=== PATIENT | female | born 1950 | race Caucasian/White ===

== ENCOUNTER 2017-03-27 21:43 | Emergency (ER) | payer MEDICARE, OTHER, SELFPAY ==
[2017-03-27 21:45] VITALS: BP 133/70; PULSE 71; RESP 16; TEMP 36.6; O2SAT 97
--- NOTE | 2017-03-27 22:22 | CT_ITS ---
STUDY: CT ABDOMEN AND PELVIS WITH CONTRAST REASON FOR EXAM: Female, 66 years old. Right abdominal pain, low back pain RADIATION DOSAGE (If Supplied By Facility): CTDIvol = ( 16.46 ) mGy, DLP = ( 937.95 ) mGycm TECHNIQUE: Transaxial images were obtained from the dome of the diaphragm to the symphysis pubis without oral contrast. 100ML ml of Isovue 300 contrast was administered. Sagittal and coronal images were reconstructed. Individualized dose optimization techniques were used for this CT. COMPARISON: None. FINDINGS: The visualized lung bases are unremarkable. The visualized portions of the heart are within normal limits. Normal liver. Normal gallbladder and extrahepatic biliary system. Normal spleen. Normal pancreas. Normal bilateral adrenal glands. Normal right kidney. 1.4 cm cystic nodule in the left kidney. Normal visualized stomach. Normal small intestine. Mild diverticulosis of the colon. The appendix is visualized and appears normal. Calcified abdominal aorta. Normal inferior vena cava. Normal retroperitoneum. Subcentimeter mesenteric nodes are noted. Normal urinary bladder. Normal uterus. Normal abdominal wall. Normal osseous structures. CT/Abdomen/Pelvis W IV Cont ONLY IMPRESSION: Small left renal cystic nodule. Mild colonic diverticulosis. Electronically Signed: Pieter Sanchez DO at 23:23 EST Tel [phone], Service support ,
[2017-03-27] MEDS: Ondansetron 4 MG/2 ML Vial IV (22:34)
[2017-03-27] MEDS: 0.9% Normal Saline 1,000 ML 125 ML IV (22:34)
[2017-03-27 22:45] LABS: Bacteria 0 SEEN /hpf (None Seen); Mucous, Urine 0 SEEN /hpf (<or=2+)
[2017-03-27 22:48] LABS: Absolute Lymphocyte Count 2.36 X10^3/ul (0.83-4.51); Absolute Neutrophil Count 8.9 X10^3/uL (2.0-7.7); Basophil# 0.04 X10^3/uL; Basophil% 0.3 % (0-1); Eosinophil# 0.22 X10^3/uL; Eosinophils% 1.7 % (0-5); Hematocrit 38.7 % (37-47); Hemoglobin 12.6 g/dl (12.0-15.0); Lymphocyte # 2.36 X10^3/ul (4.0); Lymphocyte % 18.4 % (19-41); Mean Corp Hgb Conc 32.6 g/gl (32-36); Mean Corpuscular Hgb 29.9 pg (27.0-32.0); Mean Corpuscular Volume 91.9 fL (81-99); Monocyte# 1.29 X10^3/uL; Neutrophil # 8.92 X10^3/uL (2.7-7.7); Neutrophil % 69.4 % (47-70); Platelet Count 277 K/mm3 (150-450); RBC Distribution Width CV 12.9 % (11.6-14.6); RBC Distribution Width SD 43.4 fl (35.1-43.9); Red Blood Count 4.21 M/mm3 (4.2-5.4); White Blood Count 12.9 K/mm3 (4.4-11.0)
[2017-03-27 22:49] LABS: POSITIVE COUNT NO; POSITIVE DIFFERENTIAL NO; POSITIVE MORPHOLOGY NO
[2017-03-27 22:56] LABS: Color, Urine Yellow (Yellow); Glucose, Dipstick Normal (Normal); Ketone-Dipstick Negative (Negative); Leukocyte Esterase-Dipstick 100 /ul (Negative); Nitrite-Dipstick Negative (Negative); Occult Blood-Urine 25 /ul (Negative); Protein-Dipstick Negative (Negative); Specific Gravity, Urine 1.015 (1.002-1.030); Urine Bilirubin Dipstick Negative (Negative); Urine Clarity Clear (Clear); Urine Urobilinogen Normal (Normal)
[2017-03-27 23:03] LABS: Red Blood Cells-Urine 0-5 SEEN /hpf (0-5); Squamous Epithelial Cells - UA 0-5 SEEN /hpf (5-10); White Blood Cells 0-5 SEEN /hpf (0-5)
[2017-03-27 23:10] LABS: AST(SGOT) 11 U/L (15-37); Alanine Aminotransfer ALT/SGPT 19 U/L (12-78); Albumin, Serum 3.8 g/dL (3.4-5.0); Alkaline Phosphatase 64 U/L (45-117); Anion Gap 10 (5-15); BUN 19 mg/dL (7-18); BUN/Creat Ratio 17.3 RATIO (10-20); Calcium,Total 8.9 mg/dL (8.5-10.1); Chloride 101 mmol/L (98-107); EST Glomerular Filtration Rate 53 mL/min (>60); Est Glom Filt Rate - Afr Amer 64 mL/min (>60); Estimated Creatinine Clearance 43.44 ml/min; Globulin 3.8 g/dL (2.2-4.2); Glucose 135 mg/dL (70-110); Lactic Acid 1.6 mmol/L (0.4-2.0); Lipase 229 U/L (73-393); Potassium 3.9 mmol/L (3.5-5.1); Protein, Total 7.6 g/dL (6.4-8.2); Sodium Level 137 mmol/L (136-145)
--- NOTE | 2017-03-27 23:40 | ED.DCSUM_ITS ---
- ER Visit Summary Date of Service: 03/27/17 Chief Complaint: Abdominal pain History of Present Illness: The patient is a 66 F who states for the past 2-3 days she has had a right-sided abdominal pain. States it goes into her back and wraps around. Moderate nature it is a dull ache. She has had nausea and slight diarrhea. She had a colonoscopy that was negative the past however last year she had a bout of diverticulitis. Physical Examination: Febrile vital signs are stable Gen: Well-nourished well-developed Head: Normocephalic atraumatic Eyes: Perrl EOMI ENT: TMs clear no rhinorrhea moist mucous membranes Neck: Supple no lymphadenopathy no JVD nontender CVS: Regular rate rhythm no murmurs normal S1-S2 Respiratory: No distress clear to auscultation bilaterally chest nontender Abdomen: Soft tender to palpation on the right upper middle and lower quadrants without guarding or rebound nondistended normal bowel sounds no masses Back: Nontender Extremity: Nontender no edema Skin: Normal color no rash Neuro: alert orientated ?3 CN II-XII intact normal strength sensation reflexes gait cerebellar Psych: Normal affect normal mood Test Results: Count of 12.9. BUN 19 creatinine 1.1. Liver lipase normal. Lactic acid 1.6. CT of abdomen pelvis did not show an obvious cause for the patient's symptoms. A bedside ultrasound was performed of the gallbladder and she is not tender over the gallbladder. Emergency Department Course and Treatment: Patient will be discharged home with supportive care. She continues to have symptoms or is worsening she will need to return here for repeat examination as it is the weekend. Otherwise she may follow-up with her doctor next week. Impression: 1. Acute abdominal pain This note was generated with [email or web address] dictation software. It may contain incorrect words, spelling, and punctuation that were not noted in review of the chart prior to signing ED Disposition - Plan for ED Patient: Disposition: Home or Assisted Living Chief Complaint: Abd Pain Instructions: ED Abdominal Pain Unkn Cause Referrals: Yon Preciado DO [Primary Care Provider] - 3-5 Days if not improving Additional Instructions: If any new symptoms or you are worsening please return to the emergency department.
[2017-03-27 23:55] VITALS: BP 137/69; PULSE 68; RESP 16; O2SAT 97
== END 2017-03-27 23:56 | disposition home or self-care (01) ==
PROVIDERS: Emergency Provider Emergency Medicine; Family Provider Family Medicine; PCP Family Medicine
DX: R10.9 Unspecified abdominal pain (principal); E66.9 Obesity, unspecified; M54.9 Dorsalgia, unspecified; R19.7 Diarrhea, unspecified; R11.0 Nausea; J34.89 Other specified disorders of nose and nasal sinuses; I10 Essential (primary) hypertension; M79.7 Fibromyalgia; Z87.891 Personal history of nicotine dependence
CPT/HCPCS: 74176; 80053; 81001; 83605; 83690; 85025; 96361; 96374; 99283; J7030; Q9967; A4216; J2405

== ENCOUNTER → 2017-04-23 16:31 | Outpatient (CLI) | payer MEDICARE, OTHER, SELFPAY ==
--- NOTE | 2017-04-23 16:38 | RAD_ITS ---
XR Chest 2 Views INDICATION: cough COMPARISON: None FINDINGS: Heart size and pulmonary vascularity are within normal limits. The lungs are clear without evidence of airspace consolidation or pleural effusion. The osseous structures are grossly unremarkable. RAD/Chest PA and Lateral IMPRESSION: No radiographic evidence of acute intrathoracic disease. at 2042 Reported and signed by: Helen Patricia MD Electronically Signed: Helen Patricia MD at 19:41 EST Tel , Service support ,
== END ==
PROVIDERS: Family Provider Family Medicine; PCP Family Medicine; Visit Provider Family Medicine
DX: J18.9 Pneumonia, unspecified organism (principal)
CPT/HCPCS: 71046

== ENCOUNTER → 2017-05-14 12:42 | Outpatient (CLI) | payer MEDICARE, OTHER, SELFPAY ==
--- NOTE | 2017-05-20 11:47 | UEAS_ITS ---
Arterial Study - Arterial Study Arterial Study: Date of scan 05/14/[address] Norwood Interpretation: Right upper extremity with normal pulsatile flow up in the upper arm brachial pressure of 147. Digital brachial index is maintained throughout from 0.93- 1.01 through all 5 digits. Left upper extremity with a brachial pressure 152. Again digital brachial index digits 1 through 5 are maintained ranging between 0.9 and 0.97. Impression: 1. Bilateral upper extremities with no evidence of significant arterial occlusive disease with main contained digit brachial index throughout all 5 fingers on both upper extremities
== END ==
PROVIDERS: Family Provider Family Medicine; PCP Family Medicine; Visit Provider Surgery Vascular Surgery
DX: I77.1 Stricture of artery (principal); I65.23 Occlusion and stenosis of bilateral carotid arteries; E11.9 Type 2 diabetes mellitus without complications; I10 Essential (primary) hypertension; E78.00 Pure hypercholesterolemia, unspecified; M79.7 Fibromyalgia
CPT/HCPCS: 93922; 93930

== ENCOUNTER → 2017-07-09 09:02 | Outpatient (CLI) | payer MEDICARE, OTHER, SELFPAY ==
--- NOTE | 2017-07-09 09:05 | AAVD_ITS ---
Reason For Study: reformed smoker, HTN, HLD Aorta Measurements Aorta Doppler Measurements Proximal aorta measures1.36 x 1.26cm. in cross- Peak systolic flow velocities within the proximal sectional axis. aorta measure 119 cm/sec. Proximal aorta measures1.27cm. in longitudinal Peak systolic flow velocities within the mid axis. aorta measure 94.6 cm/sec. Mid aorta measures1.26 x 1.21cm. in cross- Peak systolic flow velocities within the distal sectional axis. aorta measure 83.0 cm/sec. Mid aorta measures1.26cm. in longitudinal axis. Distal aorta measures1.01 x 1.08cm. in cross- sectional axis. Distal aorta measures1.03cm. in longitudinal axis. Left Iliac Artery Left iliac artery measures .659 x .739 cm. in the cross-sectional axis. Left iliac artery measures .745 cm. in the longitudinal axis. Peak systolic velocity in the left iliac artery measures 137 cm/sec. Right Iliac Artery Right iliac artery measures .655 x .830 cm. in the cross-sectional axis. Right iliac artery measures .711 cm. in the longitudinal axis. Peak systolic velocity in the right iliac artery measures 108 cm/sec. Procedure The exam was diagnostic. Exam performed in department. Interpretation Summary The dimensions of the intra-abdominal aorta are normal, without evidence of aneurysmal dilatation. The iliac arteries are also normal in size bilaterally. The intra-abdominal aorta and iliac arteries are patent, demonstrating normal, pulsatile arterial flow and peak systolic velocities. Ordering Physician: Yon Preciado Performed By: Randy Garcia RVT
--- NOTE | 2017-07-12 12:19 | LEAS ---
Arterial Study - Arterial Study Arterial Study: This is a 66-year-old female with a history of diabetes mellitus. The patient presents with lower extremity pain. Suspecting the presence of atherosclerotic peripheral arterial occlusive disease, the patient was brought to the noninvasive vascular laboratory at this time for the purpose of bilateral noninvasive lower extremity arterial assessment. Doppler signal assessment was used to evaluate the pulses at ankle level bilaterally. The posterior tibial and dorsalis pedis pulses were triphasic bilaterally. Segmental limb pressures were obtained bilaterally. The right ankle pressure, as determined by posterior tibial pulse, was measured at 167 mmHg. The right ankle pressure, as determined by dorsalis pedis pulse, was measured at 160 mmHg. The right digital pressure was measured at 106 mmHg. The left ankle pressure, as determined by posterior tibial pulse, was measured at 165 mmHg. The left ankle pressure, as determined by dorsalis pedis pulse, was measured at 154 mmHg. The left digital pressure was measured at 84 mmHg. Pulse-volume recordings were obtained at ankle and digital levels bilaterally. Waveform amplitudes appeared to be satisfactory. Resting ankle-brachial indices were calculated bilaterally. The resting right ankle-brachial index was calculated to be 1.11. The resting left ankle-brachial index was calculated to be 1.09. Digital-brachial indices were calculated bilaterally. The right digital-brachial index was calculated to be 0.70. The left digital-brachial index was calculated to be 0.56. Impression: Based upon the findings of this resting noninvasive lower extremity arterial study, arterial perfusion appears to be relatively normal to ankle level bilaterally. Triphasic waveforms were noted at ankle level bilaterally. Resting ankle-brachial indices are bilaterally normal. The right digital-brachial index is low-normal, suggesting relatively normal arterial flow at digital level in the right lower extremity. 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
--- NOTE | 2017-07-12 12:22 | LEAS_ITS ---
Arterial Study - Arterial Study Arterial Study: This is a 66-year-old female with a history of diabetes mellitus. The patient presents with lower extremity pain. Suspecting the presence of atherosclerotic peripheral arterial occlusive disease, the patient was brought to the noninvasive vascular laboratory at this time for the purpose of bilateral noninvasive lower extremity arterial assessment. Doppler signal assessment was used to evaluate the pulses at ankle level bilaterally. The posterior tibial and dorsalis pedis pulses were triphasic bilaterally. Segmental limb pressures were obtained bilaterally. The right ankle pressure, as determined by posterior tibial pulse, was measured at 167 mmHg. The right ankle pressure, as determined by dorsalis pedis pulse, was measured at 160 mmHg. The right digital pressure was measured at 106 mmHg. The left ankle pressure, as determined by posterior tibial pulse, was measured at 165 mmHg. The left ankle pressure, as determined by dorsalis pedis pulse, was measured at 154 mmHg. The left digital pressure was measured at 84 mmHg. Pulse-volume recordings were obtained at ankle and digital levels bilaterally. Waveform amplitudes appeared to be satisfactory. Resting ankle-brachial indices were calculated bilaterally. The resting right ankle-brachial index was calculated to be 1.11. The resting left ankle- brachial index was calculated to be 1.09. Digital-brachial indices were calculated bilaterally. The right digital- brachial index was calculated to be 0.70. The left digital-brachial index was calculated to be 0.56. Impression: Based upon the findings of this resting noninvasive lower extremity arterial study, arterial perfusion appears to be relatively normal to ankle level bilaterally. Triphasic waveforms were noted at ankle level bilaterally. Resting ankle-brachial indices are bilaterally normal. The right digital- brachial index is low-normal, suggesting relatively normal arterial flow at digital level in the right lower extremity. 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
== END ==
PROVIDERS: Family Provider Family Medicine; PCP Family Medicine; Visit Provider Family Medicine
DX: I10 Essential (primary) hypertension (principal); E78.5 Hyperlipidemia, unspecified; Z87.891 Personal history of nicotine dependence; M79.605 Pain in left leg; I83.92 Asymptomatic varicose veins of left lower extremity; I73.9 Peripheral vascular disease, unspecified
CPT/HCPCS: 93922; 93978

== ENCOUNTER → 2017-12-07 10:05 | Outpatient (CLI) | payer MEDICARE, OTHER, SELFPAY ==
[2017-12-07 10:37] LABS: Absolute Lymphocyte Count 1.81 X10^3/ul (0.83-4.51); Absolute Neutrophil Count 4.1 X10^3/uL (2.0-7.7); Basophil# 0.02 X10^3/uL; Basophil% 0.3 % (0-1); Eosinophil# 0.11 X10^3/uL; Eosinophils% 1.7 % (0-5); Hematocrit 39.3 % (37-47); Hemoglobin 12.6 g/dl (12.0-15.0); Lymphocyte # 1.81 X10^3/ul (4.0); Lymphocyte % 27.3 % (19-41); Mean Corp Hgb Conc 32.1 g/gl (32-36); Mean Corpuscular Hgb 29.5 pg (27.0-32.0); Monocyte# 0.59 X10^3/uL; Monocyte% 8.9 % (0-10); Neutrophil # 4.09 X10^3/uL (2.7-7.7); Neutrophil % 61.6 % (47-70); Platelet Count 294 K/mm3 (150-450); RBC Distribution Width CV 12.9 % (11.6-14.6); RBC Distribution Width SD 43.1 fl (35.1-43.9); Red Blood Count 4.27 M/mm3 (4.2-5.4); White Blood Count 6.6 K/mm3 (4.4-11.0)
[2017-12-07 10:38] LABS: POSITIVE COUNT NO; POSITIVE DIFFERENTIAL NO; POSITIVE MORPHOLOGY NO
[2017-12-07 11:04] LABS: Hemoglobin A1c 6.8 % (4.2-6.3)
[2017-12-07 11:13] LABS: AST(SGOT) 15 U/L (15-37); Alanine Aminotransfer ALT/SGPT 20 U/L (13-56); Albumin, Serum 3.7 g/dL (3.2-5.0); Alkaline Phosphatase 63 U/L (45-117); Anion Gap 9 (5-15); BUN 21 mg/dL (7-18); BUN/Creat Ratio 18.6 RATIO (10-20); Calcium,Total 9.5 mg/dL (8.5-10.1); Chloride 102 mmol/L (98-107); Cholesterol 262 mg/dL (200); Creatinine, Serum 1.13 mg/dL (0.55-1.02); EST Glomerular Filtration Rate 51 mL/min (>60); Est Glom Filt Rate - Afr Amer 62 mL/min (>60); Globulin 3.7 g/dL (2.2-4.2); Glucose 124 mg/dL (74-106); High Density Lipoprotein 48 mg/dL; Potassium 3.9 mmol/L (3.5-5.1); Protein, Total 7.4 g/dL (6.4-8.2); Sodium Level 138 mmol/L (136-145); Triglycerides 133 mg/dL; Very Low Density Lipoprotein 27 mg/dL (5-40)
== END ==
PROVIDERS: Family Provider Family Medicine; PCP Family Medicine; Referring Provider Family Medicine; Visit Provider Family Medicine
DX: I10 Essential (primary) hypertension (principal); E78.5 Hyperlipidemia, unspecified; E11.9 Type 2 diabetes mellitus without complications
CPT/HCPCS: 36415; 80053; 80061; 83036; 85025

== ENCOUNTER → 2018-01-25 12:19 | Outpatient (CLI) | payer MEDICARE, OTHER, SELFPAY ==
--- NOTE | 2018-01-25 12:24 | BI_ITS ---
MAMMOGRAPHY - BILATERAL SCREENING REASON FOR EXAM: Female, 67 years old. Routine annual screening examination. PERTINENT HISTORY: Aunt with breast cancer. TECHNIQUE: Digital bilateral breast unruly (3D mammographic acquisition) in the CC and MLO projections. 2-D mediolateral oblique (MLO) and craniocaudad (CC) views of both breasts were obtained. CAD: Full Field Digital Mammography with Computer Added Detection was performed. COMPARISON: Comparison is made with prior study dated September 28, 2015 and May 30, 2014. FINDINGS: Breast Composition: The breasts are almost entirely fatty. There are no dominant masses or suspicious calcifications. Stable 3.3 mm well-defined nodule in the anterior superior lateral portion of the left breast. Tiny calcifications are seen most likely representing a calcifying fibroadenoma. Correlation with ultrasound is recommended. No other significant abnormalities are identified. There has been no significant change since the prior study. BI/SCREENING MAMM (CAD), BILAT IMPRESSION: Stable bilateral screening mammogram. Correlation with ultrasound and a small partially calcified nodule in the left breast as described. ASSESSMENT CATEGORY: BIRADS Category 0: Incomplete. Need additional imaging evaluation. A letter regarding these results will be sent to the patient by the facility within 30 days. Approximately 10% of breast cancers are not detected by mammography. A normal mammogram should not delay biopsy of a clinically suspicious abnormality. [id number] Electronically Signed: Deandre Shetty MD at 15:37 EST Tel [phone], Service support ,
== END ==
PROVIDERS: Family Provider Family Medicine; PCP Family Medicine; Visit Provider Family Medicine
DX: Z12.31 Encounter for screening mammogram for malignant neoplasm of breast (principal)
CPT/HCPCS: 77063; 77067

== ENCOUNTER → 2018-01-27 13:49 | Outpatient (CLI) | payer MEDICARE, OTHER, SELFPAY ==
--- NOTE | 2018-01-27 13:52 | US_ITS ---
STUDY: ULTRASOUND BREAST - LEFT REASON FOR EXAM: Female, 67 years old. Abnormal screening mammogram. TECHNIQUE: Axial and longitudinal images of the LEFT breast were performed with a high resolution ultrasound transducer. COMPARISON: Comparison is made with prior mammogram dated January 25, 2018. FINDINGS: LEFT Breast: There is a 3 mm x 3 mm x 2 mm cyst at the 2:00 position of the breast at 2 cm from nipple. US/Breast Limited Unilateral IMPRESSION: 3 mm x 3 mm x 2 mm cyst at the 2:00 position of the breast at 2 cm from nipple. ASSESSMENT CATEGORY: BIRADS Category 2: Benign. A letter regarding these results will be sent to the patient by the facility within 30 days. Electronically Signed: Deandre Shetty MD at 14:49 EST Tel [phone], Service support ,
--- OUTSIDE RECORDS SUMMARY | 2018-03-24 23:37 | XMS RPT_ITS ---
:1950 Author Organization [place] Support Name Relationship Address Phone SHIPMANDEBBI LAMAR Unavailable [address] + [place] [address] R Unavailable Unavailable Unavailable ALAN, SIMEON Unavailable [address] + [place] [address] SHIPMANDEBBI LAMAR Unavailable [address] + [place] [address] R Unavailable Unavailable Unavailable ALAN, SIMEON Unavailable [address] + [place] [address] DEBBI SHIPMAN Unavailable [address] + [place] [address] R Unavailable Unavailable Unavailable ALAN, SIMEON Unavailable [address] + [place] [address] SHIPMANDEBBI Unavailable [address] + [place] [address] R Unavailable Unavailable Unavailable ALAN, SIMEON Unavailable [address] + [place] [address] DEBBI SHIPMAN Unavailable [address] + [place] [address] R Unavailable Unavailable Unavailable ALAN, SIMEON Unavailable [address] + [place] [address] DEBBI SHIPMAN Unavailable [address] + [place] [address] R Unavailable Unavailable Unavailable ALAN, SIMEON Unavailable [address] + [place] [address] DEBBI SHIPMAN Unavailable [address] + [place] [address] R Unavailable Unavailable Unavailable ALAN, SIMEON Unavailable [address] + [place] [address] DEBBI SHIPMAN Unavailable [address] + [place] [address] R Unavailable Unavailable Unavailable Care Team Providers Name Role Phone IlanaYon rivers Attending Unavailable Ilana, Yon Primary Care Unavailable Ilana, Yon Primary Care Unavailable Gerardo Hardy Attending Unavailable Ilana, Yon Attending Unavailable Ilana, Yon Referring Unavailable Ilana, Yon Primary Care Unavailable Lazaro Norwood Attending Unavailable Lazaro Norwood Referring Unavailable Ilana, Yon Primary Care Unavailable Ilana, Yon Attending Unavailable Ilana, Yon Referring Unavailable Ilana, Yon Primary Care Unavailable Ilana, Yon Attending Unavailable Ilana, Yon Primary Care Unavailable Ilana, Yon Referring Unavailable Ilana, Yon Attending Unavailable Ilana, Yon Primary Care Unavailable Ilana, Yon Attending Unavailable Ilana, Yon Primary Care Unavailable PROBLEMS PROBLEMS DATE TYPE CONDITION / CODE ATTENDING STATUS SOURCE 12/07/2017 Unknown E11.9 - Type 2 Yon Preciado Active [place] diabetes mellitus Community without Hospital complications / Repository E11.9(ICD-10) 12/07/2017 Unknown I10 - Essential Yon Preciado Active [place] (primary) Community hypertension / Hospital I10(ICD-10) Repository 12/07/2017 Unknown E78.5 - Yon Preciado Active [place] Hyperlipidemia, Community unspecified / Hospital E78.5(ICD-10) Repository 07/09/2017 Unknown Z87.891 - Personal Yon Preciado Active [place] history of nicotine Community dependence / Hospital Z87.891(ICD-10) Repository 05/14/2017 Unknown I77.1 - Stricture Lazaro Norwood A Active [place] of artery / Community I77.1(ICD-10) Hospital Repository 05/14/2017 Unknown I65.23 - Occlusion Lazaro Norwood A Active [place] and stenosis of Community bilateral carotid Hospital arteries / Repository I65.23(ICD-10) 04/23/2017 Unknown J18.9 - Pneumonia, Yon Preciado Active [place] unspecified Community organism / Hospital J18.9(ICD-10) Repository 03/23/2017 Unknown R07.89 - Other Yon Preciado Active [place] chest pain / Community R07.89(ICD-10) Hospital Repository 03/23/2017 Unknown R53.1 - Weakness / Yon Preciado Active [place] R53.1(ICD-10) [facility] Repository 03/23/2017 Unknown M79.1 - Myalgia / Yon Preciado Active [place] M79.1(ICD-10) [facility] Repository PROCEDURES PROCEDURES No Procedure Records FoundRESULTS RESULTS BREAST LIMITED Observed: 01/27/2018 Status: F Source: [place] UNILATERAL 1:52 PM [facility] REPOSITORY [facility] Imaging Services [address] [place] [address] Breast Limited Unilateral MR#: [id number] Acct: [id number] Name: QUANG SHIPMAN Rep #: [id number] : 1950 F 67 From: Deandre Shetty MD PCP: Yon Preciado DO Status: REG CLI Study: Breast Limited Unilateral Date of Exam: 01/27/18 Exam# [id number] Ordering Dr: Yon Preciado DO STUDY: ULTRASOUND BREAST - LEFT REASON FOR EXAM: Female, 67 years old. Abnormal screening mammogram. TECHNIQUE: Axial and longitudinal images of the LEFT breast were performed with a high resolution ultrasound transducer. COMPARISON: Comparison is made with prior mammogram dated January 25, 2018. FINDINGS: LEFT Breast: There is a 3 mm x 3 mm x 2 mm cyst at the 2:00 position of the breast at 2 cm from nipple. US/Breast Limited Unilateral IMPRESSION: 3 mm x 3 mm x 2 mm cyst at the 2:00 position of the breast at 2 cm from nipple. ASSESSMENT CATEGORY: BIRADS Category 2: Benign. A letter regarding these results will be sent to the patient by the facility within 30 days. Electronically Signed: Deandre Shetty MD at 14:49 EST Tel [phone], Service support , CC: Yon Preciado DO Plug Machine Operator: Signed SCREENING MAMM (CAD), Observed: 01/25/2018 Status: F Source: [place] BILAT 12:24 PM [facility] REPOSITORY [facility] Imaging Services [address] [place] [address] SCREENING MAMM (CAD), BILAT MR#: [id number] Acct: [id number] Name: QUANG SHIPMAN Rep #: [id number] : 1950 F 67 From: Deandre Shetty MD PCP: Yon Preciado DO Status: REG CLI Study: SCREENING MAMM (CAD), BILAT Date of Exam: 01/25/18 Exam# [id number] Ordering Dr: Yon Preciado DO MAMMOGRAPHY - BILATERAL SCREENING REASON FOR EXAM: Female, 67 years old. Routine annual screening examination. PERTINENT HISTORY: Aunt with breast cancer. TECHNIQUE: Digital bilateral breast unruly (3D mammographic acquisition) in the CC and MLO projections. 2-D mediolateral oblique (MLO) and craniocaudad (CC) views of both breasts were obtained. CAD: Full Field Digital Mammography with Computer Added Detection was performed. COMPARISON: Comparison is made with prior study dated September 28, 2015 and May 30, 2014. FINDINGS: Breast Composition: The breasts are almost entirely fatty. There are no dominant masses or suspicious calcifications. Stable 3.3 mm well-defined nodule in the anterior superior lateral portion of the left breast. Tiny calcifications are seen most likely representing a calcifying fibroadenoma. Correlation with ultrasound is recommended. No other significant abnormalities are identified. There has been no significant change since the prior study. BI/SCREENING MAMM (CAD), BILAT IMPRESSION: Stable bilateral screening mammogram. Correlation with ultrasound and a small partially calcified nodule in the left breast as described. ASSESSMENT CATEGORY: BIRADS Category 0: Incomplete. Need additional imaging evaluation. A letter regarding these results will be sent to the patient by the facility within 30 days. Approximately 10% of breast cancers are not detected by mammography. A normal mammogram should not delay biopsy of a clinically suspicious abnormality. [id number] Electronically Signed: Deandre Shetty MD at 15:37 EST Tel [phone], Service support , CC: Yon Preciado DO Plug Machine Operator: Signed CBC W/DIFF, AUTOMATED Collected: 12/07/2017 Status: F Source: [place] 10:14 AM [facility] REPOSITORY TYPE CODE TESTS RESULT OUT OF RANGE REFERENCE UNITS LAB L100.1000 4.4-11.0 K/mm3 Normal WBC 6.6 LAB L100.1200 4.2-5.4 M/mm3 Normal RBC 4.27 LAB L100.1300 12.0-15.0 g/dl Normal HGB 12.6 LAB L100.1400 37-47 % Normal HCT 39.3 LAB L100.1500 81-99 fL Normal MCV 92.0 LAB L100.1600 27.0-32.0 pg Normal MCH 29.5 LAB L100.1700 32-36 g/gl Normal MCHC 32.1 LAB L100.1810 11.6-14.6 % Normal RDW CV 12.9 LAB L100.1820 35.1-43.9 fl Normal RDW SD 43.1 LAB L100.1900 150-450 K/mm3 Normal PLT 294 LAB L100.2000 6.2-12.0 fl Normal MPV 9.0 LAB L100.2100 47-70 % Normal NEUT% 61.6 LAB L100.2200 19-41 % Normal LY% 27.3 LAB L100.2300 0-10 % Normal MONO% 8.9 LAB L100.2400 0-5 % Normal EO% 1.7 LAB L100.2500 0-1 % Normal BASO% 0.3 LAB L100.2550 0.0-0.9 % Normal IM GRAN % 0.200 Result Comment: IG% - Immature Granulocytes (promyelocytes, myelocytes and metamyelocytes) > 1% indicates that a LEFT SHIFT is Present. LAB L100.2620 2.0-7.7 X10 3/uL Normal Absolute Neut 4.1 LAB L100.2720 0.83-4.51 X10 3/ul Normal Absolute Lymph 1.81 Performed By: #### L100.0100 #### [facility] [address] [facility] [place], [address] HEMOGLOBIN A1C Collected: 12/07/2017 Status: F Source: [place] 10:14 AM [facility] REPOSITORY TYPE CODE TESTS RESULT OUT OF RANGE REFERENCE UNITS LAB L501.9985 4.2-6.3 % High HGB A1C 6.8 Performed By: #### L501.9985 #### [facility] [address] [place], [address] COMPREHENSIVE METABOLIC Collected: 12/07/2017 Status: F Source: [facility] 10:14 AM [facility] REPOSITORY TYPE CODE TESTS RESULT OUT OF RANGE REFERENCE UNITS LAB L501.0100 74-106 mg/dL High GLU 124 Result Comment: Fasting Glucose result from 100 to 125 mg/dL suggests IMPAIRED HOMEOSTASIS per A.D.A. criteria. Please note revised GLUCOSE reference range effective 2017. LAB L501.1000 7-18 mg/dL High BUN 21 LAB L501.1100 0.55-1.02 mg/dL High CREAT,SERUM 1.13 Result Comment: The validity of the calculated GFR AND GFRAA in patients over 70 years has not been determined. Clinical correlation is essential. LAB L501.1110 >60 mL/min Low EST GFR 51 Result Comment: Non- GFR Calc LAB L501.1115 >60 mL/min Normal EST GFR - AA 62 Result Comment: GFR Calc LAB L501.1300 10-20 RATIO Normal BUN/CRE 18.6 LAB L501.1500 6.4-8.2 g/dL T Normal PROT 7.4 LAB L501.1800 3.2-5.0 g/dL Normal ALB 3.7 LAB L501.1950 2.2-4.2 g/dL Normal GLOB 3.7 LAB L501.2000 0.9-2.4 RATIO Normal A/G 1.0 LAB L501.2200 8.5-10.1 mg/dL CA Normal 9.5 LAB L501.4100 15-37 U/L Normal AST 15 LAB L501.4305 45-117 U/L Normal ALK P 63 LAB L501.4405 13-56 U/L Normal ALT 20 LAB L501.4600 0.20-1.00 mg/dL T Normal BILI 0.60 LAB L501.5300 136-145 mmol/L NA Normal 138 LAB L501.5600 3.5-5.1 mmol/L K Normal 3.9 LAB L501.5900 98-107 mmol/L CL Normal 102 LAB L501.6100 21.0-32.0 mmol/L Normal CO2 27.0 LAB L501.6200 5-15 Normal GAP 9 Performed By: #### L500.4050, L500.4100 #### [facility] [address] [place], [place], [id number] LIPID PROFILE Collected: 12/07/2017 Status: F Source: [place] 10:14 AM [facility] REPOSITORY TYPE CODE TESTS RESULT OUT OF RANGE REFERENCE UNITS LAB L501.4900 200 mg/dL High CHOL 262 Result Comment: <200 mg/dL Desirable 200-240 mg/dL Borderline >240 mg/dL High Risk LAB L501.5000 mg/dL Normal TRIG 133 Result Comment: The drugs N-Acetylcysteine and Metamizole may falsely depress this assay. Serum Triglycerides Reference Interval Normal <150 mg/dL Borderline high 150 - 199 mg/dL High 200 - 499 mg/dL Very High > or = 500 mg/dL LAB L501.6400 mg/dL Normal HDL 48 Result Comment: The drugs N-Acetylcysteine and Metamizole may falsely depress this assay. Reference Range HDL <40 mg/dL Low HDL Cholesterol HDL >or= 60 mg/dL High HDL Cholesterol LAB L501.6500 0-130 mg/dL High LDL 187 LAB L501.6600 5-40 mg/dL Normal VLDL 27 Performed By: #### L500.4050, L500.4100 #### [facility] [address] [place], [place], [id number] LOWER EXT ARTERIAL Observed: 07/12/2017 Status: F Source: [place] STUDY 12:22 PM [facility] REPOSITORY [facility] Cardiovascular Services [address] [place] [address] 07/12/17 1219 MR#: [id number] Acct: [id number] Name: QUANG SHIPMAN Rep #: [id number] : 1950 66 From: Eze Vincent MD Attending Dr: Yon Preciado DO Status: REG CLI Ordering Dr: Date: 07/12/17 Location: [facility] Sex: F C Admitted: Arterial Study - Arterial Study Arterial Study: This is a 66-year-old female with a history of diabetes mellitus. The patient presents with lower extremity pain. Suspecting the presence of atherosclerotic peripheral arterial occlusive disease, the patient was brought to the noninvasive vascular laboratory at this time for the purpose of bilateral noninvasive lower extremity arterial assessment. Doppler signal assessment was used to evaluate the pulses at ankle level bilaterally. The posterior tibial and dorsalis pedis pulses were triphasic bilaterally. Segmental limb pressures were obtained bilaterally. The right ankle pressure, as determined by posterior tibial pulse, was measured at 167 mmHg. The right ankle pressure, as determined by dorsalis pedis pulse, was measured at 160 mmHg. The right digital pressure was measured at 106 mmHg. The left ankle pressure, as determined by posterior tibial pulse, was measured at 165 mmHg. The left ankle pressure, as determined by dorsalis pedis pulse, was measured at 154 mmHg. The left digital pressure was measured at 84 mmHg. Pulse-volume recordings were obtained at ankle and digital levels bilaterally. Waveform amplitudes appeared to be satisfactory. Resting ankle-brachial indices were calculated bilaterally. The resting right ankle-brachial index was calculated to be 1.11. The resting left ankle-brachial index was calculated to be 1.09. Digital-brachial indices were calculated bilaterally. The right digital-brachial index was calculated to be 0.70. The left digital-brachial index was calculated to be 0.56. Impression: Based upon the findings of this resting noninvasive lower extremity arterial study, arterial perfusion appears to be relatively normal to ankle level bilaterally. Triphasic waveforms were noted at ankle level bilaterally. Resting ankle-brachial indices are bilaterally normal. The right digital-brachial index is low- normal, suggesting relatively normal arterial flow at digital level in the right lower extremity. 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 07/12/17 1222 <Electronically signed by Eze Vincent MD> Date Eze Vincent MD CC: Yon Preciado DO Date Dictated: 07/12/179 Date Transcribed: 07/12/171218 Plug Machine Operator: LAS Signed ABD AORTIC/IVC DUPLEX Observed: 07/10/2017 Status: F Source: [place] SCAN 12:07 AM [facility] REPOSITORY [facility] Cardiovascular Services [address] [place] [address] [place] [address] Abd Aortic/IVC Duplex scan 07/09/17915 MR#: [id number] Acct: [id number] Name: QUANG SHIPMAN Rep #: [id number] : 1950 66 From: Eze Vincent MD Attending Dr: Yon Preciado DO Status: REG CLI Ordering Dr: Yon Preciado DO Date: 07/09/17 Location: [facility] Sex: F C Admitted: Reason For Study: reformed smoker, HTN, HLD Aorta Measurements Aorta Doppler Measurements Proximal aorta measures1.36 x 1.26cm. in cross- Peak systolic flow velocities within the proximal sectional axis. aorta measure 119 cm/sec. Proximal aorta measures1.27cm. in longitudinal Peak systolic flow velocities within the mid axis. aorta measure 94.6 cm/sec. Mid aorta measures1.26 x 1.21cm. in cross- Peak systolic flow velocities within the distal sectional axis. aorta measure 83.0 cm/sec. Mid aorta measures1.26cm. in longitudinal axis. Distal aorta measures1.01 x 1.08cm. in cross- sectional axis. Distal aorta measures1.03cm. in longitudinal axis. Left Iliac Artery Left iliac artery measures .659 x .739 cm. in the cross-sectional axis. Left iliac artery measures .745 cm. in the longitudinal axis. Peak systolic velocity in the left iliac artery measures 137 cm/sec. Right Iliac Artery Right iliac artery measures .655 x .830 cm. in the cross-sectional axis. Right iliac artery measures .711 cm. in the longitudinal axis. Peak systolic velocity in the right iliac artery measures 108 cm/sec. Procedure The exam was diagnostic. Exam performed in department. Interpretation Summary The dimensions of the intra-abdominal aorta are normal, without evidence of aneurysmal dilatation. The iliac arteries are also normal in size bilaterally. The intra-abdominal aorta and iliac arteries are patent, demonstrating normal, pulsatile arterial flow and peak systolic velocities. Ordering Physician: Yon Preciado Performed By: Randy Garcia, RVT 07/10/175 Date Eze Vincent MD CC: Yon Preciado DO Date Dictated: 07/09/17915 Date Transcribed: 07/10/175 Plug Machine Operator: Signed UPPER EXT ARTERIAL Observed: 05/20/2017 Status: F Source: [facility] 11:47 AM [facility] REPOSITORY [facility] Cardiovascular Services [address] [place] [address] 05/20/17 1145 MR#: [id number] Acct: [id number] Name: QUANG SHIPMAN Rep #: [id number] : 1950 66 From: Lazaro Norwood MD Attending Dr: Lazaro Norwood MD Status: REG CLI Ordering Dr: Date: 05/20/17 Location: [facility] Sex: F C Admitted: Arterial Study - Arterial Study Arterial Study: Date of scan 05/14/[address] Norwood Interpretation: Right upper extremity with normal pulsatile flow up in the upper arm brachial pressure of 147. Digital brachial index is maintained throughout from 0.93- 1.01 through all 5 digits. Left upper extremity with a brachial pressure 152. Again digital brachial index digits 1 through 5 are maintained ranging between 0.9 and 0.97. Impression: 1. Bilateral upper extremities with no evidence of significant arterial occlusive disease with main contained digit brachial index throughout all 5 fingers on both upper extremities 05/20/17 1147 <Electronically signed by Lazaro Norwood MD> Date Lazaro Norwood MD CC: Lazaro Norwood MD; Yon Preciado DO Date Dictated: 05/20/17 1145 Date Transcribed: 05/20/17 114 Plug Machine Operator: CATINA Signed CHEST PA AND LATERAL Observed: 04/23/2017 Status: F Source: [place] 4:39 PM [facility] REPOSITORY [facility] Imaging Services [address] [place] [address] Chest PA and Lateral MR#: [id number] Acct: [id number] Name: QUANG SHIPMAN Rep #: [id number] : 1950 F 66 From: Helen Patricia MD PCP: Yon Preciado DO Status: REG CLI Study: Chest PA and Lateral Date of Exam: 04/23/17 Exam# [id number] Ordering Dr: Yon Preciado DO XR Chest 2 Views INDICATION: cough COMPARISON: None FINDINGS: Heart size and pulmonary vascularity are within normal limits. The lungs are clear without evidence of airspace consolidation or pleural effusion. The osseous structures are grossly unremarkable. RAD/Chest PA and Lateral IMPRESSION: No radiographic evidence of acute intrathoracic disease. at 2042 Reported and signed by: Helen Patricia MD Electronically Signed: Helen Patricia MD at 19:41 EST Tel , Service support , CC: Yon Preciado DO Plug Machine Operator: Signed EMERGENCY DEPARTMENT Observed: 03/29/2017 Status: F Source: [place] SUMMARY 6:57 AM [facility] REPOSITORY [facility] Medical Records Department [address] [place] [address] Emergency Department Summary 03/27/17 2336 MR#: [id number] Acct: [id number] Name: QUANG SHIPMAN Rep #: [id number] : 1950 66 From: Hardy Carrillo DO PCP: Yon Preciado DO Status: DEP ER - ER Visit Summary Date of Service: 03/27/17 Chief Complaint: Abdominal pain History of Present Illness: The patient is a 66 F who states for the past 2-3 days she has had a right-sided abdominal pain. States it goes into her back and wraps around. Moderate nature it is a dull ache. She has had nausea and slight diarrhea. She had a colonoscopy that was negative the past however last year she had a bout of diverticulitis. Physical Examination: Febrile vital signs are stable Gen: Well-nourished well-developed Head: Normocephalic atraumatic Eyes: Perrl EOMI ENT: TMs clear no rhinorrhea moist mucous membranes Neck: Supple no lymphadenopathy no JVD nontender CVS: Regular rate rhythm no murmurs normal S1-S2 Respiratory: No distress clear to auscultation bilaterally chest nontender Abdomen: Soft tender to palpation on the right upper middle and lower quadrants without guarding or rebound nondistended normal bowel sounds no masses Back: Nontender Extremity: Nontender no edema Skin: Normal color no rash Neuro: alert orientated 3 CN II-XII intact normal strength sensation reflexes gait cerebellar Psych: Normal affect normal mood Test Results: Count of 12.9. BUN 19 creatinine 1.1. Liver lipase normal. Lactic acid 1.6. CT of abdomen pelvis did not show an obvious cause for the patient's symptoms. A bedside ultrasound was performed of the gallbladder and she is not tender over the gallbladder. Emergency Department Course and Treatment: Patient will be discharged home with supportive care. She continues to have symptoms or is worsening she will need to return here for repeat examination as it is the weekend. Otherwise she may follow- up with her doctor next week. Impression: 1. Acute abdominal pain This note was generated with Timeet dictation software. It may contain incorrect words, spelling, and punctuation that were not noted in review of the chart prior to signing ED Disposition - Plan for ED Patient: Disposition: Home or Assisted Living Chief Complaint: Abd Pain Instructions: ED Abdominal Pain Unkn Cause Referrals: Yon Preciado DO [Primary Care Provider] - 3-5 Days if not improving Additional Instructions: If any new symptoms or you are worsening please return to the emergency department. What to do if you have Problems For any increased pain, shortness of breath, bleeding, nausea or vomiting, chest pain, or any unexpected problems, contact your Primary Care Provider. Call [facility] ([phone]) or report to the closest Emergency Room. Call 911 if necessary. 03/29/17 0657 <Electronically signed by Hardy Carrillo DO> Date Hardy Carrillo DO Cosigner Signature (If Indicated): Date CC: Yon Preciado DO URINALYSIS, COMPLETE Collected: 03/27/2017 Status: F Source: [place] 10:40 PM [facility] REPOSITORY Order Comment: How was Urine Obtained? CLEAN CATCH TYPE CODE TESTS RESULT OUT OF RANGE REFERENCE UNITS LAB L400.3000 Yellow COLOR Normal Yellow LAB L400.3050 Clear Normal CLARITY Clear LAB L400.3200 Normal mg/dl Normal GLUCOSE, UR Normal LAB L400.3300 Negative mg/dL Normal BILIRUBIN URINE Negative LAB L400.3400 Negative mg/dl Normal KETONE UR Negative LAB L400.3465 1.002-1.030 Normal SP.GR. DIPSTX 1.015 LAB L400.3550 5.0 - 8.0 pH UR Normal 5.0 LAB L400.3600 Negative mg/dl PROT Normal DIPSTX Negative LAB L400.3700 Normal mg/dl Normal UROBILI Normal LAB L400.3750 Negative Normal NITRITE UR Negative LAB L400.3780 Negative /ul High 25 OCCULT BLOOD-UR LAB L400.3800 Negative /ul High LEUK ESTERASE 100 LAB L400.4050 0-5 /hpf WBC Normal 0-5 SEEN LAB L400.4100 0-5 /hpf Normal RBC-UA 0-5 SEEN LAB L400.4150 5-10 /hpf SQUAM Normal EPI 0-5 SEEN LAB L400.4300 None Seen /hpf 0 Normal BACTERIA SEEN LAB L400.4350 <or=2+ /hpf 0 Normal MUCUS, URINE SEEN Performed By: #### L400.0001 #### [facility] [address] [place], [address] CBC W/DIFF, AUTOMATED Collected: 03/27/2017 Status: F Source: [place] 10:35 PM [facility] REPOSITORY TYPE CODE TESTS RESULT OUT OF RANGE REFERENCE UNITS LAB L100.1000 4.4-11.0 K/mm3 High WBC 12.9 LAB L100.1200 4.2-5.4 M/mm3 Normal RBC 4.21 LAB L100.1300 12.0-15.0 g/dl Normal HGB 12.6 LAB L100.1400 37-47 % Normal HCT 38.7 LAB L100.1500 81-99 fL Normal MCV 91.9 LAB L100.1600 27.0-32.0 pg Normal MCH 29.9 LAB L100.1700 32-36 g/gl Normal MCHC 32.6 LAB L100.1810 11.6-14.6 % Normal RDW CV 12.9 LAB L100.1820 35.1-43.9 fl Normal RDW SD 43.4 LAB L100.1900 150-450 K/mm3 Normal PLT 277 LAB L100.2000 6.2-12.0 fl Normal MPV 9.0 LAB L100.2100 47-70 % Normal NEUT% 69.4 LAB L100.2200 19-41 % Low LY% 18.4 LAB L100.2300 0-10 % Normal MONO% 10.0 LAB L100.2400 0-5 % Normal EO% 1.7 LAB L100.2500 0-1 % Normal BASO% 0.3 LAB L100.2550 0.0-0.9 % Normal IM GRAN % 0.200 Result Comment: IG% - Immature Granulocytes (promyelocytes, myelocytes and metamyelocytes) > 1% indicates that a LEFT SHIFT is Present. LAB L100.2620 2.0-7.7 X10 3/uL High Absolute Neut 8.9 LAB L100.2720 0.83-4.51 X10 3/ul Normal Absolute Lymph 2.36 Performed By: #### L100.0100 #### [facility] [place], [address] COMPREHENSIVE METABOLIC Collected: 03/27/2017 Status: F Source: [place] 10:35 PM [facility] REPOSITORY TYPE CODE TESTS RESULT OUT OF RANGE REFERENCE UNITS LAB L501.0100 70-110 mg/dL High GLU 135 Result Comment: Fasting Glucose result greater than or equal to 126 mg/dL suggests DIABETES MELLITUS per A.D.A. criteria. LAB L501.1000 7-18 mg/dL High BUN 19 LAB L501.1100 0.55-1.02 mg/dL High CREAT,SERUM 1.10 Result Comment: The validity of the calculated GFR AND GFRAA in patients over 70 years has not been determined. Clinical correlation is essential. LAB L501.1110 >60 mL/min Low EST GFR 53 Result Comment: Non- GFR Calc LAB L501.1115 >60 mL/min Normal EST GFR - AA 64 Result Comment: GFR Calc LAB L501.1255 ml/min Normal Estimated CRCL 43.44 LAB L501.1300 10-20 RATIO Normal BUN/CRE 17.3 LAB L501.1500 6.4-8. g/dL Normal 2 T PROT 7.6 LAB L501.1800 3.4-5. g/dL Normal 0 ALB 3.8 Result Comment: Please note revised Albumin AND Globulin reference range effective 2016. LAB L501.1950 2.2-4.2 g/dL Normal GLOB 3.8 LAB L501.2000 0.9-2.4 RATIO Normal A/G 1.0 LAB L501.2200 8.5-10.1 mg/dL Normal CA 8.9 LAB L501.4100 15-37 U/L Low AST 11 LAB L501.4305 45-117 U/L Normal ALK P 64 LAB L501.4405 12-78 U/L Normal ALT 19 LAB L501.4600 0.20-1.00 mg/dL Normal T BILI 0.60 LAB L501.5300 136-145 mmol/L Normal NA 137 LAB L501.5600 3.5-5.1 mmol/L Normal K 3.9 LAB L501.5900 98-107 mmol/L Normal CL 101 LAB L501.6100 21.0-32.0 mmol/L Normal CO2 26.0 LAB L501.6200 5-15 Normal GAP 10 Performed By: #### L500.4050, L501.2450 #### [facility] [address] [place], [address] LIPASE Collected: 03/27/2017 Status: F Source: ELCHO 10:35 PM [facility] REPOSITORY TYPE CODE TESTS RESULT OUT OF RANGE REFERENCE UNITS LAB L501.2450 73-393 U/L Normal LIPASE 229 Performed By: #### L500.4050, L501.2450 #### [facility] [address] [place], [address] LACTIC ACID Collected: 03/27/2017 Status: F Source: ELCHO 10:35 PM [facility] REPOSITORY Order Comment: Yes/No query for Sepsis Lactate Rule Y TYPE CODE TESTS RESULT OUT OF RANGE REFERENCE UNITS LAB L503.6005 0.4-2.0 mmol/L Normal LACTIC ACID 1.6 Performed By: #### L503.6005 #### [facility] [address] [place], [address] ABDOMEN/PELVIS W IV CONT Observed: 03/27/2017 Status: F Source: JANICE ONLY 10:23 PM [facility] REPOSITORY [facility] Imaging Services [address] [place] [address] Abdomen/Pelvis W IV Cont ONLY MR#: [id number] Acct: [id number] Name: QUANG SHIPMAN Rep #: [id number] : 1950 F 66 From: Pieter Sanchez DO PCP: Yon Preciado DO Status: REG ER Study: Abdomen/Pelvis W IV Cont ONLY Date of Exam: 03/27/17 Exam# [id number] Ordering Dr: Hardy Carrillo DO STUDY: CT ABDOMEN AND PELVIS WITH CONTRAST REASON FOR EXAM: Female, 66 years old. Right abdominal pain, low back pain RADIATION DOSAGE (If Supplied By Facility): CTDIvol = ( 16.46 ) mGy, DLP = ( 937.95 ) mGycm TECHNIQUE: Transaxial images were obtained from the dome of the diaphragm to the symphysis pubis without oral contrast. 100ML ml of Isovue 300 contrast was administered. Sagittal and coronal images were reconstructed. Individualized dose optimization techniques were used for this CT. COMPARISON: None. FINDINGS: The visualized lung bases are unremarkable. The visualized portions of the heart are within normal limits. Normal liver. Normal gallbladder and extrahepatic biliary system. Normal spleen. Normal pancreas. Normal bilateral adrenal glands. Normal right kidney. 1.4 cm cystic nodule in the left kidney. Normal visualized stomach. Normal small intestine. Mild diverticulosis of the colon. The appendix is visualized and appears normal. Calcified abdominal aorta. Normal inferior vena cava. Normal retroperitoneum. Subcentimeter mesenteric nodes are noted. Normal urinary bladder. Normal uterus. Normal abdominal wall. Normal osseous structures. CT/Abdomen/Pelvis W IV Cont ONLY IMPRESSION: Small left renal cystic nodule. Mild colonic diverticulosis. Electronically Signed: Pieter Sanchez DO at 23:23 EST Tel [phone], Service support , CC: Hardy Carrillo DO; Yon Preciado DO Plug Machine Operator: Signed CBC W/DIFF, AUTOMATED Collected: 03/23/2017 Status: F Source: JANICE 11:19 AM [facility] REPOSITORY TYPE CODE TESTS RESULT OUT OF RANGE REFERENCE UNITS LAB L100.1000 4.4-11.0 K/mm3 Normal WBC 7.7 LAB L100.1200 4.2-5.4 M/mm3 Normal RBC 4.23 LAB L100.1300 12.0-15.0 g/dl Normal HGB 12.4 LAB L100.1400 37-47 % Normal HCT 38.7 LAB L100.1500 81-99 fL Normal MCV 91.5 LAB L100.1600 27.0-32.0 pg Normal MCH 29.3 LAB L100.1700 32-36 g/gl Normal MCHC 32.0 LAB L100.1810 11.6-14.6 % Normal RDW CV 12.9 LAB L100.1820 35.1-43.9 fl Normal RDW SD 42.9 LAB L100.1900 150-450 K/mm3 Normal PLT 293 LAB L100.2000 6.2-12.0 fl Normal MPV 9.3 LAB L100.2100 47-70 % Normal NEUT% 65.0 LAB L100.2200 19-41 % Normal LY% 24.0 LAB L100.2300 0-10 % Normal MONO% 8.4 LAB L100.2400 0-5 % Normal EO% 1.9 LAB L100.2500 0-1 % Normal BASO% 0.4 LAB L100.2550 0.0-0.9 % Normal IM GRAN % 0.300 Result Comment: IG% - Immature Granulocytes (promyelocytes, myelocytes and metamyelocytes) > 1% indicates that a LEFT SHIFT is Present. LAB L100.2620 2.0-7.7 X10 3/uL Normal Absolute Neut 5.0 LAB L100.2720 0.83-4.51 X10 3/ul Normal Absolute Lymph 1.85 Performed By: #### L100.0100, L101.9900 #### [facility] [address] [facility] [place], [place], [id number] ERYTHROCYTE SED RATE Collected: 03/23/2017 Status: F Source: ELCHO 11:19 AM [facility] REPOSITORY TYPE CODE TESTS RESULT OUT OF RANGE REFERENCE UNITS LAB L102.0000 0-30 mm/hr Normal SED RATE 25 Performed By: #### L100.0100, L101.9900 #### [facility] [address] [place], [place], [id number] COMPREHENSIVE METABOLIC Collected: 03/23/2017 Status: F Source: [facility] 11:19 AM [facility] REPOSITORY TYPE CODE TESTS RESULT OUT OF RANGE REFERENCE UNITS LAB L501.0100 70-110 mg/dL High GLU 122 Result Comment: Fasting Glucose result from 110 to <126 mg/dL suggests IMPAIRED HOMEOSTASIS per A.D.A. criteria. LAB L501.1000 7-18 mg/dL High BUN 23 LAB L501.1100 0.55-1.02 mg/dL High CREAT,SERUM 1.04 Result Comment: The validity of the calculated GFR AND GFRAA in patients over 70 years has not been determined. Clinical correlation is essential. LAB L501.1110 >60 mL/min Low EST GFR 56 Result Comment: Non- GFR Calc LAB L501.1115 >60 mL/min Normal EST GFR - AA 68 Result Comment: GFR Calc LAB L501.1300 10-20 RATIO High BUN/CRE 22.1 LAB L501.1500 6.4-8.2 g/dL T Normal PROT 7.4 LAB L501.1800 3.4-5.0 g/dL Normal ALB 3.8 Result Comment: Please note revised Albumin AND Globulin reference range effective 2016. LAB L501.1950 2.2-4.2 g/dL Normal GLOB 3.6 LAB L501.2000 0.9-2.4 RATIO Normal A/G 1.1 LAB L501.2200 8.5-10.1 mg/dL Normal CA 9.6 LAB L501.4100 15-37 U/L Normal AST 16 LAB L501.4305 45-117 U/L Normal ALK P 55 LAB L501.4405 12-78 U/L Normal ALT 26 LAB L501.4600 0.20-1.00 mg/dL Normal T BILI 0.80 LAB L501.5300 136-145 mmol/L Normal NA 139 LAB L501.5600 3.5-5.1 mmol/L Normal K 3.7 LAB L501.5900 98-107 mmol/L Normal CL 102 LAB L501.6100 21.0-32.0 mmol/L Normal CO2 25.0 LAB L501.6200 5-15 Normal GAP 12 Performed By: #### L500.4050, L501.6710 #### [facility] [address] [place], [place], [address] CRP Collected: 03/23/2017 Status: F Source: JANICE 11:19 AM [facility] REPOSITORY TYPE CODE TESTS RESULT OUT OF RANGE REFERENCE UNITS LAB L501.6710 0.0-3.0 mg/L High 9.39 C-REACTIVE PROT Result Comment: C-Reactive Protein (CRP) provides useful information for the diagnosis, therapy and monitoring of inflammatory processes and associated diseases. For the evaluation of Relative Risk for Cardiovascular Disease, a High Sensitivity CRP (HSCRP) should be ordered. Performed By: #### L500.4050, L501.6710 #### [facility] [address] [facility] [place], [address] MELANIA W/ REFLEX MULT Collected: 03/23/2017 Status: F Source: JANICE CONFIRM 11:19 AM [facility] REPOSITORY TYPE CODE TESTS RESULT OUT OF RANGE REFERENCE UNITS LAB L3100.5475 Negative Normal Negative MELANIA-DIRECT Result Comment: Performed at: - [facility] [id number] Parts Runner: Shaggy Escalante PhD, Phone: [phone] Performed By: #### L3100.5450 #### [facility] (refer to report for specific site) refer to report for address and phone number ALLERGIES ALLERGIES DATE TYPE / CODE NAME / CODE REACTION SEVERITY SOURCE Drug Penicillins/F0010 Swelling Unknown [place] 8 Allergy/171926601( 60189(RXNORM) [facility] SNOMED CT) Hospital Repository Drug prednisone/L41029 Swelling Unknown [place] 8 Allergy/724529954( 2164(RXNORM) [facility] SNOMED CT) Hospital Repository Drug erythromycin Swelling Unknown [place] 8 Allergy/614163916( base/A649228705(R Community SNOMED CT) XNORM) Hospital Repository Miscellaneous VECTRIN Unknown Unknown [place] 8 Allergy/656785768( Community SNOMED CT) Hospital Repository ENCOUNTERS ENCOUNTERS ADMIT/DISCHARGE ACCOUNT ADMITTING ENCOUNTER LOCATION SOURCE NUMBER CLASS 01/27/2018 [id number] Ambulatory [place] 4 [facility] ing:OPUS Repository 01/25/2018 [id number] Ambulatory [place] Janice 0 [facility] ing:OPBI Repository 12/07/2017 [id number] Ambulatory [place] Janice 7 [facility] ing:LAB.FUTUR Repository E 07/09/2017 [id number] Ambulatory [place] 8 [facility] ing:CVS Repository 05/14/2017 [id number] Ambulatory [place] Janice 6 [facility] ing:CVS Repository 04/23/2017 [id number] Ambulatory [place] Janice 6 [facility] ing:MTRAD Repository 03/27/2017/ [id number] Emergency [place] Janice 8 6 [facility] ing:ED Repository 03/23/2017 [id number] Ambulatory [place] 6 [facility] ing:BFHLAB Repository PAYERS PAYERS ENCOUNTER GUARANTOR PAYER SUBSCRIBER SOURCE 01/27/2018 DEBBI HERNÁDNEZ Primary QUANG M AYERSDOB: [place] BRANSTETTER Insurance[id number] A [facility] [address]Mhx: (330) Number: Repository [phone] () [id number] Date:2018-01-26 01/27/2018 Secondary QUANG M AYERSDOB: [place] Insurance:MUTUAL OF [id number] Number: [facility] [id number] Repository Date:8398-84-[place], [place] [address]KE: 01/27/2018 Tertiary NOT GIVENUNK [place] Insurance:SELF PAY [facility] Number: Effective Repository Date:2018-01-26 01/25/2018 DEBBI HERNÁNDEZ Primary QUANG M AYERSDOB: [place] BRANSTETTER Insurance:MEDICARE [id number] A [facility] [address]Mkw: (330) Number: Repository [phone] () [id number] Date:2017-12-01 01/25/2018 Secondary QUANG M AYERSDOB: [place] Insurance:MUTUAL OF [id number] [facility]one Health Number: [facility] [id number] Repository Date:7143-15-58GLETNRSYRACUSE, [place] [address]BF: 01/25/2018 Tertiary NOT GIVENUNK [place] Insurance:SELF PAY [facility] Number: Effective Repository Date:2017-12-01 12/07/2017 DEBBI SHIPMAN268 Primary QUANG M AYERSDOB: [place] BRANSTETTER Insurance:MEDICARE [id number] [address]Yhf: (330) Number: Repository [phone] () [id number] Date:2017-12-02 12/07/2017 Secondary QUANG M AYERSDOB: [place] Insurance:MUTUAL OF [id number] Number: [facility] [id number] Repository Date:1860-59-95GQYGQV OF [place], [place] [address]YU: 12/07/2017 Tertiary NOT GIVENUNK [place] Insurance:SELF PAY [facility] Hospital Number: Effective Repository Date:2017-12-02 07/09/2017 Debbi Shipman268 Primary QUANG M AYERSDOB: [place] BRANSTETTER Insurance:MEDICARE [id number] Memorial Hospital [address]Gre: (330) Number: Repository [phone] () [id number] Date:2017-06-24 07/09/2017 Secondary QUANG M AYERSDOB: [place] Insurance:MUTUAL OF [id number] Number: Hospital [id number] Repository Date:8307-89-36MMRMVFSYRACUSE, [place] [address]UB: 07/09/2017 Tertiary NOT GIVENUNK [place] Insurance:SELF PAY [facility] Hospital Number: Effective Repository Date:2017-06-24 05/14/2017 Debbi Shipman268 Primary QUANG M AYERSDOB: [place] BRANSTETTER Insurance:MEDICARE [id number] Memorial Hospital [address]Onb: (330) Number: Repository [phone] () [id number] Date:2017-04-29 05/14/2017 Secondary QUANG M AYERSDOB: [place] Insurance:MUTUAL OF [id number] Langone Health Number: Hospital [id number] Repository Date:7826-34-41MWZPLD OF [place], [place] [address]BI: 05/14/2017 Tertiary NOT GIVENUNK [place] Insurance:SELF PAY [facility] Number: Effective Repository Date:2017-04-29 04/23/2017 Debbi P Primary QUANG M AYERSDOB: [place] [id number] Insurance:MEDICARE [id number] Number: Repository [address]Uek: 330 [id number] [phone] () Date:2017-04-23 04/23/2017 Secondary QUANG M AYERSDOB: [place] Insurance:MUTUAL OF [id number] [facility] Number: [facility] [id number] Repository Date:3083-55-63BNMQBC OF [place], [place] [address]NY: 04/23/2017 Tertiary NOT GIVENUNK [place] Insurance:SELF PAY [facility] Hospital Number: Effective Repository Date:2017-04-23 03/27/2017 Debbi P Primary QUANG M AYERSDOB: [place] [id number] Insurance:MEDICARE [id number] Number: Repository [address]End: 330 [id number] [phone] () Date:2017-03-27 03/27/2017 Secondary QUANG M AYERSDOB: [place] Insurance:MUTUAL OF [id number] Langone Health Number: [facility] [id number] Repository Date:3856-56-75IQINEF OF [place], [place] [address]ZF: 03/27/2017 Tertiary NOT GIVENUNK [place] Insurance:SELF PAY [facility] Hospital Number: Effective Repository Date:2017-03-27 03/23/2017 Debbi Chopra Primary QUANG M AYERSDOB: [place] [id number] Insurance:MEDICARE [id number] Number: Repository [id number]: [phone] [id number] [phone] () Date:2017-03-23 03/23/2017 Secondary QUANG M AYERSDOB: [place] Insurance:MUTUAL OF [id number] [facility] Health Number: Hospital [id number] Repository Date:2200-17-62UKNUDDSYR[place], [place] [address]AK: 03/23/2017 Tertiary NOT GIVENUNK [place] Insurance:SELF PAY [facility] Hospital Number: Effective Repository Date:2017-03-23
== END ==
PROVIDERS: Family Provider Family Medicine; PCP Family Medicine; Visit Provider Family Medicine
DX: R92.8 Other abnormal and inconclusive findings on diagnostic imaging of breast (principal)
CPT/HCPCS: 76642

== ENCOUNTER 2018-04-10 20:32 | Emergency (ER) | payer MEDICARE, OTHER, SELFPAY ==
[2018-04-10 20:32] VITALS: BP 159/76; PULSE 69; RESP 16; TEMP 37.2; O2SAT 97; BMI 29.2
--- NOTE | 2018-04-10 21:06 | ED.DCSUM_ITS ---
- ER Visit Summary Date of Service: 04/10/18 Chief Complaint: Bleeding from wound History of Present Illness: The patient is a 67 F who is bleeding from her right fifth finger. She cut her fifth finger while washing dishes earlier today. [facility] went to the [facility] and had sutures placed. She has some issues with bleeding before she was discharged from there and they redid some of the sutures. She went home and it continued to bleed. She is on Plavix and aspirin due to a stent. She comes here today because of the continued bleeding. Physical Examination: Vital signs reviewed. Right hand exam reveals a repaired laceration that measures 3 total centimeters in a semilunar fashion on the ulnar side of the right fifth finger. It is bleeding from the inferior portion. The lower part of this wound is opening up a little bit. Test Results: None performed Emergency Department Course and Treatment: I anesthetized the area with lidocaine. I did place an additional 5?0 simple nylon suture in the inferior portion of the wound. This helped control the bleeding and it was much improved. There is still some mild oozing. I will put some Gelfoam and tube gauze on this area. She will follow-up for a wound recheck on Thursday. Treatment Plan: [] Disposition: Discharge Impression: Right fifth finger laceration, 3 cm, complicated by bleeding Laceration repair by ED physician This note was generated with [employer] dictation software. It may contain incorrect words, spelling, and punctuation that were not noted in review of the chart prior to signing ED Disposition - Plan for ED Patient: Referrals: Yon Preciado DO [Primary Care Provider] -
--- NOTE | 2018-04-10 21:06 | ED.DEP ---
ED Disposition - Plan for ED Patient: Disposition: Home or Assisted Living Instructions: ED Laceration All Referrals: Yon Preciado DO [Primary Care Provider] -
== END 2018-04-10 21:17 | disposition home or self-care (01) ==
PROVIDERS: Emergency Provider Emergency Medicine; Family Provider Family Medicine; PCP Family Medicine
DX: S61.216D Laceration without foreign body of right little finger without damage to nail, subsequent encounter (principal); W26.9XXD Contact with unspecified sharp object(s), subsequent encounter; I25.10 Atherosclerotic heart disease of native coronary artery without angina pectoris
CPT/HCPCS: 12002; 99284

== ENCOUNTER → 2018-04-23 09:48 | Outpatient (CLI) | payer MEDICARE, OTHER, SELFPAY ==
[2018-04-10 20:32] VITALS: BMI 29.2
--- NOTE | 2018-04-23 09:54 | CDU_ITS ---
Reason For Study: carotid artery disease Rt. Velocities/BP Lt. Velocities/BP Prox CCA 87.9/18.8 cm/sec. Prox CCA 119/29.9 cm/sec. Mid CCA 83.8/25.2 cm/sec. Mid CCA 98.2/24.4 cm/sec. Dist CCA 82.7/24.6 cm/sec. Dist CCA 99.0/28.3 cm/sec. Prox ICA 85.0/29.9 cm/sec. Prox ICA 266/80.1 cm/sec. Mid ICA 148/51.1 cm/sec. Mid ICA 183/38.0 cm/sec. Dist ICA 99.8/27.5 cm/sec. Dist ICA 123/31.4 cm/sec. Rt. ICA/CCA = 1.8. Lt. ICA/CCA = 2.7. Prox ECA 113/16.4 cm/sec. Prox ECA 123/20.4 cm/sec. Rt. Vert. 48.7/16.5 cm/sec. Lt. Vert. 29.5/12.2 cm/sec. Right Extracranial There is intimal thickening but no significant atherosclerotic plaque noted in the right common carotid artery. There is heterogeneous, irregular atherosclerotic plaque noted in the right internal carotid artery. There is intimal thickening but no significant atherosclerotic plaque noted in the right external carotid artery. Antegrade flow is noted in the right vertebral artery. Left Extracranial There is intimal thickening but no significant atherosclerotic plaque noted in the left common carotid artery. There is heterogeneous, irregular atherosclerotic plaque noted in the left internal carotid artery. The atherosclerotic plaque causes acoustic shadowing. There is intimal thickening but no significant atherosclerotic plaque noted in the left external carotid artery. Antegrade flow is noted in the left vertebral artery. Abnormal waveform morphology noted in the left vertebral artery. Procedure Carotid Duplex 70140. The exam was diagnostic. Exam performed in department. Interpretation Summary Moderate (50-69%) stenosis right extracranial internal carotid. Severe (>70%) stenosis left extracranial internal carotid. Acoustic shadowing is present in the proximal left internal carotid artery which obscures visualization of the arterial lumen. As a result, the degree of stenosis in the left internal carotid artery may exceed that which is estimated by velocity criteria alone. In this regard, clinical correlation is advised, and an alternative imaging modality may be of benefit. Flow within the right verterbral artery is antegrade. Abnormal waveforms are noted in the left vertebral artery, which suggest a pre-subclavian steal phenomenon, consistent with possible stenosis in the proximal left subclavian artery. Clinical correlation is advised. Ordering Physician: Yon Preciado Performed By: Randy Garcia RVT
== END ==
PROVIDERS: Family Provider Family Medicine; PCP Family Medicine; Referring Provider Family Medicine; Visit Provider Family Medicine
DX: I65.23 Occlusion and stenosis of bilateral carotid arteries (principal); H93.A1 Pulsatile tinnitus, right ear
CPT/HCPCS: 93880

== ENCOUNTER → 2018-07-12 17:00 | Outpatient (CLI) | payer MEDICARE, OTHER, SELFPAY | PROVIDERS: Family Provider Family Medicine; PCP Family Medicine; Visit Provider Family Medicine | DX: N30.00 Acute cystitis without hematuria (principal); S30.1XXA Contusion of abdominal wall, initial encounter | CPT/HCPCS: 87086; 87088; 87186 ==

== ENCOUNTER → 2018-07-27 10:23 | Outpatient (CLI) | payer MEDICARE, OTHER, SELFPAY ==
[2018-07-27 10:28] LABS: Mucous, Urine 0 SEEN /hpf (<or=2+)
[2018-07-27 12:35] LABS: Glucose, Dipstick Normal (Normal); Ketone-Dipstick Negative (Negative); Leukocyte Esterase-Dipstick 500 /ul (Negative); Nitrite-Dipstick Positive (Negative); Occult Blood-Urine 25 /ul (Negative); Protein-Dipstick 30 mg/dl (Negative); Urine Clarity Clear (Clear); Urine Urobilinogen 8 mg/dl (Normal)
[2018-07-27 12:36] LABS: Color, Urine SEE COMMENT BELOW (Yellow); Urine Bilirubin Dipstick 6 mg/dL (Negative)
[2018-07-27 12:39] LABS: Bacteria 1+ /hpf (None Seen); Red Blood Cells-Urine 0-5 SEEN /hpf (0-5); Squamous Epithelial Cells - UA 0-5 SEEN /hpf (5-10); White Blood Cells >100 SEEN /hpf (0-5)
== END ==
PROVIDERS: Family Provider Family Medicine; PCP Family Medicine; Referring Provider Family Medicine; Visit Provider Family Medicine
DX: R30.0 Dysuria (principal)
CPT/HCPCS: 81001; 87086

== ENCOUNTER → 2018-08-03 10:42 | Outpatient (CLI) | payer MEDICARE, OTHER, SELFPAY | PROVIDERS: Family Provider Family Medicine; PCP Family Medicine; Referring Provider Family Medicine; Visit Provider Family Medicine | DX: R30.0 Dysuria (principal) | CPT/HCPCS: 87086; 87088; 87186 ==

== ENCOUNTER → 2018-08-26 08:54 | Outpatient (CLI) | payer MEDICARE, OTHER, SELFPAY ==
--- NOTE | 2018-08-26 08:57 | CDU_ITS ---
Reason For Study: carotid stenosis Rt. Velocities/BP Lt. Velocities/BP Prox CCA 73.4/18.6 cm/sec. Prox CCA 103.6/28.9 cm/sec. Mid CCA 86.5/18.6 cm/sec. Mid CCA 98.1/26.7 cm/sec. Dist CCA 69.5/21.3 cm/sec. Dist CCA 101.4/27.8 cm/sec. Prox ICA 60.4/20.0 cm/sec. Prox ICA 220.9/65.5 cm/sec. Mid ICA 155.8/51.7 cm/sec. Mid ICA 139.4/31.6 cm/sec. Dist ICA 81.7/17.9 cm/sec. Dist ICA 97.4/20.6 cm/sec. Rt. ICA/CCA = 1.8. Lt. ICA/CCA = 2.2. Prox ECA 103.4/10.8 cm/sec. Prox ECA 92.6/15.7 cm/sec. Rt. Vert. 48.7/15.7 cm/sec. Lt. Vert. 25.1/8.0 cm/sec. Right Extracranial There is intimal thickening but no significant atherosclerotic plaque noted in the right common carotid artery. There is heterogeneous, irregular atherosclerotic plaque noted in the right internal carotid artery. There is intimal thickening but no significant atherosclerotic plaque noted in the right external carotid artery. Antegrade flow is noted in the right vertebral artery. Left Extracranial There is intimal thickening but no significant atherosclerotic plaque noted in the left common carotid artery. There is heterogeneous, irregular atherosclerotic plaque noted in the left internal carotid artery. The atherosclerotic plaque causes acoustic shadowing. There is intimal thickening but no significant atherosclerotic plaque noted in the left external carotid artery. Abnormal waveform morphology left vertebral artery. Procedure Carotid Duplex 59556. The exam was diagnostic. Exam performed in department. Interpretation Summary Mild (<50%) stenosis right extracranial internal carotid. Moderate (50-69%) stenosis left extracranial internal carotid. Flow within the right verterbral artery is antegrade. Left vertebral with abnormal flow. Ordering Physician: Lazaro Norwood Performed By: Randy Garcia RVT
--- NOTE | 2018-08-26 08:58 | ART_ITS ---
Reason For Study: subclavian stenosis Left Segmental Pressures Left brachial= 141mmHg. Left forearm by way of the radial artery = 149mmHg. Left ulnar= 150mmHg. Left radial= 164mmHg. The left radial waveforms are triphasic. The left ulnar waveforms are triphasic. Right Segmental Pressures Right brachial= 149mmHg. Right forearm pressure by way of the radial artery = 148mmHg. Right ulnar= 155mmHg. Right radial= 156mmHg. The right radial waveforms are triphasic. The right ulnar waveforms are triphasic. Indices Right WBI by RA 1.05 WBI by UA 1.04 1st digit .97 2nd digit .88 3rd digit .83 4th digit .85 5th digit .79. Left WBI by RA 1.1 WBI by UA 1.01 1st digit .91 2nd digit .97 3rd digit .8 4th digit .71 5th digit .86. Interpretation Summary 1. Bilateral normal WBI 1.05/.01. Ordering Physician: Lazaro Norwood Performed By: SIRIA ODOM Jasper
== END ==
PROVIDERS: Family Provider Family Medicine; PCP Family Medicine; Referring Provider Surgery Vascular Surgery; Visit Provider Surgery Vascular Surgery
DX: I77.1 Stricture of artery (principal); I65.23 Occlusion and stenosis of bilateral carotid arteries; E11.9 Type 2 diabetes mellitus without complications; I10 Essential (primary) hypertension; E78.00 Pure hypercholesterolemia, unspecified; M79.7 Fibromyalgia
CPT/HCPCS: 93880; 93923; 93931

== ENCOUNTER 2018-10-15 18:06 | Emergency (ER) | payer MEDICARE, OTHER, SELFPAY ==
[2018-10-15 18:07] VITALS: BP 152/72; PULSE 73; RESP 18; TEMP 36.4; O2SAT 98; BMI 29.7
[2018-10-15 18:13] VITALS: RESP 18
--- NOTE | 2018-10-15 18:43 | EKG12_ITS ---
Test Reason : DIZZINESS Blood Pressure : / mmHG Vent. Rate : 059 BPM Atrial Rate : 059 BPM P-R Int : 168 ms QRS Dur : 098 ms QT Int : 426 ms P-R-T Axes : 044 010 056 degrees QTc Int : 421 ms Sinus bradycardia Otherwise normal ECG Confirmed by JUANJO CAREY, CLAUDIO ([id number]), subeditor REMI OROZCO ([id number]) on 10/19/2018 2:01:34 PM Referred By: RAPHAEL Confirmed By:ISAAC GEIGER MD
--- NOTE | 2018-10-15 18:43 | CT_ITS ---
STUDY: CT BRAIN WITHOUT CONTRAST REASON FOR EXAM: Female, 67 years old. Vertigo RADIATION DOSAGE (If Supplied By Facility): DLP = ( 745.49 ) mGycm TECHNIQUE: Transaxial CT imaging of the brain was performed without administration of intravenous contrast material. Individualized dose optimization techniques were used for this CT. COMPARISON: CT head December 24, 2015 FINDINGS: There is no acute bleed or infarct. There are normal white matter tracts. The ventricles are normal in configuration. There is no hydrocephalus. The visualized paranasal sinuses are clear. The mastoid air cells are well aerated. There is no skull fracture. CT/Brain/Head without Contrast IMPRESSION: No acute intracranial abnormality. Electronically Signed: Derek Reyna, at 19:53 EDT Tel , Service support ,
--- NOTE | 2018-10-15 18:44 | ED.VIS.GEN ---
History of Present Illness Chief Complaint: Dizziness Informant: Patient Onset: Days Narrative: Patient presents with a 2-day history of dizziness. She describes a mild vertigo and states that she feels off balance when she walks. She did fall down her steps about a week ago but had no symptoms for several days following this. She has some bruising noted on the left forearm an area of firmness and she is concerned she may have a blood clot. Past Medical History - Allergies and Home Meds Allergies/Adverse Reactions: Allergies erythromycin base [Erythromycin Base] Allergy (Verified 10/15/18 18:06) Swelling Penicillins Allergy (Verified 10/15/18 18:06) Swelling prednisone Allergy (Verified 10/15/18 18:06) Swelling Sulfa (Sulfonamide Antibiotics) Allergy (Verified 10/15/18 18:06) Unknown VECTRIN Allergy (Uncoded 10/15/18 18:06) Unknown Primary Care Physician: Yon Preciado DO [Primary Care Provider] - Prior records reviewed: Yes Past Medical History: - - Reviewed Lives: With Family Smoking Status: Former smoker Review of Systems General: Denies: Chills, Fever Eyes: Denies: Visual changes - bilaterally ENT: Denies: Bilateral ear pain Cardiovascular: Denies: Chest pain, Palpitations Respiratory: Denies: Dyspnea, Cough Gastrointestinal: Denies: Abdominal pain, Nausea, Vomiting Musculoskeletal: Denies: Neck pain Skin: Reports: - - Ecchymosis left forearm. Denies: Rash Neurological: Reports: Parasthesia Physical Exam Vital Signs/Narrative: Vital Signs Temp Pulse Resp BP Pulse Ox 10/15/18 18:13 18 10/15/18 18:07 97.6 F L 73 18 152/72 H 98 Inital Vital Signs reviewed: Yes General: Well nourished, Well developed Head: Normocephalic Eyes: Perrl, EOMI ENT: Moist mucous membranes Neck: Supple Cardiovascular: Regular rate, Regular rhythm Respiratory: No distress, CTA bilaterally Abdomen: Soft, Nontender Extremities: - - Ecchymosis noted to the volar left forearm. No bony tenderness. There is an area of firmness associated with potential superficial thrombophlebitis. Neurological: Alert, Oriented x3, Normal Strength, - - Patient reports chronic paresthesias to her feet secondary to neuropathy.. Negative for: Normal Sensation Psychological: Normal affect Diagnostic/Tx/Re-eval Impressions Brain CT 10/15/18 18:43 IMPRESSION: No acute intracranial abnormality. Electronically Signed: Derek Reyna, at 19:53 EDT Tel , Service support , 10/15/18 18:43 Brain/Head without Contrast [CT] Stat Laboratory Results 10/15/18 10/15/18 10/15/18 18:50 18:50 19:28 WBC 8.4 RBC 3.89 L Hgb 12.0 Hct 36.5 L MCV 93.8 MCH 30.8 MCHC 32.9 RDW Std Deviation 41.8 RDW Coeff of Mike 12.1 Plt Count 276 MPV 9.3 Immature Gran % (Auto) 0.400 Neut % (Auto) 62.7 Lymph % (Auto) 24.5 Rabun % (Auto) 9.4 Eos % (Auto) 2.4 Baso % (Auto) 0.6 Absolute Neuts (auto) 5.3 Absolute Lymphs (auto) 2.05 Nucleated RBC % 0 Sodium 138 Potassium 3.6 Chloride 104 Carbon Dioxide 26.0 Anion Gap 8 BUN 23 H Creatinine 1.19 H Estim Creat Clear Calc 39.61 Est GFR (MDRD) Af Amer 58 L Est GFR (MDRD) Non-Af 48 L BUN/Creatinine Ratio 19.3 Glucose 191 H Calcium 8.9 Troponin I < 0.015 Urine Color Yellow Urine Clarity Clear Urine pH 6.0 Ur Specific [place] 1.010 Urine Protein Negative Urine Glucose (UA) Normal Urine Ketones Negative Urine Occult Blood 25 H Urine Nitrite Negative Urine Bilirubin Negative Urine Urobilinogen Normal Ur Leukocyte Esterase 100 H Urine RBC 0 SEEN Urine WBC 0-5 SEEN Ur Squamous Epith Cells 0 SEEN Urine Bacteria RARE Urine Mucus 0 SEEN - EKG Initial EKG Interpretation: Sinus Bradycardia - Sinus bradycardia at 93-minute. No acute ischemia. - Medical Decision Making Patient was given IV fluids. After test results are returned she is given a p.o. dose of Antivert. On repeat evaluation she feels significantly improved. 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 She states is been quite sometime since she had vertigo from this. She will be given a prescription for Antivert. She is to return for worsening symptoms or concerns. ED Disposition - Plan for ED Patient: Disposition: Home or Assisted Living Diagnosis: Vertigo Instructions: VERTIGO, Unspecified Prescriptions: Meclizine HCl [Antivert] 0.5 - 1 tab PO 4X/DAY PRN PRN #20 tablet PRN Reason: Dizziness Meclizine HCl [Antivert] 0.5 - 1 tab PO Q6H PRN PRN #1 tablet PRN Reason: Dizziness Referrals: Yon Preciado DO [Primary Care Provider] - 1 Week if not improving
[2018-10-15] MEDS: 0.9% Normal Saline 1,000 ML 150 ML IV (19:07)
[2018-10-15 19:32] LABS: Mucous, Urine 0 SEEN /hpf (<or=2+); Red Blood Cells-Urine 0 SEEN /hpf (0-5); Squamous Epithelial Cells - UA 0 SEEN /hpf (5-10)
[2018-10-15 19:37] LABS: Color, Urine Yellow (Yellow); Glucose, Dipstick Normal (Normal); Ketone-Dipstick Negative (Negative); Leukocyte Esterase-Dipstick 100 /ul (Negative); Nitrite-Dipstick Negative (Negative); Occult Blood-Urine 25 /ul (Negative); Protein-Dipstick Negative (Negative); Urine Bilirubin Dipstick Negative (Negative); Urine Clarity Clear (Clear); Urine Urobilinogen Normal (Normal)
[2018-10-15 19:37] LABS: Absolute Lymphocyte Count 2.05 X10^3/uL (0.83-4.51); Absolute Neutrophil Count 5.3 X10^3/uL (2.0-7.7); Basophil# 0.05 X10^3/uL; Basophil% 0.6 % (0-1); Eosinophils% 2.4 % (0-5); Hematocrit 36.5 % (37-47); Lymphocyte # 2.05 X10^3/ul (4.0); Lymphocyte % 24.5 % (19-41); Mean Corp Hgb Conc 32.9 g/dL (32-36); Mean Corpuscular Hgb 30.8 pg (27.0-32.0); Mean Corpuscular Volume 93.8 fL (81-99); Mean Platelet Vol. 9.3 fl (6.2-12.0); Monocyte# 0.79 X10^3/uL; Monocyte% 9.4 % (0-10); NRBC Flagged by Analyzer 0 % (0-5); Neutrophil # 5.26 X10^3/uL (2.7-7.7); Neutrophil % 62.7 % (47-70); Platelet Count 276 K/mm3 (150-450); RBC Distribution Width CV 12.1 % (11.6-14.6); RBC Distribution Width SD 41.8 fl (35.1-43.9); Red Blood Count 3.89 M/mm3 (4.2-5.4); White Blood Count 8.4 K/mm3 (4.4-11.0)
[2018-10-15 19:48] LABS: Bacteria RARE /hpf (None Seen); White Blood Cells 0-5 SEEN /hpf (0-5)
[2018-10-15 19:56] LABS: Anion Gap 8 (5-15); BUN 23 mg/dL (7-18); BUN/Creat Ratio 19.3 RATIO (10-20); Calcium,Total 8.9 mg/dL (8.5-10.1); Chloride 104 mmol/L (98-107); Creatinine, Serum 1.19 mg/dL (0.55-1.02); EST Glomerular Filtration Rate 48 mL/min (>60); Est Glom Filt Rate - Afr Amer 58 mL/min (>60); Estimated Creatinine Clearance 39.61 ml/min; Glucose 191 mg/dL (74-106); Potassium 3.6 mmol/L (3.5-5.1); Sodium Level 138 mmol/L (136-145)
[2018-10-15 20:34] VITALS: BP 141/71; PULSE 56; RESP 17; O2SAT 98
[2018-10-15] MEDS: Meclizine 12.5 MG Tablet PO (20:35)
[2018-10-15 21:59] VITALS: BP 120/80; PULSE 59; RESP 14; O2SAT 99
== END 2018-10-15 22:00 | disposition home or self-care (01) ==
PROVIDERS: Emergency Provider Emergency Medicine; Family Provider Family Medicine; PCP Family Medicine
DX: R42 Dizziness and giddiness (principal); R00.1 Bradycardia, unspecified; Z87.891 Personal history of nicotine dependence; Z88.1 Allergy status to other antibiotic agents; Z88.0 Allergy status to penicillin; Z88.2 Allergy status to sulfonamides
CPT/HCPCS: 70450; 80048; 81001; 84484; 85025; 93005; 96360; 96361; 99285; J7030

== ENCOUNTER → 2019-05-19 09:59 | Outpatient (CLI) | payer MEDICARE, OTHER, SELFPAY ==
[2019-05-19 12:33] LABS: Cholesterol 280 mg/dL (200); High Density Lipoprotein 46 mg/dL; Triglycerides 182 mg/dL; Very Low Density Lipoprotein 36 mg/dL (5-40)
[2019-05-19 12:34] LABS: Erythrocyte Sedimentation Rate 9 mm/hr (0-30)
== END ==
PROVIDERS: PCP Family Medicine; Visit Provider Family Medicine
DX: E78.5 Hyperlipidemia, unspecified (principal); R51 Headache
CPT/HCPCS: 36415; 80061; 85652

== ENCOUNTER → 2019-05-25 14:34 | Outpatient (CLI) | payer MEDICARE, OTHER, SELFPAY ==
[2019-05-25 15:30] LABS: Absolute Lymphocyte Count 2.24 X10^3/uL (0.83-4.51); Absolute Neutrophil Count 4.8 X10^3/uL (2.0-7.7); Basophil# 0.05 X10^3/uL; Basophil% 0.6 % (0-1); Eosinophil# 0.28 X10^3/uL; Eosinophils% 3.3 % (0-5); Hematocrit 38.4 % (37-47); Hemoglobin 12.5 g/dL (12.0-15.0); Lymphocyte # 2.24 X10^3/ul (4.0); Lymphocyte % 26.4 % (19-41); Mean Corp Hgb Conc 32.6 g/dL (32-36); Mean Corpuscular Volume 92.1 fL (81-99); Mean Platelet Vol. 9.2 fl (6.2-12.0); Monocyte# 1.11 X10^3/uL; Monocyte% 13.1 % (0-10); NRBC Flagged by Analyzer 0 % (0-5); Neutrophil # 4.78 X10^3/uL (2.7-7.7); Neutrophil % 56.2 % (47-70); Platelet Count 292 K/mm3 (150-450); RBC Distribution Width CV 12.2 % (11.6-14.6); Red Blood Count 4.17 M/mm3 (4.2-5.4); White Blood Count 8.5 K/mm3 (4.4-11.0)
[2019-05-25 16:10] LABS: AST(SGOT) 19 U/L (15-37); Alanine Aminotransfer ALT/SGPT 26 U/L (13-56); Alkaline Phosphatase 67 U/L (45-117); Bilirubin, Direct 0.12 mg/dL (0.00-0.30); Globulin 3.7 g/dL (2.2-4.2); Protein, Total 7.7 g/dL (6.4-8.2)
== END ==
PROVIDERS: PCP Family Medicine; Referring Provider Family Medicine; Visit Provider Family Medicine
DX: R10.11 Right upper quadrant pain (principal)
CPT/HCPCS: 36415; 80076; 85025

== ENCOUNTER → 2019-06-16 11:56 | Outpatient (CLI) | payer MEDICARE, OTHER, SELFPAY ==
[2019-06-16 15:39] LABS: ALB/GLOB Ratio 1.1 RATIO (0.9-2.4); AST(SGOT) 17 U/L (15-37); Alanine Aminotransfer ALT/SGPT 23 U/L (13-56); Albumin, Serum 3.9 g/dL (3.2-5.0); Alkaline Phosphatase 59 U/L (45-117); Anion Gap 8 (5-15); BUN 29 mg/dL (7-18); BUN/Creat Ratio 22.8 RATIO (10-20); Calcium,Total 9.7 mg/dL (8.5-10.1); Chloride 103 mmol/L (98-107); Creatinine, Serum 1.27 mg/dL (0.55-1.02); EST Glomerular Filtration Rate 44 mL/min (>60); Est Glom Filt Rate - Afr Amer 54 mL/min (>60); Globulin 3.7 g/dL (2.2-4.2); Glucose 111 mg/dL (74-106); Potassium 3.7 mmol/L (3.5-5.1); Protein, Total 7.6 g/dL (6.4-8.2); Sodium Level 139 mmol/L (136-145)
== END ==
LOC: LAB.FUTURE 12:03 → MTLAB 12:05
PROVIDERS: PCP Family Medicine; Referring Provider Family Medicine; Visit Provider Family Medicine
DX: R00.2 Palpitations (principal)
CPT/HCPCS: 36415; 80053; 83735

== ENCOUNTER → 2019-06-17 07:49 | Outpatient (CLI) | payer MEDICARE, OTHER, SELFPAY ==
--- NOTE | 2019-06-17 07:53 | US_ITS ---
STUDY: ABDOMINAL ULTRASOUND REASON FOR EXAM: Female, 68 years old. RUQ PAIN X 3 WEEKS TECHNIQUE: Transabdominal ultrasound was performed with real-time and static choudhary scale imaging. TECHNICAL QUALITY: Adequate. COMPARISON: None. FINDINGS: Liver: The liver measures 19 cm. There is increased echogenicity consistent with fatty infiltration. The bile ducts are within normal limits. There is hepatic color flow. The direction of portal flow is hepatopetal. There is no demonstrated mass lesion. Portal vein measurement: Gallbladder: Normal distended gallbladder. The gallbladder wall measures 2.5 mm. There is a negative sonographic Verma''s sign. There is no pericholecystic fluid. There are gallbladder polyps. Common Bile Duct (C.B.D.): The common bile duct measures 2.7 mm. Pancreas: Normal size of the head, body and tail of the pancreas. There is normal echogenicity of the pancreas. There is no demonstrated pancreatic mass or cyst. Spleen: Normal size of the spleen. The spleen measures 9.4 x 4.4 x 4.4 cm. Right Kidney: Normal size of the right kidney. The right kidney measures 12 x 4.7 x 4.9 cm. Normal renal cortex. The right cortex measures 1.6 cm. There is no demonstrated renal mass or cyst. There is no right hydronephrosis. Left Kidney: Normal size of the left kidney. The left kidney measures 11.3 x 4.8 x 4.9 cm. Normal renal cortex. The left cortex measures 1.9 cm. There is 1.3 cm left renal cyst. There is no left hydronephrosis. Aorta: Atherosclerotic changes without evidence of aneurysmal dilation or dissection. I.V.C.: The IVC is patent. There is no ascites. US/Abdomen Complete IMPRESSION: Fatty infiltration of the liver. Left renal cyst measures 1.3 cm. Gallbladder polyp. Electronically Signed: Johnathon Melo, at 11:50 EDT Tel , Service support ,
== END ==
PROVIDERS: PCP Family Medicine; Referring Provider Family Medicine; Visit Provider Family Medicine
DX: R00.2 Palpitations (principal); R10.11 Right upper quadrant pain; R06.00 Dyspnea, unspecified
CPT/HCPCS: 76700; 93225; 93226

== ENCOUNTER → 2019-09-06 08:49 | Outpatient (CLI) | payer MEDICARE, OTHER, SELFPAY ==
--- NOTE | 2019-09-06 08:53 | CDU_ITS ---
Reason For Study: Carotid stenosis Rt. Velocities/BP Lt. Velocities/BP Prox CCA 89.1/14.7 cm/sec. Prox CCA 93.7/17.9 cm/sec. Mid CCA 74.7/14.7 cm/sec. Mid CCA 93.7/20.1 cm/sec. Dist CCA 70.8/17.3 cm/sec. Dist CCA 79.4/14.6 cm/sec. Prox ICA 89.1/25.2 cm/sec. Prox ICA 233.7/62.4 cm/sec. Mid ICA 135.7/42.6 cm/sec. Mid ICA 127.7/24.1 cm/sec. Dist ICA 96.1/18.8 cm/sec. Dist ICA 95.1/22.6 cm/sec. Rt. ICA/CCA = 1.8. Lt. ICA/CCA = 2.9. Prox ECA 90.4/9.5 cm/sec. Prox ECA 98.1/9.1 cm/sec. Rt. Vert. 43.7/12.6 cm/sec. Lt. Vert. 38.8/13.5 cm/sec. Right Extracranial There is intimal thickening but no significant atherosclerotic plaque noted in the right common carotid artery. There is heterogeneous, irregular atherosclerotic plaque noted in the right internal carotid artery. There is intimal thickening but no significant atherosclerotic plaque noted in the right external carotid artery. Antegrade flow is noted in the right vertebral artery. Left Extracranial There is intimal thickening but no significant atherosclerotic plaque noted in the left common carotid artery. There is heterogeneous, irregular atherosclerotic plaque noted in the left internal carotid artery. There is intimal thickening but no significant atherosclerotic plaque noted in the left external carotid artery. Antegrade flow is noted in the left vertebral artery. Abnormal waveforms noted in the left vertebral artery. Procedure Carotid Duplex 44362. Exam performed in department. Interpretation Summary Mild (<50%) stenosis right extracranial internal carotid. Moderate (50-69%) stenosis left extracranial internal carotid. Flow within the vertebral arteries is antegrade bilaterally. Ordering Physician: Lazaro Norwood Referring Physician: Yon Preciado Performed By: Marylin Major RVT
--- NOTE | 2019-09-06 08:55 | ADUL_ITS ---
Reason For Study: Subclavian stenosis LEFT Left Subclavian velocity = 161.6 cm/sec. Left Axillary velocity = 107.6 cm/sec. Left Brachial velocity = 108.9 cm/sec. Left Radial velocity = 78.1 cm/sec. Left Ulnar velocity = 92.5 cm/sec. Interpretation Summary Left arm no stenosis. Ordering Physician: Lazaro Norwood Referring Physician: Yon Preciado Performed By: Marylin Major RVT
--- NOTE | 2019-09-06 08:55 | ART_ITS ---
Reason For Study: Subclavian stenosis Procedure A bilateral upper extremity continuous wave Doppler with analog waveform analysis and segmental pressures. Left Segmental Pressures Left brachial= 135mmHg. Left ulnar= 158mmHg. Left radial= 164mmHg. Left digit = 137 mmHg. The left radial waveforms are triphasic. The left ulnar waveforms are triphasic. Right Segmental Pressures Right brachial= 148mmHg. Right ulnar= 177mmHg. Right radial= 171mmHg. Right digit = 141 mmHg. The right radial waveforms are triphasic. The right ulnar waveforms are triphasic. Indices Right wrist brachial index by the radial artery is 1.16. Right wrist brachial index by the ulnar artery is 1.20. The right digital-brachial index is 0.95. Left wrist brachial index by the radial artery is 1.11. Left wrist brachial index by the ulnar artery is 1.07. The left digital-brachial index is 0.93. Interpretation Summary Bilateral arm triphasic flow with WBI 1.2 and 1.11 and FBI 0.95 and 0.93. Ordering Physician: Lazaro Norwood Referring Physician: Yon Preciado Performed By: Marylin Major RVT and Student
--- NOTE | 2019-09-06 08:57 | VDLE_ITS ---
Reason For Study: Leg pain RIGHT CFV is compressible, spontaneous, phasic, competent and demonstrates normal augmentation. FV is compressible, spontaneous, phasic, competent and demonstrates normal augmentation. POP V is compressible, spontaneous, phasic, competent and demonstrates normal augmentation. T/P Trunk is compressible. PTV is compressible. RT PerV is compressible. SFJ is competent and measures 0.58 x 0.71 cm. GSV proximal thigh measures 0.30 x 0.31 cm. GSV above knee is competent. GSV at knee measures 0.34 x 0.33 cm. GSV below knee is INCOMPETENT for greater than 0.5 seconds. SSV proximal calf is competent and measures 0.13 x 0.15 cm. Procedure Exam performed in department. Interpretation Summary Right leg no DVT and calf gsv with reflux. Ordering Physician: Yon Preciado Referring Physician: Yon Preciado Performed By: Marylin Major RVT
== END ==
PROVIDERS: PCP Family Medicine; Referring Provider Surgery Vascular Surgery; Visit Provider Surgery Vascular Surgery
DX: I77.1 Stricture of artery (principal); I65.23 Occlusion and stenosis of bilateral carotid arteries; R60.0 Localized edema; M79.604 Pain in right leg
CPT/HCPCS: 93880; 93923; 93926; 93971

== ENCOUNTER 2019-12-24 11:55 | Emergency (ER) | payer MEDICARE, OTHER, SELFPAY ==
[2019-12-24 11:55] VITALS: BP 144/72; PULSE 67; RESP 15; TEMP 36.2; O2SAT 98; BMI 29.2
--- NOTE | 2019-12-24 12:04 | CT_ITS ---
STUDY: CT ABDOMEN AND PELVIS WITH CONTRAST REASON FOR EXAM: Female, 69 years old. RIGHT FLANK/RLQ PAIN X 2 DAYS. R/O APPENDICITIS. IBS RADIATION DOSAGE (If Supplied By Facility): CTDIvol = ( 5.95 ) mGy, DLP = ( 883.24 ) mGycm TECHNIQUE: Transaxial images were obtained from the dome of the diaphragm to the symphysis pubis without oral contrast. IV 100mL Isovue-370 was administered. Sagittal and coronal images were reconstructed. Individualized dose optimization techniques were used for this CT. COMPARISON: 03/27/2017 FINDINGS: The visualized lung bases are unremarkable. The visualized portions of the heart are within normal limits. Normal liver. Normal gallbladder and extrahepatic biliary system. Normal spleen. Normal pancreas. Normal bilateral adrenal glands. Normal right kidney. Normal left kidney. Normal visualized stomach. Diverticulum of the second portion the duodenum. There is diverticulosis, with thickening of the colon wall, and pericolonic inflammation changes consistent with acute diverticulitis. No loculated fluid collection to suggest abscess. No pneumoperitoneum to stress perforation. The appendix is visualized and appears normal. There is diffuse atherosclerotic calcification of the abdominal aorta, without a demonstrated aneurysm. Normal inferior vena cava. Normal retroperitoneum. Normal urinary bladder. Status post bilateral tubal ligation. There is a small umbilical hernia containing fat. Normal osseous structures. CT/Abdomen/Pelvis W IV Cont ONLY IMPRESSION: Sigmoid diverticulitis without abscess or perforation. Electronically Signed: Victorino Peters MD at 13:44 EDT Tel , Service support ,
--- NOTE | 2019-12-24 12:04 | ED.VIS.GEN ---
History of Present Illness Chief Complaint: Abd Pain Informant: Patient Onset: Yesterday Context: Gradual Onset Timing: Continuous Current Severity: Moderate Maximum Severity: Moderate Narrative: The patient is a 69-year-old female with history of coronary vascular disease, hypertension, and hyperlipidemia the presents to the emergency department with abdominal pain. Patient states is been going on for about the past 2 days. She describes it as a cramping across her lower quadrant. She states it is mostly in the right lower aspect. She states last night she did have a fever. She has been nauseated without vomiting. She states that she has the constant sensation as if she has to move her bowels, but has had diminished stool output. She has no history of prior abdominal surgery. She states she did have a colonoscopy before which was unremarkable. She denies any history of diverticulitis. She denies any recent travel or sick contacts. Prior similar symptoms: No Recent Illness/Hospitalization: No Past Medical History - Allergies and Home Meds Allergies/Adverse Reactions: Allergies erythromycin base [Erythromycin Base] Allergy (Verified 12/24/19 11:58) Swelling Penicillins Allergy (Verified 12/24/19 11:58) Swelling prednisone Allergy (Verified 12/24/19 11:58) Swelling Sulfa (Sulfonamide Antibiotics) Allergy (Verified 12/24/19 11:58) Unknown VECTRIN Allergy (Uncoded 12/24/19 11:58) Unknown Primary Care Physician: Yon Preciado DO [Primary Care Provider] - Past Medical History: - - 20 vascular disease, hypertension, hyperlipidemia Surgical History: noncontributory Smoking Status: Former smoker Review of Systems General: Denies: Chills, Fever, Sweats Eyes: Denies: Visual changes - bilaterally, Diplopia ENT: Denies: Rhinorrhea, Sore throat Cardiovascular: Denies: Chest pain, Palpitations Respiratory: Denies: Dyspnea, Cough, Dyspnea on exertion Gastrointestinal: Reports: Abdominal pain, Nausea. Denies: Vomiting, Diarrhea, Melena, Hematochezia Genitourinary: Denies: Dysuria, Hematuria, Frequency Musculoskeletal: Denies: Back pain, Extremity Pain Skin: Denies: Rash, Wounds Neurological: Denies: Headache, Weakness, Numbness Physical Exam Vital Signs/Narrative: Vital Signs Temp Pulse Resp BP Pulse Ox 12/24/19 11:55 97.2 F L 67 15 144/72 H 98 Inital Vital Signs reviewed: Yes General: Well nourished, Well developed, No Acute Distress Head: Normocephalic, Atraumatic Eyes: Perrl, EOMI ENT: Moist mucous membranes, No rhinorrhea Neck: Supple, Nontender Cardiovascular: Regular rate, Regular rhythm, No murmurs Respiratory: No distress, CTA bilaterally, Chest nontender Abdomen: Soft, Nondistended, Normal bowel sounds, Tender. Negative for: Guarding, Rebound tenderness Back: Nontender, Normal Inspection Extremities: Nontender, No edema Skin: Normal color, No rash Neurological: Alert, Oriented x3, Cranial nerves II-XII grossly intact, Normal Strength, Normal Sensation Psychological: Normal affect, Normal Mood Diagnostic/Tx/Re-eval Clinical Impression(s) from Imaging Studies Abdomen/Pelvis CT 12/24/19 12:04 IMPRESSION: Sigmoid diverticulitis without abscess or perforation. Electronically Signed: Victorino Peters MD at 13:44 EDT Tel , Service support , Abnormal Lab Results 12/24/19 12/24/19 12:30 12:30 WBC 14.2 H RBC 4.11 L Hgb 12.5 Hct 38.6 MCV 93.9 MCH 30.4 MCHC 32.4 RDW Std Deviation 41.8 RDW Coeff of Mike 12.1 Plt Count 327 MPV 9.2 Immature Gran % (Auto) 0.300 Neut % (Auto) 76.6 H Lymph % (Auto) 12.8 L [place] % (Auto) 9.1 Eos % (Auto) 0.8 Baso % (Auto) 0.4 Absolute Neuts (auto) 10.9 H Absolute Lymphs (auto) 1.82 Nucleated RBC % 0 Sodium 138 Potassium 3.9 Chloride 104 Carbon Dioxide 28.0 Anion Gap 6 BUN 20 H Creatinine 1.21 H Estim Creat Clear Calc 37.89 Est GFR (MDRD) Af Amer 57 L Est GFR (MDRD) Non-Af 47 L BUN/Creatinine Ratio 16.5 Glucose 134 H Calcium 9.7 Total Bilirubin 0.90 AST 11 L ALT 18 Alkaline Phosphatase 62 Total Protein 7.5 Albumin 3.8 Globulin 3.7 Albumin/Globulin Ratio 1.0 Lipase 172 - Medical Decision Making The patient presents with abdominal pain. She has mild tenderness in her bilateral lower quadrants. She did have low-grade fever. Metabolic work-up was pursued. Labs do show mild leukocytosis. Patient was unable to give a urine sample. Patient underwent CT of the abdomen and pelvis. This does show evidence of noncomplicated diverticulitis. There is no evidence of perforation or abscess. The patient wants to attempt outpatient therapy and I feel this is reasonable. Given allergies, she will be started on Cipro and Flagyl. She was counseled on concerning symptoms and reasons to return. She will be discharged home. Impression 1. Acute diverticulitis ED Disposition - Plan for ED Patient: Instructions: ED Diverticulitis Prescriptions: Ciprofloxacin [Cipro] 500 mg PO BID #14 tab Prescription Printed metroNIDAZOLE [Flagyl] 500 mg PO Q8H #21 tab Prescription Printed Referrals: Yon Preciado DO [Primary Care Provider] -
[2019-12-24] MEDS: Morphine 4 MG/ML Syringe IV (12:25)
[2019-12-24] MEDS: Ondansetron 4 MG/2 ML Vial IV (12:25)
[2019-12-24] MEDS: 0.9% Normal Saline 1,000 ML 125 ML IV (12:26)
[2019-12-24 12:42] LABS: Absolute Lymphocyte Count 1.82 X10^3/uL (0.83-4.51); Absolute Neutrophil Count 10.9 X10^3/uL (2.0-7.7); Basophil# 0.06 X10^3/uL; Basophil% 0.4 % (0-1); Eosinophil# 0.11 X10^3/uL; Eosinophils% 0.8 % (0-5); Hematocrit 38.6 % (37-47); Hemoglobin 12.5 g/dL (12.0-15.0); Lymphocyte # 1.82 X10^3/ul (4.0); Lymphocyte % 12.8 % (19-41); Mean Corp Hgb Conc 32.4 g/dL (32-36); Mean Corpuscular Hgb 30.4 pg (27.0-32.0); Mean Corpuscular Volume 93.9 fL (81-99); Mean Platelet Vol. 9.2 fl (6.2-12.0); Monocyte# 1.29 X10^3/uL; Monocyte% 9.1 % (0-10); NRBC Flagged by Analyzer 0 % (0-5); Neutrophil # 10.89 X10^3/uL (2.7-7.7); Neutrophil % 76.6 % (47-70); Platelet Count 327 K/mm3 (150-450); RBC Distribution Width CV 12.1 % (11.6-14.6); RBC Distribution Width SD 41.8 fl (35.1-43.9); Red Blood Count 4.11 M/mm3 (4.2-5.4); White Blood Count 14.2 K/mm3 (4.4-11.0)
[2019-12-24 12:54] LABS: AST(SGOT) 11 U/L (15-37); Alanine Aminotransfer ALT/SGPT 18 U/L (13-56); Albumin, Serum 3.8 g/dL (3.2-5.0); Alkaline Phosphatase 62 U/L (45-117); Anion Gap 6 (5-15); BUN 20 mg/dL (7-18); BUN/Creat Ratio 16.5 RATIO (10-20); Calcium,Total 9.7 mg/dL (8.5-10.1); Chloride 104 mmol/L (98-107); Creatinine, Serum 1.21 mg/dL (0.55-1.02); EST Glomerular Filtration Rate 47 mL/min (>60); Est Glom Filt Rate - Afr Amer 57 mL/min (>60); Estimated Creatinine Clearance 37.89 ml/min; Globulin 3.7 g/dL (2.2-4.2); Glucose 134 mg/dL (74-106); Lipase 172 U/L (73-393); Potassium 3.9 mmol/L (3.5-5.1); Protein, Total 7.5 g/dL (6.4-8.2); Sodium Level 138 mmol/L (136-145)
[2019-12-24 14:12] VITALS: BP 138/74; PULSE 62; RESP 16; O2SAT 98
[2019-12-24] MEDS: metroNIDAZOLE 500 MG Tablet PO (14:12)
[2019-12-24] MEDS: Ciprofloxacin 500 MG Tablet PO (14:12)
== END 2019-12-24 14:13 | disposition home or self-care (01) ==
PROVIDERS: Emergency Provider Emergency Medicine; PCP Family Medicine
DX: K57.32 Diverticulitis of large intestine without perforation or abscess without bleeding (principal); E78.5 Hyperlipidemia, unspecified; I10 Essential (primary) hypertension; Z88.0 Allergy status to penicillin; Z88.1 Allergy status to other antibiotic agents; Z88.2 Allergy status to sulfonamides
CPT/HCPCS: 74177; 80053; 83690; 85025; 96361; 96374; 96375; 99282; J7030; Q9967; A4216; J2405

== ENCOUNTER → 2020-02-02 16:30 | Outpatient (CLI) | payer MEDICARE, OTHER, SELFPAY ==
--- NOTE | 2020-02-02 16:31 | BI_ITS ---
MAMMOGRAPHY - BILATERAL SCREENING REASON FOR EXAM: Female, 69 years old. Routine annual screening examination. PERTINENT HISTORY: Sister with breast cancer. Aunt with breast cancer. TECHNIQUE: Digital bilateral breast tomas (3D mammographic acquisition) in the CC and MLO projections. 2-D mediolateral oblique (MLO) and craniocaudad (CC) views of both breasts were obtained. CAD: Full Field Digital Mammography with Computer Added Detection was performed. COMPARISON: Comparison is made with prior examination dated 01/25/2018 and 09/28/2015. FINDINGS: Breast Composition: The breasts are almost entirely fatty. There are no dominant masses or suspicious calcifications. Stable small benign-appearing bilateral axillary lymph nodes. No other significant abnormalities are identified. There has been no significant change since the prior study. BI/SCREEN MAMM (CAD) W/TOMAS BILAT IMPRESSION: Stable bilateral screening mammogram. Yearly follow-up mammogram recommended. (A) ASSESSMENT CATEGORY: BIRADS Category 2: Benign. A letter regarding these results will be sent to the patient by the facility within 30 days. Approximately 10% of breast cancers are not detected by mammography. A normal mammogram should not delay biopsy of a clinically suspicious abnormality. [id number] Electronically Signed: Deandre Shetty, at 8:18 EST , Service support ,
== END ==
PROVIDERS: PCP Family Medicine; Referring Provider Family Medicine; Visit Provider Family Medicine
DX: Z12.31 Encounter for screening mammogram for malignant neoplasm of breast (principal); Z80.3 Family history of malignant neoplasm of breast
CPT/HCPCS: 77063; 77067

== ENCOUNTER → 2020-08-14 08:32 | Outpatient (CLI) | payer MEDICARE, SELFPAY ==
[2020-08-14 09:29] LABS: Absolute Lymphocyte Count 1.49 X10^3/uL (0.83-4.51); Basophil# 0.04 X10^3/uL; Basophil% 0.5 % (0-1); Eosinophil# 0.24 X10^3/uL; Eosinophils% 3.1 % (0-5); Hematocrit 36.6 % (37-47); Lymphocyte # 1.49 X10^3/ul (0.83-4.51); Lymphocyte % 19.1 % (19-41); Mean Corp Hgb Conc 32.8 g/dL (32-36); Mean Corpuscular Hgb 30.3 pg (27.0-32.0); Mean Corpuscular Volume 92.4 fL (81-99); Mean Platelet Vol. 9.1 fl (6.2-12.0); Monocyte% 12.8 % (0-10); NRBC Flagged by Analyzer 0 % (0-5); Neutrophil # 5.03 X10^3/uL (2.7-7.7); Neutrophil % 64.2 % (47-70); Platelet Count 289 K/mm3 (150-450); RBC Distribution Width CV 12.5 % (11.6-14.6); RBC Distribution Width SD 42.2 fl (35.1-43.9); Red Blood Count 3.96 M/mm3 (4.2-5.4); White Blood Count 7.8 K/mm3 (4.4-11.0)
[2020-08-14 09:47] LABS: Microalbumin,Random Urine 7.8 mg/L (NO RANGE EST.); Microalbumin:Creatinine Ratio 11.2 mg/g CRE (<30 mg/g CRE)
[2020-08-14 10:03] LABS: ALB/GLOB Ratio 1.1 RATIO (0.9-2.4); AST(SGOT) 17 U/L (15-37); Alanine Aminotransfer ALT/SGPT 22 U/L (13-56); Albumin, Serum 3.7 g/dL (3.2-5.0); Alkaline Phosphatase 63 U/L (45-117); Anion Gap 7 (5-15); BUN 26 mg/dL (7-18); BUN/Creat Ratio 22.4 RATIO (10-20); Calcium,Total 9.2 mg/dL (8.5-10.1); Chloride 103 mmol/L (98-107); Cholesterol 255 mg/dL (200); Creatinine, Serum 1.16 mg/dL (0.55-1.02); EST Glomerular Filtration Rate 49 mL/min (>60); Est Glom Filt Rate - Afr Amer 59 mL/min (>60); Globulin 3.4 g/dL (2.2-4.2); Glucose 138 mg/dL (74-106); High Density Lipoprotein 46 mg/dL; Potassium 4.2 mmol/L (3.5-5.1); Protein, Total 7.1 g/dL (6.4-8.2); Sodium Level 138 mmol/L (136-145); Triglycerides 218 mg/dL; Very Low Density Lipoprotein 44 mg/dL (5-40)
== END ==
PROVIDERS: PCP Family Medicine; Referring Provider Family Medicine; Visit Provider Family Medicine
DX: E11.9 Type 2 diabetes mellitus without complications (principal); I12.9 Hypertensive chronic kidney disease with stage 1 through stage 4 chronic kidney disease, or unspecified chronic kidney disease; N18.30 Chronic kidney disease, stage 3 unspecified; E78.5 Hyperlipidemia, unspecified
CPT/HCPCS: 36415; 80053; 80061; 82043; 82570; 83036; 85025

== ENCOUNTER → 2020-10-05 08:36 | Outpatient (CLI) | payer MEDICARE, SELFPAY ==
--- NOTE | 2020-10-05 08:38 | CDU_ITS ---
Reason For Study: Carotid stenosis Rt. Velocities/BP Lt. Velocities/BP Prox CCA 87.8/16 cm/sec. Prox CCA 102.8/20.6 cm/sec. Mid CCA 74.7/18.6 cm/sec. Mid CCA 99.2/20.6 cm/sec. Dist CCA 73.4/18.6 cm/sec. Dist CCA 84.6/18.8 cm/sec. Prox ICA 85.2/23.9 cm/sec. Prox ICA 82.7/17 cm/sec. Mid ICA 187.3/60.4 cm/sec. Mid ICA 249.8/75.3 cm/sec. Dist ICA 73.6/13.3 cm/sec. Dist ICA 143.3/22.6 cm/sec. Rt. ICA/CCA = 2.51. Lt. ICA/CCA = 2.52. Prox ECA 100.8/10.8 cm/sec. Prox ECA 112/13.3 cm/sec. Rt. Vert. 48.5/17.3 cm/sec. Lt. Vert. 30.5/9.7 cm/sec. Right Extracranial There is intimal thickening but no significant atherosclerotic plaque noted in the right common carotid artery. There is heterogeneous, irregular atherosclerotic plaque noted in the right internal carotid artery. The atherosclerotic plaque causes acoustic shadowing. There is intimal thickening but no significant atherosclerotic plaque noted in the right external carotid artery. Antegrade flow is noted in the right vertebral artery. Left Extracranial There is homogeneous, smooth atherosclerotic plaque noted in the left common carotid artery. There is heterogeneous, irregular atherosclerotic plaque noted in the left internal carotid artery. The atherosclerotic plaque causes acoustic shadowing. There is intimal thickening but no significant atherosclerotic plaque noted in the left external carotid artery. Abnormal wave morphlogy noted in the left vertebral artery. Procedure Carotid Duplex 90069. This is a Carotid Duplex examination using B-mode, color flow and specral Doppler. Exam performed in department. VL/Carotid Duplex Ultrasound Interpretation Summary Moderate (50-69%) stenosis right extracranial internal carotid. Moderate (50-69 %) stenosis left extracranial internal carotid. Flow within the right verterbral artery is anteg rade. Left vertebral artery with abnormal flow noted. Ordering Physician: Lazaro Norwood Referring Physician: Yon Preciado Performed By: Marylin Major RVT
--- NOTE | 2020-10-05 08:39 | ART_ITS ---
Reason For Study: Subclavian stenosis Procedure A bilateral upper extremity continuous wave Doppler with analog waveform analysis and segmental pressures. Left Segmental Pressures Left brachial= 153mmHg. Left ulnar= 155mmHg. Left radial= 164mmHg. Left digit = 138 mmHg. The left radial waveforms are triphasic. The left ulnar waveforms are biphasic. Right Segmental Pressures Right brachial= 140mmHg. Right ulnar= 167mmHg. Right radial= 156mmHg. Right digit = 135 mmHg. The right radial waveforms are biphasic. The right ulnar waveforms are biphasic. Indices The wrist-brachial index by the radial artery is 1.02. The wrist-brachial index by the ulnar artery is 1.09. The right digital-brachial index is 0.88. The wrist-brachial index by the radial artery is 1.07. The wrist-brachial index by the ulnar artery is 1.01. The left digital-brachial index is 0.90. VL/Ankle Brachial Index Interpretation Summary Right arm with biphasic flow noted in a wrist brachial index is 1.09. Left arm with triphasic flow in a wrist brachial index of 1.07. Ordering Physician: Lazaro Norwood Referring Physician: Yon Preciado Performed By: Marylin Major RVT
== END ==
PROVIDERS: PCP Family Medicine; Referring Provider Surgery Vascular Surgery; Visit Provider Surgery Vascular Surgery
DX: I77.1 Stricture of artery (principal); I65.23 Occlusion and stenosis of bilateral carotid arteries; Z48.812 Encounter for surgical aftercare following surgery on the circulatory system
CPT/HCPCS: 93880; 93922; 93931

== ENCOUNTER → 2021-08-29 | Outpatient (CLI) | payer MEDICARE, SELFPAY ==
--- NOTE | 2021-08-29 08:22 | RAD_ITS ---
STUDY: X-RAY - LUMBAR SPINE REASON FOR EXAM: Female, 70 years old. LBP WITH SCIATICA TECHNIQUE: XR Spine Lumbar Min 4 Views COMPARISON: None FINDINGS: Normal lumbar lordosis. There is no substantial scoliosis. There is a normal alignment of the vertebrae. There is multilevel endplate spondylosis of the lumbar vertebrae. There is multi-level degenerative disc disease with multi-level disc space narrowing. There are atherosclerotic vascular calcifications. There are bilateral tubal ligation clips. RAD/L/S Spine Min 4 Views IMPRESSION: Degenerative changes of the spine, as detailed above. Electronically Signed: Axel Duffy MD at 16:55 EDT ,
[2021-08-29 08:26] LABS: Absolute Lymphocyte Count 1.64 X10^3/uL (0.83-4.51); Absolute Neutrophil Count 4.7 X10^3/uL (2.0-7.7); Basophil# 0.04 X10^3/uL; Basophil% 0.5 % (0-1); Eosinophil# 0.34 X10^3/uL; Eosinophils% 4.5 % (0-5); Hematocrit 37.9 % (37-47); Hemoglobin 12.4 g/dL (12.0-15.0); Lymphocyte # 1.64 X10^3/ul (0.83-4.51); Lymphocyte % 21.6 % (19-41); Mean Corp Hgb Conc 32.7 g/dL (32-36); Mean Corpuscular Hgb 30.4 pg (27.0-32.0); Mean Corpuscular Volume 92.9 fL (81-99); Mean Platelet Vol. 9.1 fl (6.2-12.0); Monocyte# 0.83 X10^3/uL; Monocyte% 10.9 % (0-10); NRBC Flagged by Analyzer 0 % (0-5); Neutrophil # 4.72 X10^3/uL (2.7-7.7); Neutrophil % 62.1 % (47-70); Platelet Count 309 K/mm3 (150-450); RBC Distribution Width CV 11.9 % (11.6-14.6); RBC Distribution Width SD 40.8 fl (35.1-43.9); Red Blood Count 4.08 M/mm3 (4.2-5.4); White Blood Count 7.6 K/mm3 (4.4-11.0)
[2021-08-29 08:27] LABS: Color, Urine Yellow (Yellow); Glucose, Dipstick Normal (Normal); Ketone-Dipstick Negative (Negative); Leukocyte Esterase-Dipstick 100 /ul (Negative); Nitrite-Dipstick Negative (Negative); Occult Blood-Urine 10 /ul (Negative); Protein-Dipstick Negative (Negative); Urine Bilirubin Dipstick Negative (Negative); Urine Clarity Sl. Cloudy (Clear); Urine Urobilinogen Normal (Normal); Urine pH 6.5 (5.0 - 8.0)
--- NOTE | 2021-08-29 08:50 | BD_ITS ---
STUDY: DUAL ENERGY X-RAY ABSORPTIOMETRY / DXA REASON FOR EXAM: Female, 70 years old. M810 patient is postmenopausal. TECHNIQUE: Bone Mineral Density (BMD) measurements of lumbar spine and bilateral hips were obtained. COMPARISON: Comparison is made with prior studies 05/30/2014. FINDINGS: Lumbar Spine (L1-L4): g/cm2 (1.109) / T-score (0.6) / Z-score (2.7) Findings are suggestive of normal bone density with a low fracture risk. Left Femur Total: g/cm2 (0.935) / T-score (-0.1) / Z-score (1.5) Left Femoral Neck: g/cm2 (0.860) / T-score (0.1) / Z-score (1.9) Right Femur Total: g/cm2 (0.985) / T-score (0.4) / Z-score (1.9) Right Femoral Neck: g/cm2 (0.832) / T-score (-0.1) / Z-score (1.7) The T-Scores on the most recent prior examination were: Lumbar Spine (L1-L4): There has been worsening of bone density since the previous examination. Left Femur Total: which represents an improvement of 1.1%. Right Femur Total: which represents an improvement of 1.3%. BD/Dexa Bone Density Study IMPRESSION: The patient is considered normal as outlined below according to World Ronan Organization (WHO) criteria with a low fracture risk. There has been improvement of bone density since the previous examination. Reference Information: The T-score is the number of standard deviations above or below the standard which is normal for young adults at their peak bone mineral density. The World Health Organization (WHO) interprets the T-scores as follows: Above -1 Normal bone density Between -1 and -2.5 Osteopenia Equal to / or below -2.5 Osteoporosis As a practical clinical guideline, osteopenia may be graded as follows: Mild -1 through -1.5 Moderate -1.6 through -2.0 Severe -2.1 through -2.4 The Z-score is the number of standard deviations above or below age-matched controls. A Z-score of less than -1.5 would be considered abnormal. References: 1. NIH Osteoporosis and Related Bone Diseases www osteo.org 2. International Society for Clinical Densitometry www iscd.org 3. National Osteoporosis Foundation www nof.org Electronically Signed: Deandre Shetty MD at 15:26 EDT ,
[2021-08-29 09:06] LABS: ALB/GLOB Ratio 1.1 RATIO (0.9-2.4); AST(SGOT) 16 U/L (15-37); Alanine Aminotransfer ALT/SGPT 21 U/L (13-56); Albumin, Serum 3.8 g/dL (3.2-5.0); Alkaline Phosphatase 53 U/L (45-117); Anion Gap 8 (5-15); BUN 19 mg/dL (7-18); BUN/Creat Ratio 15.8 RATIO (10-20); Calcium,Total 9.4 mg/dL (8.5-10.1); Chloride 101 mmol/L (98-107); Cholesterol 262 mg/dL (200); EST Glomerular Filtration Rate 47 mL/min (>60); Est Glom Filt Rate - Afr Amer 57 mL/min (>60); Globulin 3.5 g/dL (2.2-4.2); Glucose 142 mg/dL (74-106); High Density Lipoprotein 46 mg/dL; Potassium 4.2 mmol/L (3.5-5.1); Protein, Total 7.3 g/dL (6.4-8.2); Sodium Level 136 mmol/L (136-145); Triglycerides 245 mg/dL; Very Low Density Lipoprotein 49 mg/dL (5-40)
[2021-08-29 09:10] LABS: Hemoglobin A1c 6.8 % (3.8-5.6)
[2021-08-29 09:23] LABS: Microalbumin,Random Urine 6.3 mg/L (NO RANGE EST.); Microalbumin:Creatinine Ratio 6.8 mg/g CRE (<30 mg/g CRE)
[2021-08-29 09:44] LABS: Hepatitis C Antibody Non-Reactive (Nonreactive)
== END | disposition home or self-care (01) ==
LOC: OPBD 08:04
PROVIDERS: PCP Family Medicine; Referring Provider Family Medicine; Visit Provider Family Medicine
DX: E11.22 Type 2 diabetes mellitus with diabetic chronic kidney disease (principal); N18.31 Chronic kidney disease, stage 3a; Z78.0 Asymptomatic menopausal state; M54.30 Sciatica, unspecified side; M81.0 Age-related osteoporosis without current pathological fracture; I12.9 Hypertensive chronic kidney disease with stage 1 through stage 4 chronic kidney disease, or unspecified chronic kidney disease; R53.83 Other fatigue; Z11.59 Encounter for screening for other viral diseases; Z91.89 Other specified personal risk factors, not elsewhere classified; M54.16 Radiculopathy, lumbar region
CPT/HCPCS: 36415; 72110; 77080; 80053; 80061; 81002; 82043; 82570; 83036; 85025; 86803

== ENCOUNTER → 2021-10-10 | Outpatient (CLI) | payer MEDICARE, SELFPAY ==
--- NOTE | 2021-10-10 07:53 | MRI_ITS ---
STUDY: MRI LUMBAR SPINE WITHOUT CONTRAST REASON FOR EXAM: Female, 70 years old. Bilateral sciatica, right greater than left TECHNIQUE: Standardized fat and water weighted pulse sequences were obtained in the sagittal and axial planes. COMPARISON: CT abdomen and pelvis with IV contrast 12/24/2019. FINDINGS: T10-T11, T11-T12 and T12-L1: (Sagittal only). Normal endplates. Normal disc height, hydration and morphology. No ventral extradural defects. Normal central canal and bilateral intervertebral neural foramina. Normal lumbar lordosis. There is no substantial scoliosis. Normal conus medullaris that terminates at the upper L1 vertebral body level. L1-2: Normal endplates. Normal disc height, hydration and morphology. Normal bilateral facet joints. Normal central canal and bilateral lateral recesses. Normal bilateral intervertebral neural foramina. L2-3: Normal endplates. Normal disc height, hydration and morphology. Normal facet joints. Moderate flattening central canal stenosis with an AP canal diameter of 7 mm secondary to prominent dorsal epidural lipomatosis and developmentally short pedicles. Normal bilateral lateral recesses. Normal bilateral intervertebral neural foramina. L3-4: Normal endplates. Minimal disc space height narrowing. Mild degenerative anterolisthesis of L3 on L4. Moderate bilateral degenerative facet arthropathy. Small left posterior paramedian disc protrusion. Pronounced asymmetric central canal stenosis with an AP canal diameter of 3.7 mm. Normal bilateral lateral recesses. Normal bilateral intervertebral neural foramina. L4-5: Normal endplates. Normal disc height. Minimal degenerative anterolisthesis of L4 on L5. Moderate left degenerative facet arthropathy. Mild right degenerative facet arthropathy. Moderately pronounced central canal stenosis with an AP canal diameter of 5.8 mm. Mild dorsal epidural lipomatosis. Normal bilateral lateral recesses. Normal bilateral intervertebral neural foramina. L5-S1: Normal endplates. Normal disc height, hydration and morphology. Moderate right degenerative facet arthropathy. Mild left degenerative facet arthropathy. Moderate central canal stenosis with an AP canal diameter of 6.8 mm surrounded by epidural lipomatosis. Normal bilateral lateral recesses. Normal bilateral intervertebral neural foramina. Normal visualized sacral ala. Normal visualized paraspinous soft tissue structures. MRI/Spine Lumbar (Routine) IMPRESSION: 1. Pronounced asymmetric central canal stenosis at L3-L4 disc space level with an AP canal diameter of 3.7 mm, a small left posterior paramedian disc protrusion and minimal degenerative anterolisthesis of L3 on L4. 2. Moderately pronounced central canal stenosis at L4-L5 disc space level with an AP canal diameter of 5.8 mm and minimal degenerative anterolisthesis of L4 on L5. 3. Moderate flattening central canal stenosis at L2-L3 disc space level with an AP canal diameter of 7 mm. 4. Moderate central canal stenosis at L5-S1 disc space level with an AP canal diameter of 6.8 mm surrounded by epidural lipomatosis. 5. No MRI evidence of lumbar extruded disc fragment. Electronically Signed: Allan Peng MD at 13:55 EDT ,
== END | disposition home or self-care (01) ==
LOC: MRI 07:51
PROVIDERS: PCP Family Medicine; Referring Provider Family Medicine; Visit Provider Family Medicine
DX: M54.30 Sciatica, unspecified side (principal); M51.36 Other intervertebral disc degeneration, lumbar region
CPT/HCPCS: 72148

== ENCOUNTER → 2021-12-18 | Outpatient (CLI) | payer MEDICARE, SELFPAY ==
--- NOTE | 2021-12-18 08:49 | CDU_ITS ---
Reason For Study: Carotid Stenosis Rt. Velocities/BP Lt. Velocities/BP Prox CCA 61/13 cm/sec. Prox CCA 78/16 cm/sec. Mid CCA 62/15 cm/sec. Mid CCA 81/19 cm/sec. Dist CCA 67/12 cm/sec. Dist CCA 79/22 cm/sec. Prox ICA 64/20 cm/sec. Prox ICA 70/16 cm/sec. Mid ICA 222/62 cm/sec. Mid ICA 265/69 cm/sec. Dist ICA 181/31 cm/sec. Dist ICA 94/25 cm/sec. Rt. ICA/CCA = 3.6. Lt. ICA/CCA = 3.3. Prox ECA 82/8 cm/sec. Prox ECA 86/7 cm/sec. Rt. Vert. 49/12 cm/sec. Lt. Vert. 22/9 cm/sec. Right Extracranial There is heterogeneous, irregular atherosclerotic plaque noted in the right common carotid artery. There is heterogeneous, irregular atherosclerotic plaque noted in the right internal carotid artery. There is no significant atherosclerotic plaque noted in the right external carotid artery. Antegrade flow is noted in the right vertebral artery. Left Extracranial There is heterogeneous, irregular atherosclerotic plaque noted in the left common carotid artery. There is heterogeneous, irregular atherosclerotic plaque noted in the left internal carotid artery. The atherosclerotic plaque causes acoustic shadowing. There is intimal thickening but no significant atherosclerotic plaque noted in the left external carotid artery. Pre-steal waveform noted Lt Vert A. Procedure Carotid Duplex 49681. This is a Carotid Duplex examination using B-mode, color flow and specral Doppler. Exam performed in department. VL/Carotid Duplex Ultrasound Interpretation Summary Moderate (50-69%) stenosis right extracranial internal carotid. Moderate (50-69 %) stenosis left extracranial internal carotid. Flow within the right verterbral artery is anteg rade. Flow within the left verterbral artery is retrograde, consistent with a subclavian steal phenom enon. Ordering Physician: Lazaro Norwood Referring Physician: Yon Preciado Performed By: Marva Vasquez, JEANNE, RVT
--- NOTE | 2021-12-18 08:49 | ART_ITS ---
Reason For Study: Subclavian Stenosis Procedure A bilateral upper extremity continuous wave Doppler with analog waveform analysis and segmental pressures. Error with machine; unable to recover waveforms, hard copy available. Left Segmental Pressures Left brachial= 144mmHg. Left radial= 145mmHg. Left ulnar= 160mmHg. Left digit = 131 mmHg. The left radial waveforms are triphasic. The left ulnar waveforms are triphasic. Right Segmental Pressures Right brachial= 149mmHg. Right radial= 153mmHg. Right ulnar= 172mmHg. Right digit = 127 mmHg. The right radial waveforms are triphasic. The right ulnar waveforms are triphasic. Indices The right wrist-brachial index is 1.15. The right digital-brachial index is 0.85. The left wrist- brachial index is 1.07. The left digital-brachial index is 0.88. VL/Ankle Brachial Index Interpretation Summary Bilateral upper extremity with triphasic flow and WBI 1.15 and 1.07. FBI 0.85 a nd 0.88. Ordering Physician: Lazaro Norwood Referring Physician: Yon Preciado Performed By: Marva Vasquez RDCS/RVT
--- NOTE | 2021-12-18 08:49 | ADUUE_ITS ---
Reason For Study: Subclavian Stenosis LEFT Left Subclavian velocity = 293 cm/sec. Left Axillary velocity = 100 cm/sec. Left Brachial velocity = 133 cm/sec. Left Radial velocity = 90 cm/sec. Left Ulnar velocity = 94 cm/sec. /US Art Duplex Unilat UP Extrem Interpretation Summary Left moderate subclavian stenosis with psv 293. Ordering Physician: Lazaro Norwood Referring Physician: Yon Preciado Performed By: Marva Vasquez, JEANNE, RVT
== END | disposition home or self-care (01) ==
PROVIDERS: PCP Family Medicine; Visit Provider Surgery Vascular Surgery
DX: I65.23 Occlusion and stenosis of bilateral carotid arteries (principal); I77.1 Stricture of artery
CPT/HCPCS: 93880; 93922; 93931

== ENCOUNTER → 2022-02-07 | Outpatient (CLI) | payer MEDICARE, SELFPAY ==
--- NOTE | 2022-02-07 12:39 | ECHOD_ITS ---
Reason For Study: Chest Pain Procedure This was a 2D Doppler, Color Flow transthoracic echocardiogram. Exam performed in department. Left Ventricle Normal LV size. Left ventricular systolic function is normal. The estimated ejection fraction is 60 %. Stage 2 diastolic dysfunction. No regional wall motion abnormalities noted. Right Ventricle Normal RV size. Normal systolic function. Atria Normal left atrium. Normal right atrium. Mitral Valve Normal mitral valve. Tricuspid Valve Normal tricuspid valve. Mild (1+) tricuspid valve insufficiency. Pulmonary artery systolic pressure is 33 mmHg. Aortic Valve Trisinus/trileaflet aortic valve. Pulmonic Valve Normal pulmonic valve. Great Vessels Normal aortic root. The pulmonary artery is normal size. Normal inferior vena cava. Pericardium/Pleural No pericardial effusion. MMode/2D Measurements & Calculations LVIDd: 4.8 cm IVSd: 1.1 cm Ao root diam: 3.2 cm LVIDs: 3.2 cm LVPWd: 0.93 cm RVDd: 2.9 cm FS: 33.2 % LAV(MOD-bp): 41.9 ml LVAd ap4: 14.4 cm2 SV(MOD-sp4): 16.4 ml LAV(MOD-bp) Indexed: 23.5 ml/m2 LVLd ap4: 6.0 cm LAV(MOD-sp2): 39.9 ml EDV(MOD-sp4): 29.0 ml LAV(MOD-sp4): 38.8 ml EDV(sp4-el): 29.3 ml LVAs ap4: 8.1 cm2 LVLs ap4: 4.7 cm ESV(MOD-sp4): 12.7 ml ESV(sp4-el): 11.9 ml EF(MOD-sp4): 56.4 % EF(sp4-el): 59.3 % SV(sp4-el): 17.4 ml LA A4 area: 16.2 cm2 LA dimension(2D): 3.2 cm RA A4 area: 10.8 cm2 Time Measurements MV dec time: 0.30 sec Doppler Measurements & Calculations MV E max jarrell: 67.3 cm/sec Lat Peak E' Jarrell: 7.0 cm/sec Med Peak E' Jarrell: 7.5 cm/sec MV A max jarrell: 61.6 cm/sec E/E' lat: 9.6 E/E' med: 9.0 MV E/A: 1.1 Ao V2 max: 149.8 cm/sec LV V1 max: 120.9 cm/sec PA V2 max: 101.0 cm/sec Ao max P.0 mmHg LV V1 max P.8 mmHg Ao V2 mean: 106.5 cm/sec Ao mean P.0 mmHg Ao V2 VTI: 35.5 cm PI end-d jarrell: 69.4 cm/sec TR max jarrell: 268.7 cm/sec TR max P.9 mmHg ECHO/Echo Complete Interpretation Summary Normal LV size. Left ventricular systolic function is normal. The estimated ejection fraction is 60 %. Pulmonary artery systolic pressure is 33 mmHg. Stage 2 diastolic dysfunction. Ordering Physician: Evens Trent Referring Physician: Yon Preciado Performed By: Marva Vasquez, JEANNE, RVT
== END | disposition home or self-care (01) ==
LOC: CVS 12:37
PROVIDERS: PCP Family Medicine; Visit Provider Internal Medicine Cardiovascular Disease
DX: Z01.810 Encounter for preprocedural cardiovascular examination (principal); R07.9 Chest pain, unspecified
CPT/HCPCS: 93306

== ENCOUNTER 2022-02-11 11:03 | Observation (INO) | payer MEDICARE, SELFPAY ==
[2022-02-03 09:30] LABS: Absolute Lymphocyte Count 1.31 X10^3/uL (0.83-4.51); Absolute Neutrophil Count 4.2 X10^3/uL (2.0-7.7); Basophil# 0.04 X10^3/uL; Basophil% 0.6 % (0-1); Eosinophils% 3.1 % (0-5); Hematocrit 37.7 % (37-47); Hemoglobin 12.3 g/dL (12.0-15.0); Lymphocyte # 1.31 X10^3/ul (0.83-4.51); Mean Corp Hgb Conc 32.6 g/dL (32-36); Mean Corpuscular Hgb 30.7 pg (27.0-32.0); Mean Platelet Vol. 9.1 fl (6.2-12.0); Monocyte# 0.75 X10^3/uL; Monocyte% 11.5 % (0-10); NRBC Flagged by Analyzer 0 % (0-5); Neutrophil # 4.23 X10^3/uL (2.7-7.7); Neutrophil % 64.5 % (47-70); Platelet Count 318 K/mm3 (150-450); RBC Distribution Width SD 41.8 fl (35.1-43.9); Red Blood Count 4.01 M/mm3 (4.2-5.4); White Blood Count 6.6 K/mm3 (4.4-11.0)
[2022-02-03 10:01] LABS: Anion Gap 6 (5-15); BUN 28 mg/dL (7-18); BUN/Creat Ratio 23.7 RATIO (10-20); Calcium,Total 9.8 mg/dL (8.5-10.1); Chloride 102 mmol/L (98-107); Creatinine, Serum 1.18 mg/dL (0.55-1.02); EST Glomerular Filtration Rate 48 mL/min (>60); Est Glom Filt Rate - Afr Amer 58 mL/min (>60); Glucose 140 mg/dL (74-106); Magnesium 2.1 mg/dL (1.6-2.6); Potassium 3.8 mmol/L (3.5-5.1); Sodium Level 138 mmol/L (136-145)
[2022-02-03 10:04] LABS: Hemoglobin A1c 6.5 % (3.8-5.6)
[2022-02-03 10:41] LABS: HIV - WCH Non-Reactive (Nonreactive); Hepatitis B Surface Antibody Reactive; Hepatitis C Antibody Non-Reactive (Nonreactive)
[2022-02-04 10:59] LABS: Fructosamine 284 umol/L (0-285); Hepatitis A AB, Total Negative (Negative)
--- NOTE | 2022-02-05 15:47 | CASEMGMT ---
ILIR CARD Assessment: TC to pt for initial transition planning/care coordination assessment. RN STEPHIE introduced self and role at [facility], pt voices understanding and consents to assessment. Care providers, pharmacy, and demographics verified/updated. Admitting Dx: lumbar laminectomy L3-4 PCP:Ilana Specialists:bud Funes; oneal Norwood Preferred Pharmacy: [facility] Insurance: [facility] Prescription Benefit: yes LNOK: Orlin Ozuna, ; Prasanna Dee, son Living Arrangements: Pt lives with and 20 yo granddtr in a two story home with 6 steps to enter with a rail. Pt reports she is I in ADL's and denies concerns at home. Transportation: Pt drives self and denies concerns with transportation. Pt family can transport her post surgery. DME/HHC/SNF: Pt has canes and a walker. She does not know if it is [facility] as it is in the basement. She does not use AD typically. Pt denies hx of HHC or SNF stays. Pt states no concerns with going home at time of dc. Pt states no further concerns/needs. CM to follow. Advised pt to ask CM if any further question/concerns/needs arise, voices understanding. Pt Goal: Home Plan: Home
--- NOTE | 2022-02-07 11:14 | PCM.HP.BLA ---
History and Physical MR#: [id number] Acct: [id number] Name:FIOR YEE Rep #: [id number] : 1950 ? ? Provider: Dr. Patricio Funes DO Age/Sex:? 71/F ? ? Location: [facility] [place].[facility] Status: Signed Intake Vital Signs ? 08/30/2207:48 10/28/2212:21 Height 5 ft 4 in 5 ft 4 in Weight: ? 169 lb BMI ? 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 Required: No Accompanied by: Allergies erythromycin base [Erythromycin Base] Allergy (Verified 10/28/21 13:26) SwellingPenicillins Allergy (Verified 10/28/21 13:26) Swellingprednisone Allergy (Verified 10/28/21 13:26) SwellingSulfa (Sulfonamide Antibiotics) Allergy (Verified 10/28/21 13:26) UnknownVECTRIN Allergy (Uncoded 10/28/21 13:26) Unknown Medications atenolol 100 mg tablet (Tenormin) 100 mg PO QHS 12/18/12 [History Confirmed 10/28/21] tramadol 50 mg tablet 50 mg PO Q6H PRN PRN Pain 12/18/12 [History Confirmed 10/28/21] albuterol sulfate 90 mcg/actuation aerosol inhaler (Ventolin HFA) 1 - 2 puff inhalation Q4H PRN PRN Wheezing 06/07/13 [History Confirmed 10/28/21] aspirin 81 mg chewable tablet 81 mg PO DAILY@0800 12/24/19 [History Confirmed 10/28/21] lorazepam 0.5 mg tablet 0.5 mg PO Q6H PRN PRN Anxiety 12/24/19 [History Confirmed 10/28/21] losartan 100 mg-hydrochlorothiazide 25 mg tablet 1 ea PO DAILY 12/24/19 [History Confirmed 10/28/21] phenazopyridine 97.5 mg tablet mg PO .prn 10/28/21 [History Confirmed 10/28/21] PFSH Medical History?(Updated 10/28/21 @ 14:[address] Patricio Funes DO) Diabetes Heart disease Surgical History?(Updated 10/28/21 @ 13:32 by Niyah Souza) Carpal tunnel syndrome on both sides H/O right knee surgery Tubal ligation status Family History?(Updated 10/28/21 @ 13:35 by Niyah Souza) Other Alzheimer's dementia Arthritis Breast cancer CVA (cerebral vascular accident) Diabetes Heart disease Hypertension Kidney disease Kidney failure Myocardial infarction Throat cancer Thyroid cancer Social History?(Updated 10/28/21 @ 13:36 by Niyah Souza) household members:? spouse housing:? house Smoking Status:? Former smoker alcohol intake:? never substance use type:? does not use what type of physical activity do you participate in:? walking HPI LUMBAR SPINE Details: Parts of this documentation were recorded by a scribe, this documentation accurately reflects the service provided and the decisions made by me, Dr. Patricio Funes, DO 10/28/21 1321. FIOR SHIPMAN is a 71 year old F here today for back pain and legs/feet cramping.? Patient states her lower back has been getting worse in the past 6 months, lower back pain and that her legs have been cramping up, some days it's one side and then some days it's the other side.? Patient states that when rising she can't stand up straight, it takes her a little while to stand straight. She states that the right side is worse then the left right now.? She states that her legs have buckled out from under her but she hasn't fallen. She states feeling a sharp pinch and it feels better to sit then to walk around. She states that she has fallen down the stairs a few times and has really bad balance.? X-rays and MRI are in the chart. Tramadol and Ibuprofen have calmed it down some. Fior is a delightful young lady 71 years old who presents in the company of her .? Her complaints are pretty much what is described by my scribe and the paragraph above.? She does have some neurogenic claudication but is not very severe.? She can walk quite a ways before she has to stop.? She does tend to walk with a little bent forward posture especially when she first stands up.? She can sit for a long time without much bother at all.? Sometimes it bothers 1 leg more than the other.? Overall her low back pain is worse than either one of the leg pains. ? Is been bothering her for a number of years. On examination she has excellent motor strength of all the major muscle groups of both lower extremities.? She can stand on her toes and she can stand on her heels without difficulty.? She has some increased pain particularly on the right side of the low back and into the buttocks with extension of her lumbar spine but hardly any at all with flexion.? In fact with flexion she actually gets relief.? She has no long tract signs.? Clonus is absent Babinski's are downgoing.? She has 1+ patella and barely perceptible Achilles reflexes bilaterally. I reviewed plain x-rays of her back and her MRI scan that was done recently.? The main finding of the MRI was that she has spinal stenosis particularly at L3-4.? Less so at L4-5.? I explained to her that no worse than it is I would hold off on surgical intervention for as long as possible.? Is not a good candidate for epidurals as the steroids make her crazy makes her very hyper and she does not wish to have that.? In addition she had some stents put in her heart sometime ago and she has been on Plavix for a number of years.? She also takes an aspirin every day.? 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 When epidural is probably out of the question to as mentioned above.? She was happy with the idea of just waiting to see how long before her pain gets worse.? Hopefully will be a number of years.? I told her that I would be glad to see her anytime she is if she should need to see me.
[2022-02-11] VITALS (16 sets, daily range): BP systolic 105–141; BP diastolic 48–75; PULSE 56–75; RESP 16; TEMP 36.1–37.3; O2SAT 97–100; BMI 29.1
[2022-02-11] MEDS: Acetaminophen 500 MG Tablet 1000 MG PO (06:07)
[2022-02-11] MEDS: Lactated Ringers 1,000 ML 15 ML IV (06:10)
[2022-02-11 06:36] LABS: Bedside Glucose 187 mg/dL (74-106)
[2022-02-11] MEDS: Insulin Lispro 100 UNIT/ML INSULN.PEN SC (06:39)
[2022-02-11] MEDS: Cefazolin 2 GM in 0.9% Normal Saline 100 ML IV (08:06)
--- NOTE | 2022-02-11 08:40 | RAD_ITS ---
STUDY: X-RAY - LUMBAR SPINE REASON FOR EXAM: Female, 71 years old. LAMINECTOMY DECOMPRESSION L3-4 TECHNIQUE: 1 view(s) of the lumbar spine were obtained. COMPARISON: 08/29/2021 FINDINGS: A single lateral radiograph lumbar spine was obtained in the operating room.. RAD/Spine 1 View Any Level IMPRESSION: Lateral radiograph during surgery. Electronically Signed: Victorino Peters MD at 8:46 EST ,
--- NOTE | 2022-02-11 08:50 | RAD_ITS ---
STUDY: X-RAY - LUMBAR SPINE REASON FOR EXAM: Female, 71 years old. LAMINECTOMY DECOMPRESSION L3-4 TECHNIQUE: 1 view(s) of the lumbar spine were obtained. COMPARISON: 08/29/2021 FINDINGS: A single lateral radiograph lumbar spine was obtained in operating room during surgery.. RAD/Spine 1 View Any Level IMPRESSION: Lumbar spine x-ray during surgery. Electronically Signed: Victorino Peters MD at 9:07 EST ,
[2022-02-11] MEDS: THROMBIN (RECOMBINANT) 20,000 UNIT VIAL 20000 UNIT TOPICAL (09:26)
[2022-02-11] MEDS: Lactated Ringers 1,000 ML 100 ML IV ×2 (11:01→16:44)
--- NOTE | 2022-02-11 11:11 | OP.PCM_ITS ---
Report of Operation Description of Surgical Findings:: Preoperative diagnosis: Spinal stenosis L3-4 Postoperative diagnosis: The same Procedure: Lumbar laminectomy decompression L3-4 CPT code 78456 Surgeon: Dr. Funes assistant store director: Patricia GUERRERO Anesthesia: General endotracheal by [facility] Estimated blood loss: 20 cc Drains: Medium Hemovac Complications: None Procedure: Patient was taken to the OR where she was placed under general endotracheal anesthesia while still on her gurney. A Tolentino catheter was inserted once she was asleep. Neuro monitoring then placed their leads on the patient. She was then moved to her prone position on the Dario frame. After proper positioning with care to protect her bony prominences her breasts her brachial plexus bilaterally her ulnar nerves bilaterally and her facial features and cervical spine the back was prepped and draped in standard fashion. I made a longitudinal incision I then opened the lumbar fascia to the left of the spinous processes and elevated the paravertebral muscles off to the side. Our initial intraoperative x-ray with a marker placed demonstrated we were at the wrong level so we did move the marker down took another x-ray which demonstrated that we were indeed at L3-4. This was confirmed by the radiologist Dr. Natarajan. Then elevated the paravertebral muscles off the lamina of L3 and the top of the lamina of L4. We did the same thing on the opposite side opening the right side in the same fashion. The super slide retractors were then put in place. Noticed that every 10 to 50 minutes in the course of the case we thoroughly irrigated with copious amounts of sterile saline to prevent infection. Using double-action rongeurs the spinous process of L3 was removed. The double-action rongeur was also used to thin down the lamina on both sides of L3. I then released the ligamentum flavum off the underside of the lamina with angled curettes. I also released him off of the top of the L4 lamina likewise. I then performed a laminectomy bilaterally with 45 degree Kerrison rongeurs. Since I was working on the right side we began removal of the ligamentum flavum from the mid midline to the right and then to the left and note that the ligamentum flavum far laterally was adhered to the dura and so I went around it open the lateral recess completely with 45 degree Kerrison rongeurs simply left the ligamentum flavum on top of the dura this was just a small piece I also perform foraminotomies with a 45 degree Kerrison rongeurs on the right side. The right side was completely decompressed I then moved to the other side of the table and finished the removal of the ligamentum flavum lateralward and the fo raminotomies was performed on the left side. This completely decompressed the L5 nerve root this was of course checked. Thorough irrigation was carried out 1 last time note that we had excellent hemostasis throughout the case. We then placed an amniotic membrane patch directly over the dura to prevent adhesions in the future. Gelfoam was placed over the top of that. A medium Hemovac drain was inserted even though in reality it may not have been necessary nonetheless we do want to take a chance on bleeding once the patient is awake. We then closed the lumbar fascia using [id number] suture with #1 Vicryl followed by closure of the subcutaneous tissues with 0 Vicryl and 2-0 Vicryl in layers in interrupted fashion and finally the skin was approximated using skin clips. Sterile dressings were then applied she was then recovered in the OR taken to recovery in satisfactory condition on her hospital bed. This is the end of operative summary on Fior Ozuna. This is Dr. Funes dictating.
[2022-02-11 11:35] LABS: Bedside Glucose 168 mg/dL (74-106)
--- NOTE | 2022-02-11 14:52 | PN.HOSP_ITS ---
Subjective Subjective Mrs. Ozuna is a 71-year-old white female who presented to [facility] on 02/11/2022 for a lumbar laminectomy and decompression L3-L4 secondary to spinal stenosis. She evidently had been having some back pain as well as pain in her legs and feet that was cramping in nature and had been worsening over the 6 mo nths prior to presentation. She reported that she was unable to stand straight when she was upright and complained that the pain was worse on the right side than the left side. She reported that her legs had buckled out from under her but she had not fallen and she felt a sharp pinching pain when she walks around that improves with sitting. She had no significant neurological dysfunction in her lower extremities and was neurologically intact. However does have some compensated reflex in the lower extremities with 1+ patellar and barely perceptible Achilles tendon reflexes bilaterally. An MRI showed spinal stenosis particularly L3 on L4 with a lesser extent at L4 and L5. She had had adverse reaction to epidural steroid injections in the past and therefore was not a candidate for that. She was seen by cardiology for surgical clearance and to discuss coming off Plavix for surgery. We have been consulted for postoperative medical management. Patient was evaluated immediately postoperatively up on the medical floor after transition from PACU. Is awake and alert and oriented x3. Currently states she is feeling well with no significant complaints. Nursing at bedside. Objective Data Objective Data Vital Signs: Vital Signs Temp Pulse Resp BP Pulse Ox O2 Del Method O2 Flow Rate 97.5 F L 68 16 110/52 L 99 Room Air 4 02/11/22 14:31 02/11/22 14:31 02/11/22 14:31 02/11/22 14:31 02/11/22 14:31 02/11/22 14:31 02/11/22 12:45 Oxygen Flow Rate (L/min) 4 Oxygen Delivery Method Room Air Weight: 74.7 kg Body Mass Index (BMI) 29.1 Intake & Output: Intake and Output for Last 24 Hours 02/09/22 02/10/22 02/11/22 23:59 23:59 23:59 Intake Total 1212 / 1212 Output Total 326 / 326 Balance 886 / 886 Lab / Micro Data Result Diagrams: 02/03/22 08:54 02/03/22 08:54 Labs: Laboratory Results - last 24 hr 02/11/22 06:13: POC Glucose 187 H 02/11/22 11:16: POC Glucose 168 H Micro: Microbiology 02/03/22 08:54 Swab (Method) Nasal Screen MRSA/MSSA - Final Physical Exam Const alert, oriented x3, no apparent distress, healthy appearing and well nourished Constitutional Narrative: Overweight, older white female sitting up in bed, appears comfortable nontoxic, and nurse at bedside HEENT head/scalp atraumatic and moist oral mucous membranes Resp normal respiratory effort, no retractions, no use of accessory muscles and clear to auscultation bilaterally Auscultation: Negative for crackles, rales, rhonchi or wheezes Cardio regular rate, regular rhythm, S1 normal heart sound, S2 normal heart sound, no murmurs, no rub, no gallops and no clicks GI normal to inspection, nondistended, normoactive bowel sounds, soft to palpation and non-tender Extremity no clubbing, cyanosis or edema Extremity Narrative: 2+ pedal pulses Skin Skin Narrative: Lumbar drain in place with serosanguineous fluid Neuro oriented x3, moves all extremities and no focal motor deficits Speech: speech normal Assessment & Plan Assessment/Plan (1) Spinal stenosis of lumbar region: PLAN: Plan Spinal stenosis L3-L4 status post lumbar laminectomy decompression -Management per primary service -Recommend bowel regimen -I-S -Physical therapy consultation HTN/HPL/PVD -Continue home statin -Continue home losartan/HCTZ -Continue home atenolol -Restart home aspirin/Plavix when okay to restart per orthopedic surgery History of asthma/COPD -No current acute issues -Continue as needed albuterol Carotid artery stenosis/subclavian artery stenosis -Status post subclavian artery stenting on the left -Restart home Plavix and aspirin when okay per orthopedic surgery -No current acute issues DM-2 -Patient appears to be diet controlled as I do not see any oral medications for diabetes on her home list -Most recent A1c from 02/03/2022 was 6.5 indicating good control with current reg imen -Blood sugars may be slightly elevated of steroids given -No current need for sliding scale insulin CKD stage IIIa -Most recent serum creatinine was 1.18 on 02/03/2022 -This is in her assigned range of 1.1-1.3 -Avoid nephrotoxins as able Anxiety -Continue as needed lorazepam DVT prophylaxis -Per primary service Charges/Coding Visit Charges OBSV E&M: 76010 Initial observation care L2
[2022-02-11] MEDS: Cefazolin 1 GM/50 ML BAG IV (16:40)
[2022-02-11] MEDS: Morphine 2 MG/ML Syringe IV (17:08)
[2022-02-11] MEDS: Ensure Surgery 237 ML LIQUID PO (17:11)
[2022-02-11] MEDS: oxyCODONE 5 MG Tablet PO (21:18)
[2022-02-12] VITALS (8 sets, daily range): BP systolic 91–114; BP diastolic 41–57; PULSE 73–90; RESP 14–18; TEMP 37.2–37.7; O2SAT 94–99
[2022-02-12] MEDS: Cefazolin 1 GM/50 ML BAG IV (00:44)
[2022-02-12] MEDS: oxyCODONE 5 MG Tablet PO ×3 (01:57→20:18)
[2022-02-12 07:49] LABS: Absolute Lymphocyte Count 1.57 X10^3/uL (0.83-4.51); Absolute Neutrophil Count 8.3 X10^3/uL (2.0-7.7); Basophil# 0.02 X10^3/uL; Basophil% 0.2 % (0-1); Eosinophil# 0.08 X10^3/uL; Eosinophils% 0.7 % (0-5); Hematocrit 31.1 % (37-47); Hemoglobin 10.3 g/dL (12.0-15.0); Lymphocyte # 1.57 X10^3/ul (0.83-4.51); Lymphocyte % 13.9 % (19-41); Mean Corp Hgb Conc 33.1 g/dL (32-36); Mean Corpuscular Hgb 30.9 pg (27.0-32.0); Mean Corpuscular Volume 93.4 fL (81-99); Mean Platelet Vol. 9.5 fl (6.2-12.0); Monocyte# 1.37 X10^3/uL; Monocyte% 12.1 % (0-10); NRBC Flagged by Analyzer 0 % (0-5); Neutrophil # 8.25 X10^3/uL (2.7-7.7); Neutrophil % 72.7 % (47-70); Platelet Count 241 K/mm3 (150-450); RBC Distribution Width CV 11.9 % (11.6-14.6); RBC Distribution Width SD 40.3 fl (35.1-43.9); Red Blood Count 3.33 M/mm3 (4.2-5.4); White Blood Count 11.3 K/mm3 (4.4-11.0)
[2022-02-12] MEDS: Losartan Potassium 100 MG Tablet PO (08:10)
[2022-02-12] MEDS: hydroCHLOROthiazide 25 MG Tablet PO (08:10)
[2022-02-12] MEDS: Ensure Surgery 237 ML LIQUID PO ×3 (08:10→16:49)
[2022-02-12 08:14] LABS: Anion Gap 8 (5-15); BUN 15 mg/dL (7-18); BUN/Creat Ratio 13.2 RATIO (10-20); Calcium,Total 8.6 mg/dL (8.5-10.1); Chloride 97 mmol/L (98-107); Creatinine, Serum 1.14 mg/dL (0.55-1.02); EST Glomerular Filtration Rate 50 mL/min (>60); Est Glom Filt Rate - Afr Amer 60 mL/min (>60); Estimated Creatinine Clearance 37.44 ml/min; Glucose 154 mg/dL (74-106); Potassium 3.5 mmol/L (3.5-5.1); Sodium Level 133 mmol/L (136-145)
--- NOTE | 2022-02-12 12:06 | CASEMGMT ---
Addendum entered by Deana Coffey 02/12/22 13:24: Late entry for 1212- Made pt aware she can lay on her side per nurse. ILIR CARD explained GARCIA form, patient voiced understanding. Pt signed form and filed in chart. Pt provided with a copy of signed GARCIA form. Patient had no further questions or concerns at this time. Original Note: ILIR CARD in to pt room, pt with family member at bedside. Pt states she is in pain but just had pain med approx 5 min ago. Pt asks if she can lay on her side. Made aware will check with nurse and let her know. Pt states they have brought their walker up from the basement and she has a cane also. Pt denies any homegoing needs. States she walked with therapy well this morning.
--- NOTE | 2022-02-12 12:44 | PN.HOSP_ITS ---
Subjective Subjective Patient seen and examined. She complaiend of some back pain. She denied any shortness of breath, fever, chills, chest pain, palpitations, dizziness, nausea, vomiting or diarrhea. Review of systems is otherwise negative. Today is POD 1 Objective Data Objective Data Vital Signs: Vital Signs Temp Pulse Resp BP Pulse Ox O2 Del Method O2 Flow Rate 99.4 F H 89 18 103/53 L 95 Room Air 4 02/12/22 10:01 02/12/22 10:01 02/12/22 10:01 02/12/22 10:01 02/12/22 10:01 02/12/22 10:01 02/12/22 02:00 Oxygen Flow Rate (L/min) 4 Oxygen Delivery Method Room Air Weight: 164 lb 10.965 oz Body Mass Index (BMI) 29.1 Intake & Output: Intake and Output for Last 24 Hours 02/10/22 02/11/22 02/12/22 23:59 23:59 23:59 Intake Total 1833.67 / 1833.67 1050 / 1050 Output Total 592 / 1242 3250 / 3250 Balance 1241.67 / 591.67 -2200 / -2200 Lab / Micro Data Result Diagrams: 02/12/22 06:45 02/12/22 06:45 Labs: Laboratory Results - last 24 hr 02/12/22 06:45: WBC 11.3 H, RBC 3.33 L, Hgb 10.3 L, Hct 31.1 L, MCV 93.4, MCH 30.9, MCHC 33.1, RDW Std Deviation 40.3, RDW Coeff of Mike 11.9, Plt Count 241, MPV 9.5, Immature Gran % (Auto) 0.400, Neut % (Auto) 72.7 H, Lymph % (Auto) 13.9 L, Barry % (Auto) 12.1 H, Eos % (Auto) 0.7, Baso % (Auto) 0.2, Absolute Neuts (auto) 8.3 H, Absolute Lymphs (auto) 1.57, Nucleated RBC % 0 02/12/22 06:45: Sodium 133 L, Potassium 3.5, Chloride 97 L, Carbon Dioxide 28.0, Anion Gap 8, BUN 15, Creatinine 1.14 H, Estim Creat Clear Calc 37.44, Est GFR (MDRD) Af Amer 60, Est GFR (MDRD) Non-Af 50 L, BUN/Creatinine Ratio 13.2, Glucose 154 H, Calcium 8.6 Micro: Microbiology 02/03/22 08:54 Swab (Method) Nasal Screen MRSA/MSSA - Final Radiography Diagnostic Testing: Radiology Impression Spine X-Ray 02/11/22 08:40 IMPRESSION: Lateral radiograph during surgery. Electronically Signed: Victorino Peters MD at 8:46 EST Reading Location ID and State: [id number] / [employer] Tel , Service support , Spine X-Ray 02/11/22 08:50 IMPRESSION: Lumbar spine x-ray during surgery. Electronically Signed: Victorino Peters MD at 9:07 EST Reading Location ID and State: [id number] / [employer] Tel , Service support , Physical Exam Const alert, oriented x3 and no apparent distress HEENT head/scalp atraumatic, moist oral mucous membranes and oropharynx normal Head and Scalp: normocephalic Mouth: oral and palatal mucosa normal Eyes PERRL, EOMs intact bilaterally and conjunctivae normal Neck no lymphadenopathy and supple Resp normal respiratory effort, no retractions, no use of accessory muscles and clear to auscultation bilaterally Cardio regular rate, regular rhythm, S1 normal heart sound, S2 normal heart sound and no murmurs GI normal to inspection, nondistended, normoactive bowel sounds, soft to palpation and non-distended Extremity normal to inspection, full ROM and no clubbing, cyanosis or edema Skin Skin Narrative: intact dressing over lower back, at surgical site Neuro oriented x3, CN's II-XII intact bilaterally, moves all extremities and no focal motor deficits Sensorium / Orientation: awake and alert Motor Exam: strength 5/5 throughout Psych affect normal Assessment & Plan Assessment/Plan (1) S/P laminectomy: (2) Hyperlipidemia: (3) Essential hypertension: PLAN: Plan #Lumbar stenosis s/p laminectomy * today is POD 1 * s/p laminectomy and decompression of L3-4 * pain management as per primary team * Pt.OT on board * incentive spirometry * fall precautions * #Hypertension: on losartan and HCTZ as well as atenolol #Hyperlipidemia: on statin #Peripheral vascular disease: on statin. To resume on aspirin and plavix once ok with orthopedics #Carotid and subclavian artery stenosis * s/p left subclavian artery stenting * to resume aspirin and plavix when ok with orthopedic surgery * #Type 2 diabetes mellitus * A1C is 6.5 from 02/03/2022 * diet controlled * #CKD stage IIIa: stable. #Anxiety: on lorazepam prn. DVT prophylaxis; as per primary team spine surgery Charges/Coding Visit Charges Inpatient E&M: 81803 Subs Hosp L2
--- NOTE | 2022-02-12 13:07 | PN.ORTHO_ITS ---
Subjective Subjective Postop day #1. Mrs. Ozuna relates that her pain down her leg particularly her right leg is completely gone. The dressing is dry. Unfortunately the drain came out last night but it is okay. Neurologically she is intact. He still in quite a bit of pain she is having trouble transferring from lying down to standi ng up. We will ask a therapy to help her with transition. She has been walking once she is up without any difficulty. Progress is quite satisfactory. She will be ready to go home tomorrow. Objective Data Objective Data Vital Signs: Vital Signs Temp Pulse Resp BP Pulse Ox O2 Del Method O2 Flow Rate 99.4 F H 89 18 103/53 L 95 Room Air 4 02/12/22 10:01 02/12/22 10:01 02/12/22 10:01 02/12/22 10:01 02/12/22 10:01 02/12/22 10:01 02/12/22 02:00 Oxygen Flow Rate (L/min) 4 Oxygen Delivery Method Room Air Weight: 164 lb 10.965 oz Body Mass Index (BMI) 29.1 Intake & Output: Intake and Output for Last 24 Hours 02/10/22 02/11/22 02/12/22 23:59 23:59 23:59 Intake Total 1833.67 / 1833.67 1050 / 1050 Output Total 592 / 1242 3250 / 3250 Balance 1241.67 / 591.67 -2200 / -2200 Lab / Micro Data Result Diagrams: 02/12/22 06:45 02/12/22 06:45 Labs: Laboratory Results - last 24 hr 02/12/22 06:45: WBC 11.3 H, RBC 3.33 L, Hgb 10.3 L, Hct 31.1 L, MCV 93.4, MCH 30.9, MCHC 33.1, RDW Std Deviation 40.3, RDW Coeff of Mike 11.9, Plt Count 241, MPV 9.5, Immature Gran % (Auto) 0.400, Neut % (Auto) 72.7 H, Lymph % (Auto) 13.9 L, Reeves % (Auto) 12.1 H, Eos % (Auto) 0.7, Baso % (Auto) 0.2, Absolute Neuts (auto) 8.3 H, Absolute Lymphs (auto) 1.57, Nucleated RBC % 0 02/12/22 06:45: Sodium 133 L, Potassium 3.5, Chloride 97 L, Carbon Dioxide 28.0, Anion Gap 8, BUN 15, Creatinine 1.14 H, Estim Creat Clear Calc 37.44, Est GFR (MDRD) Af Amer 60, Est GFR (MDRD) Non-Af 50 L, BUN/Creatinine Ratio 13.2, Glucose 154 H, Calcium 8.6 Micro: Microbiology 02/03/22 08:54 Swab (Method) Nasal Screen MRSA/MSSA - Final Radiography Diagnostic Testing: Radiology Impression Spine X-Ray 02/11/22 08:40 IMPRESSION: Lateral radiograph during surgery. Electronically Signed: Victorino Peters MD at 8:46 EST Reading Location ID and State: [id number] / [employer] Tel , Service support , Spine X-Ray 02/11/22 08:50 IMPRESSION: Lumbar spine x-ray during surgery. Electronically Signed: Victorino Peters MD at 9:07 EST ,
[2022-02-13 02:30] VITALS: BP 116/63; PULSE 84; RESP 14; TEMP 37.9; O2SAT 95
[2022-02-13] MEDS: oxyCODONE 5 MG Tablet PO ×2 (02:48→13:29)
[2022-02-13 02:51] VITALS: BP 116/63; PULSE 84; RESP 14; TEMP 37.9; O2SAT 95
[2022-02-13] MEDS: 0.9% Saline Lock 10 ML Syringe IV (06:15)
[2022-02-13 08:51] VITALS: BP 113/58; PULSE 92; RESP 18; TEMP 37.4; O2SAT 96
[2022-02-13] MEDS: Ensure Surgery 237 ML LIQUID PO (08:56)
--- NOTE | 2022-02-13 12:16 | PN.HOSP_ITS ---
Subjective Subjective Patient seen and examined. Her pain is much better today. She has no active complaints and had an uneventful night. Review of systems otherwise negative. Objective Data Objective Data Vital Signs: Vital Signs Temp Pulse Resp BP Pulse Ox O2 Del Method O2 Flow Rate 99.4 F H 92 18 113/58 L 96 Room Air 4 02/13/22 08:51 02/13/22 08:51 02/13/22 08:51 02/13/22 08:51 02/13/22 08:51 02/13/22 09:09 02/13/22 02:51 Oxygen Flow Rate (L/min) 4 Oxygen Delivery Method Room Air Weight: 164 lb 10.965 oz Body Mass Index (BMI) 29.1 Intake & Output: Intake and Output for Last 24 Hours 02/11/22 02/12/22 02/13/22 23:59 23:59 23:59 Intake Total 1833.67 / 1833.67 1050 / 1050 Output Total 592 / 1242 3250 / 3650 400 / 400 Balance 1241.67 / 591.67 -2200 / -2600 -400 / -400 Lab / Micro Data Result Diagrams: 02/12/22 06:45 02/12/22 06:45 Micro: Microbiology 02/03/22 08:54 Swab (Method) Nasal Screen MRSA/MSSA - Final Physical Exam Const alert, oriented x3, no apparent distress, healthy appearing and well nourished HEENT head/scalp atraumatic, moist oral mucous membranes and oropharynx normal Head and Scalp: normocephalic Mouth: oral and palatal mucosa normal Eyes PERRL, EOMs intact bilaterally and conjunctivae normal Neck no lymphadenopathy, supple and no JVD Resp normal respiratory effort, no retractions, no use of accessory muscles and clear to auscultation bilaterally Auscultation: Negative for crackles, rales, rhonchi or wheezes Cardio regular rate, regular rhythm, S1 normal heart sound, S2 normal heart sound, no murmurs, no rub, no gallops and no clicks GI normal to inspection, nondistended, normoactive bowel sounds, soft to palpation, non-tender and non-distended Extremity normal to inspection, full ROM and no clubbing, cyanosis or edema Extremity Narrative: 2+ pedal pulses Skin Skin Narrative: intact dressing over lower back, at surgical site Neuro oriented x3, CN's II-XII intact bilaterally, moves all extremities and no focal motor deficits Sensorium / Orientation: awake and alert Speech: speech normal Motor Exam: strength 5/5 throughout Psych affect normal Assessment & Plan Assessment/Plan (1) S/P laminectomy: (2) Hyperlipidemia: (3) Essential hypertension: PLAN: Plan #Lumbar stenosis s/p laminectomy * today is POD 2 * s/p laminectomy and decompression of L3-4 * pain management as per primary team * Pt.OT on board * incentive spirometry * fall precautions * #Hypertension: on losartan and HCTZ as well as atenolol #Hyperlipidemia: on statin #Peripheral vascular disease: on statin. To resume on aspirin and plavix once ok with orthopedics #Carotid and subclavian artery stenosis * s/p left subclavian artery stenting * to resume aspirin and plavix when ok with orthopedic surgery * #Type 2 diabetes mellitus * A1C is 6.5 from 02/03/2022 * diet controlled * #CKD stage IIIa: stable. #Anxiety: on lorazepam prn. DVT prophylaxis; as per primary team spine surgery Charges/Coding Visit Charges Inpatient E&M: 93648 Subs Hosp L2
--- NOTE | 2022-02-13 13:14 | DS.PCM_ITS ---
Providers Date of Admission: 02/11/22 Primary Care Physician: Dr. Yon Preciado DO Attending Physician: This is discharge summary on [facility]. This patient was admitted 2 days ago on Thursday where she underwent lumbar laminectomy decompression at the L3- 4 level. She did well postoperatively. Today she describes all her leg pain in both legs is gone. I change her dressing the incision is dry and healing well. I gave her directions regarding her activities. Her and her know that the dressing is to be removed in 4 days and 5 days from today she may start showering again. She already has an appointment to see me in the office. She is already been given oxycodone for pain this is locked up in her room at this time. This is the end of discharge summary on [facility]. This is Dr. Funes dictating. Consultations 02/11/22 11:35 Consult: Hospitalist Routine Consulting Provider: Radha Mcnamara Reason for Consult: Medical Management EMERGENT Consult: No MD Notified: Yes Date Notified: 02/11/22 Time Notified: 14:44 Method of Notification: Text Reason For Visit: LUMBAR LAMINECTOMY L3-4 Diagnosis Discharge Diagnosis (1) S/P laminectomy: Status: Acute Code(s): Z98.890 - Other specified postprocedural states (2) Hyperlipidemia: Status: Chronic Code(s): E78.5 - Hyperlipidemia, unspecified (3) Essential hypertension: Status: Chronic Code(s): I10 - Essential (primary) hypertension Medications at Discharge Home Medications atenolol 100 mg tablet (Tenormin) 100 mg PO QHS 12/18/12 albuterol sulfate 90 mcg/actuation aerosol inhaler (Ventolin HFA) 1 - 2 puff inhalation Q4H PRN PRN Wheezing 06/07/13 aspirin 81 mg chewable tablet 81 mg PO DAILY@0800 12/24/19 lorazepam 0.5 mg tablet 0.5 mg PO Q6H PRN PRN Anxiety 12/24/19 clopidogrel 75 mg tablet (Plavix) 75 mg PO DAILY 01/29/22 losartan 100 mg-hydrochlorothiazide 25 mg tablet 1 tab PO DAILY 01/29/22 multivitamin 1 tab PO DAILY 01/29/22 phenazopyridine 95 mg tablet 95 mg PO TID PRN URINATION 01/29/22 tramadol 50 mg tablet 50 mg PO TID PRN Pain 02/03/22 valacyclovir 1 gram tablet 1,000 mg PO Q12H PRN Cold Sores 02/05/22 oxycodone-acetaminophen 5 mg-325 mg tablet 1 tab PO Q6H PRN pain 10 days #40 tabs 02/12/22 Weight / BMI Weight Weight: 164 lb 10.965 oz Body Mass Index (BMI) 29.1 ABG / Lab / Microbiology Data Result Diagrams: 02/12/22 06:45 02/12/22 06:45 Microbiology: Microbiology 02/03/22 08:54 Swab (Method) Nasal Screen MRSA/MSSA - Final D/C Instructions May shower in (days): 5 May resume sexual activity in: 4-6 weeks Weight Bearing Status: Full weight bearing Cleanse incision/area with: Soap & Water Meaningful Use Info Meaningful Use Diagnoses (Choose all that apply): None applicable Discharge Plan Admission Admit Date/Time: 02/11/22 11:03 Primary Reason for Your Visit: back surgery Attending Provider: Patricio Funes Primary Care Provider: Yon Preciado Consulting Providers: Donna Oliveira Discharge Orders/Prescriptions Prescriptions: No Action valacyclovir 1 gram tablet 1,000 mg PO Q12H PRN (Reason: Cold Sores) atenolol [Tenormin] 100 MG tablet 100 mg PO QHS tramadol 50 mg tablet 50 mg PO TID PRN (Reason: Pain) albuterol sulfate [Ventolin HFA] 1 INHALER inhaler 1 - 2 puff inhalation Q4H PRN PRN (Reason: Wheezing) lorazepam 0.5 MG tablet 0.5 mg PO Q6H PRN PRN (Reason: Anxiety) aspirin 81 MG tablet,chewable 81 mg PO DAILY@0800 Hold Instructions: Holding for surgery 02/11/22 Label Comments: STOP 7 DAYS PRIOR 02/03 multivitamin Tablet 1 tab PO DAILY clopidogrel [Plavix] 75 mg Tablet 75 mg PO DAILY Hold Instructions: holding for surgery on 02/11/22 Label Comments: STOP 7 DAYS PRIOR- LAST DOSE 02/03 losartan-hydrochlorothiazide 100-25 mg tablet 1 tab PO DAILY phenazopyridine [Azo] 95 mg Tablet 95 mg PO TID PRN (Reason: URINATION) oxycodone-acetaminophen 5-325 mg tablet 1 tab PO Q6H PRN (Reason: pain) 10 Days Qty: 40 0RF Referrals / Follow Up: Yon Preciado DO [Primary Care Provider] - Disposition Disposition (needs filled in before D/C Order can be placed): Home, Self Care
[2022-02-13 13:29] VITALS: BP 110/44; PULSE 80; RESP 18; TEMP 37.7; O2SAT 97
== END 2022-02-13 14:00 | disposition home or self-care (01) ==
LOC: SDC 11:36 → MS3 11:36
PROVIDERS: Anesthesiology; Internal Medicine; Admitting Provider Orthopaedic Surgery; PCP Family Medicine; Referring Provider Orthopaedic Surgery; Visit Provider Orthopaedic Surgery
PROC: (CPT 63030; principal; 2022-02-11 07:00)
DX: M48.061 Spinal stenosis, lumbar region without neurogenic claudication (principal); E11.51 Type 2 diabetes mellitus with diabetic peripheral angiopathy without gangrene; J43.9 Emphysema, unspecified; E11.22 Type 2 diabetes mellitus with diabetic chronic kidney disease; N18.31 Chronic kidney disease, stage 3a; I12.9 Hypertensive chronic kidney disease with stage 1 through stage 4 chronic kidney disease, or unspecified chronic kidney disease; Z87.891 Personal history of nicotine dependence; E78.5 Hyperlipidemia, unspecified; F41.9 Anxiety disorder, unspecified; Z79.899 Other long term (current) drug therapy; Z79.02 Long term (current) use of antithrombotics/antiplatelets; K21.9 Gastro-esophageal reflux disease without esophagitis; Z79.82 Long term (current) use of aspirin
CPT/HCPCS: 63047; 00630; 36415; 72020; 80048; 82962; 82985; 83036; 83735; 85025; 86703; 86706; 86708; 86803; 87081; 96361; 96365; 96366; 96375; 97162; 97530; 99218; 99251; J7120; A4216; G0378; G0463; J2405; J3475

== ENCOUNTER → 2022-09-17 | Outpatient (CLI) | payer MEDICARE, SELFPAY ==
--- NOTE | 2022-09-17 13:47 | BI_ITS ---
MAMMOGRAPHY - BILATERAL SCREENING 3-D TOMOSYNTHESIS REASON FOR EXAM: Female, 71 years old. Routine screening PERTINENT HISTORY: Sister and aunt with breast cancer.. TECHNIQUE: 2-D mammograms and 3-D Tomosynthesis of the breast (s) were performed. CAD was performed. COMPARISON: 02/02/2020 FINDINGS: The breast composition is almost entirely fat. Scattered benign calcifications are seen. No dense spiculated masses or suspicious microcalcifications are identified. No architectural distortion is identified. There is no skin thickening or retraction. There has been no significant change since the prior study. BI/SCRN MAMM (CAD)W/TOMAS BILAT IMPRESSION: No mammographic signs of malignancy. Routine yearly mammograms recommended. ASSESSMENT CATEGORY: BIRADS Category 1: Negative. A letter regarding these results will be sent to the patient by the facility within 30 days. FOLLOW UP RECOMMENDATION: Yearly follow up mammogram recommended. (A) Approximately 10% of breast cancers are not detected by mammography. A normal mammogram should not delay biopsy of a clinically suspicious abnormality. Electronically Signed: Juancho Ray MD at 14:51 EDT ,
== END | disposition home or self-care (01) ==
LOC: OPBI 13:45
PROVIDERS: PCP Family Medicine; Referring Provider Family Medicine; Visit Provider Family Medicine
DX: Z12.31 Encounter for screening mammogram for malignant neoplasm of breast (principal); Z80.3 Family history of malignant neoplasm of breast
CPT/HCPCS: 77063; 77067

== ENCOUNTER → 2022-10-27 | Outpatient (CLI) | payer MEDICARE, SELFPAY ==
[2022-10-27 12:07] LABS: Absolute Lymphocyte Count 1.59 X10^3/uL (0.83-4.51); Absolute Neutrophil Count 5.2 X10^3/uL (2.0-7.7); Basophil# 0.05 X10^3/uL; Basophil% 0.6 % (0-1); Eosinophil# 0.19 X10^3/uL; Eosinophils% 2.3 % (0-5); Hematocrit 38.1 % (37-47); Hemoglobin 12.6 g/dL (12.0-15.0); Lymphocyte # 1.59 X10^3/ul (0.83-4.51); Lymphocyte % 19.6 % (19-41); Mean Corp Hgb Conc 33.1 g/dL (32-36); Mean Corpuscular Hgb 31.2 pg (27.0-32.0); Mean Corpuscular Volume 94.3 fL (81-99); Mean Platelet Vol. 9.4 fl (6.2-12.0); Monocyte# 1.08 X10^3/uL; Monocyte% 13.3 % (0-10); NRBC Flagged by Analyzer 0 % (0-5); Neutrophil # 5.16 X10^3/uL (2.7-7.7); Neutrophil % 63.8 % (47-70); Platelet Count 301 K/mm3 (150-450); RBC Distribution Width CV 12.3 % (11.6-14.6); RBC Distribution Width SD 42.9 fl (35.1-43.9); Red Blood Count 4.04 M/mm3 (4.2-5.4); White Blood Count 8.1 K/mm3 (4.4-11.0)
[2022-10-27 12:47] LABS: ALB/GLOB Ratio 1.1 RATIO (0.9-2.4); AST(SGOT) 18 U/L (15-37); Alanine Aminotransfer ALT/SGPT 26 U/L (13-56); Albumin, Serum 3.8 g/dL (3.2-5.0); Alkaline Phosphatase 63 U/L (45-117); Anion Gap 9 (5-15); BUN 32 mg/dL (7-18); BUN/Creat Ratio 24.1 RATIO (10-20); Calcium,Total 9.8 mg/dL (8.5-10.1); Chloride 100 mmol/L (98-107); Cholesterol 260 mg/dL (200); Creatinine, Serum 1.33 mg/dL (0.55-1.02); EST Glomerular Filtration Rate 42 mL/min (>60); Est Glom Filt Rate - Afr Amer 50 mL/min (>60); Globulin 3.5 g/dL (2.2-4.2); Glucose 170 mg/dL (74-106); High Density Lipoprotein 47 mg/dL; Potassium 4.4 mmol/L (3.5-5.1); Protein, Total 7.3 g/dL (6.4-8.2); Sodium Level 135 mmol/L (136-145); Triglycerides 260 mg/dL; Very Low Density Lipoprotein 52 mg/dL (5-40)
[2022-10-27 12:51] LABS: Vitamin B12 454 pg/mL (211-911)
[2022-10-27 12:58] LABS: Microalbumin,Random Urine 11.9 mg/L (NO RANGE EST.); Microalbumin:Creatinine Ratio 10.1 mg/g CRE (<30 mg/g CRE)
[2022-10-27 13:23] LABS: Hemoglobin A1c 7.1 % (3.8-5.6)
== END | disposition home or self-care (01) ==
PROVIDERS: PCP Family Medicine; Referring Provider Family Medicine; Visit Provider Family Medicine
DX: E11.9 Type 2 diabetes mellitus without complications (principal); I10 Essential (primary) hypertension; D64.9 Anemia, unspecified; R53.83 Other fatigue
CPT/HCPCS: 36415; 80053; 80061; 82043; 82570; 82607; 83036; 84443; 85025

== ENCOUNTER → 2022-12-05 | Outpatient (CLI) | payer MEDICARE, SELFPAY ==
--- NOTE | 2022-12-05 12:52 | CT_ITS ---
EXAM: CT ABDOMEN AND PELVIS WITH INTRAVENOUS CONTRAST CLINICAL INDICATION: RLQ PAIN AND BLOATING TECHNIQUE: Helically acquired images were obtained of the abdomen and pelvis with intravenous contrast. CTDIvol = ( 14.49 ) mGy, DLP = ( 964.44 ) mGycm This CT exam was performed using one or more of the following dose reduction techniques: automated exposure control, adjustment of the mA and/or kV according to patient size, and/or use of iterative reconstruction technique. CONTRAST: IV 100mL Isovue-300 COMPARISON: December 24, 2019 CT abdomen and pelvis FINDINGS: LOWER THORAX: Peripheral fibrotic changes at the lung bases with no consolidation, pleural effusion or pneumothorax. No cardiomegaly. Multi vessel calcific coronary arteriolosclerosis. ABDOMEN: LIVER: Hepatic steatosis. GALLBLADDER AND BILE DUCTS: Unremarkable. No calcified gallstones. No gallbladder distention or wall edema. No intra- or extrahepatic biliary ductal dilation. PANCREAS: Unremarkable. No focal cystic or solid mass. SPLEEN: Unremarkable. Normal size without focal cystic or solid mass. ADRENALS: Unremarkable. No nodules. KIDNEYS AND URETERS: Unremarkable. Normal renal size and position. No hydronephrosis. No renal abnormalities. STOMACH AND BOWEL: 4 cm duodenal diverticulum probably arising from the second portion of duodenum with no adjacent inflammation. Distal colonic diverticulosis but no acute diverticulitis. No colitis or bowel obstruction. PELVIS: APPENDIX: No evidence of acute appendicitis. BLADDER: Tiny amount of intraluminal air at the anterior bladder may be from recent instrumentation. There is no bladder wall thickening or adjacent stranding. REPRODUCTIVE: Unremarkable as visualized. No adnexal masses. ABDOMEN and PELVIS: INTRAPERITONEAL SPACE: Unremarkable. No free air. No free fluid. BONES/JOINTS: Degenerative changes of the spine. No unusual lytic or sclerotic lesions of bone. SOFT TISSUES: Overlying soft tissues are grossly unremarkable. No discrete abdominal or pelvic wall hernia. VASCULATURE: Main portal vein is patent. Abdominal aorta is non-dilated. LYMPH NODES: Unremarkable. No enlarged lymph nodes. CT/Abdomen/Pelvis W IV Cont ONLY IMPRESSION: 1. No acute or inflammatory disease or obstruction. 2. 4 cm duodenal diverticulum without inflammation. 3. Tiny amount of intraluminal air at the anterior bladder may be from recent instrumentation. There is no bladder wall thickening or adjacent stranding. 4. Additional ancillary findings as above. Electronically Signed: Gregorio Lang MD at 4:58 EDT ,
[2022-12-05 13:31] LABS: CREATININE FINGERSTICK < 0.9 mg/dL (0.55-1.02); EGFR FINGERSTICK > 60.0000 mL/min (>60)
== END | disposition home or self-care (01) ==
LOC: CT 12:49
PROVIDERS: PCP Family Medicine; Referring Provider Urology; Visit Provider Urology
DX: R14.0 Abdominal distension (gaseous) (principal); R18.8 Other ascites
CPT/HCPCS: 74177; Q9967

== ENCOUNTER → 2023-01-05 | Outpatient (CLI) | payer MEDICARE, SELFPAY ==
--- NOTE | 2023-01-05 12:46 | US_ITS ---
HISTORY: BLOATING. TECHNIQUE: Transabdominal and transvaginal pelvic ultrasound was performed with choudhary scale and color Doppler evaluation. 100 images. COMPARISON: CT 12/05/2022. FINDINGS: UTERUS: 7.3 x 3.1 x 4.3 cm. 1.3 x 1.5 x 1.5 cm heterogeneous round lesion on the left. ENDOMETRIAL THICKNESS: 5 mm. Mild fluid in the endometrial cavity with oval echogenic nodule measuring 2 x 5 x 8 mm. OVARIES: Not visualized. No adnexal masses FREE FLUID: None. URINARY BLADDER: Unremarkable at 139 cc. US/Pelvic (Non ) IMPRESSION: 1.5 cm uterine leiomyoma. Mild fluid in the endometrial cavity with an 8 mm lesion, which may represent polyp, some mucosal leiomyoma, or endometrial neoplasm. Recommend follow-up or workup. Electronically Signed: Kenisha Nicole MD at 10:09 EST ,
== END | disposition home or self-care (01) ==
LOC: US 12:44
PROVIDERS: PCP Family Medicine; Referring Provider Family Medicine; Visit Provider Family Medicine
DX: R14.0 Abdominal distension (gaseous) (principal)
CPT/HCPCS: 76830; 76856

== ENCOUNTER → 2023-02-18 | Outpatient (CLI) | payer MEDICARE, SELFPAY ==
--- NOTE | 2023-02-18 12:40 | CDU_ITS ---
Reason For Study: Stenosis Rt. Velocities/BP Lt. Velocities/BP Prox CCA 68.3/11.6 cm/sec. Prox CCA 93.7/18.8 cm/sec. Mid CCA 66.4/14.5 cm/sec. Mid CCA 79.1/18.8 cm/sec. Dist CCA 64.5/15.4 cm/sec. Dist CCA 80.2/21.2 cm/sec. Prox ICA 66.3/17.9 cm/sec. Prox ICA 287.6/83.6 cm/sec. Mid ICA 243.4/72.1 cm/sec. Mid ICA 187.4/31.9 cm/sec. Dist ICA 123.6/27 cm/sec. Dist ICA 104.7/24.3 cm/sec. Rt. ICA/CCA = 3.67. Lt. ICA/CCA = 3.59. Prox ECA 92.7/4.7 cm/sec. Prox ECA 88.8/7.7 cm/sec. Rt. Vert. 40/11.6 cm/sec. Lt. Vert. 35.1/10.9 cm/sec. Right Extracranial There is heterogeneous, irregular atherosclerotic plaque noted in the right common carotid artery. There is heterogeneous, irregular atherosclerotic plaque noted in the right internal carotid artery. There is heterogeneous, irregular atherosclerotic plaque noted in the right external carotid artery. Antegrade flow is noted in the right vertebral artery. Left Extracranial There is homogeneous, smooth atherosclerotic plaque noted in the left common carotid artery. There is heterogeneous, irregular atherosclerotic plaque noted in the left internal carotid artery. The atherosclerotic plaque causes acoustic shadowing. There is homogeneous, smooth atherosclerotic plaque noted in the left external carotid artery. Antegrade flow is noted in the left vertebral artery. Procedure Carotid Duplex 61828. This is a Carotid Duplex examination using B-mode, color flow and specral Doppler. Exam performed in department. VL/Carotid Duplex Ultrasound Interpretation Summary Severe (>70%) stenosis right extracranial internal carotid. Severe (>70%) steno sis left extracranial internal carotid. Flow within the vertebral arteries is antegrade bilaterally. Ordering Physician: Lazaro Norwood Referring Physician: Yon Preciado Performed By: Marylin Major RVT
--- NOTE | 2023-02-18 12:41 | ADUUE_ITS ---
Reason For Study: Subclavian stenosis LEFT Left Subclavian velocity = 170.6 cm/sec. Left Axillary velocity = 105.8 cm/sec. Left Brachial velocity = 112.5 cm/sec. Left Radial velocity = 84.1 cm/sec. Left Ulnar velocity = 87.4 cm/sec. /US Art Duplex Unilat UP Extrem Interpretation Summary LEft arm no stenosis and triphasic flow throughout. Ordering Physician: Lazaro Norwood Referring Physician: Yon Preciado Performed By: Marylin Major RVT
--- NOTE | 2023-02-18 12:41 | ART_ITS ---
Reason For Study: Subclavian stenosis Procedure A bilateral upper extremity continuous wave Doppler with analog waveform analysis and segmental pressures. Left Segmental Pressures Left brachial= 133mmHg. Left ulnar= 148mmHg. Left radial= 155mmHg. Left digit = 137 mmHg. The left radial waveforms are triphasic. The left ulnar waveforms are triphasic. Right Segmental Pressures Right brachial= 137mmHg. Right ulnar= 170mmHg. Right radial= 161mmHg. Right digit = 144 mmHg. The right radial waveforms are triphasic. The right ulnar waveforms are triphasic. Indices The right wrist-brachial index by the radial artery is 1.24. The right wrist-brachial index by the ulnar artery is 1.18. The right digital-brachial index is 1.05. The left wrist-brachial index by the radial artery is 1.08. The left wrist-brachial index by the ulnar artery is 1.13. The left digital- brachial index is 1.00. VL/Ankle Brachial Index Interpretation Summary No evidence occlusive disease bilateral upper extremities at rest with WBI 1.24 and 1.13. Ordering Physician: Lazaro Norwood Referring Physician: Yon Preciado Performed By: Marylin Major RVT
== END | disposition home or self-care (01) ==
LOC: CVS 12:37
PROVIDERS: PCP Family Medicine; Referring Provider Surgery Vascular Surgery; Visit Provider Surgery Vascular Surgery
DX: I77.1 Stricture of artery (principal); I65.23 Occlusion and stenosis of bilateral carotid arteries; Z48.812 Encounter for surgical aftercare following surgery on the circulatory system
CPT/HCPCS: 93880; 93922; 93931

== ENCOUNTER → 2023-03-23 | Outpatient (CLI) | payer MEDICARE, SELFPAY ==
--- NOTE | 2023-03-23 16:00 | EMB_PTH ---
PATHOLOGY RESULTS PATIENT: QUANG SHIPMAN [id number] AGE/SX: 72/F ROOM: RE03/23/[address]: Dr. Kandace Banks MD : 1950 BED: DIS: 03/23/2023 SPEC #: [id number] RECD: 03/23/23 17:07 STATUS: ALESSANDRA REBeverly #: [id number] ZULEMA: 03/23/23 16:[address]: Kandace Banks DEPT: SURGICAL PATHOLOGY RECD BY: Josee Turcios ENTERED: 03/24/23 14:24 SP TYPE: ENDOM BX/C ESTELLA DR: Dr. Yon Preciado, DO Tissues: Endometrium, NOS Procedures: Surgery Specimen Level IV HEADER OPERATION: Endometrial biopsy PRE-OP DIAGNOSIS: Endometrial thickening TISSUE SUBMITTED: Endometrial lining MICROSCOPIC DIAGNOSIS Endometrial biopsy: Scant strips of benign endometrial epithelium. Scant fragments of benign endocervical epithelium and mucous. See comment. SJ:charisma 03/25/2023 COMMENT The specimen predominantly consists of mucoid tissue. Clinical correlation and appropriate follow up are necessary. MICROSCOPIC DESCRIPTION Slides are reviewed. GROSS DESCRIPTION Received is one container labeled with the patient's name and not further designated. The specimen consists of multiple irregular fragments of pardo mucoid tissue that in aggregate measure 1.5 x 1.5 x 0.2 cm. The specimen is totally submitted in one cassette. / LORRAINE:charisma 03/24/2023 TC:4 CPT: 36429
--- OUTSIDE RECORDS SUMMARY | 2023-03-23 17:21 | XMS RPT_ITS | CCD ---
Author Name Unknown Address [address] [place] [id number] Organization [facility] Care Team Providers Care Roughener Name Role Phone SIMONE GOYAL Unavailable Unavailable Allergies Allergy Classification Reported Allergen(s) Allergy Type Date of Onset Reaction(s) Facility (1 source) Clarithromycin; Translations: [CLARITHROMYCIN] Drug Allergy 5 [facility] Repository (1 source) Erythromycin; Translations: [ERYTHROMYCIN] Drug Allergy 5 [facility] Repository (1 source) Penicillins; Translations: [PENICILLINS] Propensity to adverse reactions to drug (disorder) 5 [facility] Repository (1 source) predniSONE; Translations: [PREDNISONE] Drug Allergy 2 [facility] Repository (1 source) Sulfonamides (Antibiotic); Translations: [SULFA (SULFONAMIDE ANTIBIOTICS)] Propensity to adverse reactions to drug (disorder) 5 [facility] Repository Results Test Name Value Interpretation Reference Range Facil ity Encounters Encounter Date Encounter Type Care Provider Facility Start: 04-20-2018 End: 04-21-2018 Patient encounter procedure [facility] Start: 04-10-2018 End: 04-12-2018 Patient encounter procedure [facility] Start: 10-23-2016 End: 10-23-2016 Ambulatory SIMONE GOYAL Facility:A Payers Date Payer Category Payer Medicare [id number] Summary Purpose Family History No Family History Records FoundNo Family History Records Found Advance Directives No Advanced Directives Records FoundNo Advanced Directives Records Found Additional Source Comments INFORMATION SOURCE (unrecogn ized section and content) DATE CREATED AUTHOR AUTHOR'S ORGANIZ ATION 04/22/2018 [facility] FOR RECORDS PERTAINING TO PATIENTS WHO ARE OR HAVE BEEN ENROLLED IN A CHEMICAL DEPENDENCY/SUBSTANCEABUSE PROGRAM, SOME INFORMATION MAY BE OMITTED. This clinical summary was aggregated from multiple sources. Caution should be exercised in using it in the provision of clinical care. This summary normalizes information from multiple sources, and as a consequence, information in this document may materially change the coding, format and clinical context of patient data. In addition, data may be omitted in some cases. CLINICAL DECISIONS SHOULD BE BASED ON THE PRIMARY CLINICAL RECORDS. [facility], [facility]. provides no warranty or guarantee of the accuracy or completeness of information in this document.
[2023-03-26 14:09] LABS: HPV APTIMA, High Risk Negative (Negative)
== END | disposition home or self-care (01) ==
PROVIDERS: PCP Family Medicine; Visit Provider Obstetrics & Gynecology
DX: R93.89 Abnormal findings on diagnostic imaging of other specified body structures (principal)
CPT/HCPCS: 87624; 88175; 88305; G0145

== ENCOUNTER → 2023-03-26 | Outpatient (CLI) | payer MEDICARE, SELFPAY ==
--- NOTE | 2023-03-26 14:25 | RAD_ITS ---
INDICATION: SHOULDER PAIN EXAMINATION/TECHNIQUE: X-RAY - RIGHT XR Shoulder Min 2 Views 4 VIEWS COMPARISON: No relevant prior comparison study available FINDINGS: SOFT TISSUES: No soft tissue swelling or gas. No radiopaque foreign body. BONES/JOINTS: No acute fracture or subluxation.. Normal alignment. Preservation of the joint space. Mild sclerosis of the greater tuberosity likely due to degenerative changes. RAD/Shoulder min 2 Views IMPRESSION: Mild degenerative changes. Electronically Signed: Andrez Beavers MD at 14:44 EST ,
--- OUTSIDE RECORDS SUMMARY | 2023-03-26 14:59 | XMS RPT_ITS | CCD ---
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 Repository (1 source) Erythromycin; Translations: [ERYTHROMYCIN] Drug Allergy [address] [facility] Repository (1 source) Penicillins; Translations: [PENICILLINS] Propensity to adverse reactions to drug (disorder) [address] [facility] Repository (1 source) predniSONE; Translations: [PREDNISONE] Drug Allergy [address] [facility] Repository (1 source) Sulfonamides (Antibiotic); Translations: [SULFA (SULFONAMIDE ANTIBIOTICS)] Propensity to adverse reactions to drug (disorder) [address] [facility] Repository Results Test Name Value Interpretation Reference Range Facil ity Encounters Encounter Date Encounter Type Care Provider Facility Start: 04-20-2018 End: 04-21-2018 Patient encounter procedure [facility] Start: 04-10-2018 End: 04-12-2018 Patient encounter procedure [facility] Start: 10-23-2016 End: 10-23-2016 Ambulatory SIMONE GOYAL Facility:A Payers Date Payer Category Payer Medicare [id number] Summary Purpose Family History No Family History Records FoundNo Family History Records Found Advance Directives No Advanced Directives Records FoundNo Advanced Directives Records Found Additional Source Comments INFORMATION SOURCE (unrecogn ized section and content) DATE CREATED AUTHOR AUTHOR'S ORGANIZ ATION 04/22/2018 [facility] FOR RECORDS PERTAINING TO PATIENTS WHO ARE [...] BE BASED ON THE PRIMARY CLINICAL RECORDS. [facility], [facility]. provides no warranty or guarantee of the accuracy or completeness of information in this document.
== END | disposition home or self-care (01) ==
LOC: MTRAD 14:23
PROVIDERS: PCP Family Medicine; Referring Provider Family Medicine; Visit Provider Family Medicine
DX: M75.101 Unspecified rotator cuff tear or rupture of right shoulder, not specified as traumatic (principal)
CPT/HCPCS: 73030

== ENCOUNTER → 2023-03-30 | Outpatient (CLI) | payer MEDICARE, SELFPAY ==
--- NOTE | 2023-03-30 12:00 | US_ITS ---
EXAM: US PELVIS TRANSABDOMINAL AND TRANSVAGINAL, COMPLETE CLINICAL INDICATION: thickened endometrium TECHNIQUE: Transabdominal and transvaginal pelvic ultrasound was performed with grayscale and color Doppler imaging. Transvaginal imaging was used for better evaluation of the endometrium and adnexa. COMPARISON: 01/05/2023 FINDINGS: UTERUS/CERVIX: The uterus measures 7.4 x 4.2 x 2.6 cm. Endometrium measures 4 mm. In the uterus there is a 1.8 x 1.4 x 1.6 cm hypoechoic structure compatible with a fibroid. There is a small amount of fluid within the endometrium that measures 7 x 2 x 6 mm. Also a tiny echogenic focus in the endometrium that measures 2 x 3 x 4 mm. Anteverted. RIGHT OVARY: The right ovary is not visualized. LEFT OVARY: The left ovary measures 1.7 x 1.0 1.7 cm. Blood flow is present in the left ovary. FREE FLUID: None. BLADDER: Bladder measures 6.3 x 3.3 x 6.6 cm for volume of 73 mL. US/Pelvic (Non ) IMPRESSION: Small amount of fluid within the endometrium. This is decreased from the reference exam.There is also a small echogenic focus seen within the endometrium which does not appear to be significantly changed from the reference exam. There is a small uterine fibroid present. Electronically Signed: Enrique Mathias MD at 0:01 EST ,
== END | disposition home or self-care (01) ==
LOC: OPUS 11:59 → US 12:05
PROVIDERS: PCP Family Medicine; Referring Provider Obstetrics & Gynecology; Visit Provider Obstetrics & Gynecology
DX: R93.89 Abnormal findings on diagnostic imaging of other specified body structures (principal)
CPT/HCPCS: 76830; 76856

== ENCOUNTER 2023-07-31 16:23 | Emergency (ER) | payer MEDICARE, SELFPAY ==
[2023-07-31 16:24] VITALS: BP 163/75; PULSE 64; RESP 18; TEMP 35.8; O2SAT 99; BMI 30.7
--- NOTE | 2023-07-31 16:44 | CT_ITS ---
INDICATION: fall EXAMINATION: CT CERVICAL SPINE - CT Spine Cervical W/O Contrast Injection TECHNIQUE: Helically acquired images were obtained of the cervical spine. 2D reformatted images were reviewed. A radiation dose optimization technique was used for this scan. IV Contrast dosage and agent: None. COMPARISON: None. FINDINGS: VERTEBRAE: No fracture or traumatic subluxation. No discrete lytic or blastic abnormality. Normal alignment. Normal craniocervical junction and cervicothoracic junction. DISCS and SPINAL CANAL: Severe multilevel degenerative disc disease and spondylosis. No critical stenosis. NECK SOFT TISSUES: No prevertebral soft tissue swelling. There is no cervical adenopathy. LUNG APICES: Clear. CT/Spine Cervical without Contras IMPRESSION: No evidence of acute cervical spinal fracture or spondylolisthesis. Severe multilevel degenerative disc disease and spondylosis. Electronically Signed: David Villarreal MD at 17:46 EDT ,
--- NOTE | 2023-07-31 16:44 | CT_ITS ---
EXAMINATION : Head CT w/out contrast HISTORY : fall COMPARISON : None. TECHNIQUE : Multiple contiguous axial images were obtained from the skull base to the vertex without intravenous contrast. A radiation dose optimization technique was used for this scan. FINDINGS : There is no evidence for acute intracranial hemorrhage, mass effect, or midline shift. There is no extra-axial fluid collection. There are periventricular white matter changes consistent with chronic microvascular ischemic disease. There is sulcal widening and ventricular enlargement consistent with cerebral atrophy. There is normal arcos-white differentiation, without CT evidence of acute ischemia or infarct. The skull base and calvarium are unremarkable. The orbits are unremarkable. The paranasal sinuses are clear. The mastoid air cells are well-aerated. The soft tissues are unremarkable. CT/Brain/Head without Contrast IMPRESSION: No acute intracranial abnormality. Chronic involutional and ischemic changes of the brain. Electronically Signed: David Villarreal MD at 17:45 EDT ,
--- NOTE | 2023-07-31 16:44 | RAD_ITS ---
INDICATION: injury EXAMINATION/TECHNIQUE: X-RAY - LEFT XR Wrist Min 3 Views COMPARISON: None. FINDINGS: No acute fracture or malalignment. No blastic or lytic lesions. Moderate degenerative changes of the radiocarpal and first carpometacarpal joint. The soft tissues are unremarkable. RAD/Wrist min 3 Views IMPRESSION: No acute radiographic abnormalities. Electronically Signed: David Villarreal MD at 17:54 EDT ,
--- NOTE | 2023-07-31 16:44 | RAD_ITS ---
INDICATION: fall, injury EXAMINATION/TECHNIQUE: X-RAY - XR Sacrum/Coccyx Min 2 Views COMPARISON: No relevant prior comparison study available FINDINGS: SACRUM/COCCYX: No displaced fracture, destructive or sclerotic lesions. Note that overlapping bowel shadows may however obscure fine detail in the frontal view. SACRO-ILIAC JOINTS: The articular structures are unremarkable. SOFT TISSUES: No soft tissue swelling or gas. RAD/Sacrum-Coccyx min 2 Views IMPRESSION: Unremarkable sacro-coccygeal spine. Electronically Signed: David Villarreal MD at 17:52 EDT ,
--- NOTE | 2023-07-31 16:46 | EDS_ITS ---
HPI HPI - Fall History of Present Illness Chief Complaint: Fall Informant: patient Occured/Mechanism Occurred: Today Narrative Narrative: Patient presents after a fall. Patient states she was at her son's house when one of his large dogs ran toward her and jumped up onto her chest. She lost her balance tripping over some blocks or pile behind her and fell onto the ground. She has very mild soreness to her head as well as some neck pain. She complains of pain to her left wrist as well as to her tailbone and left hip area. Patient is currently on aspirin and Plavix. No loss of consciousness. No vision change, nausea, or vomiting. [facility] Medical History Subclavian artery stenosis, left Generalized anxiety disorder Psoriasis Diverticulosis CKD (chronic kidney disease), stage III Depressive disorder Venous insufficiency of right leg Carotid stenosis Peripheral artery disease Hyperlipidemia Essential hypertension Cardiology follow-up encounter Wears glasses Loose, teeth Post-menopausal Arthritis Easy bruising Back pain Injury of back Migraine headache Difficulty swallowing History of IBS Gastric reflux Former smoker Emphysema, unspecified Asthma COPD (chronic obstructive pulmonary disease) Leg cramps History of pain when walking History of edema History of stress test Chest pain Heart disease Diabetes Home Medications ?Medication ?Instructions ?Recorded ?Last Taken ?Type atenolol 100 mg tablet (Tenormin) 100 mg PO QHS 12/18/12 08/03/13 22:00 History albuterol sulfate 90 mcg/actuation 1 - 2 puff inhalation Q4H PRN PRN 06/07/13 Unknown History aerosol inhaler (Ventolin HFA) Wheezing aspirin 81 mg chewable tablet 81 mg PO DAILY@0800 12/24/19 Unknown History lorazepam 0.5 mg tablet 0.5 mg PO Q6H PRN PRN Anxiety 12/24/19 Unknown History clopidogrel 75 mg tablet (Plavix) 75 mg PO DAILY 01/29/22 02/02/22 History losartan 100 1 tab PO DAILY 01/29/22 Unknown History mg-hydrochlorothiazide 25 mg tablet multivitamin 1 tab PO DAILY 01/29/22 Unknown History tramadol 50 mg tablet 50 mg PO TID PRN Pain 02/03/22 Unknown History valacyclovir 1 gram tablet 1,000 mg PO Q12H PRN Cold Sores 02/05/22 Unknown History phenazopyridine 95 mg tablet 95 mg PO TID PRN URINATION 03/23/23 Unknown History Allergy/AdvReac Type Severity Reaction Status Date / Time minocycline Allergy Unknown unknown Verified 07/31/23 16:24 ciprofloxacin Allergy Other Verified 07/31/23 16:24 erythromycin base Allergy Swelling Verified 07/31/23 16:24 (Erythromycin Base) Penicillins Allergy Swelling Verified 07/31/23 16:24 prednisone Allergy Swelling Verified 07/31/23 16:24 Sulfa (Sulfonamide Allergy Unknown Verified 07/31/23 16:24 Antibiotics) Family History Father Hypertension Heart disease Brother CVA (cerebral vascular accident) CAD (coronary artery disease) Sister Diabetes CVA (cerebral vascular accident) Breast cancer Uncle Heart disease Aunt Breast cancer Pancreatic cancer Other Kidney disease Surgical History H/O laminectomy History of angioplasty of peripheral vessel (10/23/16) History of bilateral carpal tunnel release Hx of colonoscopy Hx of tonsillectomy Hx of knee surgery Tubal ligation status Social History household members: spouse housing: house number of children: 2 current occupational status: retired Smoking Status: Former smoker how long ago did patient quit smokin alcohol intake: never substance use type: does not use what type of physical activity do you participate in: walking additional social history: Spouse - Orlin GORMAN ED Constitutional Constitutional ED: Denies chills Eyes Eyes: Denies change in vision or discharge from eye(s) ENT ENT ED: Denies discharge from eye(s), rhinorrhea or sore throat Cardiovascular Cardiovascular: Denies chest pain or palpitations Respiratory/Chest Respiratory/Chest: Denies cough or dyspnea Gastrointestinal Gastrointestinal: Denies abdominal pain, diarrhea, nausea or vomiting Genitourinary Genitourinary ED: Denies dysuria Musculoskeletal Musculoskeletal: Reports back pain, extremity pain and neck pain Integumentary Denies Abrasions or rash Neurologic Neurologic: Denies headache(s) or weakness Endocrine Endocrinology: Denies polydipsia or polyuria Allergic/Immunologic Allergic/Immunologic ED: Denies lip swelling or urticaria EXAM Physical Exam Narrative Exam Narrative: Patient sitting at bedside in no acute distress. Alert and appropriate. Const Vital Signs: 07/31/23 16:24 07/31/23 16:39 Temperature 96.4 F L Temperature Source Temporal Pulse Rate 64 Respiratory Rate 18 Respiratory Effort Normal Non-Labored Respiratory Depth Normal Respiratory Pattern Normal Blood Pressure 163/75 H Blood Pressure Mean 104 Pulse Ox 99 Oxygen Delivery Method Room Air Room Air Positive well nourished and well developed General Appearance ED: well developed HEENT Reports normocephalic Eyes PERRL and EOMs intact bilaterally Neck Neck Narrative: Mild C-spine tenderness. No step-offs. Muscular tenderness in the paraspinal muscles as well. Chest Wall inspection of chest normal Resp normal respiratory effort and clear to auscultation bilaterally Cardio regular rate and regular rhythm GI non-tender and non-distended Back/Spine no CVA tenderness Back/Spine Narrative: Mild midline tenderness in the sacral region. Extremity Extremity Narrative: Mild tenderness to the left wrist with minimal edema. Good range of motion. No tenderness at the elbow or shoulder. Neuro oriented x3 and moves all extremities Psych mental status grossly normal MDM MDM MDM Narrative Medical decision making narrative: CT scan of the head and neck obtained to evaluate for intracranial bleed, fracture. X-rays of the left wrist, pelvis, sacrum/coccyx obtained to evaluate for fracture. Radiography Diagnostic Testing: Clinical Impression(s) from Imaging Studies Brain CT 07/31/23 16:44 IMPRESSION: No acute intracranial abnormality. Chronic involutional and ischemic changes of the brain. Electronically Signed: David Villarreal MD at 17:45 EDT Reading Location ID and State: [facility] / [place] Tel , Service support , Cervical Spine CT 07/31/23 16:44 IMPRESSION: No evidence of acute cervical spinal fracture or spondylolisthesis. Severe multilevel degenerative disc disease and spondylosis. Electronically Signed: David Villarreal MD at 17:46 EDT , Sacrum and Coccyx X-Ray 07/31/23 16:44 IMPRESSION: Unremarkable sacro-coccygeal spine. Electronically Signed: David Villarreal MD at 17:52 EDT , Wrist X-Ray 07/31/23 16:44 IMPRESSION: No acute radiographic abnormalities. Electronically Signed: David Villarreal MD at 17:54 EDT , Pelvis X-Ray 07/31/23 17:00 IMPRESSION: No evidence of displaced pelvic or hip fracture. Mild degenerative arthrosis of the hips. Electronically Signed: David Villarreal MD at 17:53 EDT , Treatment and Re-Evaluation Narrative: CT scan of the head reveals no acute intracranial abnormality. CT the C-spine reveals no acute fracture or spondylolisthesis. Severe multilevel degenerative changes noted. Left wrist x-ray per my interpretation reveals no evidence of fracture. Radiology interpretation reviewed and agrees. Pelvis and sacrum/coccyx x-rays per my interpretation reveal no obvious fracture. Radiology interpretation reviewed and agrees. Test results discussed with the patient. She has tramadol at home to take chronically. She will continue supportive care. Discharge Plan Triage Chief Complaint: Fall ED Provider: Janina Thao Dx/Rx/DC Orders Clinical Impression: Fall, Closed head injury, Left wrist sprain, Back contusion Instructions: ED Back Contusion, ED Mechanical Fall, ED Wrist Sprain Prescriptions: No Action valacyclovir 1 gram tablet 1,000 mg PO Q12H PRN (Reason: Cold Sores) atenolol [Tenormin] 100 MG tablet 100 mg PO QHS tramadol 50 mg tablet 50 mg PO TID PRN (Reason: Pain) albuterol sulfate [Ventolin HFA] 1 INHALER inhaler 1 - 2 puff inhalation Q4H PRN PRN (Reason: Wheezing) lorazepam 0.5 MG tablet 0.5 mg PO Q6H PRN PRN (Reason: Anxiety) aspirin 81 MG tablet,chewable 81 mg PO DAILY@0800 Patient Comments: STOP 7 DAYS PRIOR 02/03 multivitamin Tablet 1 tab PO DAILY clopidogrel [Plavix] 75 mg Tablet 75 mg PO DAILY Patient Comments: STOP 7 DAYS PRIOR- LAST DOSE 02/03 losartan-hydrochlorothiazide 100-25 mg tablet 1 tab PO DAILY phenazopyridine 95 mg tablet 95 mg PO TID PRN (Reason: URINATION) Primary Care Provider: Yon Preciado Referrals: Yon Preciado DO [Primary Care Provider] - 1-2 Weeks Print Language: Tristanian Disposition Disposition: Home, Self Care
--- NOTE | 2023-07-31 17:00 | RAD_ITS ---
INDICATION: fall, injury EXAMINATION/TECHNIQUE: X-RAY - XR Pelvis 1 or 2 Views COMPARISON: No relevant prior comparison study available FINDINGS: PELVIC BONES: No displaced fracture, destructive or sclerotic lesions. Note that overlapping bowel shadows may however obscure fine detail. Sacroiliac joints are unremarkable. No widening of the pubic symphysis. HIPS: Mild degenerative changes of the bilateral hips. No displaced fracture seen in this frontal view. SOFT TISSUES: No soft tissue swelling or gas. RAD/Pelvis 1 or 2 Views IMPRESSION: No evidence of displaced pelvic or hip fracture. Mild degenerative arthrosis of the hips. Electronically Signed: David Villarreal MD at 17:53 EDT ,
[2023-07-31 18:13] VITALS: BP 164/73; PULSE 85; RESP 18; TEMP 36.6; O2SAT 98
== END 2023-07-31 18:15 | disposition home or self-care (01) ==
PROVIDERS: Emergency Provider Emergency Medicine; PCP Family Medicine; Visit Provider Emergency Medicine
DX: S20.229A Contusion of unspecified back wall of thorax, initial encounter (principal); J43.9 Emphysema, unspecified; E11.51 Type 2 diabetes mellitus with diabetic peripheral angiopathy without gangrene; E11.22 Type 2 diabetes mellitus with diabetic chronic kidney disease; N18.30 Chronic kidney disease, stage 3 unspecified; S09.90XA Unspecified injury of head, initial encounter; S63.92XA Sprain of unspecified part of left wrist and hand, initial encounter; Z87.891 Personal history of nicotine dependence; Y92.019 Unspecified place in single-family (private) house as the place of occurrence of the external cause; Z79.82 Long term (current) use of aspirin; Z79.02 Long term (current) use of antithrombotics/antiplatelets; E78.5 Hyperlipidemia, unspecified; I12.9 Hypertensive chronic kidney disease with stage 1 through stage 4 chronic kidney disease, or unspecified chronic kidney disease; Z79.899 Other long term (current) drug therapy; W01.0XXA Fall on same level from slipping, tripping and stumbling without subsequent striking against object, initial encounter
CPT/HCPCS: 70450; 72125; 72170; 72220; 73110; 99282

== ENCOUNTER 2023-09-22 05:19 | Emergency (ER) | payer MEDICARE, SELFPAY ==
[2023-09-22] VITALS (7 sets, daily range): BP systolic 128–180; BP diastolic 68–110; PULSE 62–92; RESP 16–18; TEMP 35.9–36.6; O2SAT 98–100; BMI 30.2
--- NOTE | 2023-09-22 05:30 | RAD_ITS ---
EXAM: XR CHEST, 2 VIEWS CLINICAL INDICATION: chest pain right side TECHNIQUE: Frontal and lateral views of the chest. COMPARISON: Two-view chest 04/23/2017 FINDINGS: LUNGS AND PLEURAL SPACES: Unremarkable. No consolidation or edema. No pneumothorax. No effusion. HEART: Unremarkable. Cardiac silhouette not enlarged. MEDIASTINUM: Central airways and mediastinal contour are unremarkable. BONES/JOINTS: Degenerative changes of the spine and shoulders. No acute fracture. SOFT TISSUES: Unremarkable. RAD/Chest PA and Lateral IMPRESSION: No acute findings in the chest. Electronically Signed: Axel Perez MD at 6:12 EDT ,
--- NOTE | 2023-09-22 05:30 | EDS_ITS ---
HPI History of Present Illness Chief Complaint: Chest Pain Informant: patient Narrative Narrative: 72-year-old female presents 1 hour after waking up with right-sided nonpleuritic chest discomfort. Initially thought it was something digestive, she took some Rolaids but did not notice a major change although she states even prior to that it is waxing and waning/off and on. States it feels like an achy pain, right side of chest and right mid chest. Is not triggered and does not hurt significantly worse to move or to lay down or to exert herself or to take a deep breath. States she feels a little short of breath but feels dyspneic off-and-on chronically. No associated nausea, vomiting, lightheadedness, syncope or presyncope, palpitations, recent illness/cough/fever. Patient has a history of a stent in her heart 5-7 years ago, it has been somewhere around that amount of time since she has had a negative stress test as well. She indicates that she has had discomfort in her chest before, she is not concerned about the severity of it, it is mild/minimal at this time, she just is afraid it is heart related when it occurs. She is compliant with her aspirin and Plavix, which she has taken in the last 24 hours. PE Risk Factors: Negative for Recent Travel/Surgery, Recent Immobilization, Prior DVT or PE, Cancer or OCP + Smoking + >/=35 (Quit smoking 37 years ago) [facility] Medical History Subclavian artery stenosis, left Generalized anxiety disorder Psoriasis Diverticulosis CKD (chronic kidney disease), stage III Depressive disorder Venous insufficiency of right leg Carotid stenosis Peripheral artery disease Hyperlipidemia Essential hypertension Cardiology follow-up encounter Wears glasses Loose, teeth Post-menopausal Arthritis Easy bruising Back pain Injury of back Migraine headache Difficulty swallowing History of IBS Gastric reflux Former smoker Emphysema, unspecified Asthma COPD (chronic obstructive pulmonary disease) Leg cramps History of pain when walking History of edema History of stress test Chest pain Heart disease Diabetes Home Medications ?Medication ?Instructions ?Recorded ?Last Taken ?Type atenolol 100 mg tablet (Tenormin) 100 mg PO QHS 12/18/12 08/03/13 22:00 History albuterol sulfate 90 mcg/actuation 1 - 2 puff inhalation Q4H PRN PRN 04/08/14 Unknown History aerosol inhaler (Ventolin HFA) Wheezing aspirin 81 mg chewable tablet 81 mg PO DAILY@0800 12/24/19 Unknown History lorazepam 0.5 mg tablet 0.5 mg PO Q6H PRN PRN Anxiety 12/24/19 Unknown History clopidogrel 75 mg tablet (Plavix) 75 mg PO DAILY 01/29/22 02/02/22 History losartan 100 1 tab PO DAILY 01/29/22 Unknown History mg-hydrochlorothiazide 25 mg tablet multivitamin 1 tab PO DAILY 01/29/22 Unknown History tramadol 50 mg tablet 50 mg PO TID PRN Pain 02/03/22 Unknown History valacyclovir 1 gram tablet 1,000 mg PO Q12H PRN Cold Sores 02/05/22 Unknown History phenazopyridine 95 mg tablet 95 mg PO TID PRN URINATION 03/23/23 Unknown History Allergy/AdvReac Type Severity Reaction Status Date / Time minocycline Allergy Unknown unknown Verified 09/22/23 05:20 ciprofloxacin Allergy Other Verified 09/22/23 05:20 erythromycin base Allergy Swelling Verified 09/22/23 05:20 (Erythromycin Base) Penicillins Allergy Swelling Verified 09/22/23 05:20 prednisone Allergy Swelling Verified 09/22/23 05:20 Sulfa (Sulfonamide Allergy Unknown Verified 09/22/23 05:20 Antibiotics) Family History Father Hypertension Heart disease Brother CVA (cerebral vascular accident) CAD (coronary artery disease) Sister Diabetes CVA (cerebral vascular accident) Breast cancer Uncle Heart disease Aunt Breast cancer Pancreatic cancer Other Kidney disease Surgical History H/O laminectomy History of angioplasty of peripheral vessel (10/23/16) History of bilateral carpal tunnel release Hx of colonoscopy Hx of tonsillectomy Hx of knee surgery Tubal ligation status Social History household members: spouse housing: house number of children: 2 current occupational status: retired Smoking Status: Former smoker how long ago did patient quit smokin alcohol intake: never substance use type: does not use what type of physical activity do you participate in: walking additional social history: Spouse - Orlin GORMAN [facility] ED Constitutional Constitutional ED: Denies chills or fever(s) Eyes Eyes: Denies change in vision or diplopia ENT ENT ED: Denies rhinorrhea or sore throat Cardiovascular Cardiovascular: Reports chest pain; Denies palpitations Respiratory/Chest Respiratory/Chest: Reports dyspnea; Denies cough Gastrointestinal Gastrointestinal: Denies abdominal pain, diarrhea, nausea or vomiting Genitourinary Genitourinary ED: Denies dysuria or hematuria Musculoskeletal Musculoskeletal: Denies back pain or neck pain Integumentary Denies abscess or rash Neurologic Neurologic: Denies headache(s), paresthesias or weakness Psychiatric Psychiatric: Denies anxiety or suicidal thoughts EXAM Physical Exam Const Vital Signs: 09/22/23 05:20 09/22/23 05:21 09/22/23 05:21 Temperature 96.7 F L 96.7 F L Temperature Source Temporal Temporal Pulse Rate 70 68 Respiratory Rate 16 16 Respiratory Effort Normal Non-Labored Blood Pressure 180/91 H 180/91 H Blood Pressure Mean 120 120 Pulse Ox 100 100 Oxygen Delivery Method Room Air Room Air 09/22/23 05:30 09/22/23 06:20 09/22/23 07:00 Temperature Temperature Source Pulse Rate 62 63 Respiratory Rate 18 17 Respiratory Effort Blood Pressure 135/74 H 140/68 H Blood Pressure Mean 94 92 Pulse Ox 100 98 98 Oxygen Delivery Method Room Air Room Air Room Air Positive well nourished and well developed Constitutional Narrative: Well-appearing General Appearance ED: well developed and NAD HEENT Reports moist mucous membranes normocephalic and atraumatic Eyes PERRL and EOMs intact bilaterally Neck full ROM, supple and no JVD Chest Wall inspection of chest normal and palpation of chest normal Resp normal respiratory effort and clear to auscultation bilaterally Cardio regular rate, regular rhythm and no murmurs Rate: Negative for tachycardic GI non-tender and non-distended Auscultation: normoactive bowel sounds Palpation: soft Back/Spine no CVA tenderness General Back: other FROM Extremity normal to inspection General Extremety ED: Negative for edema, pulses abnormal or tenderness General Extremity: Negative for edema or pulses abnormal Neuro oriented x3, CN's II-XII intact bilaterally and no sensory deficits noted Sensorium / Orientation: awake and alert Motor Exam: strength 5/5 throughout Psych mental status grossly normal Skin no rashes or lesions noted and no wounds Heart Score History: Slightly/Non-Suspicious ECG: Normal Age: >/= 65 years Risk Factors: >/= 3 Risk Factors or History of CAD Score: 4 MDM MDM MDM Narrative Medical decision making narrative: Patient presenting with atypical chest discomfort, acute coronary syndrome is in the differential but thought to be the less likely etiology here. Pulmonary etiologies, GI etiologies, musculoskeletal etiologies on the differential. This does not sound like an aortic dissection or pulmonary embolus. Her vital signs are normal and well-controlled and she is well-appearing does not appear objectively dyspneic, speaking in full sentences without accessory muscle use and her lungs are clear. 2 view chest x-ray my interpretation is normal. Labs are noted, she does have chronic renal insufficiency and her creatinine is a little high at 1.26, her initial troponin is well within normal limits in single digits in the context of a normal EKG. She was offered treatment for discomfort but states it is not bad and declines. She states she just wants to make sure this is not dangerous. I recommend a repeat 2-hour troponin, if it is negative I would support discharging her home with close outpatient follow-up and she is comfortable with that plan. She did have some recurrent discomfort and asked for ibuprofen, I gave her hyoscyamine to see if that would help since she states the discomfort initially was in the center of her chest and sharp and then moved over to the right nonpleuritic, think esophageal spasm may be in the differential as well has reflux but she states it feels little different than reflux. She also states she feels like she can stretch it out so it certainly could be musculoskeletal as well. Lab Data Attestation: I reviewed the patient's lab results. Labs: Laboratory Results - last 24 hr 09/22/23 05:05 WBC 8.2 RBC 3.99 L Hgb 12.1 Hct 37.1 MCV 93.0 MCH 30.3 MCHC 32.6 RDW Std Deviation 43.0 RDW Coeff of Mike 12.6 Plt Count 284 MPV 8.5 Immature Gran % (Auto) 0.400 Neut % (Auto) 49.4 Lymph % (Auto) 33.0 [place] % (Auto) 12.6 H Eos % (Auto) 4.0 Baso % (Auto) 0.6 Absolute Neuts (auto) 4.0 Absolute Lymphs (auto) 2.70 Nucleated RBC % 0 Sodium 135 L Potassium 3.7 Chloride 101 Carbon Dioxide 27.0 Anion Gap 7 BUN 26 H Creatinine 1.26 H Estim Creat Clear Calc 39.76 Est GFR (MDRD) Af Amer 54 L Est GFR (MDRD) Non-Af 44 L BUN/Creatinine Ratio 20.6 H Glucose 132 H Calcium 10.0 Troponin I High Sens 7 Radiography Diagnostic Testing: Clinical Impression(s) from Imaging Studies Chest X-Ray 09/22/23 05:30 IMPRESSION: No acute findings in the chest. Electronically Signed: Axel Perez MD at 6:12 EDT , Rhythm Strip Rhythm Strip: Sinus Rhythm Rate: 70 Ectopy: None EKG Initial EKG: Attestation: I personally reviewed and interpreted this EKG as follows: Interpretation: Sinus Rhythm and No Acute Injury Pattern Comments: Normal EKG Discharge Plan Triage Chief Complaint: Chest Pain ED Provider: Sourav Grande Dx/Rx/DC Orders Clinical Impression: Chest pain, unspecified Instructions: ED Chest Pain, Uncertain Cause Prescriptions: No Action valacyclovir 1 gram tablet 1,000 mg PO Q12H PRN (Reason: Cold Sores) atenolol [Tenormin] 100 MG tablet 100 mg PO QHS tramadol 50 mg tablet 50 mg PO TID PRN (Reason: Pain) albuterol sulfate [Ventolin HFA] 1 INHALER inhaler 1 - 2 puff inhalation Q4H PRN PRN (Reason: Wheezing) lorazepam 0.5 MG tablet 0.5 mg PO Q6H PRN PRN (Reason: Anxiety) aspirin 81 MG tablet,chewable 81 mg PO DAILY@0800 Patient Comments: STOP 7 DAYS PRIOR 02/03 multivitamin Tablet 1 tab PO DAILY clopidogrel [Plavix] 75 mg Tablet 75 mg PO DAILY Patient Comments: STOP 7 DAYS PRIOR- LAST DOSE 02/03 losartan-hydrochlorothiazide 100-25 mg tablet 1 tab PO DAILY phenazopyridine 95 mg tablet 95 mg PO TID PRN (Reason: URINATION) Primary Care Provider: Yon Preciado Referrals: Yon Preciado, DO [Primary Care Provider] - As soon as possible Print Language: Bhutanese Disposition Disposition: Home, Self Care
--- NOTE | 2023-09-22 05:30 | EKG12_ITS ---
Test Reason : CP Blood Pressure : / mmHG Vent. Rate : 071 BPM Atrial Rate : 071 BPM P-R Int : 176 ms QRS Dur : 096 ms QT Int : 396 ms P-R-T Axes : 059 021 046 degrees QTc Int : 430 ms Normal sinus rhythm Normal ECG Confirmed by WILLIAM VERDUGO MD ([id number]), editorial intern DINORAH MÉNDEZ ([id number]) on 09/23/2023 9:45:55 AM Referred By: BB Confirmed By:WILLIAM VERDUGO MD
[2023-09-22 05:37] LABS: Basophil# 0.05 X10^3/uL; Basophil% 0.6 % (0-1); Eosinophil# 0.33 X10^3/uL; Hematocrit 37.1 % (37-47); Hemoglobin 12.1 g/dL (12.0-15.0); Mean Corp Hgb Conc 32.6 g/dL (32-36); Mean Corpuscular Hgb 30.3 pg (27.0-32.0); Mean Platelet Vol. 8.5 fl (6.2-12.0); Monocyte# 1.03 X10^3/uL; Monocyte% 12.6 % (0-10); NRBC Flagged by Analyzer 0 % (0-5); Neutrophil # 4.03 X10^3/uL (2.7-7.7); Neutrophil % 49.4 % (47-70); Platelet Count 284 K/mm3 (150-450); RBC Distribution Width CV 12.6 % (11.6-14.6); Red Blood Count 3.99 M/mm3 (4.2-5.4); White Blood Count 8.2 K/mm3 (4.4-11.0)
[2023-09-22 05:57] LABS: Anion Gap 7 (5-15); BUN 26 mg/dL (7-18); BUN/Creat Ratio 20.6 RATIO (10-20); Chloride 101 mmol/L (98-107); Creatinine, Serum 1.26 mg/dL (0.55-1.02); EST Glomerular Filtration Rate 44 mL/min (>60); Est Glom Filt Rate - Afr Amer 54 mL/min (>60); Estimated Creatinine Clearance 39.76 ml/min; Glucose 132 mg/dL (74-106); Potassium 3.7 mmol/L (3.5-5.1); Sodium Level 135 mmol/L (136-145); Troponin-I HS (w/2H Reflex) 7 pg/mL (3.0-54.0)
[2023-09-22] MEDS: Hyoscyamine Sulfate 0.125 MG Tablet 0.25 MG SL (06:32)
[2023-09-22 07:34] LABS: Reflex Troponin-HS? (from REC) Y
[2023-09-22 07:54] LABS: Troponin-I HS 6 pg/mL (3.0-54.0)
== END 2023-09-22 08:44 | disposition home or self-care (01) ==
PROVIDERS: Emergency Provider Emergency Medicine; PCP Family Medicine; Visit Provider Emergency Medicine
DX: R07.89 Other chest pain (principal); J44.9 Chronic obstructive pulmonary disease, unspecified; E11.22 Type 2 diabetes mellitus with diabetic chronic kidney disease; N18.30 Chronic kidney disease, stage 3 unspecified; I12.9 Hypertensive chronic kidney disease with stage 1 through stage 4 chronic kidney disease, or unspecified chronic kidney disease; Z95.5 Presence of coronary angioplasty implant and graft; Z79.02 Long term (current) use of antithrombotics/antiplatelets; Z79.82 Long term (current) use of aspirin; Z79.899 Other long term (current) drug therapy; Z87.891 Personal history of nicotine dependence
CPT/HCPCS: 71046; 80048; 84484; 85025; 93005; 99284; A4216

== ENCOUNTER → 2023-11-17 | Outpatient (CLI) | payer MEDICARE, SELFPAY ==
--- NOTE | 2023-11-17 08:34 | BI_ITS ---
MAMMOGRAPHY - BILATERAL DIAGNOSTIC REASON FOR EXAM: Female, 73 years old. Left breast pain. PERTINENT HISTORY: Sister with breast cancer. Aunt with breast cancer. TECHNIQUE: Digital bilateral breast unruly (3D mammographic acquisition) in the CC and MLO projections. 2-D mediolateral oblique (MLO) and craniocaudad (CC) views of both breasts were obtained. CAD: Full Field Digital Mammography with Computer Added Detection was performed. COMPARISON: Comparison is made with prior study dated September 17, 2022 and March 06, 2021. FINDINGS: Breast Composition: The breasts are almost entirely fatty. There are no dominant masses or suspicious calcifications. No other significant abnormalities are identified. There has been no significant change since the prior study. BI/DIAG MAMM W/CAD, BILAT IMPRESSION: Stable bilateral diagnostic mammogram. With the patient''s history of left breast pain, targeted sonographic correlation recommended. ASSESSMENT CATEGORY: BIRADS Category 0: Incomplete. Need additional imaging evaluation. A letter regarding these results will be sent to the patient by the facility within 30 days. Approximately 10% of breast cancers are not detected by mammography. A normal mammogram should not delay biopsy of a clinically suspicious abnormality. Electronically Signed: Deandre Shetty MD at 11:06 EDT ,
--- NOTE | 2023-11-17 08:34 | US_ITS ---
STUDY: ULTRASOUND BREAST - LEFT REASON FOR EXAM: Female, 73 years old. Left axillary pain. TECHNIQUE: Axial and longitudinal images of the LEFT breast were performed with a high resolution ultrasound transducer. # OF IMAGES: 18 COMPARISON: Comparison is made with prior mammogram done earlier today. FINDINGS: LEFT Breast: The left axilla was examined with ultrasound. Incidental note is made of a 1.9 cm x 0.8 cm x 0.6 cm benign-appearing lymph node. US/Breast Limited Unilateral IMPRESSION: 1.9 cm x 0.8 cm x 0.6 cm benign-appearing left axillary lymph node. ASSESSMENT CATEGORY: BIRADS Category 2: Benign. A letter regarding these results will be sent to the patient by the facility within 30 days. Electronically Signed: Deandre Shetty MD at 10:56 EDT ,
== END | disposition home or self-care (01) ==
PROVIDERS: PCP Family Medicine; Referring Provider Family Medicine; Visit Provider Family Medicine
DX: N64.4 Mastodynia (principal); Z12.39 Encounter for other screening for malignant neoplasm of breast
CPT/HCPCS: 76642; 77062; 77066; G0279

== ENCOUNTER → 2023-12-17 | Outpatient (CLI) | payer MEDICARE, SELFPAY | END | disposition home or self-care (01) | LOC: BFHLAB 14:36 → LABSPEC 14:39 | PROVIDERS: PCP Family Medicine; Referring Provider Family Medicine; Visit Provider Family Medicine | DX: R30.0 Dysuria (principal) | CPT/HCPCS: 87077; 87086; 87088; 87186 ==

== ENCOUNTER → 2023-12-31 | Outpatient (CLI) | payer MEDICARE, SELFPAY | END | disposition home or self-care (01) | LOC: BFHLAB 14:45 | PROVIDERS: PCP Family Medicine; Referring Provider Family Medicine; Visit Provider Family Medicine | DX: R30.0 Dysuria (principal) | CPT/HCPCS: 87077; 87086; 87088; 87186 ==

== ENCOUNTER → 2024-02-19 | Outpatient (CLI) | payer MEDICARE, SELFPAY | END | disposition home or self-care (01) | LOC: BFHLAB 16:09 | PROVIDERS: PCP Family Medicine; Visit Provider Family Medicine | DX: R30.0 Dysuria (principal) | CPT/HCPCS: 87086; 87088; 87186 ==

== ENCOUNTER → 2024-04-01 | Outpatient (CLI) | payer MEDICARE, SELFPAY | END | disposition home or self-care (01) | LOC: LABSPEC 14:17 | PROVIDERS: PCP Family Medicine; Visit Provider Family Medicine | DX: N39.0 Urinary tract infection, site not specified (principal) | CPT/HCPCS: 87077; 87086; 87088; 87186 ==

== ENCOUNTER → 2024-04-25 | Outpatient (CLI) | payer MEDICARE, SELFPAY ==
--- NOTE | 2024-04-25 07:37 | CDU_ITS ---
Reason For Study Reason For Study: Carotid Stenosis Rt. Velocities/BP Lt. Velocities/BP Prox CCA 77/14 cm/sec. Prox CCA 85/18 cm/sec. Mid CCA 61/14 cm/sec. Mid CCA 93/20 cm/sec. Dist CCA 62/14 cm/sec. Dist CCA 96/21 cm/sec. Prox ICA 70/19 cm/sec. Prox ICA 57/13 cm/sec. Mid ICA 276/69 cm/sec. Mid ICA 273/66 cm/sec. Dist ICA 132/26 cm/sec. Dist ICA 187/31 cm/sec. Rt. ICA/CCA = 4.5. Lt. ICA/CCA = 2.9. Prox ECA 95/8 cm/sec. Prox ECA 104/16 cm/sec. Rt. Vert. 58/17 cm/sec. Lt. Vert. 46/13 cm/sec. Right Extracranial There is heterogeneous, irregular atherosclerotic plaque noted in the right common carotid artery. There is heterogeneous, irregular atherosclerotic plaque noted in the right internal carotid artery. There is heterogeneous, irregular atherosclerotic plaque noted in the right external carotid artery. Antegrade flow is noted in the right vertebral artery. Left Extracranial There is heterogeneous, irregular atherosclerotic plaque noted in the left common carotid artery. There is heterogeneous, irregular atherosclerotic plaque noted in the left internal carotid artery. There is intimal thickening but no significant atherosclerotic plaque noted in the left external carotid artery. Antegrade flow is noted in the left vertebral artery. Procedure Carotid Duplex 15422. This is a Carotid Duplex examination using B-mode, color flow and specral Doppler. Exam performed in department. VL/Carotid Duplex Ultrasound Interpretation Summary Moderate (50-69%) stenosis right extracranial internal carotid. Moderate (50-69 %) stenosis left extracranial internal carotid. Flow within the vertebral arteries is antegrade bilaterally. Ordering Physician: Lazaro Norwood Referring Physician: Yon Preciado Performed By: Marva Vasquez, RDCS, RVT
--- NOTE | 2024-04-25 07:37 | ART_ITS ---
Reason For Study Reason For Study: After Care Procedure A bilateral upper extremity continuous wave Doppler with analog waveform analysis and segmental pressures. Left Segmental Pressures Left brachial= 154mmHg. Left radial= 183mmHg. Left ulnar= 183mmHg. Left digit = 145 mmHg. Right Segmental Pressures Right brachial= 157mmHg. Right radial= 187mmHg. Right ulnar= 187mmHg. Right digit = 132 mmHg. Indices The right wrist-brachial index is 1.19. The right digital-brachial index is 0.84. The left digital-brachial index is 1.17. The left wrist-brachial index is 0.92. VL/Ankle Brachial Index Interpretation Summary Bilateral WBI normal. Ordering Physician: Lazaro Norwood Referring Physician: Yon Preciado Performed By: Marva Vasquez RDCS/RVT
--- NOTE | 2024-04-25 07:37 | ADUUE_ITS ---
Reason For Study Reason For Study: After Care LEFT Left Subclavian velocity = 117 cm/sec. Left Axillary velocity = 99 cm/sec. Left Brachial velocity = 133 cm/sec. Left Radial velocity = 117 cm/sec. Left Ulnar velocity = 128 cm/sec. /US Art Duplex Unilat UP Extrem Interpretation Summary This is a normal bilateral upper extremity arterial duplex exam. Ordering Physician: Lazaro Norwood Referring Physician: Yon Preciado Performed By: Marva Vasquez, JEANNE, RVT
== END | disposition home or self-care (01) ==
LOC: CVS 07:35
PROVIDERS: PCP Family Medicine; Referring Provider Surgery Vascular Surgery; Visit Provider Surgery Vascular Surgery
DX: I77.1 Stricture of artery (principal); I65.23 Occlusion and stenosis of bilateral carotid arteries; Z48.812 Encounter for surgical aftercare following surgery on the circulatory system
CPT/HCPCS: 93880; 93922; 93931

== ENCOUNTER → 2024-05-06 | Outpatient (CLI) | payer MEDICARE, SELFPAY | END | disposition home or self-care (01) | LOC: LABSPEC 15:39 | PROVIDERS: PCP Family Medicine; Referring Provider Family Medicine; Visit Provider Family Medicine | DX: N39.0 Urinary tract infection, site not specified (principal) | CPT/HCPCS: 87077; 87086; 87088; 87186 ==

== ENCOUNTER 2024-05-11 22:51 | Emergency (ER) | payer MEDICARE, SELFPAY ==
--- NOTE | 2024-05-11 00:05 | RAD_ITS ---
PROCEDURE: CHEST PA AND LATERAL 05/12/2024 REASON FOR EXAM: CHEST PAIN TECHNIQUE: Frontal and lateral views of the chest. COMPARISON: 09/22/2023 FINDINGS: Appearance of ill-defined opacity at the peripheral mid to lower left lung on the frontal view concerning for possible infiltrate, clinically correlate. The lungs otherwise appear clear. No focal consolidation or pleural effusion. Pulmonary vascularity appears within limits. The cardiac and mediastinal contours appear within limits. Heavy atherosclerotic calcification again noted. Visualized osseous structures are within limits. RAD/Chest PA and Lateral IMPRESSION: Appearance of ill-defined opacity at the peripheral mid to lower left lung on t he frontal view concerning for possible infiltrate, clinically correlate. The lungs otherwise appear clear. Reading Location: [id number]
[2024-05-11 22:51] VITALS: BP 168/71; PULSE 70; RESP 18; TEMP 36.1; O2SAT 100; BMI 29.3
--- NOTE | 2024-05-11 23:29 | EKG12_ITS ---
Test Reason : CP Blood Pressure : */* mmHG Vent. Rate : 67 BPM Atrial Rate : 67 BPM P-R Int : 164 ms QRS Dur : 92 ms QT Int : 394 ms P-R-T Axes : 56 14 64 degrees QTcB Int : 416 ms Normal sinus rhythm Normal ECG Confirmed by JUANJO CAREY, CLAUDIO ([id number]), assistant production editor REMI OROZCO ([id number]) on 05/16/2024 10:53:48 AM Referred By: Confirmed By: CLAUDIO GEIGER MD
[2024-05-11 23:44] LABS: Absolute Lymphocyte Count 2.36 X10^3/uL (0.83-4.51); Absolute Neutrophil Count 5.6 X10^3/uL (2.0-7.7); Basophil# 0.06 X10^3/uL; Basophil% 0.6 % (0-1); Eosinophil# 0.35 X10^3/uL; Eosinophils% 3.6 % (0-5); Hematocrit 33.4 % (37-47); Hemoglobin 11.2 g/dL (12.0-15.0); Lymphocyte # 2.36 X10^3/ul (0.83-4.51); Lymphocyte % 24.2 % (19-41); Mean Corp Hgb Conc 33.5 g/dL (32-36); Mean Corpuscular Volume 89.5 fL (81-99); Mean Platelet Vol. 9.3 fl (6.2-12.0); Monocyte# 1.29 X10^3/uL; Monocyte% 13.2 % (0-10); NRBC Flagged by Analyzer 0 % (0-5); Neutrophil # 5.64 X10^3/uL (2.7-7.7); Neutrophil % 57.8 % (47-70); Platelet Count 303 K/mm3 (150-450); RBC Distribution Width CV 12.3 % (11.6-14.6); RBC Distribution Width SD 40.1 fl (35.1-43.9); Red Blood Count 3.73 M/mm3 (4.2-5.4); White Blood Count 9.8 K/mm3 (4.4-11.0)
[2024-05-11 23:51] VITALS: BP 116/65; PULSE 65; RESP 17; O2SAT 97
[2024-05-12] VITALS: BP 142/74; PULSE 65; RESP 15; O2SAT 99
--- NOTE | 2024-05-12 | ED.VIS.CHEST ---
HPI History of Present Illness Chief Complaint: Chest Pain Informant: patient Narrative Narrative: Patient 73-year-old female with history of hypertension, hyperlipidemia, peripheral arterial disease, carotid stenosis, chronic back pain, diabetes mellitus and remote history of tobacco use (quit 37 years ago) presenting with right sided chest pain and neck pain. Patient states she has a bad right shoulder needs surgery. She states around 5 PM she started having pain in her right neck that went into her jaw, her face and her hinduism. She states that this evening she took tramadol and 40 mg of ibuprofen and did have improvement of her symptoms. She also notes heat helped. She also states that she developed this right chest pain she describes as squeezing in nature. She currently denies any chest pain. She states that for a long time she gets episodes of a squeezing right-sided chest pain that she attributes to her lung burning. While this is going on she also had flitting sensation in her ears. She states this happens a lot especially in the mornings but it also occurred tonight. She had a recent carotid duplex with Dr. Norwood but does not know the results. She currently denies a headache currently but states her right hinduism feels flat. Today she notes that she had a hard time seeing letters. She is currently on Omnicef for urinary tract infection and states that she has had for antibiotics since January for recurrent UTIs. She currently denies any urinary symptoms. She states she has 2 days left of her current antibiotics. She does report some mild nasal congestion. No fevers reported. States that her breathing feels tight. States that she has noticed intermittent swelling of her legs. No other complaints or concerns reported at this time. Patient is not on any blood thinners but does take Plavix and aspirin due to peripheral vascular disease. Denies any black or blood in her stool. Denies any change in bowel movements Does report increased stress as her was in the ER couple days ago with diverticulitis and UTI. She states her [id number] just after being discharged from the hospital. [facility] Medical History Subclavian artery stenosis, left Generalized anxiety disorder Psoriasis Diverticulosis CKD (chronic kidney disease), stage III Depressive disorder Venous insufficiency of right leg Carotid stenosis Peripheral artery disease Hyperlipidemia Essential hypertension Cardiology follow-up encounter Wears glasses Loose, teeth Post-menopausal Arthritis Easy bruising Back pain Injury of back Migraine headache Difficulty swallowing History of IBS Gastric reflux Former smoker Emphysema, unspecified Asthma COPD (chronic obstructive pulmonary disease) Leg cramps History of pain when walking History of edema History of stress test Chest pain Heart disease Diabetes Home Medications ?Medication ?Instructions ?Recorded ?Last Taken ?Type atenolol 100 mg tablet (Tenormin) 100 mg PO QHS 12/18/12 08/03/13 22:00 History albuterol sulfate 90 mcg/actuation 1 - 2 puff inhalation Q4H PRN PRN 06/07/13 Unknown History aerosol inhaler (Ventolin HFA) Wheezing aspirin 81 mg chewable tablet 81 mg PO DAILY@0800 12/24/19 Unknown History lorazepam 0.5 mg tablet 0.5 mg PO Q6H PRN PRN Anxiety 12/24/19 Unknown History clopidogrel 75 mg tablet (Plavix) 75 mg PO DAILY 01/29/22 02/02/22 History losartan 100 1 tab PO DAILY 01/29/22 Unknown History mg-hydrochlorothiazide 25 mg tablet multivitamin 1 tab PO DAILY 01/29/22 Unknown History tramadol 50 mg tablet 50 mg PO TID PRN Pain 02/03/22 Unknown History valacyclovir 1 gram tablet 1,000 mg PO Q12H PRN Cold Sores 02/05/22 Unknown History phenazopyridine 95 mg tablet 95 mg PO TID PRN URINATION 03/23/23 Unknown History tizanidine 4 mg tablet (Zanaflex) 2 - 4 mg (0.5 - 1 x 4 mg) PO Q8H 05/12/24 Unknown Rx PRN muscle spasticity #15 tabs Allergy/AdvReac Type Severity Reaction Status Date / Time minocycline Allergy Unknown unknown Verified 05/11/24 22:51 ciprofloxacin Allergy Other Verified 05/11/24 22:51 erythromycin base Allergy Swelling Verified 05/11/24 22:51 (Erythromycin Base) Penicillins Allergy Swelling Verified 05/11/24 22:51 prednisone Allergy Swelling Verified 05/11/24 22:51 Sulfa (Sulfonamide Allergy Unknown Verified 05/11/24 22:51 Antibiotics) Family History Father Hypertension Heart disease Brother CVA (cerebral vascular accident) CAD (coronary artery disease) Sister Diabetes CVA (cerebral vascular accident) Breast cancer Uncle Heart disease Aunt Breast cancer Pancreatic cancer Other Kidney disease Surgical History H/O laminectomy History of angioplasty of peripheral vessel (10/23/16) History of bilateral carpal tunnel release Hx of colonoscopy Hx of tonsillectomy Hx of knee surgery Tubal ligation status Social History household members: spouse housing: house number of children: 2 current occupational status: retired Smoking Status: Former smoker how long ago did patient quit smokin alcohol intake: never substance use type: does not use what type of physical activity do you participate in: walking additional social history: Spouse - Orlin GORMAN SHERIF ED Constitutional Constitutional ED: Denies chills or fever(s) Eyes Eyes: Reports blurry vision bilateral ENT ENT ED: Reports other Details: nasal congestion ; Denies rhinorrhea or sore throat Cardiovascular Cardiovascular: Reports as per HPI and chest pain Respiratory/Chest Respiratory/Chest: Reports cough and dyspnea Gastrointestinal Gastrointestinal: Denies abdominal pain, nausea or vomiting Musculoskeletal Musculoskeletal: Reports other Details: chronic right shoulder pain, + right neck pain ; Denies arthralgias or myalgias Integumentary Denies rash Neurologic Neurologic: Reports headache(s); Denies paresthesias or weakness Hematologic/Lymphatic Hematologic/Lymphatic: Denies easy bleeding or easy bruising EXAM Physical Exam Const Vital Signs: 05/11/24 22:51 05/11/24 22:51 05/11/24 23:51 Temperature 97 F L Temperature Source Temporal Pulse Rate 70 65 Respiratory Rate 18 17 Respiratory Effort Normal Blood Pressure 168/71 H 116/65 Blood Pressure Mean 103 82 Pulse Ox 100 97 Oxygen Delivery Method Room Air Room Air 05/12/24 00:00 05/12/24 00:27 05/12/24 01:11 Temperature Temperature Source Pulse Rate 65 61 Respiratory Rate 15 11 L Respiratory Effort Blood Pressure 142/74 H 142/59 H Blood Pressure Mean 96 86 Pulse Ox 99 98 Oxygen Delivery Method Room Air Room Air Room Air 05/12/24 02:00 05/12/24 02:58 Temperature 98.2 F Temperature Source Pulse Rate 67 80 Respiratory Rate 19 H 16 Respiratory Effort Blood Pressure 143/54 H 123/71 H Blood Pressure Mean 83 88 Pulse Ox 98 100 Oxygen Delivery Method Room Air Positive well nourished and well developed General Appearance ED: well developed and NAD HEENT Reports TM's clear and moist mucous membranes HEENT Narrative: Mild tenderness palpation over the right hinduism. normocephalic and atraumatic Tympanic Membrane ED: Yes TM's clear Eyes PERRL and EOMs intact bilaterally Neck supple and no JVD Neck Narrative: No carotid bruits appreciated. No JVD present. Mild tenderness palpation of the right paraspinal musculature. Chest Wall inspection of chest normal and palpation of chest normal Resp normal respiratory effort Resp Narrative: Fine crackles noted at the bilateral bases Auscultation: Negative for rhonchi or wheezes Cardio regular rate, regular rhythm and no murmurs Peripheral Pulses: radial pulses present and dorsalis pedis pulses present GI normal to inspection, nondistended, normoactive bowel sounds, soft to palpation and non-tender Extremity normal to inspection General Extremety ED: Negative for edema or pulses abnormal General Extremity: Negative for edema or pulses abnormal Neuro oriented x3 and CN's II-XII intact bilaterally Sensorium / Orientation: awake and alert Motor Exam: Negative for general weakness Psych mental status grossly normal Mood & Affect: anxious Skin no rashes or lesions noted and no wounds Heart Score History: Slightly/Non-Suspicious ECG: Normal Age: >/= 65 years Risk Factors: >/= 3 Risk Factors or History of CAD Troponin: </= Normal Limit Score: 4 MDM MDM MDM Narrative Medical decision making narrative: Patient is evaluated for multiple complaints including chest pain, shortness of breath, headache. She has had some mild URI symptoms as well. Vital signs significant for hypertension upon arrival. She overall is well-appearing. Her symptoms have resolved for the most part at this time besides her headache. Differential includes ACS, pneumonia, viral syndrome, arrhythmia, pleural effusion, heart failure, temporal arteritis and tension headache/muscle skeletal pain. Patient initially ordered Tylenol but then before NSAID. Is given a dose of Toradol. Workup obtained. On repeat evaluation patient is improved. Lab work largely normal. High-sensitivity troponin 12 and then 14. Low suspicion for ACS. BNP normal. She is not clinically appear fluid overloaded. Two-view chest x-ray viewed by myself does not show any acute process. Radiology questions ill-defined opacity of peripheral mid to lower left forearm and frontal view which could be a possible infiltrate. Clinically this does not correlate to her presentation or exam. She is not have a fever or leukocytosis. She denies any recent pneumonialike symptoms. I do not think she has an acute infiltrate. I do not think she requires antibiotics. CRP mild minimally ly elevated. I do not think this is consistent with temporal arteritis. Patient be discharged home. Will prescribe a short course of tizanidine as I suspect this is more muscular. She is agreeable. Given return precautions. Encouraged follow-up with her primary care doctor. Discharged home in stable condition. Lab Data Attestation: I reviewed the patient's lab results. Labs: Laboratory Results - last 24 hr 05/11/24 05/12/24 23:06 01:38 WBC 9.8 RBC 3.73 L Hgb 11.2 L Hct 33.4 L MCV 89.5 MCH 30.0 MCHC 33.5 RDW Std Deviation 40.1 RDW Coeff of Mike 12.3 Plt Count 303 MPV 9.3 Immature Gran % (Auto) 0.600 Neut % (Auto) 57.8 Lymph % (Auto) 24.2 Quay % (Auto) 13.2 H Eos % (Auto) 3.6 Baso % (Auto) 0.6 Absolute Neuts (auto) 5.6 Absolute Lymphs (auto) 2.36 Nucleated RBC % 0 Sodium 137 Potassium 3.6 Chloride 99 Carbon Dioxide 24.3 Anion Gap 14 BUN 29 H Creatinine 1.19 Estim Creat Clear Calc 42.45 L Est GFR (MDRD) Non-Af 48 L BUN/Creatinine Ratio 24.4 H Glucose 163 H Calcium 9.7 Troponin T High Sens 12 Troponin T Hi Sens 2 Hr 14 C-React Prot Ext Range 6.52 H NT pro BNP II 197 Radiography Diagnostic Testing: Clinical Impression(s) from Imaging Studies Chest X-Ray 05/11/24 00:05 IMPRESSION: Appearance of ill-defined opacity at the peripheral mid to lower left lung on the frontal view concerning for possible infiltrate, clinically correlate. The lungs otherwise appear clear. Reading Location: [facility] Rhythm Strip Rhythm Strip: Sinus Rhythm Rate: 67 Ectopy: None EKG Initial EKG: Attestation: I personally reviewed and interpreted this EKG as follows: Interpretation: Sinus Rhythm Comments: Normal sinus rhythm rate of 67 bpm Normal axis Normal intervals Normal ST segments Prior EKG tracings: available for review Prior: Unchanged Discharge Plan Triage Chief Complaint: Chest Pain ED Provider: Sari Coello Dx/Rx/DC Orders Clinical Impression: Neck muscle strain, Headache, Right-sided chest pain Instructions: ED Chest Pain, Noncardiac, ED Neck Sprain or Strain Prescriptions: New tizanidine [Zanaflex] 4 mg tablet 2 - 4 mg PO Q8H PRN (Reason: muscle spasticity) Qty: 15 0RF No Action valacyclovir 1 gram tablet 1,000 mg PO Q12H PRN (Reason: Cold Sores) atenolol [Tenormin] 100 MG tablet 100 mg PO QHS tramadol 50 mg tablet 50 mg PO TID PRN (Reason: Pain) albuterol sulfate [Ventolin HFA] 1 INHALER inhaler 1 - 2 puff inhalation Q4H PRN PRN (Reason: Wheezing) lorazepam 0.5 MG tablet 0.5 mg PO Q6H PRN PRN (Reason: Anxiety) aspirin 81 MG tablet,chewable 81 mg PO DAILY@0800 Patient Comments: STOP 7 DAYS PRIOR 02/03 multivitamin Tablet 1 tab PO DAILY clopidogrel [Plavix] 75 mg Tablet 75 mg PO DAILY Patient Comments: STOP 7 DAYS PRIOR- LAST DOSE 02/03 losartan-hydrochlorothiazide 100-25 mg tablet 1 tab PO DAILY phenazopyridine 95 mg tablet 95 mg PO TID PRN (Reason: URINATION) Primary Care Provider: Yon Preciado Referrals: Yon Preciado DO [Primary Care Provider] - Activity Restrictions/Additional Instructions: Please follow-up with your primary care doctor. Your workup today was largely normal and reassuring. I suspect this is more muscle skeletal at this time. Continue to take [id number] ibuprofen and use heat. You have been given a prescription for muscle relaxer for breakthrough pain/discomfort. Please be aware that this can increase the risk of confusion and sleepiness. Do not operate heavy machinery while taking it. Print Language: Serbian Disposition Disposition: Home, Self Care Discharge Date/Time: 05/12/24 02:58
[2024-05-12 00:02] LABS: Anion Gap 14 (5-15); BUN 29 mg/dL (4-19); BUN/Creat Ratio 24.4 RATIO (10-20); Calcium,Total 9.7 mg/dL (7.6-11.0); Carbon Dioxide 24.3 mmol/L (21.0-32.0); Chloride 99 mmol/L (98-108); Creatinine, Serum 1.19 mg/dL (0.70-1.20); EST Glomerular Filtration Rate 48 (>60); Estimated Creatinine Clearance 42.45 ml/min (50-250); Glucose 163 mg/dL (70-99); Potassium 3.6 mmol/L (3.3-5.1); Pro- Brain NATRIURETIC PEPTIDE 197 pg/mL (<=900); Sodium Level 137 mmol/L (133-145); Troponin T High Sensitivity 12 ng/L (<=14)
[2024-05-12] MEDS: Ketorolac 15 MG/ML Vial IV (00:13)
[2024-05-12 00:44] LABS: CRP 6.52 mg/L (0.0-3.0)
[2024-05-12 01:11] VITALS: BP 142/59; PULSE 61; RESP 11; O2SAT 98
[2024-05-12 02:00] VITALS: BP 143/54; PULSE 67; RESP 19; O2SAT 98
[2024-05-12 02:19] LABS: Troponin T High Sens 2 HR 14 ng/L (<=14)
[2024-05-12 02:58] VITALS: BP 123/71; PULSE 80; RESP 16; TEMP 36.8; O2SAT 100
== END 2024-05-12 02:58 | disposition home or self-care (01) ==
PROVIDERS: Emergency Provider Emergency Medicine; PCP Family Medicine; Visit Provider Emergency Medicine
DX: S16.1XXA Strain of muscle, fascia and tendon at neck level, initial encounter (principal); E11.22 Type 2 diabetes mellitus with diabetic chronic kidney disease; E11.51 Type 2 diabetes mellitus with diabetic peripheral angiopathy without gangrene; R07.9 Chest pain, unspecified; R09.81 Nasal congestion; G89.29 Other chronic pain; E78.5 Hyperlipidemia, unspecified; R79.82 Elevated C-reactive protein (CRP); I12.9 Hypertensive chronic kidney disease with stage 1 through stage 4 chronic kidney disease, or unspecified chronic kidney disease; Z87.891 Personal history of nicotine dependence; Z98.51 Tubal ligation status; Z87.440 Personal history of urinary (tract) infections; X58.XXXA Exposure to other specified factors, initial encounter; Z79.82 Long term (current) use of aspirin; J45.909 Unspecified asthma, uncomplicated; Z82.49 Family history of ischemic heart disease and other diseases of the circulatory system; M54.2 Cervicalgia; M25.511 Pain in right shoulder; R06.00 Dyspnea, unspecified; R05.9 Cough, unspecified; H53.8 Other visual disturbances
CPT/HCPCS: 71046; 80048; 83880; 84484; 85025; 86140; 87631; 93005; 99284; A4216

== ENCOUNTER → 2024-06-03 | Outpatient (CLI) | payer MEDICARE, SELFPAY ==
--- NOTE | 2024-06-03 17:08 | US_ITS ---
PROCEDURE: KIDNEY AND BLADDER 06/03/2024 REASON FOR EXAM: UTI TECHNIQUE: Bilateral renal and bladder ultrasound. FINDINGS: The bladder with volume 118 cc and wall thickness of 3 mm appears within limits. Bilateral ureteral jets are noted during imaging. Distal ureters are not seen. The right kidney measures 11.3 x 4.7 x 3.9 cm with a cortical thickness of 1 cm. Left kidney measures 10.7 x 5.4 x 5.3 cm with a cortical thickness of 1.2 cm. The kidneys appear within limits for echogenicity without hydronephrosis, renal stone or perinephric edema seen. A 1.8 x 1.5 x 1.5 cm simple appearing right mid renal cyst. A 1.3 x 1.4 x 0.9 cm left lower pole cyst with suggestion of a thin septation. 1.9 x 1.4 x 1.1 cm simple appearing left mid renal cyst. No free fluid seen. US/Kidney and Bladder IMPRESSION: Study appears within limits with a couple of renal cysts as above. Reading Location: [id number]
== END | disposition home or self-care (01) ==
PROVIDERS: PCP Family Medicine; Referring Provider Urology; Visit Provider Urology
DX: N39.0 Urinary tract infection, site not specified (principal)
CPT/HCPCS: 76770

== ENCOUNTER → 2024-07-27 | Outpatient (CLI) | payer MEDICARE, SELFPAY ==
--- NOTE | 2024-07-27 07:10 | MRI_ITS ---
PROCEDURE: UPPER EXT JOINT ONLY(ROUTINE) 07/27/2024 REASON FOR EXAM: ROTATOR CUFF TEAR TECHNIQUE: T1, T2, PD, MRI of the right shoulder. Multiplanar and multisequence images were obtained without IV contrast administration. COMPARISON: COMPARISON : None FINDINGS: Rotator cuff: There is no significant muscular atrophy. There is a full- thickness, 50% width tear of the distal supraspinatus tendon, 1 cm from the footplate, without retraction. There is moderate to severe distal infraspinatus and subscapularis tendinopathy without tear. There is a 0.8 by 0.4 cm osteochondral fragment in the anterior margin of the distal subscapularis tendon, which can indicate a component of calcific tendinitis. The teres minor appears intact. AC joint: There is moderate AC joint hypertrophy without evidence of separation. There is a small AC joint effusion. There is a type 3 acromion with impingement configuration. Bone Marrow: There is no bony contusion. There is severe osteoarthritis of the glenohumeral articulation with marginal osteophytes, and subcortical cyst formation in the humeral head and glenoid. Labrum: There is a tear of the labrum from the 10 o'clock 2 o'clock position. Effusion: There is a moderate joint effusion. There is fluid in the subacromial subdeltoid bursa, with bursitis. Biceps tendon: The biceps tendon is present within the biceps tendon groove, with intact anchors. MRI/Upper Ext Joint Only(Routine) IMPRESSION: There is a full-thickness, 50% width tear of the distal supraspinatus tendon, 1 cm from the footplate, without retraction. There is moderate to severe distal infraspinatus and subscapularis tendinopathy without tear. There is a 0.8 by 0.4 cm osteochondral fragment in the anterior margin of the d istal subscapularis tendon, which can indicate a component of calcific tendinitis. There is moderate AC joint hypertrophy without evidence of separation. There is a small AC joint effusion. There is a type 3 acromion with impingement configuration. There is severe osteoarthritis of the glenohumeral articulation with marginal o steophytes, and subcortical cyst formation in the humeral head and glenoid. There is a tear of the labrum from the 10 o'clock 2 o'clock position. There is a moderate joint effusion. There is fluid in the subacromial subdeltoid bursa, with bursitis. Reading Location: [facility]
== END | disposition home or self-care (01) ==
PROVIDERS: PCP Family Medicine; Referring Provider Family Medicine; Visit Provider Family Medicine
DX: M75.101 Unspecified rotator cuff tear or rupture of right shoulder, not specified as traumatic (principal)
CPT/HCPCS: 73221

== ENCOUNTER → 2024-08-11 | Outpatient (CLI) | payer MEDICARE, SELFPAY ==
--- OUTSIDE RECORDS SUMMARY | 2024-08-11 07:15 | XMS RPT_ITS | CCD ---
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 Yon Preciado Primary Care Provider [phone] Dr. Yon Preciado Referring Provider Dr. Patricio Funes Attending Provider Dr. Yon Preciado Primary Care Provider [phone] Dr. Yon Preciado Referring Provider Dr. Patricio Funes Attending Provider Dr. Evens Trent Attending Provider Dr. Patricio Funes Referring Provider Dr. Patricio Funes Other Provider Dr. Patricio Funes Admit Provider Dr. Radha Mcnamara Attending Provider Dr. Radha Mcnamara Other Provider Dr. Donna Oliveira Attending Provider [phone] Donna Oliveira Other Provider Dr. Yon Preciado Primary Care Provider [phone] Dr. Yon Preciado Referring Provider [phone] Kandace Banks Attending Provider [phone] Dr. Yon Preciado DO Primary Care Provider Dr. Yon Preciado DO Attending Provider [phone] Dr. Simone Norwood MD Attending Provider Dr. Simone Norwood MD Referring Provider Ilana CASTRO, Dr. Marvin Primary Care Provider [phone] Dr. Yon Preciado DO Attending Provider Cuco CAREY, Dr. Simone Conde Attending Provider Cuco CAREY, Dr. Simone Conde Referring Provider Ilana CASTRO, Dr. Marvin Referring Provider [phone] Sari Coello DO Emergency Provider Dr. Sari Coello DO Attending Provider Coral CAREY, Dr. Diaz Attending Provider Coral CAREY, Dr. Diaz Referring Provider Ilana, Yon Primary Care Unavailable Ilana, Yon Attending Unavailable Simone Norwood Attending Unavailable Simone Norwood Referring Unavailable Ilana, Yon Primary Care Unavailable Ilana, Yon Primary Care Unavailable Ilana, Yon Attending Unavailable Ilana, Yon Primary Care Unavailable Ilana, Yon Attending Unavailable Ilana, Yon Referring Unavailable Ilana, Yon Primary Care Unavailable Ilana, Yon Attending Unavailable Ilana, Yon Referring Unavailable Sourav Grande Attending Unavailable Ilana, Yon Primary Care Unavailable Ilana, Yon Primary Care Unavailable Sari Coello Attending Unavailable Ilana, Yon Primary Care Unavailable Ilana, Yon Attending Unavailable Ilana, Yon Referring Unavailable Emily Moncada Attending Unavailable Emily Moncada Referring Unavailable Ilana, Yon Primary Care Unavailable Ilana, Yon Primary Care Unavailable Ilana, Yon Attending Unavailable Ilana, Yon Referring Unavailable Ilana, Yon Primary Care Unavailable Ilana, Yon Attending Unavailable Ilana, Yon Referring Unavailable Allergies Allergy Classification Reported Allergen(s) Allergy Type Date of Onset Reaction(s) Facility (1 source) Clarithromycin; Translations: [CLARITHROMYCIN] Drug Allergy 5 [facility] Repository (1 source) Erythromycin; Translations: [ERYTHROMYCIN] Drug Allergy 5 [facility] Repository (19 sources) Penicillins; Translations: [PENICILLINS] Propensity to adverse reactions to drug (disorder) 10-17-[address] [facility] Repository (19 sources) predniSONE; Translations: [PREDNISONE] Drug Allergy [address] [facility] Repository (19 sources) Sulfonamides (Antibiotic); Translations: [SULFA (SULFONAMIDE ANTIBIOTICS)] Propensity to adverse reactions to drug (disorder) [address] [facility] Repository (17 sources) Erythromycin Drug Allergy 0 Swelling [facility] (3 sources) Minocycline Drug Allergy 0 Unknown [facility] Work Phone: (14 sources) Ciprofloxacin Drug Allergy 2 Other [facility] Comment on above: MAKES HER REALLY SIC K (14 sources) Minocycline Drug Allergy 2 unknown [facility] (1 source) Ciprofloxacin Drug Allergy 5 [facility] Repository (1 source) Erythromycin Drug Allergy 5 [facility] Repository (1 source) Minocycline Drug Allergy 5 [facility] Repository Medications Current Medications Medication Drug Class(es) Dates Sig (Normalized) Sig (Original) Albuterol (17 sources) beta2-Adrenergic Agonist Start: 06-07-2013 Albuterol Sulfate (Ventolin Hfa) 1 INHALER inhaler Active 1 - 2 NMA INHALATION EVERY 4 HOURS NEEDED as needed for Wheezing June 07, 2013 12:00am Start: 06-07-2013 Albuterol Sulf ate (Ventolin Hfa) 1 INHALER inhaler Active 1 - 2 NMA INHALATION EVERY 4 HOURS NEEDED as needed for Wheezing June 06, 2013 11:00pm Start: 06-07-2013 take 1 puff(s) by in halation every four hours as needed Albuterol Sulfate (Ventolin Hfa) 1 INHALER inhaler Active 1 - 2 PUFF INHALATION EVERY 4 HOURS NEEDED June 07, 2013 12:00am Start: 06-07-2013 take 1 puff(s) by in halation every four hours as needed Albuterol Sulfate (Ventolin Hfa) 1 INHALER inhaler Active 1 - 2 PUFF INHALATION EVERY 4 HOURS NEEDED June 06, 2013 11:00pm Start: 06-07-2013 take 1 puff(s) by in halation every four hours as needed Albuterol Sulfate (Ventolin Hfa) 1 INHALER inhaler Active 1 - 2 PUFF INHALATION EVERY 4 HOURS NEEDED June 07, 2013 12:00am aspirin 81 mg chewable tablet (17 sources) Platelet Aggregation Inhibitor, Nonsteroidal Anti-inflammatory Drug Start: 12-24-2019 take 1 tablet by mouth once daily Aspirin 81 MG tablet,chewable Active 81 mg PO DAILY@0800 December 24, 2019 12:00am atenolol 100 mg oral tablet (17 sources) beta-Adrenergic Nadya Start: 12-18-2012 take 1 tablet by mouth at bedtime Atenolol (Tenormin) 100 MG tablet Active 100 mg PO AT BEDTIME December 18, 2012 12:00am clopidogrel 75 mg oral tablet (20 sources) [id number] Platelet Inhibitor Start: 01-29-2022 take 1 tablet by mouth once daily Clopidogrel (Plavix) 75 mg Tablet Active 75 mg PO DAILY January 29, 2022 1:00am Start: 04-10-2018 End: 10-28-2021 take 1 tablet by mouth once daily Clopidogrel 75 MG tablet Discontinued 75 mg PO DAILY April 10, 2018 1:00am October 28, 2021 1:29pm hydroCHLOROthiazide 25 mg / losartan potassium 100 mg oral tablet (17 sources) Thiazide Diuretic, Angiotensin 2 Receptor Nadya Start: 01-29-2022 Losartan-Hydrochlorothiazide 100-25 mg tablet Active 1 {tbl} PO DAILY January 29, 2022 1:00am Start: 01-29-2022 take 1 tablet by gabbie th once daily Losartan-Hydrochlorothiazide Active 1 TA BLET PO DAILY January 29, 2022 12:00am Start: 12-24-2019 Losartan-Henderson chlorothiazide Active 1 EACH PO DAILY December 24, 2019 12:00am LORazepam 0.5 mg oral tablet (17 sources) Benzodiazepine Start: 12-24-2019 take 1 tablet by mouth every six hours as needed for anxiety Lorazepam 0.5 MG tablet Active 0.5 mg PO EVERY 6 HOURS NEEDED as needed for Anxiety December 24, 2019 12:00am Multivitamin preparation (10 sources) Start: 01-29-2022 take 1 tablet by mouth once daily Multivitamin Active 1 TABLET PO DAILY January 29, 2022 1:00am Start: 01-29-2022 take 1 tablet by gabbie th once daily Multivitamin Active 1 TABLET PO DAILY January 29, 2022 12:00am Multivitamin Tablet (4 sources) Start: 01-29-2022 Multivitamin T ablet Active 1 {tbl} PO DAILY January 29, 2022 1:00am Start: 01-29-2022 Multivitamin T ablet Active 1 {tbl} PO DAILY January 29, 2022 12:00am phenazopyridine hydrochloride 95 mg oral tablet (20 sources) Start: 01-29-2022 End: 03-23-2023 take 1 tablet by mouth three times daily as needed Phenazopyridine 95 mg tablet Active 95 mg PO THREE TIMES A DAY as needed for URINATION March 23, 2023 4:23pm Start: 10-28-2021 Phenazopyridin e Active MG PO .prn October 28, 2021 12:00am tiZANidine 4 mg oral tablet (3 sources) Central alpha-2 Adrenergic Agonist Start: 05-12-2024 Tizanidine (Zanaflex) 4 mg tablet Active 2 - 4 mg PO Q8H as needed for muscle spasticity May 12, 2024 12:00am traMADol hydrochloride 50 mg oral tablet (20 sources) Opioid Agonist Start: 02-03-2022 take 1 tablet by mouth three times daily as needed for pain Tramadol 50 mg tablet Active 50 mg PO THREE TIMES A DAY as needed for Pain February 03, 2022 10:19am Start: 12-18-2012 End: 02-03-2022 take 1 tablet by mouth every six hours as needed for pain Tramadol 50 MG tablet Discontinued 50 mg PO EVERY 6 HOURS NEEDED as needed for Pain December 18, 2012 12:00am February 03, 2022 10:21am valACYclovir 1000 mg oral tablet (20 sources) Herpesvirus Nucleoside Analog DNA Polymerase Inhibitor, Herpes Simplex Virus Nucleoside Analog DNA Polymerase Inhibitor, Herpes Zoster Virus Nucleoside Analog DNA Polymerase Inhibitor Start: 02-05-2022 Valacyclovir 1 gram tablet Active 1000 mg PO Q12H as needed for Cold Sores February 05, 2022 10:00am Start: 02-05-2022 take 1000 mg by mout h every twelve hours Valacyclovir Active 1000 MG PO Q12H February 05, 2022 9:00am Start: 02-03-2022 End: 02-05-2022 Valacyclovir 1 gram tablet Discontinued 500 mg PO DAILY February 03, 2022 1:00am February 05, 2022 10:00am Start: 02-03-2022 End: 02-05-2022 take 500 mg by mouth once daily Valacyclovir Discontin ued 500 MG PO DAILY February 03, 2022 12:00am February 05, 2022 9:00am Completed/Discontinued Medications Medication Drug Class(es) Dates Sig (Normalized) Sig (Original) acetaminophen 325 mg / oxyCODONE hydrochloride 5 mg oral tablet (14 sources) Opioid Agonist Start: 02-12-2022 End: 02-22-2022 Oxycodone-Acetamino phen 5-325 mg tablet Discontinued 1 {tbl} PO EVERY 6 HOURS as needed for pain 40 February 12, 2022 February 21, 2022 1:00am February 22, 2022 1:11am Start: 02-12-2022 End: 02-22-2022 take 1 tablet by mouth every six hours Oxycodone-Acetaminophen Discontinued 1 TABLET PO EVERY 6 HOURS 40 February 12, 2022 February 22, 2022 12:11am ciprofloxacin 500 mg oral tablet (17 sources) Quinolone Antimicrobial Start: 12-24-2019 End: 10-28-2021 take 1 tablet by mouth twice daily Ciprofloxacin Hcl 500 MG tablet Discontinued 500 mg PO TWICE A DAY December 24, 2019 12:00am October 28, 2021 1:26pm Cranberry Fruit (17 sources) Non-Standardized Food Allergenic Extract, Non-Standardized Plant Allergenic Extract Start: 04-10-2018 End: 10-28-2021 take 1 capsule by mouth once daily Cranberry Fruit 400 MG capsule Discontinued 400 mg PO DAILY April 10, 2018 1:00am October 28, 2021 1:29pm Start: 04-10-2018 End: 10-28-2021 take 1 capsule by mouth once daily Cranberry Fruit 400 MG capsule Discontinued 400 mg PO DAILY April 10, 2018 12:00am October 28, 2021 12:29pm Start: 04-10-2018 End: 10-28-2021 take 400 mg by mouth once daily Cranberry Discontinued 400 MG PO DAILY April 10, 2018 12:00am October 28, 2021 12:29pm Start: 04-10-2018 End: 10-28-2021 take 400 mg by mouth once daily Cranberry Discontinued 400 MG PO DAILY April 10, 2018 1:00am October 28, 2021 1:29pm Start: 04-10-2018 take 400 mg by mouth once radha y Cranberry Active 400 MG PO DAILY April 10, 2018 1:00am hydroCHLOROthiazide 25 mg oral tablet (17 sources) Thiazide Diuretic Start: 12-18-2012 End: 10-28-2021 take 1 tablet by mouth once daily Hydrochlorothiazide 25 MG tablet Discontinued 25 mg PO DAILY December 18, 2012 12:00am October 28, 2021 1:28pm ibuprofen 200 mg oral tablet (14 sources) Nonsteroidal Anti-inflammator y Drug Start: 01-29-2022 End: 02-05-2022 take 2 tablets by mouth every eight hours as needed for pain Ibuprofen 200 mg Tablet Discontinued 400 mg PO Q8H as needed for Pain January 29, 2022 1:00am February 05, 2022 9:58am Start: 01-29-2022 End: 02-05-2022 take 400 mg by mouth every eight hours Ibuprofen Discontinued 400 MG PO Q8H January 29, 2022 12:00am February 05, 2022 8:58am metroNIDAZOLE 500 mg oral tablet (17 sources) Nitroimidazole Antimicrobial Start: 12-24-2019 End: 10-28-2021 take 1 tablet by mouth every eight hours Metronidazole 500 MG tablet Discontinued 500 mg PO Q8H December 24, 2019 12:00am October 28, 2021 1:29pm Problems Active Problems Problem Classification Problem Date Documented Da te Episodic/Chronic Conditions associated with dizziness or vertigo (17 sources) Vertigo; Translations: [Dizziness and giddiness] 10-16-2018 Episodic Diabetes mellitus without complication (15 sources) Diabetes mellitus; Translations: [Type 2 diabetes mellitus without complications] 02-03-2022 Chronic Comment on above: NO MEDS, DIET CONTRO LLED Disorders of lipid metabolism (18 sources) Hyperlipidemia; Translations: [Hyperlipidemia, unspecified] Chronic E Codes: Fall (4 sources) Fall; Translations: [Unspecified fall, initial encounter] 08-08-2023 Episodic Essential hypertension (18 sources) Essential hypertension; Translations: [Essential (primary) hypertension] Chronic Headache; including migraine (3 sources) Headache; Translations: [Headache] 05-12-2024 Episodic Headache; including migraine (1 source) Headache; including migraine; Translations: [Headache, unspecified] Onset: 05-23-2024 Occlusion or stenosis of precerebral arteries (16 sources) Carotid artery stenosis; Translations: [Occlusion and stenosis of unspecified carotid artery] Chronic Other and ill-defined heart disease (15 sources) Heart disease; Translations: [Heart disease, unspecified] 02-03-2022 Chronic Other circulatory disease (1 source) Stricture of artery; Translations: [Stricture of artery] Onset: 05-05-2024 Chronic Other circulatory disease (3 sources) H/O: hypertension; Translations: [Personal history of other diseases of the circulatory system] Episodic Other connective tissue disease (1 source) Unspecified rotator cuff tear or rupture of right shoulder, not specified as traumatic; Translations: [Unspecified rotator cuff tear or rupture of right shoulder, not specified as traumatic] Onset: 08-02-2024 Episodic Other injuries and conditions due to external causes (4 sources) Closed injury of head; Translations: [Unspecified injury of head, initial encounter] 08-08-2023 Episodic Other lower respiratory disease (17 sources) H/O: asthma; Translations: [Personal history of other diseases of the respiratory system] 02-03-2022 Episodic Other nutritional; endocrine; and metabolic disorders (3 sources) H/O: raised blood lipids; Translations: [Personal history of other endocrine, nutritional and metabolic disease] Episodic Other screening for suspected conditions (not mental disorders or infectious disease) (10 sources) Endometrium thickened; Translations: [Abnormal findings on diagnostic imaging of other specified body structures] 03-23-2023 Chronic Comment on above: EMB done, repeat US. may need d and c hysteroscopy symphion Peripheral and visceral atherosclerosis (14 sources) Peripheral vascular disease, unspecified; Translations: [Peripheral arterial disease] 02-03-2022 Chronic Residual codes; unclassified (17 sources) H/O: endocrine disorder; Translations: [Personal history of other specified conditions] 08-06-2015 Episodic Residual codes; unclassified (17 sources) History of chest pain; Translations: [Personal history of other specified conditions] 02-03-2022 Episodic Residual codes; unclassified (14 sources) H/O Spinal surgery; Translations: [Other specified postprocedural states] 02-12-2022 Episodic Residual codes; unclassified (2 sources) Other specified postprocedural states; Translations: [Other postprocedural status] Episodic Screening and history of mental health and substance abuse codes (17 sources) Tobacco use and exposure - finding; Translations: [Personal history of nicotine dependence] 02-03-2022 Episodic Spondylosis; intervertebral disc disorders; other back problems (20 sources) Spinal stenosis of lumbar region; Translations: [Spinal stenosis, lumbar region without neurogenic claudication] Episodic Sprains and strains (7 sources) Sprain of left wrist; Translations: [Unspecified sprain of left wrist, initial encounter] 08-08-2023 Episodic Superficial injury; contusion (4 sources) Contusion of back; Translations: [Contusion of unspecified back wall of thorax, initial encounter] 08-08-2023 Episodic Urinary tract infections (1 source) Urinary tract infection, site not specified; Translations: [Urinary tract infection, site not specified] Onset: 06-08-2024 Episodic Past or Other Problems Problem Classification Problem Date Documented Da te Episodic/Chronic Genitourinary symptoms and ill-defined conditions (1 source) Dysuria; Translations: [Dysuria] Onset: 03-24-2024 Episodic Nonmalignant breast conditions (1 source) Mastodynia; Translations: [Mastodynia] Onset: 12-09-2023 Episodic Nonspecific chest pain (8 sources) Chest pain; Translations: [Chest pain, unspecified] Onset: 10-10-2023 09-30-2023 Episodic Results Test Name Value Interpretation Reference Range Facility Upper Ext Joint Only(Routine )on 07-27-2024 Upper Ext Joint Only(Routine) [facility] Imaging Services [address] [place] [address] [id number] Upper Ext Joint Only(Routine) MR#: [id number] Acct: [id number] Name: FIOR SHIPMAN Rep #: [id number] : 1950 F 73 From: Jesse Mercado MD PCP: Dr. Yon Preciado DO Status: REG CLI Study: Upper Ext Joint Only(Routine) Date of Exam: 0 07/27/24 Exam# [id number] Ordering Dr: Yon Preciado DO PROCEDURE: UPPER EXT JOINT ONLY(ROUTINE) 07/27/2024 REASON FOR EXAM: ROTATOR CUFF TEAR TECHNIQUE: T1, T2, PD, MRI of the right shoulder. Multiplanar and multisequence images were obtained without IV contrast administration. COMPARISON: COMPARISON : None FINDINGS: Rotator cuff: There is no significant muscular atrophy. There is a full-thickness, 50% width tear of the distal supraspinatus tendon, 1 cm from the footplate, without retraction. There is moderate to severe distal infraspinatus and subscapularis tendinopathy without tear. There is a 0.8 by 0.4 cm osteochondral fragment in the anterior margin of the distal subscapularis tendon, which can indicate a component of calcific tendinitis. The teres minor appears intact. AC joint: There is moderate AC joint hypertrophy without evidence of separation. There is a small AC joint effusion. There is a type 3 acromion with impingement configuration. Bone Marrow: There is no bony contusion. There is severe osteoarthritis of the glenohumeral articulation with marginal osteophytes, and subcortical cyst formation in the humeral head and glenoid. Labrum: There is a tear of the labrum from the 10 o'clock 2 o'clock position. Effusion: There is a moderate joint effusion. There is fluid in the subacromial subdeltoid bursa, with bursitis. Biceps tendon: The biceps tendon is present within the biceps tendon groove, with intact anchors. MRI/Upper Ext Joint Only(Routine) IMPRESSION: There is a full-thickness, 50% width tear of the distal supraspinatus tendon, 1 cm from the footplate, without retraction. There is moderate to severe distal infraspinatus and subscapularis tendinopathy without tear. There is a 0.8 by 0.4 cm osteochondral fragment in the anterior margin of the distal subscapularis tendon, which can indicate a component of calcific tendinitis. There is moderate AC joint hypertrophy without evidence of separation. There is a small AC joint effusion. There is a type 3 acromion with impingement configuration. There is severe osteoarthritis of the glenohumeral articulation with marginal osteophytes, and subcortical cyst formation in the humeral head and glenoid. There is a tear of the labrum from the 10 o'clock 2 o'clock position. There is a moderate joint effusion. There is fluid in the subacromial subdeltoid bursa, with bursitis. [facility] CC: Dr. Yon Preciado DO Product Development Manager: Signed Normal [facility] Kidney and Bladderon 025 Kidney and Bladder [facility] Imaging Services [address] [place] [address] Kidney and Bladder MR#: [id number] Acct: [id number] Name: FIOR SHIPMAN Rep #: [id number] : 1950 F 73 From: Ander Dunne MD PCP: Dr. Yon Preciado DO Status: REG CLI Study: Kidney and Bladder Date of Exam: 06/03/24 Exam# [id number] Ordering Dr: Emily Moncada MD PROCEDURE: KIDNEY AND BLADDER 06/03/2024 REASON FOR EXAM: UTI TECHNIQUE: Bilateral renal and bladder ultrasound. FINDINGS: The bladder with volume 118 cc and wall thickness of 3 mm appears within limits. Bilateral ureteral jets are noted during imaging. Distal ureters are not seen. The right kidney measures 11.3 x 4.7 x 3.9 cm with a cortical thickness of 1 cm. Left kidney measures 10.7 x 5.4 x 5.3 cm with a cortical thickness of 1.2 cm. The kidneys appear within limits for echogenicity without hydronephrosis, renal stone or perinephric edema seen. A 1.8 x 1.5 x 1.5 cm simple appearing right mid renal cyst. A 1.3 x 1.4 x 0.9 cm left lower pole cyst with suggestion of a thin septation. 1.9 x 1.4 x 1.1 cm simple appearing left mid renal cyst. No free fluid seen. US/Kidney and Bladder IMPRESSION: Study appears within limits with a couple of renal cysts as above. Reading Location: [id number] CC: Dr. Emily Moncada MD; Dr. Yon Preciado DO Product Development Manager: Signed Normal [facility] Basic Metabolic Profile (BMP )on 05-12-2024 BUN/CRE 24.4 RATIO High 10-20 [facility] Comment on above: Performed By: #### L 500.2500, L501.4021, L503.7505, L501.6710 #### [facility] [address] [place], [address] Calcium [Mass/Vol] 9.7 mg/dL Normal 7.6-11.[address] [facility] Comment on above: Performed By: #### L 500.2500, L501.4021, L503.7505, L501.6710 #### [facility] [address] [place], [address] Chloride [Moles/Vol] 99 mmol/L Normal 98-108 [facility] Comment on above: Performed By: #### L 500.2500, L501.4021, L503.7505, L501.6710 #### [facility] [address] [place], [address] CO2 [Moles/Vol] 24.3 mmol/L Normal 21.0-32.0 [facility] Comment on above: Performed By: #### L 500.2500, L501.4021, L503.7505, L501.6710 #### [facility] [address] [place], [address] Creatinine [Mass/Vol] 1.19 mg/dL Normal 0.70-1.20 [facility] Comment on above: Performed By: #### L 500.2500, L501.4021, L503.7505, L501.6710 #### [facility] [address] [place], [address] ECRCL 42.45 ml/min Low 50-250 [facility] Comment on above: Performed By: #### L 500.2500, L501.4021, L503.7505, L501.6710 #### [facility] [address] [place], [address] GAP 14 Normal 5-15 [facility] Comment on above: Performed By: #### L 500.2500, L501.4021, L503.7505, L501.6710 #### [facility] [address] [place], [address] GFR/1.73 sq M.predicted among non-blacks MDRD (S/P/Bld) [Vol rate/Area] 48 mL/min/{1.73_m2} Low >60 [facility] Comment on above: Result Comment: mL/m in/1.73m2 CKD-EPI Creatinine Equation (2020) Performed By: #### L 500.2500, L501.4021, L503.7505, L501.6710 #### [facility] [address] [place], [address] Glucose [Mass/Vol] 163 mg/dL High 70-[address] [facility] Comment on above: Performed By: #### L 500.2500, L501.4021, L503.7505, L501.6710 #### [facility] [address] [place], [address] Potassium [Moles/Vol] 3.6 mmol/L Normal 3.3-5.1 [facility] Comment on above: Performed By: #### L 500.2500, L501.4021, L503.7505, L501.6710 #### [facility] [address] [place], [address] Sodium [Moles/Vol] 137 mmol/L Normal 133-[address] [facility] Comment on above: Performed By: #### L 500.2500, L501.4021, L503.7505, L501.6710 #### [facility] [address] [place], [address] Urea nitrogen [Mass/Vol] 29 mg/dL High 4-19 [facility] Comment on above: Performed By: #### L 500.2500, L501.4021, L503.7505, L501.6710 #### [facility] [address] [place], [address] CRPon 05-12-2024 C-REACTIVE PROT 6.52 mg/L High 0.0-3.0 [facility] Comment on above: Performed By: #### L 500.2500, L501.4021, L503.7505, L501.6710 ####[facility] [id number] [place], [address] Emergency Department Summary on 05-12-2024 Emergency Department Summary [facility] Medical Records Department [address] [place] [address] Emergency Department Summary 05/12/24 MR#: [id number] Acct: [id number] Name: FIOR SHIPMAN Rep #: [id number] : 1950 73 From: Sari Coello DO PCP: Dr. Yon Preciado DO Status:DEP ER Location: ED HPI History of Present Illness Chief Complaint: Chest Pain Informant: patient Narrative Narrative: Patient 73-year-old female with history of hypertension, hyperlipidemia, peripheral arterial disease, carotid stenosis, chronic back pain, diabetes mellitus and remote history of tobacco use (quit 37 years ago) presenting with right sided chest pain and neck pain. Patient states she has a bad right shoulder needs surgery. She states around 5 PM she started having pain in her right neck that went into her jaw, her face and her samaritan. She states that this evening she took tramadol and 40 mg of ibuprofen and did have improvement of her symptoms. She also notes heat helped. She also states that she developed this right chest pain she describes as squeezing in nature. She currently denies any chest pain. She states that for a long time she gets episodes of a squeezing right-sided chest pain that she attributes to her lung burning. While this is going on she also had flitting sensation in her ears. She states this happens a lot especially in the mornings but it also occurred tonight. She had a recent carotid duplex with Dr. Norwood but does not know the results. She currently denies a headache currently but states her right samaritan feels flat. Today she notes that she had a hard time seeing letters. She is currently on Omnicef for urinary tract infection and states that she has had for antibiotics since January for recurrent UTIs. She currently denies any urinary symptoms. She states she has 2 days left of her current antibiotics. She does report some mild nasal congestion. No fevers reported. States that her breathing feels tight. States that she has noticed intermittent swelling of her legs. No other complaints or concerns reported at this time. Patient is not on any blood thinners but does take Plavix and aspirin due to peripheral vascular disease. Denies any black or blood in her stool. Denies any change in bowel movements Does report increased stress as her was in the ER couple days ago with diverticulitis and UTI. She states her ulpquko-[id number]-drn just after being discharged from the hospital. [facility] Medical History Subclavian artery stenosis, left Generalized anxiety disorder Psoriasis Diverticulosis CKD (chronic kidney disease), stage III Depressive disorder Venous insufficiency of right leg Carotid stenosis Peripheral artery disease Hyperlipidemia Essential hypertension Cardiology follow-up encounter Wears glasses Loose, teeth Post-menopausal Arthritis Easy bruising Back pain Injury of back Migraine headache Difficulty swallowing History of IBS Gastric reflux Former smoker Emphysema, unspecified Asthma COPD (chronic obstructive pulmonary disease) Leg cramps History of pain when walking History of edema History of stress test Chest pain Heart disease Diabetes Home Medications ???Medication ???Instructions ???Recorded ???Last Taken ???Type atenolol 100 mg tablet (Tenormin) 100 mg PO QHS 12/18/12 08/03/13 2 2:00 History albuterol sulfate 90 mcg/actuation 1 - 2 puff inhalation Q4H PRN CA N 06/07/13 Unknown History aerosol inhaler (Ventolin HFA) Wheezing aspirin 81 mg chewable tablet 81 mg PO DAILY@0800 12/24/19 Unkno wn History lorazepam 0.5 mg tablet 0.5 mg PO Q6H PRN PRN Anxiety 12/01 06/19 Unknown History clopidogrel 75 mg tablet (Plavix) 75 mg PO DAILY 01/29/22 02/02/22 History losartan 100 1 tab PO DAILY 01/29/22 Unknown Hi story mg-hydrochlorothiazi de 25 mg tablet multivitamin 1 tab PO DAILY 01/29/22 Unknown Hi story tramadol 50 mg tablet 50 mg PO TID PRN Pain 02/03/22 Unk nown History valacyclovir 1 gram tablet 1,000 mg PO Q12H PRN Cold Sores Unknown History phenazopyridine 95 mg tablet 95 mg PO TID PRN URINATION 4 Unknown History tizanidine 4 mg tablet (Zanaflex) 2 - 4 mg (0.5 - 1 x 4 mg) PO Q8H 05/12/24 Unknown Rx PRN muscle spasticity #15 tabs Allergy/AdvReac Type Severity Reaction Status Date / Time minocycline Allergy Unknown unknown Verified 05/11/24 22:51 ciprofloxacin Allergy Other Verified 05/11/24 22:51 erythromycin base Allergy Swelling Verified 05/11/24 22:51 (Erythromycin Base) Penicillins Allergy Swelling Verified 05/11/24 22:51 prednisone Allergy Swelling Verified 05/11/24 22:51 Sulfa (Sulfonamide Allergy Unknown Verified 05/11/24 22:51 Antibiotics) Family History ... Normal [facility] L499.0042on 05-12-2024 Trop T High Sen 14 ng/L Normal <=14 [facility] Comment on above: Performed By: #### L 499.0042 ####[facility] [address] [place], [address] L501.4021on 05-12-2024 Trop T High Sen 12 ng/L Normal <=14 [facility] Comment on above: Performed By: #### L 500.2500, L501.4021, L503.7505, L501.6710 #### [facility] [address] [place], [address] L503.7505on 05-12-2024 Natriuretic peptide B (Bld) [Mass/Vol] 197 pg/mL Normal <=900 [facility] Comment on above: Result Comment: Hear t Failure Unlikely: < 300 pg/mL Heart Failure Likely < 50 Years: > 450 pg/mL 50-75 Years: > 900 pg/mL >75 Years: > 1800 pg/mL Performed By: #### L 500.2500, L501.4021, L503.7505, L501.6710 #### [facility] [address] [place], [address] M100.678on 05-12-2024 M100.678 Pending SARS-CoV-2 (COVID 19) Negative INFLUENZA A Negative INFLUENZA B Negative RSV PCR Negative Normal [facility] Comment on above: Performed By: #### L 100.0100, L500.2500, L501.5425 #### [facility] [address] [place], [address] Troponin T.cardiac High sens itivity method [Mass/Vol]Ordered By: Sari Coello on 05-12-2024 Troponin T High Sensitivity 2 Hour 14 ng/L <14 [facility] 12 Lead EKGon 05-11-2024 12 Lead EKG [facility] Cardiovascular Services [address] [place] [address] 12 Lead EKG 05/11/24 2256 MR#: [id number] Acct: [id number] Name: FIOR SHIPMAN Rep #: [id number] : 1950 73 From: Corky Cameron MD Attending Dr: Status: DEP ER Ordering Dr: Sari Coello DO Date: 05/11/24 Location: ED Sex: F C Admitted: Test Reason : CP Blood Pressure : */* mmHG Vent. Rate : 67 BPM Atrial Rate : 67 BPM P-R Int : 164 ms QRS Dur : 92 ms QT Int : 394 ms P-R-T Axes : 56 14 64 degrees QTcB Int : 416 ms Normal sinus rhythm Normal ECG Confirmed by JUANJO CAREY, CLAUDIO ([id number]), social media editor REMI OROZCO ([id number]) on 05/16/2024 10:53:48 AM Referred By: Confirmed By: CLAUDIO CAMERON MD 05/16/24 1053 Date Corky Cameron MD CC: Dr. Sari Coello, DO; Dr. Yon Preciado DO Signed Normal [facility] Absolute neutrophil countOrd ered By: Sari Coello on 05-11-2024 Neutrophils (Bld) [#/Vol] 5.6 10*3/uL 2.0-7.7 [facility] Anion gap in Serum or Plasma Ordered By: Sari Coello on 05-11-2024 Anion gap [Moles/Vol] 14 mmol/L - [facility] BUN/creatinine ratioOrdered By: Sari Coello on 05-11-2024 Urea nitrogen/Creatinine [Mass ratio] 24.4 mg/mg High - [facility] Basophil percentageOrdered B y: Sari Coello on 05-11-2024 Basophils/100 WBC (Bld) 0.6 % 0-1 [facility] CBC W/Diff, Automatedon 04-30 Absolute Lymph 2.36 X10 3/uL Normal 0.83-4.51 [facility] Comment on above: Performed By: #### L 100.0100 #### [facility] [address] [place], [address] Absolute Neut 5.6 X10 3/uL Normal 2.0-7.7 [facility] Comment on above: Performed By: #### L 100.0100 #### [facility] [address] [place], [address] Basophils/100 WBC (Bld) 0.6 % Normal 0-1 [facility] Comment on above: Performed By: #### L 100.0100 #### [facility] [address] [place], [address] Eosinophils/100 WBC (Bld) 3.6 % Normal 0-5 [facility] Comment on above: Performed By: #### L 100.0100 #### [facility] [address] [place], [address] Erythrocyte distribution width (RBC) [Ratio] 12.3 % Normal 11.6-14.6 [facility] Comment on above: Performed By: #### L 100.0100 #### [facility] [address] [place], [address] Hematocrit (Bld) [Volume fraction] 33.4 % Low 37-47 [facility] Comment on above: Performed By: #### L 100.0100 #### [facility] [address] [place], [address] Hemoglobin (Bld) [Mass/Vol] 11.2 g/dL Low 12.0-15.0 [facility] Comment on above: Performed By: #### L 100.0100 #### [facility] [address] [place], [address] IG% 0.600 Normal 0.0-0.9 [facility] Comment on above: Result Comment: IG% - Immature Granulocytes (promyelocytes, myelocytes and metamyelocytes) > 1% indicates that a LEFT SHIFT is Present. Performed By: #### L 100.0100 #### [facility] [address] [place], [address] Lymphocytes/100 WBC (Bld) 24.2 % Normal 19-41 [facility] Comment on above: Performed By: #### L 100.0100 #### [facility] [address] [place], [address] MCH (RBC) [Entitic mass] 30.0 pg Normal 27.0-32.0 [facility] Comment on above: Performed By: #### L 100.0100 #### [facility] [address] [place], [address] MCHC (RBC) [Mass/Vol] 33.5 g/dL Normal 32-36 [facility] Comment on above: Performed By: #### L 100.0100 #### [facility] [address] [place], [address] MCV (RBC) [Entitic vol] 89.5 fL Normal 81-99 [facility] Comment on above: Performed By: #### L 100.0100 #### [facility] [address] [place], [address] Monocytes/100 WBC (Bld) 13.2 % High 0-10 [facility] Comment on above: Performed By: #### L 100.0100 #### [facility] [address] [place], [address] Neutrophils/100 WBC (Bld) 57.8 % Normal 47-70 [facility] Comment on above: Performed By: #### L 100.0100 #### [facility] [address] [place], [address] Nucleated RBC (Bld) [#/Vol] 0 10*3/uL Normal 0-5 [facility] Comment on above: Performed By: #### L 100.0100 #### [facility] [address] [place], [address] Platelet mean volume (Bld) [Entitic vol] 9.3 fL Normal 6.2-12.0 [facility] Comment on above: Performed By: #### L 100.0100 #### [facility] [address] [place], [address] Platelets (Bld) [#/Vol] 303 10*3/uL Normal 150-450 [facility] Comment on above: Performed By: #### L 100.0100 #### [facility] [address] [place], [address] RBC (Bld) [#/Vol] 3.73 10*6/uL Low 4.2-5.4 [facility] Comment on above: Performed By: #### L 100.0100 #### [facility] [address] [place], [address] RDW SD 40.1 fl Normal 35.1-43.9 [facility] Comment on above: Performed By: #### L 100.0100 #### [facility] [address] [place], [address] WBC (Bld) [#/Vol] 9.8 10*3/uL Normal 4.4-11.[address] [facility] Comment on above: Performed By: #### L 100.0100 #### [facility] [address] [facility] [place], [address] CRP [Mass/Vol]Ordered By: Buddy Coello on 05-11-2024 C-Reactive Protein Extended Range 6.52 mg/L High 0.0-3.0 [facility] Carbon dioxide, total [Moles /volume] in Central venous bloodOrdered By: Sari Coello on 05-11-2024 CO2 [Moles/Vol] 24.3 mmol/L 21.0-32.0 [facility] Chest PA and Lateralon 05-11 Chest PA and Lateral [facility] Imaging Services [address] [facility] [place] [address] Chest PA and Lateral MR#: [id number] Acct: [id number] Name: FIOR SHIMPAN Rep #: [id number] : 1950 F 73 From: Ander Dunne MD PCP: Dr. Yon Preciado, DO Status: REG ER Study: Chest PA and Lateral Date of Exam: 05/11/24 Exam# [id number] Ordering Dr: Sari Coello DO PROCEDURE: CHEST PA AND LATERAL 05/12/2024 REASON FOR EXAM: CHEST PAIN TECHNIQUE: Frontal and lateral views of the chest. COMPARISON: 09/22/2023 FINDINGS: Appearance of ill-defined opacity at the peripheral mid to lower left lung on the frontal view concerning for possible infiltrate, clinically correlate. The lungs otherwise appear clear. No focal consolidation or pleural effusion. Pulmonary vascularity appears within limits. The cardiac and mediastinal contours appear within limits. Heavy atherosclerotic calcification again noted. Visualized osseous structures are within limits. RAD/Chest PA and Lateral IMPRESSION: Appearance of ill-defined opacity at the peripheral mid to lower left lung on the frontal view concerning for possible infiltrate, clinically correlate. The lungs otherwise appear clear. Reading Location: [id number] CC: Dr. Sari Coello, DO; Dr. Yon Preciado, DO Product Development Manager: Signed Normal [facility] Chloride assayOrdered By: Buddy Coello on 05-11-2024 Chloride [Moles/Vol] 99 mmol/L 98-108 [facility] Eosinophil percentageOrdered By: Sari Coello on 05-11-2024 Eosinophils/100 WBC (Bld) 3.6 % 0-5 [facility] Erythrocyte distribution wid th ratioOrdered By: Sari Coello on 05-11-2024 Erythrocyte distribution width (RBC) [Ratio] 12.3 % 11.6-14.6 [facility] Erythrocyte distribution wid th standard deviationOrdered By: Sari Coello on 05-11-2024 Erythrocyte distribution width (RBC) [Entitic vol] 40.1 fL 35.1-43.9 [facility] Estimation of creatinine maryanne aranceOrdered By: Sari Coello on 05-11-2024 Estimated Creatinine Clearance Calc 42.45 ml/min Low 50-250 [facility] GFR/1.73 sq M.predicted rossy g non-blacks MDRD (S/P/Bld) [Vol rate/Area]Ordered By: Sari Coello on 05-11-2024 Estimated GFR (MDRD) Non-Af Amer 48 Low >60 [facility] Comment on above: mL/min/1.73m2 CKD-EP I Creatinine Equation (2020) Hematocrit Auto (Bld) [Volum e fraction]Ordered By: Sari Coello on 05-11-2024 Hematocrit (Bld) [Volume fraction] 33.4 % Low 37-47 [facility] Hemoglobin measurementOrdere d By: Sari Coello on 05-11-2024 Hemoglobin (Bld) [Mass/Vol] 11.2 g/dL Low 12.0-15.0 [facility] Immature granulocytes/100 WB C Auto (Bld)Ordered By: Sari Coello on 05-11-2024 Immature granulocytes/100 WBC (Bld) 0.600 % 0.0-0.9 [facility] Comment on above: IG% - Immature Granu locytes (promyelocytes, myelocytes and metamyelocytes) > 1% indicates that a LEFT SHIFT is Present. Influenza virus A and B and SARS-CoV-2 (COVID-19) and Respiratory syncytial virus RNAOrdered By: Sari Coello on 05-11-2024 SARS-CoV-2 (COVID-19) RNA MARCIA+probe Ql (Unsp spec) [facility] - Chemistry and C hemistry - challengeOrdered By: Sari Coello on 05-11-2024 Natriuretic peptide B (Bld) [Mass/Vol] 197 pg/mL <900 [facility] Comment on above: Heart Failure Unlike ly: < 300 pg/mLHeart Failure Likely< 50 Years: > 450 pg/mL50-75 Years: > 900 pg/mL>75 Years: > 1800 pg/mL Lymphocytes Auto (Unsp spec) [#/Vol]Ordered By: Sari Coello on 05-11-2024 Lymphocytes (Bld) [#/Vol] 2.36 10*3/uL 0.83-4.51 [facility] Lymphocytes/100 WBC Auto (Un sp spec)Ordered By: Sari Coello on 05-11-2024 Lymphocytes/100 WBC (Bld) 24.2 % 19-41 [facility] MCV (mean corpuscular volume ) determinationOrdered By: Sari Coello on 05-11-2024 MCV (RBC) [Entitic vol] 89.5 fL 81-99 [facility] Mean corpuscular hemoglobin (MCH) determinationOrdered By: Sari Coello on 05-11-2024 MCH (RBC) [Entitic mass] 30.0 pg 27.0-32.0 [facility] Mean corpuscular hemoglobin concentration (MCHC) determinationOrdered By: Sari Coello on 05-11-2024 MCHC (RBC) [Mass/Vol] 33.5 g/dL 32-36 [facility] Mean platelet volume determi nationOrdered By: Sari Coello on 05-11-2024 Platelet mean volume (Bld) [Entitic vol] 9.3 fL 6.2-12.0 [facility] Monocyte percentageOrdered B y: Sari Coello on 05-11-2024 Monocytes/100 WBC (Bld) 13.2 % High 0-10 [facility] Neutrophil percentageOrdered By: Sari Coello on 05-11-2024 Neutrophils/100 WBC (Bld) 57.8 % 47-70 [facility] No Panel InformationOrdered By: Sari Coello on 05-11-2024 Troponin T High Sensitivity 12 ng/L <14 [facility] Nucleated red blood cell per centageOrdered By: Sari Coello on 05-11-2024 Nucleated RBC/100 WBC (Bld) [Ratio] 0 % 0-5 [facility] Platelet countOrdered By: Buddy Coello on 05-11-2024 Platelets (Bld) [#/Vol] 303 10*3/uL 150-450 [facility] Potassium (Unsp spec) [Mass/ Vol]Ordered By: Sari Coello on 05-11-2024 Potassium [Moles/Vol] 3.6 mmol/L 3.3-5.1 [facility] RBC Auto (Bld) [#/Vol]Ordere d By: Sari Coello on 05-11-2024 RBC (Bld) [#/Vol] 3.73 10*6/uL Low 4.2-5.4 [facility] Serum creatinine measurement (mass/volume)Ordered By: Sari Coello on 05-11-2024 Creatinine [Mass/Vol] 1.19 mg/dL 0.70-1.20 [facility] Serum glucose measurement (m ass/volume)Ordered By: Sari Coello on 05-11-2024 Glucose [Mass/Vol] 163 mg/dL High 70-[address] [facility] Serum or plasma calcium trisha urement (mass/volume)Ordered By: Sari Coello on 05-11-2024 Calcium [Mass/Vol] 9.7 mg/dL 7.6-11.[address] [facility] Serum or plasma urea nitroge n measurement (mass/volume)Ordered By: Sari Coello on 05-11-2024 Urea nitrogen [Mass/Vol] 29 mg/dL High 4-19 [facility] Sodium levelOrdered By: Sherri Coello on 05-11-2024 Sodium [Moles/Vol] 137 mmol/L 133-[address] [facility] White blood cell (WBC) count Ordered By: Sari Mode on 05-11-2024 WBC (Bld) [#/Vol] 9.8 10*3/uL 4.4-11.[address] [facility] Urine Cultureon 05-08-2024 [facility] Escherichia coli [place] Count 50,000-80,000 Escherichia coli: REACTION Ampicillin Islt MONICA 4 Ampicillin+Sulbac Islt MONICA <=2 S Cefepime Islt MONICA <=0.12 S cefTRIAXone Islt MONICA <=0.25 S Ciprofloxacin Islt MONICA <=0.06 S B-Lactamase Extended Susc Islt NEG Gentamicin Islt MONICA <=1 S levoFLOXacin Islt MONICA <=0.12 S Meropenem Islt MONICA <=0.25 S Nitrofurantoin Islt MONICA <=16 S Pip+Tazo Islt MONICA <=4 S TMP SMX Islt MONICA <=20 S Normal [facility] Comment on above: Performed By: #### L 100.0100, L500.2500, L501.5425 #### [facility] [address] [place], [address] Urine cultureOrdered By: Letitia Preciado on 05-06-2024 Bacteria identified Cx Nom (U) Escherichia coli Abnormal [facility] Ankle Brachial Indexon 04-25 Ankle Brachial Index [facility] Cardiovascular Services [address] [place] [address] Ankle Brachial Index 04/25/24 0842 MR#: [id number] Acct: [id number] Name: FIOR SHIPMAN Rep #: [id number] : 1950 73 From: Simone Norwood MD Attending Dr: Dr. Simone Norwood MD Status: RE G CLI Ordering Dr: Simone Norwood MD Date: 04/25/24 Location: CVS Sex: F C Admitted: Reason For Study Reason For Study: After Care Procedure A bilateral upper extremity continuous wave Doppler with analog waveform analysis and segmental pressures. Left Segmental Pressures Left brachial= 154mmHg. Left radial= 183mmHg. Left ulnar= 183mmHg. Left digit = 145 mmHg. Right Segmental Pressures Right brachial= 157mmHg. Right radial= 187mmHg. Right ulnar= 187mmHg. Right digit = 132 mmHg. Indices The right wrist-brachial index is 1.19. The right digital-brachial index is 0.84. The left digital- brachial index is 1.17. The left wrist-brachial index is 0.92. VL/Ankle Brachial Index Interpretation Summary Bilateral WBI normal. Ordering Physician: Simone Norwood Referring Physician: Yon Preciado Performed By: Marva Vasquez RDERIBERTO/RVT 05/05/242045 Date Simone Norwood MD CC: Dr. Simone Norwood MD; Dr. Yon Preciado DO Date Dictated: 04/25/24841 Date Transcribed: 05/05/242045 Product Development Manager: Signed Normal [facility] Carotid Duplex Ultrasoundon 04-25-2024 Carotid Duplex Ultrasound [facility] Cardiovascular Services [address] [place] [address] Carotid Duplex Ultrasound 04/25/24819 MR#: [id number] Acct: [id number] Name: FIOR SHIPMAN Rep #: [id number] : 1950 73 From: Simone Norwood MD Attending Dr: Dr. Simone Norwood MD Status: RE G CLI Ordering Dr: Simone Norwood MD Date: 04/25/24 Location: [facility] Sex: F C Admitted: Reason For Study Reason For Study: Carotid Stenosis Rt. Velocities/BP Lt. Velocities/BP Prox CCA 77/14 cm/sec. Prox CCA 85/18 cm/sec. Mid CCA 61/14 cm/sec. Mid CCA 93/20 cm/sec. Dist CCA 62/14 cm/sec. Dist CCA 96/21 cm/sec. Prox ICA 70/19 cm/sec. Prox ICA 57/13 cm/sec. Mid ICA 276/69 cm/sec. Mid ICA 273/66 cm/sec. Dist ICA 132/26 cm/sec. Dist ICA 187/31 cm/sec. Rt. ICA/CCA = 4.5. Lt. ICA/CCA = 2.9. Prox ECA 95/8 cm/sec. Prox ECA 104/16 cm/sec. Rt. Vert. 58/17 cm/sec. Lt. Vert. 46/13 cm/sec. Right Extracranial There is heterogeneous, irregular atherosclerotic plaque noted in the right common carotid artery. There is heterogeneous, irregular atherosclerotic plaque noted in the right internal carotid artery. There is heterogeneous, irregular atherosclerotic plaque noted in the right external carotid artery. Antegrade flow is noted in the right vertebral artery. Left Extracranial There is heterogeneous, irregular atherosclerotic plaque noted in the left common carotid artery. There is heterogeneous, irregular atherosclerotic plaque noted in the left internal carotid artery. There is intimal thickening but no significant atherosclerotic plaque noted in the left external carotid artery. Antegrade flow is noted in the left vertebral artery. Procedure Carotid Duplex 30337. This is a Carotid Duplex examination using B-mode, color flow and specral Doppler. Exam performed in department. VL/Carotid Duplex Ultrasound Interpretation Summary Moderate (50-69%) stenosis right extracranial internal carotid. Moderate (50-69%) stenosis left extracranial internal carotid. Flow within the vertebral arteries is antegrade bilaterally. Ordering Physician: Simone Norwood Referring Physician: Yon Preciado Performed By: Marva Vasquez RDCS, RVT 05/05/242045 Date Simone Norwood MD CC: Dr. Simone Norwood MD; Dr. Yon Preciado, Date Dictated: 04/25/24819 Date Transcribed: 05/05/242045 Product Development Manager: Signed Normal [facility] Art Duplex Unilat UP Extr [facility] 04-25-2024 Art Duplex Unilat UP [facility] Cardiovascular Services [address] [address] Art Duplex Unilat UP Extrem 04/25/24 0845 MR#: [id number] Acct: [id number] Name: FIOR SHIPMAN Rep #: [id number] : 1950 73 From: Simone Norwood MD Attending Dr: Dr. Simone Norwood MD Status: RE G CLI Ordering Dr: Simone Norwood MD Date: 04/25/24 Location: [facility] Sex: F C Admitted: Reason For Study Reason For Study: After Care LEFT Left Subclavian velocity = 117 cm/sec. Left Axillary velocity = 99 cm/sec. Left Brachial velocity = 133 cm/sec. Left Radial velocity = 117 cm/sec. Left Ulnar velocity = 128 cm/sec. /US Art Duplex Unilat UP Extrem Interpretation Summary This is a normal bilateral upper extremity arterial duplex exam. Ordering Physician: Simone Norwood Referring Physician: Yon Preciado Performed By: Roof, Marva, RDCS, RVT 05/05/242044 Date Simone Norwood MD CC: Dr. Simone Norwood MD; Dr. Yon Preciado, Date Dictated: 04/25/24844 Date Transcribed: 05/05/242044 Product Development Manager: Signed Normal [facility] Urine Cultureon 04-04-2024 URC #1 Below infection level. 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 [place] Count <1000 Streptococcus sanguinis Streptococcus sanguinis Streptococcus sanguinis: REACTION Ampicillin Islt MONICA <=0.25 S Penicillin G Islt MONICA <=0.06 Cefotaxime Islt MONICA <=0.12 S cefTRIAXone Islt MONICA 0.25 S Linezolid Islt MONICA <=2 S Vancomycin Islt MONICA 0.5 S Normal [facility] Comment on above: Performed By: #### L 100.0100, L500.2500, L501.5425 #### [facility] [address] [place] [address], [address] Urine cultureOrdered By: Letitia Preciado on 04-01-2024 Bacteria identified Cx Nom (U) 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 coli [place] Count 11,000-25,000 Presumptive E. coli: REACTION Ampicillin Islt MONICA 8 Ampicillin+Sulbac Islt MONICA 4 S Cefepime Islt MONICA <=0.12 S cefTRIAXone Islt MONICA <=0.25 S Ciprofloxacin Islt MONICA <=0.06 S B-Lactamase Extended Susc Islt NEG Gentamicin Islt MONICA <=1 S levoFLOXacin Islt MONICA <=0.12 S Meropenem Islt MONICA <=0.25 S Nitrofurantoin Islt MONICA <=16 S Pip+Tazo Islt MONICA <=4 S TMP SMX Islt MONIAC <=20 S Normal [facility] Comment on above: Performed By: #### L 100.0100, L500.2500, L501.5425 #### [facility] [address] [place], [place], [id number] Urine cultureOrdered By: Letitia Preciado on 02-19-2024 Bacteria identified Cx Nom (U) Presumptive E. coli Abnormal [facility] Bacteria identified Cx Nom (U) Presumptive E. coli Abnormal [facility] Urine Cultureon 01-02-2024 URC Citrobacter freundii [place] Count >100,000 Citrobacter freundii: REACTION ceFAZolin Islt MONICA >=64 Cefepime Islt MONICA <=0.12 S cefTRIAXone Islt MONICA <=0.25 S Ciprofloxacin Islt MONICA <=0.25 S Gentamicin Islt MONICA <=1 S Imipenem Islt MONICA <=0.25 S levoFLOXacin Islt MONICA <=0.12 S Nitrofurantoin Islt MONICA <=16 S Tobramycin Islt MONICA <=1 S TMP SMX Islt MONICA <=20 S Normal [facility] Comment on above: Performed By: #### L 100.0100, L500.2500, L501.5425 #### [facility] [address] [place], [place], [address] Urine Cultureon 12-19-2023 URC Klebsiella pneumoniae sp pneum [place] Count 80,000-100,000 Klebsiella pneumoniae sp pneum: REACTION Ampicillin Islt MONICA Ampicillin+Sulbac Islt MONICA <=2 S ceFAZolin Islt MONICA <=4 S Cefepime Islt MONICA <=0.12 S cefTRIAXone Islt MONICA <=0.25 S Ciprofloxacin Islt MONICA <=0.25 S B-Lactamase Extended Susc Islt NEG Gentamicin Islt MONICA <=1 S Imipenem Islt MONICA 2 S levoFLOXacin Islt MONICA <=0.12 S Nitrofurantoin Islt MONICA 64 I Pip+Tazo Islt MONICA <=4 S Tobramycin Islt MONICA <=1 S TMP SMX Islt MONICA <=20 S Normal [facility] Comment on above: Performed By: #### M 100.2200 ####[facility] [address] [facility], [place], [address] Breast Limited Unilateralon 11-17-2023 Breast Limited Unilateral [facility] Imaging Services [address] [place] [place] [address] Breast Limited Unilateral MR#: [id number] Acct: [id number] Name: FIOR SHIPMAN Rep #: [id number] : 1950 F 73 From: Deandre roberts MD PCP: Dr. Yon Preciado DO Status: REG CLI Study: Breast Limited Unilateral Date of Exam: Exam# [id number] Ordering Dr: Yon Preciado DO [id number] STUDY: ULTRASOUND BREAST - LEFT REASON FOR EXAM: Female, 73 years old. Left axillary pain. TECHNIQUE: Axial and longitudinal images of the LEFT breast were performed with a high resolution ultrasound transducer. # OF IMAGES: 18 COMPARISON: Comparison is made with prior mammogram done earlier today. FINDINGS: LEFT Breast: The left axilla was examined with ultrasound. Incidental note is made of a 1.9 cm x 0.8 cm x 0.6 cm benign-appearing lymph node. US/Breast Limited Unilateral IMPRESSION: 1.9 cm x 0.8 cm x 0.6 cm benign-appearing left axillary lymph node. ASSESSMENT CATEGORY: BIRADS Category 2: Benign. A letter regarding these results will be sent to the patient by the facility within 30 days. Electronically Signed: Deandre Shetty MD at 10:56 EDT , CC: Dr. Yon Preciado DO Product Development Manager: Signed Normal [facility] DIAG MAMM W/CAD, BILATon DIAG MAMM W/CAD, BILAT [facility] Imaging Services [address] [place] [address] DIAG MAMM W/CAD, BILAT MR#: [id number] Acct: [id number] Name: FIOR SHIPMAN Rep #: [id number] : 1950 F 73 From: Deandre roberts MD PCP: Dr. Yon Preciado DO Status: REG CL Study: DIAG MAMM W/CAD, BILAT Date of Exam: 11/17/23 Exam# [id number] Ordering Dr: Yon Preciado DO [id number] MAMMOGRAPHY - BILATERAL DIAGNOSTIC REASON FOR EXAM: Female, 73 years old. Left breast pain. PERTINENT HISTORY: Sister with breast cancer. Aunt with breast cancer. TECHNIQUE: Digital bilateral breast unruly (3D mammographic acquisition) in the CC and MLO projections. 2-D mediolateral oblique (MLO) and craniocaudad (CC) views of both breasts were obtained. CAD: Full Field Digital Mammography with Computer Added Detection was performed. COMPARISON: Comparison is made with prior study dated September 17, 2022 and March 06, 2021. FINDINGS: Breast Composition: The breasts are almost entirely fatty. There are no dominant masses or suspicious calcifications. No other significant abnormalities are identified. There has been no significant change since the prior study. BI/DIAG MAMM W/CAD, BILAT IMPRESSION: Stable bilateral diagnostic mammogram. With the patient''s history of left breast pain, targeted sonographic correlation recommended. ASSESSMENT CATEGORY: BIRADS Category 0: Incomplete. Need additional imaging evaluation. A letter regarding these results will be sent to the patient by the facility within 30 days. Approximately 10% of breast cancers are not detected by mammography. A normal mammogram should not delay biopsy of a clinically suspicious abnormality. Electronically Signed: Deandre Shetty MD at 11:06 EDT , CC: Dr. Yon Preciado DO Product Development Manager: Signed [facility] 12 Lead EKGon 09-22-2023 12 Lead EKG [facility] Cardiovascular Services [address] [place] [address] 12 Lead EKG 09/22/23 0521 MR#: [id number] Acct: [id number] Name: FIOR SHIPMAN Rep #: [id number] : 1950 72 From: Evens Trent MD Attending Dr: Status: DEP ER Ordering Dr: Sourav Grande MD Date: 09/22/23 Location: ED Sex: F C Admitted: Test Reason : CP Blood Pressure : / mmHG Vent. Rate : 071 BPM Atrial Rate : 071 BPM P-R Int : 176 ms QRS Dur : 096 ms QT Int : 396 ms P-R-T Axes : 059 021 046 degrees QTc Int : 430 ms Normal sinus rhythm Normal ECG Confirmed by EVENS TRENT MD ([id number]), social media editor DINORAH MÉNDEZ ([id number]) on 09/23/2023 9:45:55 AM Referred By: BB Confirmed By:EVENS TRENT MD 09/23/23 0946 Date Evens Trent MD CC: Dr. Sourav Grande MD; Dr. Yon Preciado DO Signed [facility] Basic Metabolic Profile (BMP )on 09-22-2023 BUN/CRE 20.6 RATIO High 10-20 [facility] Comment on above: Order Comment: 1 Y Performed By: #### L 100.0100, L500.2500, L501.5425 #### [facility] [address] [place], [address] CA,Total 10.0 mg/dL Normal 8.5-10.1 [facility] Comment on above: Order Comment: 1 Y Performed By: #### L 100.0100, L500.2500, L501.5425 #### [facility] [address] [place], [address] Chloride [Moles/Vol] 101 mmol/L Normal 98-107 [facility] Comment on above: Order Comment: 1 Y Performed By: #### L 100.0100, L500.2500, L501.5425 #### [facility] [address] [place], [address] CO2 [Moles/Vol] 27.0 mmol/L Normal 21.0-32.0 [facility] Comment on above: Order Comment: 1 Y Performed By: #### L 100.0100, L500.2500, L501.5425 #### [facility] [address] [place], [address] Creatinine [Mass/Vol] 1.26 mg/dL High 0.55-1.02 [facility] Comment on above: Order Comment: 1 Y Result Comment: The validity of the calculated GFR GFRAA in patients over 70 years has not been determined. Clinical correlation is essential. Performed By: #### L 100.0100, L500.2500, L501.5425 #### [facility] [address] [place], [address] ECRCL 39.76 ml/min Normal [facility] Comment on above: Order Comment: 1 Y Performed By: #### L 100.0100, L500.2500, L501.5425 #### [facility] [address] [place], [address] EST GFR - AA 54 mL/min Low >60 [facility] Comment on above: Order Comment: 1 Y Result Comment: Afri can [place] GFR Calc Performed By: #### L 100.0100, L500.2500, L501.5425 #### [facility] [address] [place], [address] GAP 7 Normal 5-15 [facility] Comment on above: Order Comment: 1 Y Performed By: #### L 100.0100, L500.2500, L501.5425 #### [facility] [address] [place], [address] GFR/1.73 sq M.predicted among non-blacks MDRD (S/P/Bld) [Vol rate/Area] 44 mL/min/{1.73_m2} Low >60 [facility] Comment on above: Order Comment: 1 Y Result Comment: Non- GFR Calc Performed By: #### L 100.0100, L500.2500, L501.5425 #### [facility] [address] [place], [address] Glucose [Mass/Vol] 132 mg/dL High 74-[address] [facility] Comment on above: Order Comment: 1 Y Result Comment: Fast ing Glucose result greater than or equal to 126 mg/dL suggests DIABETES MELLITUS per A.D.A. criteria. Performed By: #### L 100.0100, L500.2500, L501.5425 #### [facility] [address] [place], [address] Potassium [Moles/Vol] 3.7 mmol/L Normal 3.5-5.1 [facility] Comment on above: Order Comment: 1 Y Performed By: #### L 100.0100, L500.2500, L501.5425 #### [facility] [address] [place], [address] Sodium [Moles/Vol] 135 mmol/L Low 136-[address] [facility] Comment on above: Order Comment: 1 Y Performed By: #### L 100.0100, L500.2500, L501.5425 #### [facility] [address] [place], [address] Urea nitrogen [Mass/Vol] 26 mg/dL High 7-18 [facility] Comment on above: Order Comment: 1 Y Performed By: #### L 100.0100, L500.2500, L501.5425 #### [facility] [address] [place], [address] CBC W/Diff, Automatedon 07-2 -2023 Absolute Lymph 2.70 X10 3/uL Normal 0.83-4.51 [facility] Comment on above: Performed By: #### L 100.0100, L500.2500, L501.5425 #### [facility] [address] [place], [address] Absolute Neut 4.0 X10 3/uL Normal 2.0-7.7 [facility] Comment on above: Performed By: #### L 100.0100, L500.2500, L501.5425 #### [facility] [address] [place], [address] Basophils/100 WBC (Bld) 0.6 % Normal 0-1 [facility] Comment on above: Performed By: #### L 100.0100, L500.2500, L501.5425 #### [facility] [address] [place], [address] Eosinophils/100 WBC (Bld) 4.0 % Normal 0-5 [facility] Comment on above: Performed By: #### L 100.0100, L500.2500, L501.5425 #### [facility] [address] [place], [address] Erythrocyte distribution width (RBC) [Ratio] 12.6 % Normal 11.6-14.6 [facility] Comment on above: Performed By: #### L 100.0100, L500.2500, L501.5425 #### [facility] [address] [place], [address] Hematocrit (Bld) [Volume fraction] 37.1 % Normal 37-47 [facility] Comment on above: Performed By: #### L 100.0100, L500.2500, L501.5425 #### [facility] [address] [place], [address] Hemoglobin (Bld) [Mass/Vol] 12.1 g/dL Normal 12.0-15.0 [facility] Comment on above: Performed By: #### L 100.0100, L500.2500, L501.5425 #### [facility] [address] [place], [address] IG% 0.400 Normal 0.0-0.9 [facility] Comment on above: Result Comment: IG% - Immature Granulocytes (promyelocytes, myelocytes and metamyelocytes) > 1% indicates that a LEFT SHIFT is Present. Performed By: #### L 100.0100, L500.2500, L501.5425 #### [facility] [address] [place], [address] Lymphocytes/100 WBC (Bld) 33.0 % Normal 19-41 [facility] Comment on above: Performed By: #### L 100.0100, L500.2500, L501.5425 #### [facility] [address] [place], [address] MCH (RBC) [Entitic mass] 30.3 pg Normal 27.0-32.0 [facility] Comment on above: Performed By: #### L 100.0100, L500.2500, L501.5425 #### [facility] [address] [place], [address] MCHC (RBC) [Mass/Vol] 32.6 g/dL Normal 32-36 [facility] Comment on above: Performed By: #### L 100.0100, L500.2500, L501.5425 #### [facility] [address] [place], [address] MCV (RBC) [Entitic vol] 93.0 fL Normal 81-99 [facility] Comment on above: Performed By: #### L 100.0100, L500.2500, L501.5425 #### [facility] [address] [place], [address] Monocytes/100 WBC (Bld) 12.6 % High 0-10 [facility] Comment on above: Performed By: #### L 100.0100, L500.2500, L501.5425 #### [facility] [address] [place], [address] Neutrophils/100 WBC (Bld) 49.4 % Normal 47-70 [facility] Comment on above: Performed By: #### L 100.0100, L500.2500, L501.5425 #### [facility] [address] [place], [address] Nucleated RBC (Bld) [#/Vol] 0 10*3/uL Normal 0-5 [facility] Comment on above: Performed By: #### L 100.0100, L500.2500, L501.5425 #### [facility] [address] [place], [address] Platelet mean volume (Bld) [Entitic vol] 8.5 fL Normal 6.2-12.0 [facility] Comment on above: Performed By: #### L 100.0100, L500.2500, L501.5425 #### [facility] [address] [place], [address] Platelets (Bld) [#/Vol] 284 10*3/uL Normal 150-450 [facility] Comment on above: Performed By: #### L 100.0100, L500.2500, L501.5425 #### [facility] [address] [place], [address] RBC (Bld) [#/Vol] 3.99 10*6/uL Low 4.2-5.4 [facility] Comment on above: Performed By: #### L 100.0100, L500.2500, L501.5425 #### [facility] [address] [place], [address] RDW SD 43.0 fl Normal 35.1-43.9 [facility] Comment on above: Performed By: #### L 100.0100, L500.2500, L501.5425 #### [facility] [address] [place], [address] WBC (Bld) [#/Vol] 8.2 10*3/uL Normal 4.4-11.[address] [facility] Comment on above: Performed By: #### L 100.0100, L500.2500, L501.5425 #### [facility] [address] [place], [address] Chest PA and Lateralon 09-21 Chest PA and Lateral [facility] Imaging Services [address] [place] [address] Chest PA and Lateral MR#: [id number] Acct: [id number] Name: SHIPMANFIOR Rep #: [id number] : 1950 F 72 From: Axel Perez MD PCP: Dr. Yon Preciado, DO Status: [facility] ER Study: Chest PA and Lateral Date of Exam: 09/22/23 Exam# [id number] Ordering Dr: Sourav Grande MD [id number] EXAM: XR CHEST, 2 VIEWS CLINICAL INDICATION: chest pain right side TECHNIQUE: Frontal and lateral views of the chest. COMPARISON: Two-view chest 04/23/2017 FINDINGS: LUNGS AND PLEURAL SPACES: Unremarkable. No consolidation or edema. No pneumothorax. No effusion. HEART: Unremarkable. Cardiac silhouette not enlarged. MEDIASTINUM: Central airways and mediastinal contour are unremarkable. BONES/JOINTS: Degenerative changes of the spine and shoulders. No acute fracture. SOFT TISSUES: Unremarkable. RAD/Chest PA and Lateral IMPRESSION: No acute findings in the chest. Electronically Signed: Axel Perez MD at 6:12 EDT , CC: Dr. Sourav Grande MD; Dr. Yon Preciado DO Product Development Manager: Signed Normal [facility] Emergency Department Summary on 09-22-2023 Emergency Department Summary [facility] Medical Records Department [address] [place] [address] Emergency Department Summary 09/22/23 MR#: [id number] Acct: [id number] Name: FIOR SHIPMAN Rep #: [id number] : 1950 72 From: Sourav Grande MD PCP: Dr. Yon Preciado DO Status:REG ER Location: ED HPI History of Present Illness Chief Complaint: Chest Pain Informant: patient Narrative Narrative: 72-year-old female presents 1 hour after waking up with right-sided nonpleuritic chest discomfort. Initially thought it was something digestive, she took some Rolaids but did not notice a major change although she states even prior to that it is waxing and waning/off and on. States it feels like an achy pain, right side of chest and right mid chest. Is not triggered and does not hurt significantly worse to move or to lay down or to exert herself or to take a deep breath. States she feels a little short of breath but feels dyspneic off-and-on chronically. No associated nausea, vomiting, lightheadedness, syncope or presyncope, palpitations, recent illness/cough/fever. Patient has a history of a stent in her heart 5-7 years ago, it has been somewhere around that amount of time since she has had a negative stress test as well. She indicates that she has had discomfort in her chest before, she is not concerned about the severity of it, it is mild/minimal at this time, she just is afraid it is heart related when it occurs. She is compliant with her aspirin and Plavix, which she has taken in the last 24 hours. PE Risk Factors: Negative for Recent Travel/Surgery, Recent Immobilization, Prior DVT or PE, Cancer or OCP + Smoking + >/=35 (Quit smoking 37 years ago) [facility] Medical History Subclavian artery stenosis, left Generalized anxiety disorder Psoriasis Diverticulosis CKD (chronic kidney disease), stage III Depressive disorder Venous insufficiency of right leg Carotid stenosis Peripheral artery disease Hyperlipidemia Essential hypertension Cardiology follow-up encounter Wears glasses Loose, teeth Post-menopausal Arthritis Easy bruising Back pain Injury of back Migraine headache Difficulty swallowing History of IBS Gastric reflux Former smoker Emphysema, unspecified Asthma COPD (chronic obstructive pulmonary disease) Leg cramps History of pain when walking History of edema History of stress test Chest pain Heart disease Diabetes Home Medications ???Medication ???Instructions ???Recorded ???Last Taken ???Type atenolol 100 mg tablet (Tenormin) 100 mg PO QHS 12/18/12 08/03/13 22:00 History albuterol sulfate 90 mcg/actuation 1 - 2 puff inhalation Q4H PRN PRN 06/07/13 Unknown History aerosol inhaler (Ventolin HFA) Wheezing aspirin 81 mg chewable tablet 81 mg PO DAILY@0800 12/24/19 Unknown History lorazepam 0.5 mg tablet 0.5 mg PO Q6H PRN PRN Anxiety 12/24/19 Unknown History clopidogrel 75 mg tablet (Plavix) 75 mg PO DAILY 01/29/22 02/02/22 History losartan 100 1 tab PO DAILY 01/29/22 Unknown History mg-hydrochlorothiazi de 25 mg tablet multivitamin 1 tab PO DAILY 01/29/22 Unknown History tramadol 50 mg tablet 50 mg PO TID PRN Pain 02/03/22 Unknown History valacyclovir 1 gram tablet 1,000 mg PO Q12H PRN Cold Sores 02/05/22 Unknown History phenazopyridine 95 mg tablet 95 mg PO TID PRN URINATION 03/23/23 Unknown History Allergy/AdvReac Type Severity Reaction Status Date / Time minocycline Allergy Unknown unknown Verified 09/22/23 05:20 ciprofloxacin Allergy Other Verified 09/22/23 05:20 erythromycin base Allergy Swelling Verified 09/22/23 05:20 (Erythromycin Base) Penicillins Allergy Swelling Verified 09/22/23 05:20 prednisone Allergy Swelling Verified 09/22/23 05:20 Sulfa (Sulfonamide Allergy Unknown Verified 09/22/23 05:20 Antibiotics) Family History Father Hypertension Heart disease Brother CVA (cerebral vascular accident) CAD (coronary artery disease) Sister Diabetes CVA (cerebral vascular accident) Breast cancer Uncle Heart disease Aunt Breast cancer Pancreatic cancer Other Kidney disease Surgical History H/O laminectomy History of angioplasty of peripheral vessel (10/23/16) History of bilateral carpal tunnel release Hx of colonoscopy Hx of tonsillectomy Hx of knee surgery Tubal ligation status Social History household members: spouse housing: house number of children: 2 current occupational status: retired Smoking Status: Former smoker how long ago did patient quit smokin alcohol intake: never substance use type: does not use what type of physical activity do you par (more content not included)... Normal [facility] L501.4020on 09-22-2023 TROPONIN-I HS 6 pg/mL Normal 3.0-54.0 [facility] Comment on above: Result Comment: Plea se Note: New Test Units and Gender Specific Reference Ranges. For more information see Policy Stat Procedure [place] High Sensitivity Troponin (TNIH) and attachments. Performed By: #### L 501.4020 #### [facility] [address] [place], [address] L501.5425on 09-22-2023 TROPONIN-I HS 7 pg/mL Normal 3.0-54.0 [facility] Comment on above: Order Comment: 1 Y Result Comment: Loree rodriguez Note: New Test Units and Gender Specific Reference Ranges. For more information see Policy Stat Procedure [place] High Sensitivity Troponin (TNIH) and attachments. Performed By: #### L 100.0100, L500.2500, L501.5425 #### [facility] [address] [place], [address] Cervical or vaginal specimen microscopic examination by liquid based cytology (reported as document)Ordered By: Kandace Banks on 03-23-2023 Cytology report Cyto stain.thin prep Doc (Cvx/Vag) Comment . [facility] Comment on above: Criteria not met, HP V Genotype not performed.Performed at: [facility] [id number] Director: Eunice Fontenot MD, Phone: [phone] at: =[facility] [id number] Director: Eunice Fontenot MD, Phone: [phone] Cervical or vagninal specime n microscopic examination by cytology stain (reported asOrdered By: Kandace Banks on 03-23-2023 Cytology report Cyto stain Doc (Cvx/Vag) Comment . [facility] Comment on above: The Pap smear is a s creening test designed to aid in thedetection of premalignant and malignant conditions of theuterine cervix. It is not a diagnostic procedure andshould not be used as the sole means of detecting cervicalcancer. Both false-positive and false-negative reports dooccur. Detection in cervical specim en of any of human papilloma virus (HPV) 16, 18, 31, 33,Ordered By: Kandace Banks on 03-23-2023 HPV 16+18+31+33+35+39+45+51 +52+56+58+59+66+68 DNA Probe+sig amp Ql (Cvx) Negative Negative [facility] Comment on above: This nucleic acid am plification test detects fourteen high-risk HPV types (16,18,31,33,35,39,45,51,52,56,58,59,66,68)without differentiation. Laboratory - CytologyOrdered By: Kandace Banks on 03-23-2023 Occupational Health Manager Cyto stain Nom (Cvx/Vag) [ID] Comment . [facility] Comment on above: Yvon Haney, Operation Specialist (ASCP) Laboratory - Miscellaneous t estsOrdered By: Kandace Banks on 03-23-2023 Service comment (Unsp spec) [Interp] . . [facility] Thin prep Papanicolaou smear with manual screeningOrdered By: Kandace Banks on 03-23-2023 Thin prep Papanicolaou smear with manual screening Comment . [facility] Comment on above: NEGATIVE FOR INTRAEP ITHELIAL LESION OR MALIGNANCY. This liquid based Th inPrep(R) pap test was screened withthe use of an image guided system. Basophil percentageOrdered B y: Lavon Weathers on 12-05-2022 Basophil percentage < 0.9 mg/dL 0.55-1.02 [facility] No Panel InformationOrdered By: Lavon Weathers on 12-05-2022 Bedside Estimated GFR (eGFR) > 60.0000 mL/min >60 [facility] Absolute lymphocyte countOrd ered By: Yon Preciado on 10-27-2022 Lymphocytes Auto (Unsp spec) [#/Vol] 1.59 10*3/uL 0.83-4.51 [facility] Basophil percentageOrdered B y: Yon Preciado on 10-27-2022 Basophils/100 WBC (Bld) 0.6 % 0-1 [facility] Bilirubin [Mass/Vol] 0.70 mg/dL 0.20-1.00 [facility] Comment on above: For patients on eltr ombopag therapy, use of Dimension [place] TBIL is not recommended. Chloride [Moles/Vol] 100 mmol/L 98-107 [facility] Cholesterol [Mass/Vol] 260 mg/dL <200 [facility] Comment on above: <200 mg/dL Desirable 200-240 mg/dL Borderline >240 mg/dL High Risk Eosinophils/100 WBC (Bld) 2.3 % 0-5 [facility] Glucose [Mass/Vol] 170 mg/dL 74-[address] [facility] Comment on above: Fasting Glucose resu lt greater than or equal to 126 mg/dL suggests DIABETES MELLITUS per A.D.A. criteria. Neutrophils (Bld) [#/Vol] 5.2 10*3/uL 2.0-7.7 [facility] Neutrophils/100 WBC (Bld) 63.8 % 47-70 [facility] Potassium [Moles/Vol] 4.4 mmol/L 3.5-5.1 [facility] Protein [Mass/Vol] 7.3 g/dL 6.4-8.[address] [facility] Sodium [Moles/Vol] 135 mmol/L 136-[address] [facility] Triglyceride [Mass/Vol] 260 mg/dL <199 [facility] Comment on above: The drugs N-Acetylcy steine and Metamizole may falsely depress this assay.Serum Triglycerides Reference Interval Normal <150 mg/dL Borderline high 150 - 199 mg/dL High 200 - 499 mg/dL Very High > or = 500 mg/dL WBC (Bld) [#/Vol] 8.1 10*3/uL 4.4-11.[address] [facility] Blood erythrocytes count (nu mber/volume)Ordered By: Yon Preciado on 10-27-2022 RBC (Bld) [#/Vol] 4.04 10*6/uL 4.2-5.4 [facility] Blood hemoglobin measurement (mass/volume)Ordered By: Yon Preciado on 10-27-2022 Hemoglobin (Bld) [Mass/Vol] 12.6 g/dL 12.0-15.0 [facility] Blood lymphocytes/100 leukoc ytesOrdered By: Yon Preciado on 10-27-2022 Lymphocytes/100 WBC (Bld) 19.6 % 19-41 [facility] Blood monocytes/100 leukocyt esOrdered By: Yon Preciado on 10-27-2022 Monocytes/100 WBC (Bld) 13.3 % 0-10 [facility] Blood platelet mean volumeOr dered By: Yon Preciado on 10-27-2022 Platelet mean volume (Bld) [Entitic vol] 9.4 fL 6.2-12.0 [facility] Determination of erythrocyte mean corpuscular volume (MCV)Ordered By: Yon Preciado on 10-27-2022 MCV (RBC) [Entitic vol] 94.3 fL 81-99 [facility] Hematocrit Auto (Bld) [Volum e fraction]Ordered By: Yon Preciado on 10-27-2022 Hematocrit (Bld) [Volume fraction] 38.1 % 37-47 [facility] Laboratory - Chemistry and C hemistry - challengeOrdered By: Yon Preciado on 10-27-2022 ALP [Catalytic activity/Vol] 63 U/L 45-117 [facility] ALT [Catalytic activity/Vol] 26 U/L 13-56 [facility] CO2 [Moles/Vol] 26.0 mmol/L 21.0-32.0 [facility] Cobalamin (Vitamin B12) [Mass/Vol] 454 pg/mL 211-911 [facility] Globulin (S) [Mass/Vol] 3.5 g/dL 2.2-4.2 [facility] Urea nitrogen/Creatinine [Mass ratio] 24.1 mg/mg 10-20 [facility] Laboratory - Hematology and Cell countsOrdered By: Yon Preciado on 10-27-2022 Erythrocyte distribution width (RBC) [Entitic vol] 42.9 fL 35.1-43.9 [facility] Erythrocyte distribution width (RBC) [Ratio] 12.3 % 11.6-14.6 [facility] Immature granulocytes/100 WBC (Bld) 0.400 % 0.0-0.9 [facility] Comment on above: IG% - Immature Granu locytes (promyelocytes, myelocytes and metamyelocytes) > 1% indicates that a LEFT SHIFT is Present. MCH (RBC) [Entitic mass] 31.2 pg 27.0-32.0 [facility] Nucleated RBC/100 WBC (Bld) [Ratio] 0 % 0-5 [facility] MCHC Auto (RBC) [Mass/Vol]Or dered By: Yon Preciado on 10-27-2022 MCHC (RBC) [Mass/Vol] 33.1 g/dL 32-36 [facility] No Panel InformationOrdered By: Yon Preciado on 10-27-2022 Estimated GFR (MDRD) Amer 50 mL/min >60 [facility] Comment on above: GFR Calc Estimated GFR (MDRD) Non-Af Amer 42 mL/min >60 [facility] Comment on above: Non- GFR Calc Thyroid Stimulating Hormone (TSH) 3.60 uIU/mL 0.358-3.74 [facility] Urine Microalbumin/Creatinine Ratio 10.1 mg/g CRE <30 [facility] Platelets bldOrdered By: Letitia Preciado on 10-27-2022 Platelets (Bld) [#/Vol] 301 10*3/uL 150-450 [facility] Serum or plasma albumin trisha urement (mass/volume)Ordered By: Yon Preciado on 10-27-2022 Albumin [Mass/Vol] 3.8 g/dL 3.2-5.[address] [facility] Serum or plasma albumin/glob ulin mass ratioOrdered By: Yon Preciado on 10-27-2022 Albumin/Globulin [Mass ratio] 1.1 {ratio} 0.9-2.4 [facility] Serum or plasma calcium trisha urement (mass/volume)Ordered By: Yon Preciado on 10-27-2022 Calcium [Mass/Vol] 9.8 mg/dL 8.5-10.[address] [facility] Serum or plasma cholesterol in HDL measurement (mass/volume)Ordered By: Yon rPeciado on 10-27-2022 Cholesterol in HDL [Mass/Vol] 47 mg/dL >40 [facility] Comment on above: The drugs N-Acetylcy steine and Metamizole may falsely depress this assay. Reference Range HDL <40 mg/dL Low HDL Cholesterol HDL >or= 60 mg/dL High HDL Cholesterol Serum or plasma cholesterol in VLDL measurement (mass/volume)Ordered By: Yon Preciado on 10-27-2022 Cholesterol in VLDL [Mass/Vol] 52 mg/dL 5-40 [facility] Serum or plasma creatinine m easurement (mass/volume)Ordered By: Yon Preciado on 10-27-2022 Creatinine [Mass/Vol] 1.33 mg/dL 0.55-1.02 [facility] Comment on above: The validity of the calculated GFR & GFRAA in patients over 70 years has not been determined. Clinical correlation is essential. Serum or plasma low density lipoprotein (LDL) cholesterol measurement (mass/volume)Ordered By: Yno Preciado on 10-27-2022 Cholesterol in LDL [Mass/Vol] 161 mg/dL 0-130 [facility] Serum or plasma urea nitroge n measurement (mass/volume)Ordered By: Yon Preciado on 10-27-2022 Urea nitrogen [Mass/Vol] 32 mg/dL 7-18 [facility] Thin prep Papanicolaou smear with manual screeningOrdered By: Yon Preciado on 10-27-2022 Thin prep Papanicolaou smear with manual screening 18 U/L 15-37 [facility] Thin prep Papanicolaou smear with manual screening 9 5-15 [facility] Thin prep Papanicolaou smear with manual screening 11.9 mg/L NO RANGE EST. [facility] Urine creatinine measurement (mass/volume)Ordered By: Yon Preciado on 10-27-2022 Creatinine (U) [Mass/Vol] 118.00 mg/dL NO RANGE EST. [facility] Whole blood hemoglobin A1c/t otal hemoglobin ratio (mass fraction)Ordered By: Yon Preciado on 10-27-2022 HbA1c (Bld) [Mass fraction] 7.1 % 3.8-5.6 [facility] Comment on above: Normal < 5.7 % Predi abetic 5.7 - 6.4 % Diabetic >or= 6.5 % Please note range changes. Absolute lymphocyte counton 02-12-2022 Lymphocytes Auto (Unsp spec) [#/Vol] 1.57 10*3/uL 0.83-4.51 [facility] Work Phone: Basophil percentageon 2021 Basophils/100 WBC (Bld) 0.2 % 0-1 [facility] Work Phone: Chloride [Moles/Vol] 97 mmol/L 98-107 [facility] Work Phone: [phone] Eosinophils/100 WBC (Bld) 0.7 % 0-5 [facility] Work Phone: Glucose [Mass/Vol] 154 mg/dL 74-[address] [facility] Work Phone: Comment on above: Fasting Glucose resu lt greater than or equal to 126 mg/dL suggests DIABETES MELLITUS per A.D.A. criteria. Neutrophils (Bld) [#/Vol] 8.3 10*3/uL 2.0-7.7 [facility] Work Phone: Neutrophils/100 WBC (Bld) 72.7 % 47-70 [facility] Work Phone: Potassium [Moles/Vol] 3.5 mmol/L 3.5-5.1 [facility] Work Phone: Sodium [Moles/Vol] 133 mmol/L 136-145 [facility] Work Phone: [phone] WBC (Bld) [#/Vol] 11.3 10*3/uL 4.4-11.0 [facility] Work Phone: Blood erythrocytes count (nu mber/volume)on 02-12-2022 RBC (Bld) [#/Vol] 3.33 10*6/uL 4.2-5.4 [facility] Work Phone: Blood hemoglobin measurement (mass/volume)on 02-12-2022 Hemoglobin (Bld) [Mass/Vol] 10.3 g/dL 12.0-15.0 [facility] Work Phone: Blood lymphocytes/100 leukoc yteson 02-12-2022 Lymphocytes/100 WBC (Bld) 13.9 % 19-41 [facility] Work Phone: Blood monocytes/100 leukocyt eson 02-12-2022 Monocytes/100 WBC (Bld) 12.1 % 0-10 [facility] Work Phone: Blood platelet mean volumeon 02-12-2022 Platelet mean volume (Bld) [Entitic vol] 9.5 fL 6.2-12.0 [facility] Work Phone: Determination of erythrocyte mean corpuscular volume (MCV)on 02-12-2022 MCV (RBC) [Entitic vol] 93.4 fL 81-99 [facility] Work Phone: Hematocrit Auto (Bld) [Volum e fraction]on 02-12-2022 Hematocrit (Bld) [Volume fraction] 31.1 % 37-47 [facility] Work Phone: Laboratory - Chemistry and C hemistry - challengeon 02-12-2022 CO2 [Moles/Vol] 28.0 mmol/L 21.0-32.0 [facility] Work Phone: Urea nitrogen/Creatinine [Mass ratio] 13.2 mg/mg 10-20 [facility] Work Phone: Laboratory - Hematology and Cell countson 02-12-2022 Erythrocyte distribution width (RBC) [Entitic vol] 40.3 fL 35.1-43.9 [facility] Work Phone: Erythrocyte distribution width (RBC) [Ratio] 11.9 % 11.6-14.6 [facility] Work Phone: Immature granulocytes/100 WBC (Bld) 0.400 % 0.0-0.9 [facility] Work Phone: Comment on above: IG% - Immature Granu locytes (promyelocytes, myelocytes and metamyelocytes) > 1% indicates that a LEFT SHIFT is Present. MCH (RBC) [Entitic mass] 30.9 pg 27.0-32.0 [facility] Work Phone: Nucleated RBC/100 WBC (Bld) [Ratio] 0 % 0-5 [facility] Work Phone: MCHC Auto (RBC) [Mass/Vol]on 02-12-2022 MCHC (RBC) [Mass/Vol] 33.1 g/dL 32-36 [facility] Work Phone: No Panel Informationon 02-12 Estimated Creatinine Clearance Calc 37.44 ml/min [facility] Work Phone: Estimated GFR (MDRD) Amer 60 mL/min >60 [facility] Work Phone: Comment on above: GFR Calc Estimated GFR (MDRD) Non-Af Amer 50 mL/min >60 [facility] Work Phone: Comment on above: Non- GFR Calc Platelets bldon 02-12-2022 Platelets (Bld) [#/Vol] 241 10*3/uL 150-450 [facility] Work Phone: Serum or plasma calcium trisha urement (mass/volume)on 02-12-2022 Calcium [Mass/Vol] 8.6 mg/dL 8.5-10.[address] [facility] Work Phone: Serum or plasma creatinine m easurement (mass/volume)on 02-12-2022 Creatinine [Mass/Vol] 1.14 mg/dL 0.55-1.02 [facility] Work Phone: Comment on above: The validity of the calculated GFR & GFRAA in patients over 70 years has not been determined. Clinical correlation is essential. Serum or plasma urea nitroge n measurement (mass/volume)on 02-12-2022 Urea nitrogen [Mass/Vol] 15 mg/dL 7-18 [facility] Work Phone: Thin prep Papanicolaou smear with manual screeningon 02-12-2022 Thin prep Papanicolaou smear with manual screening 8 5-15 [facility] Work Phone: Glucose Glucometer (BldC) [M ass/Vol]on 02-11-2022 Glucose [Mass/Vol] 168 mg/dL 74-[address] [facility] Work Phone: Comment on above: MANAGEMENT OF PATIEN T CARE PER NURSING PROTOCOL HIV 1 and HIV-2 antibody ass ay with HIV-1 p24 antigen detectionon 02-03-2022 HIV 1+2 Ab+HIV1 p24 Ag IA Ql Non-Reactive Nonreactive [facility] Work Phone: Laboratory - Chemistry and C hemistry - challengeon 02-03-2022 Magnesium [Mass/Vol] 2.1 mg/dL 1.6-2.6 [facility] Work Phone: No Panel Informationon 02-03 Fructosamine 284 umol/L 0-285 [facility] Work Phone: Comment on above: Published reference interval for apparently healthysubjects between age 20 and 60 is 205 - 285 umol/L and in apoorly controlled diabetic population is 228 - 563 umol/Lwith a mean of 396 umol/L. Hepatitis A Antibody Total Negative Negative [facility] Work Phone: Comment on above: Performed at: [address] [id number] Director: Shaggy Escalante PhD, Phone: [phone] Hepatitis C Antibody Non-Reactive Nonreactive [facility] Work Phone: Comment on above: Non Reactive: < 0.8 Equivocal: >/= 0.8 to < 1.0 Reactive: >/= 1.0The CDC recommends that a reactive/equivocal HCV antibody result be followed up by the HCV Nucleic Acid Amplificationtest (304453) Serum hepatitis B virus surf kelly antibody IgG detectionon 02-03-2022 HBV surface IgG Ql (S) Reactive [facility] Work Phone: Comment on above: Non Reactive: Incons istent with immunity less than <10 mIU/mL Reactive: Consistent with immunity greater than or equal to 10 mIU/mL Whole blood hemoglobin A1c/t otal hemoglobin ratio (mass fraction)on 02-03-2022 HbA1c (Bld) [Mass fraction] 6.5 % 3.8-5.6 [facility] Work Phone: Comment on above: Normal < 5.7 % Predi abetic 5.7 - 6.4 % Diabetic >or= 6.5 % Please note range changes. Absolute lymphocyte counton 08-29-2021 Lymphocytes Auto (Unsp spec) [#/Vol] 1.64 10*3/uL 0.83-4.51 [facility] Work Phone: Basophil percentageon 2021 Basophils/100 WBC (Bld) 0.5 % 0-1 [facility] Work Phone: Bilirubin [Mass/Vol] 0.80 mg/dL 0.20-1.00 [facility] Work Phone: Comment on above: For patients on eltr ombopag therapy, use of Dimension [place] TBIL is not recommended. Chloride [Moles/Vol] 101 mmol/L 98-107 [facility] Work Phone: Cholesterol [Mass/Vol] 262 mg/dL <200 [facility] Work Phone: Comment on above: <200 mg/dL Desirable 200-240 mg/dL Borderline >240 mg/dL High Risk Eosinophils/100 WBC (Bld) 4.5 % 0-5 [facility] Work Phone: Glucose [Mass/Vol] 142 mg/dL 74-[address] [facility] Work Phone: Comment on above: Fasting Glucose resu lt greater than or equal to 126 mg/dL suggests DIABETES MELLITUS per A.D.A. criteria. Neutrophils (Bld) [#/Vol] 4.7 10*3/uL 2.0-7.7 [facility] Work Phone: Neutrophils/100 WBC (Bld) 62.1 % 47-70 [facility] Work Phone: Potassium [Moles/Vol] 4.2 mmol/L 3.5-5.1 [facility] Work Phone: Protein [Mass/Vol] 7.3 g/dL 6.4-8.[address] [facility] Work Phone: Sodium [Moles/Vol] 136 mmol/L 136-[address] [facility] Work Phone: Triglyceride [Mass/Vol] 245 mg/dL <199 [facility] Work Phone: Comment on above: The drugs N-Acetylcy steine and Metamizole may falsely depress this assay.Serum Triglycerides Reference Interval Normal <150 mg/dL Borderline high 150 - 199 mg/dL High 200 - 499 mg/dL Very High > or = 500 mg/dL WBC (Bld) [#/Vol] 7.6 10*3/uL 4.4-11.[address] [facility] Work Phone: Bilirubin Test strip Ql (U)o n 08-29-2021 Bilirubin Ql (U) Negative Negative [facility] Work Phone: Blood erythrocytes count (nu mber/volume)on 08-29-2021 RBC (Bld) [#/Vol] 4.08 10*6/uL 4.2-5.4 [facility] Work Phone: Blood hemoglobin measurement (mass/volume)on 08-29-2021 Hemoglobin (Bld) [Mass/Vol] 12.4 g/dL 12.0-15.0 [facility] Work Phone: Blood lymphocytes/100 leukoc yteson 08-29-2021 Lymphocytes/100 WBC (Bld) 21.6 % 19-41 [facility] Work Phone: Blood monocytes/100 leukocyt eson 08-29-2021 Monocytes/100 WBC (Bld) 10.9 % 0-10 [facility] Work Phone: Blood platelet mean volumeon 08-29-2021 Platelet mean volume (Bld) [Entitic vol] 9.1 fL 6.2-12.0 [facility] Work Phone: Determination of erythrocyte mean corpuscular volume (MCV)on 08-29-2021 MCV (RBC) [Entitic vol] 92.9 fL 81-99 [facility] Work Phone: Hematocrit Auto (Bld) [Volum e fraction]on 08-29-2021 Hematocrit (Bld) [Volume fraction] 37.9 % 37-47 [facility] Work Phone: Ketones Test strip Ql (U)on 08-29-2021 Ketones Ql (U) Negative Negative [facility] Work Phone: Laboratory - Chemistry and C hemistry - challengeon 08-29-2021 ALP [Catalytic activity/Vol] 53 U/L 45-117 [facility] Work Phone: ALT [Catalytic activity/Vol] 21 U/L 13-56 [facility] Work Phone: CO2 [Moles/Vol] 27.0 mmol/L 21.0-32.0 [facility] Work Phone: Globulin (S) [Mass/Vol] 3.5 g/dL 2.2-4.2 [facility] Work Phone: Urea nitrogen/Creatinine [Mass ratio] 15.8 mg/mg 10-20 [facility] Work Phone: Laboratory - Hematology and Cell countson 08-29-2021 Erythrocyte distribution width (RBC) [Entitic vol] 40.8 fL 35.1-43.9 [facility] Work Phone: Erythrocyte distribution width (RBC) [Ratio] 11.9 % 11.6-14.6 [facility] Work Phone: Immature granulocytes/100 WBC (Bld) 0.400 % 0.0-0.9 [facility] Work Phone: Comment on above: IG% - Immature Granu locytes (promyelocytes, myelocytes and metamyelocytes) > 1% indicates that a LEFT SHIFT is Present. MCH (RBC) [Entitic mass] 30.4 pg 27.0-32.0 [facility] Work Phone: Nucleated RBC/100 WBC (Bld) [Ratio] 0 % 0-5 [facility] Work Phone: MCHC Auto (RBC) [Mass/Vol]on 08-29-2021 MCHC (RBC) [Mass/Vol] 32.7 g/dL 32-36 [facility] Work Phone: Nitrite Test strip Ql (U)on 08-29-2021 Nitrite Ql (U) Negative Negative [facility] Work Phone: No Panel Informationon 08-29 Estimated GFR (MDRD) Amer 57 mL/min >60 [facility] Work Phone: Comment on above: GFR Calc Estimated GFR (MDRD) Non-Af Amer 47 mL/min >60 [facility] Work Phone: Comment on above: Non- GFR Calc Hepatitis C Antibody Non-Reactive Nonreactive [facility] Work Phone: Comment on above: Non Reactive: < 0.8 Equivocal: >/= 0.8 to < 1.0 Reactive: >/= 1.0The [facility] recommends that a reactive/equivocal HCV antibody result be followed up by the HCV Nucleic Acid Amplificationtest (077639) Urine Microalbumin/Creatinine Ratio 6.8 mg/g CRE <30 [facility] Work Phone: Platelets bldon 08-29-2021 Platelets (Bld) [#/Vol] 309 10*3/uL 150-450 [facility] Work Phone: Protein Test strip Ql (U)on 08-29-2021 Protein Ql (U) Negative Negative [facility] Work Phone: Serum or plasma albumin trisha urement (mass/volume)on 08-29-2021 Albumin [Mass/Vol] 3.8 g/dL 3.2-5.[address] [facility] Work Phone: Serum or plasma albumin/glob ulin mass ratioon 08-29-2021 Albumin/Globulin [Mass ratio] 1.1 {ratio} 0.9-2.4 [facility] Work Phone: Serum or plasma calcium trisha urement (mass/volume)on 08-29-2021 Calcium [Mass/Vol] 9.4 mg/dL 8.5-10.[address] [facility] Work Phone: Serum or plasma cholesterol in HDL measurement (mass/volume)on 08-29-2021 Cholesterol in HDL [Mass/Vol] 46 mg/dL >40 [facility] Work Phone: Comment on above: The drugs N-Acetylcy steine and Metamizole may falsely depress this assay. Reference Range HDL <40 mg/dL Low HDL Cholesterol HDL >or= 60 mg/dL High HDL Cholesterol Serum or plasma cholesterol in VLDL measurement (mass/volume)on 08-29-2021 Cholesterol in VLDL [Mass/Vol] 49 mg/dL 5-40 [facility] Work Phone: Serum or plasma creatinine m easurement (mass/volume)on 08-29-2021 Creatinine [Mass/Vol] 1.20 mg/dL 0.55-1.02 [facility] Work Phone: Comment on above: The validity of the calculated GFR & GFRAA in patients over 70 years has not been determined. Clinical correlation is essential. Serum or plasma low density lipoprotein (LDL) cholesterol measurement (mass/volume)on 08-29-2021 Cholesterol in LDL [Mass/Vol] 167 mg/dL 0-130 [facility] Work Phone: Serum or plasma urea nitroge n measurement (mass/volume)on 08-29-2021 Urea nitrogen [Mass/Vol] 19 mg/dL 7-18 [facility] Work Phone: Thin prep Papanicolaou smear with manual screeningon 08-29-2021 Thin prep Papanicolaou smear with manual screening 16 U/L 15-37 [facility] Work Phone: Thin prep Papanicolaou smear with manual screening 8 5-15 [facility] Work Phone: Thin prep Papanicolaou smear with manual screening 6.3 mg/L NO RANGE EST. [facility] Work Phone: Urine blood detectionon 08-02 RBC Ql (U) 10 /ul Negative [facility] Work Phone: Urine clarityon 08-29-2021 Clarity (U) Sl. Cloudy Clear [facility] Work Phone: Urine color determinationon 08-29-2021 Color (U) Yellow Yellow [facility] Work Phone: Urine creatinine measurement (mass/volume)on 08-29-2021 Creatinine (U) [Mass/Vol] 93.00 mg/dL NO RANGE EST. [facility] Work Phone: Urine glucose detectionon Glucose Ql (U) Normal mg/dl Normal [facility] Work Phone: Urine leukocyte esterase det ection by dipstickon 08-29-2021 Leukocyte esterase Test strip Ql (U) 100 /ul Negative [facility] Work Phone: Urine pHon 08-29-2021 pH (U) 6.5 [pH] 5.0 - 8.0 [facility] Work Phone: Urine specific gravity measu rementon 08-29-2021 Specific gravity (U) [Rel density] 1.010 1.002-1.030 [facility] Work Phone: Urobilinogen Auto test strip Ql (U)on 08-29-2021 Urobilinogen Ql (U) Normal mg/dl Normal [facility] Work Phone: Whole blood hemoglobin A1c/t otal hemoglobin ratio (mass fraction)on 08-29-2021 HbA1c (Bld) [Mass fraction] 6.8 % 3.8-5.6 [facility] Work Phone: Comment on above: Normal < 5.7 % Predi abetic 5.7 - 6.4 % Diabetic >or= 6.5 % Please note range changes. CNOVon 04-20-2018 CNOV Office Visit ([facility]) FIOR SHIPMAN ([id number]) 1950 F Date Time Provider Department 04/20/18 9:45 AM ONEAL CARLOS) GILA During your visit today, we recorded the following information about you: Temperature Pulse Respiration Blood pressure 98.3 degrees 62/minute 16/minute 126/74 Weight 79.8 kg Oneal Carlos PA-C 04/21/2018 9:56 AM Signed 04/20/2018 Patient presents with: Suture Removal: 8 sutures in right little finger x 10 days SUBJECTIVE: This is a 67 year old that is here today for Complaint(s) of suture removal x 10 days. States she had 7 sutures and then went to the ER to have another suture to control bleeding later that night. UTD on tetanus. PAST MEDICAL HISTORY Diagnosis Date - Allergic rhinitis, cause unspecified Allergic rhinitis - ASTHMA UNSPECIFIED 05/07/2005 - Esophageal reflux - Irritable bowel syndrome - Other and unspecified hyperlipidemia - Other specified disorder of bladder - Unspecified essential hypertension ALLERGIES Biaxin [Clarithromycin]; Erythromycin; Penicillins; Prednisone; Sulfa (Sulfonamide Antibiotics) MEDICATIONS Current Outpatient Prescriptions: clopidogrel (PLAVIX) 75 mg tablet Take 75 mg by mouth once daily. aspirin 81 mg chewable tablet Take 81 mg by mouth once daily. hydrochlorothiazide 25 mg tablet Take 25 mg by mouth once daily. LOSARTAN POTASSIUM (LOSARTAN ORAL) Take by mouth once daily. ATENOLOL 25 MG TAB Take one(1) tablet two(2) times daily. May take additional pill up to twice daily as needed for blood pressure greater than 170 ALBUTEROL 90 MCG/ACTUATION AEROSOL INHALER Two puffs every 4 hours as needed. RED YEAST RICE ORAL Take 2 tablets by mouth twice daily. METFORMIN HCL (METFORMIN ORAL) Take by mouth once daily. AMAURY PRIMROSE/LINOLEIC/GA MOLENI (PRIMROSE OIL ORAL) Take by mouth once daily. CALCIUM + D 600 MG-200 UNIT TAB Take one(1) tablet two(2) times daily. No current facility-administere d medications for this visit. 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 APPEARANCE Well appearing, alert, in no acute distress, well-hydrated, well nourished. EXTREMITIES right pinky finger with [address] (one fell out per patient), well approximated. 7 sutures removed without complication. Antibiotic ointment and dressing applied. ASSESSMENT/PLAN: 1. Visit for suture removal - ICD9: V58.32, ICD10: Z48.02 (primary diagnosis) Sutures removed without complication Dressing applied Return prn Reviewed red flags and when to seek care sooner. 2. Laceration of right little finger without damage to nail, foreign body presence unspecified, subsequent encounter - ICD9: V58.89, 883.0, ICD10: S61.216D Well healed. The patient indicates understanding of these issues and agrees with the plan. Oneal Carlos PA-C Referring Provider: SELF [[id number]] Allergies As of Date: 04/20/2018 Noted Allergy Reaction BIAXIN (CLARITHROMYCIN) 12/16/2004 2 - Rash ERYTHROMYCIN 12/16/2004 11 - Vomiting PENICILLINS 12/16/2004 4 - Hives PREDNISONE 02/12/2012 14 - Other: See Comments Comments: Jittery and face reddened SULFA (SULFONAMIDE ANTIBIOTICS) 12/16/2004 Comments: headache Date Reviewed: 04/20/2018 Reviewed by: Marisela Tello Ma - Fully Assessed Reason for Visit: Suture Removal [105] Cmt: 8 sutures in right little finger x 10 days Primary Visit Diagnosis:Visit for suture removal [Z48.02] Other Visit Diagnosis:Laceration of right little finger without damage to nail, foreign body presence unspecified, subsequent encounter [S61.216D] Prescriptions as of 04/20/2018 Sig: CLOPIDOGREL 75 MG TABLET Take 75 mg by mouth once radha* ASPIRIN 81 MG CHEWABLE TABLET Take 81 mg by mouth once radha* HYDROCHLOROTHIAZIDE 25 MG TAB* Take 25 mg by mouth once radha* LOSARTAN ORAL Take by mouth once daily. ATENOLOL 25 MG TABLET Take one(1) tablet two(2) rebecca* ALBUTEROL 90 MCG/ACTUATION AE* Two puffs every 4 hours as ne* RED YEAST RICE ORAL Take 2 tablets by mouth twice* METFORMIN ORAL Take by mouth once daily. PRIMROSE OIL ORAL Take by mouth once daily. CALCIUM + D 600 MG (1,500 MG)* Take one(1) tablet two(2) rebecca* Problem List As Of Date 04/20/2018 Noted Resolved HYPERLIPIDEMIA NEC/NOS [E78.5] HYPERTENSION NOS [I10] IRRITABLE COLON [K58.9] ESOPHAGEAL REFLUX [K21.9] ALLERGIC RHINITIS NOS [J30.9] More... BLADDER DISORDER NEC [596.8] ASTHMA UNSPECIFIED [J45.909] INVALID FOR* Breast pain, left [N64.4] INVALID FOR* Encounter Status:Closed by ONEAL CARLOS PA-C on 04/21/18 [facility] PROGRESSon 04-20-2018 Protein mass conc HNO ID: [id number] Author: Oneal Barr) Antoine Service: (none) Author Type: Physician Painter And Decorator Type: Progress Notes Filed: 04/21/2018 9:56 AM Note Text: 04/20/2018 Patient presents with: Suture Removal: 8 sutures in right little finger x 10 days SUBJECTIVE: This is a 67 year old that is here today for Complaint(s) of suture removal x 10 days. States she had 7 sutures and then went to the ER to have another suture to control bleeding later that night. UTD on tetanus. PAST MEDICAL HISTORY Diagnosis Date - Allergic rhinitis, cause unspecified Allergic rhinitis - ASTHMA UNSPECIFIED 05/07/2005 - Esophageal reflux - Irritable bowel syndrome - Other and unspecified hyperlipidemia - Other specified disorder of bladder - Unspecified essential hypertension ALLERGIES Biaxin [Clarithromycin]; Erythromycin; Penicillins; Prednisone; Sulfa (Sulfonamide Antibiotics) MEDICATIONS Current Outpatient Prescriptions: clopidogrel (PLAVIX) 75 mg tablet Take 75 mg by mouth once daily. aspirin 81 mg chewable tablet Take 81 mg by mouth once daily. hydrochlorothiazide 25 mg tablet Take 25 mg by mouth once daily. LOSARTAN POTASSIUM (LOSARTAN ORAL) Take by mouth once daily. ATENOLOL 25 MG TAB Take one(1) tablet two(2) times daily. May take additional pill up to twice daily as needed for blood pressure greater than 170 ALBUTEROL 90 MCG/ACTUATION AEROSOL INHALER Two puffs every 4 hours as needed. RED YEAST RICE ORAL Take 2 tablets by mouth twice daily. METFORMIN HCL (METFORMIN ORAL) Take by mouth once daily. AMAURY PRIMROSE/LINOLEIC/GA MOLENI (PRIMROSE OIL ORAL) Take by mouth once daily. CALCIUM + D 600 MG-200 UNIT TAB Take one(1) tablet two(2) times daily. No current facility-administere d medications for this visit. SOCIAL HISTORY Social History Marital status: Spouse name: Orlin Years of education: 14 Number of children: 2 Occupational History Occupation Employer Comment [employer], * Social History Main Topics Smoking status: Former Smoker Packs/day: 0.00 Years: 0.00 Quit date: 01/02/1986 Smokeless tobacco: Never Used Alcohol use: No Drug use: No REVIEW OF SYSTEMS See HPI OBJECTIVE: BP 126/74 Pulse 62 Temp 36.8 ?C (98.3 ?F) (Tympanic) Resp 16 Wt 79.8 kg (176 lb) BMI 30.21 kg/m? APPEARANCE Well appearing, alert, in no acute distress, well-hydrated, well nourished. EXTREMITIES right pinky finger with [address] (one fell out per patient), well approximated. 7 sutures removed without complication. Antibiotic ointment and dressing applied. ASSESSMENT/PLAN: 1. Visit for suture removal - ICD9: V58.32, ICD10: Z48.02 (primary diagnosis) Sutures removed without complication Dressing applied Return prn Reviewed red flags and when to seek care sooner. 2. Laceration of right little finger without damage to nail, foreign body presence unspecified, subsequent encounter - ICD9: V58.89, 883.0, ICD10: S61.216D Well healed. The patient indicates understanding of these issues and agrees with the plan. Oneal Carlos PA-C [facility] CNOVon 04-10-2018 CNOV Office Visit ([facility]) FIOR SHIPMAN ([id number]) 1950 F Date Time Provider Department 04/10/18 2:45 PM COURTNEY TAPIA ([facility]) [facility] During your visit today, we recorded the following information about you: Temperature Pulse Respiration Blood pressure 98 degrees 64/minute 14/minute 136/78 Weight 77.1 kg Courtney Tapia APRN.CNP 04/10/2018 3:40 PM Signed ASSESSMENT/PLAN: 1. Laceration of right little finger without foreign body without damage to nail, initial encounter - ICD9: 883.0, ICD10: S61.216A 6 sutures placed. Return in 7-10 days for suture removal. - watch for signs of infection as discussed. - TETANUS shot was updated today. Courtney Tapia APRN.CNP SUTURED WOUND CARE: Your cut has been cleaned and closed with stitches. Keep the area around your wound clean and dry. Rest and elevate the injured area until all the pain and swelling are gone. 1. If a dressing has been applied, it should be removed in __1___ days. 2. See your doctor or return here for stitch removal in __7-10___ days. 3. Watch for signs of wound infection: - Unusual redness or swelling around the wound. - Increasing pain and tenderness. - Pus drainage, fever. - Red streaks going up the arm or leg. See your doctor or return here at once if your wound looks infected. After your cut has begun to heal, you may leave it open to the air. You can clean the stitch line 1-2 times a day with soap and water or half-strength peroxide. However, be careful not to soak the area in water for long periods. Please wear a dressing to protect your injury while you are at work. You may need a tetanus booster if you have not had one within 10 years. Courtney Tapia APRN.CNP 04/10/2018 4:24 PM Signed Subjective HPI Fior Shipman is a 67 year old female who presents with a laceration on her right 5th finger. She was washing a glass at home and it broke and she sustained a U shaped laceration over the lateral middle phalanx. She cleaned the wound at home and applied pressure. She is unsure when her last tetanus booster was. Review of Systems Constitutional: Negative. Negative for fever. Musculoskeletal: Negative. Negative for falls and joint pain. Skin: U shaped laceration right 5th finger. BP 136/78 Pulse 64 Temp 36.7 ?C (98 ?F) (Tympanic) Resp 14 Wt 77.1 kg (170 lb) BMI 29.18 kg/m? PAST MEDICAL HISTORY Diagnosis Date - Allergic rhinitis, cause unspecified Allergic rhinitis - ASTHMA UNSPECIFIED 05/07/2005 - Esophageal reflux - Irritable bowel syndrome - Other and unspecified hyperlipidemia - Other specified disorder of bladder - Unspecified essential hypertension PAST SURGICAL HISTORY Procedure Laterality Date - COLONOSCOP W/ OR W/O [facility] SPEC 08/18/2001 Colonoscopy - LIGATE FALLOPIAN TUBE Tubal ligation - REMOVAL ADENOIDS,PRIMARY,<12 Y/O Adenoidectomy - REMOVAL OF TONSILS,<12 Y/O Tonsillectomy ALLERGIES Biaxin [Clarithromycin]; Erythromycin; Penicillins; Prednisone; Sulfa (Sulfonamide Antibiotics) MEDICATIONS clopidogrel (PLAVIX) 75 mg tablet Take 75 mg by mouth once daily. aspirin 81 mg chewable tablet Take 81 mg by mouth once daily. hydrochlorothiazide 25 mg tablet Take 25 mg by mouth once daily. LOSARTAN POTASSIUM (LOSARTAN ORAL) Take by mouth once daily. RED YEAST RICE ORAL Take 2 tablets by mouth twice daily. METFORMIN HCL (METFORMIN ORAL) Take by mouth once daily. AMAURY PRIMROSE/LINOLEIC/GA MOLENI (PRIMROSE OIL ORAL) Take by mouth once daily. ATENOLOL 25 MG TAB Take one(1) tablet two(2) times daily. May take additional pill up to twice daily as needed for blood pressure greater than 170 ALBUTEROL 90 MCG/ACTUATION AEROSOL INHALER Two puffs every 4 hours as needed. CALCIUM + D 600 MG-200 UNIT TAB Take one(1) tablet two(2) times daily. FAMILY HISTORY Problem Relation Age of Onset - COPD Father - Heart Father - Diabetes Mother - Diabetes Sister - Diabetes Paternal Grandmother - Coronary Artery Disease Paternal Uncle - other (anyeurism [Other]) Sister brain stem - Breast Cancer Paternal Aunt Social History Substance Use Topics - Smoking status: Former Smoker Quit date: 01/02/1986 - Smokeless tobacco: Not on file - Alcohol use No Objective Physical Exam Constitutional: She is well-developed, well-nourished, and in no distress. Musculoskeletal: Hands: Neurological: She is alert. Skin: Skin is warm and dry. No rash noted. No erythema. Nursing note and vitals reviewed. Wound anesthetized with 1 cc 1 % lidocaine. Wound cleansed and all visible foreign material was removed. Wound edges reapproximated with 6 sutures of 4-0 prolene. Antibiotic ointment and bulky tube gauze dressing applied. Bleeding was well controlled prior to bandage application. Wound care instructions provided. Return for suture removal in 7-10 days. ASSESSMENT/PLAN: 1. Laceration of right little finger without foreign body without damage to nail, initial encounter - ICD9: 883.0, ICD10: S61.216A 6 sutures placed. Return in 7-10 days for suture removal. - watch for signs of infection as discussed. - TETANUS shot was updated today. - Follow-up with your PCP in 3-5 days if symptoms have not improved or sooner if symptoms worsen - Discussed red flags and need for immediate medical evaluation if any occur. - Discussed supportive care treatment with fluids, rest and analgesia. - Discussed expected course of illness Courtney Tapia, CHEL.SET UP / OPERATOR Referring Provider: SELF [200] Allergies As of Date: 04/10/2018 Noted Allergy Reaction BIAXIN (CLARITHROMYCIN) 12/16/2004 2 - Rash ERYTHROMYCIN 12/16/2004 11 - Vomiting PENICILLINS 12/16/2004 4 - Hives PREDNISONE 02/12/2012 14 - Other: See Comments Comments: Jittery and face reddened SULFA (SULFONAMIDE ANTIBIOTICS) 12/16/2004 Comments: headache Date Reviewed: 04/10/2018 Reviewed by: Marva Cisneros Ma - Fully Assessed Reason for Visit: Laceration [1747] Cmt: R hand Primary Visit Diagnosis:Laceration of right little finger without foreign body without damage to nail, initial encounter [S61.216A] Order(s):TDAP VACCINE AGE 7+ IM [[id number]] Order #: [id number] Prescriptions as of 04/10/2018 Sig: CLOPIDOGREL 75 MG TABLET Take 75 mg by mouth once radha* ASPIRIN 81 MG CHEWABLE TABLET Take 81 mg by mouth once radha* HYDROCHLOROTHIAZIDE 25 MG TAB* Take 25 mg by mouth once radha* LOSARTAN ORAL Take by mouth once daily. RED YEAST RICE ORAL Take 2 tablets by mouth twice* METFORMIN ORAL Take by mouth once daily. PRIMROSE OIL ORAL Take by mouth once daily. ATENOLOL 25 MG TABLET Take one(1) tablet two(2) rebecca* ALBUTEROL 90 MCG/ACTUATION AE* Two puffs every 4 hours as ne* CALCIUM + D 600 MG (1,500 MG)* Take one(1) tablet two(2) rebecca* Problem List As Of Date 04/10/2018 Noted Resolved HYPERLIPIDEMIA NEC/NOS [E78.5] HYPERTENSION NOS [I10] IRRITABLE COLON [K58.9] ESOPHAGEAL REFLUX [K21.9] ALLERGIC RHINITIS NOS [J30.9] More... BLADDER DISORDER NEC [596.8] ASTHMA UNSPECIFIED [J45.909] INVALID FOR* Breast pain, left [N64.4] INVALID FOR* Other instructions from your clinician: ASSESSMENT/PLAN: 1. Laceration of right little finger without foreign body without damage to nail, initial encounter - ICD9: 883.0, ICD10: S61.216A 6 sutures placed. Return in 7-10 days for suture removal. - watch for signs of infection as discussed. - TETANUS shot was updated today. Courtney Tapia APRN.AGNES SUTURED WOUND CARE: Your cut has been cleaned and closed with stitches. Keep the area around your wound clean and dry. Rest and elevate the injured area until all the pain and swelling are gone. 1. If a dressing has been applied, it should be removed in __1___ days. 2. See your doctor or return here for stitch removal in __7-10___ days. 3. Watch for signs of wound infection: - Unusual redness or swelling around the wound. - Increasing pain and tenderness. - Pus drainage, fever. - Red streaks going up the arm or leg. See your doctor or return here at once if your wound looks infected. After your cut has begun to heal, you may leave it open to the air. You can clean the stitch line 1-2 times a day with soap and water or half-strength peroxide. However, be careful not to soak the area in water for long periods. Please wear a dressing to protect your injury while you are at work. You may need a tetanus booster if you have not had one within 10 years. Encounter Status:Closed by COURTNEY TAPIA on 04/10/18 [facility] PROGRESSon 04-10-2018 Protein mass conc HNO ID: [id number] Author: Courtney (Agnes) Willie Service: (none) Author Type: Nurse Practitioner Type: Progress Notes Filed: 04/10/2018 4:24 PM Note Text: Subjective HPI Fior Shipman is a 67 year old female who presents with a laceration on her right 5th finger. She was washing a glass at home and it broke and she sustained a U shaped laceration over the lateral middle phalanx. She cleaned the wound at home and applied pressure. She is unsure when her last tetanus booster was. Review of Systems Constitutional: Negative. Negative for fever. Musculoskeletal: Negative. Negative for falls and joint pain. Skin: U shaped laceration right 5th finger. BP 136/78 Pulse 64 Temp 36.7 ?C (98 ?F) (Tympanic) Resp 14 Wt 77.1 kg (170 lb) BMI 29.18 kg/m? PAST MEDICAL HISTORY Diagnosis Date - Allergic rhinitis, cause unspecified Allergic rhinitis - ASTHMA UNSPECIFIED 05/07/2005 - Esophageal reflux - Irritable bowel syndrome - Other and unspecified hyperlipidemia - Other specified disorder of bladder - Unspecified essential hypertension PAST SURGICAL HISTORY Procedure Laterality Date - COLONOSCOP W/ OR W/O [facility] SPEC 08/18/2001 Colonoscopy - LIGATE FALLOPIAN TUBE Tubal ligation - REMOVAL ADENOIDS,PRIMARY,<12 Y/O Adenoidectomy - REMOVAL OF TONSILS,<12 Y/O Tonsillectomy ALLERGIES Biaxin [Clarithromycin]; Erythromycin; Penicillins; Prednisone; Sulfa (Sulfonamide Antibiotics) MEDICATIONS clopidogrel (PLAVIX) 75 mg tablet Take 75 mg by mouth once daily. aspirin 81 mg chewable tablet Take 81 mg by mouth once daily. hydrochlorothiazide 25 mg tablet Take 25 mg by mouth once daily. LOSARTAN POTASSIUM (LOSARTAN ORAL) Take by mouth once daily. RED YEAST RICE ORAL Take 2 tablets by mouth twice daily. METFORMIN HCL (METFORMIN ORAL) Take by mouth once daily. AMAURY PRIMROSE/LINOLEIC/GA MOLENI (PRIMROSE OIL ORAL) Take by mouth once daily. ATENOLOL 25 MG TAB Take one(1) tablet two(2) times daily. May take additional pill up to twice daily as needed for blood pressure greater than 170 ALBUTEROL 90 MCG/ACTUATION AEROSOL INHALER Two puffs every 4 hours as needed. CALCIUM + D 600 MG-200 UNIT TAB Take one(1) tablet two(2) times daily. FAMILY HISTORY Problem Relation Age of Onset - COPD Father - Heart Father - Diabetes Mother - Diabetes Sister - Diabetes Paternal Grandmother - Coronary Artery Disease Paternal Uncle - other (anyeurism [Other]) Sister brain stem - Breast Cancer Paternal Aunt Social History Substance Use Topics - Smoking status: Former Smoker Quit date: 01/02/1986 - Smokeless tobacco: Not on file - Alcohol use No Objective Physical Exam Constitutional: She is well-developed, well-nourished, and in no distress. Musculoskeletal: Hands: Neurological: She is alert. Skin: Skin is warm and dry. No rash noted. No erythema. Nursing note and vitals reviewed. Wound anesthetized with 1 cc 1 % lidocaine. Wound cleansed and all visible foreign material was removed. Wound edges reapproximated with 6 sutures of 4-0 prolene. Antibiotic ointment and bulky tube gauze dressing applied. Bleeding was well controlled prior to bandage application. Wound care instructions provided. Return for suture removal in 7-10 days. ASSESSMENT/PLAN: 1. Laceration of right little finger without foreign body without damage to nail, initial encounter - ICD9: 883.0, ICD10: S61.216A 6 sutures placed. Return in 7-10 days for suture removal. - watch for signs of infection as discussed. - TETANUS shot was updated today. - Follow-up with your PCP in 3-5 days if symptoms have not improved or sooner if symptoms worsen - Discussed red flags and need for immediate medical evaluation if any occur. - Discussed supportive care treatment with fluids, rest and analgesia. - Discussed expected course of illness Courtney Tapia APRN.SET UP / OPERATOR [facility] XR FLUORO HYBRID OR 1-2 HRS TECH TIMEon 10-24-2016 XR FLUORO HYBRID OR 1-2 HRS TECH TIME ORIGINALXR FLUORO HYBRID OR 1-2 HRS TECH TIME CLINICAL STATEMENT: Pain FLUORO: 3 minutesAIR KERMA DOSE: 137 mGy BODY PART: Left subclavian arteryFINDINGS: Balloon angioplasty and stenting performed IMPRESSION: Documentation of fluoroscopy. Please see intraoperative notes for additional details. Interpreted By: Xenia Zavaleta MDPreliminary Report By: Xenia Zavaleta MDElectronically Signed By: Xenia Zavaleta MD Dictated Date: 10/24/2016 4:37:56 PM Prelim Date: 10/24/2016 4:37:56 PM Sign Date: 10/24/2016 4:38:39 PM Normal [facility] ([place]) .Auto Diffon 10-23-2016 Basophils Auto #/vol (Bld) 0.10 10 3/mcL Normal 0.00-0.27 [facility] ([place]) Comment on above: Performed By: #### C BC, ADIFF, ANEU, RFP, GFR ####[address] [address] Basophils/100 WBC Auto (Bld) 1.0 % Normal 0.0-2.5 [facility] ([place]) Comment on above: Performed By: #### C BC, ADIFF, ANEU, RFP, GFR ####[address] [address] Eosinophils 0.20 10 3/mcL Normal 0.00-0.65 [facility] ([place]) Comment on above: Performed By: #### C BC, ADIFF, ANEU, RFP, GFR ####[address] [address] Eosinophils/100 leukocytes 2.0 % Normal 0.0-6.0 [facility] ([place]) Comment on above: Performed By: #### C BC, ADIFF, ANEU, RFP, GFR ####[address] [address] Lymphocytes 2.00 10 3/mcL Normal 0.90-4.32 [facility] ([place]) Comment on above: Performed By: #### C BC, ADIFF, ANEU, RFP, GFR ####[address] [address] Lymphocytes/100 leukocytes 22.3 % Normal 20.0-40.0 [facility] ([place]) Comment on above: Performed By: #### C BC, ADIFF, ANEU, RFP, GFR ####[address] [address] Monocytes 1.00 10 3/mcL Normal 0.09-1.40 [facility] ([place]) Comment on above: Performed By: #### C BC, ADIFF, ANEU, RFP, GFR ####[address] [address] Monocytes/100 leukocytes 11.2 % Normal 2.0-13.0 [facility] ([place]) Comment on above: Performed By: #### C BC, ADIFF, ANEU, RFP, GFR ####[address] [address] Neutrophils/100 WBC Auto (Bld) 63.5 % Normal 50.0-75.0 [facility] ([place]) Comment on above: Performed By: #### C BC, ADIFF, ANEU, RFP, GFR ####[place] [address] .GFRon 10-23-2016 eGFR (non-black) mL/min/{1.73_m2} Normal [facility] ([place]) Comment on above: Result Comment: GFR Population mean for , Non- Americans Ages 20-29 = 116 mL/min/1.73 sq.m. Ages 30-39 = 107 mL/min/1.73 sq.m. Ages 40-49 = 99 mL/min/1.73 sq.m. Ages 50-59 = 93 mL/min/1.73 sq.m. Ages 60-69 = 85 mL/min/1.73 sq.m. Ages 70+ = 75 mL/min/1.73 sq.m.Chronic Kidney Disease: Less than 60 mL/min/1.73 square metersEnd Stage Renal Disease: Less than 15 mL/min/1.73 square meters Performed By: #### C BC, ADIFF, ANEU, RFP, GFR ####[place] [address] .NEUABSon 10-23-2016 Neutrophils 5.60 10 3/mcL Normal 2.25-8.10 [facility] ([place]) Comment on above: Performed By: #### C BC, ADIFF, ANEU, RFP, GFR ####[place] [address] CBCon 10-23-2016 Erythrocyte distribution width Auto Ratio (RBC) 13.3 % Normal 11.5-15.5 [facility] ([place]) Comment on above: Performed By: #### C BC, ADIFF, ANEU, RFP, GFR ####[place] [address] Erythrocytes (RBC) 4.32 10 6/mcL Normal 4.10-5.30 [facility] ([place]) Comment on above: Performed By: #### C BC, ADIFF, ANEU, RFP, GFR ####[place] [address] Hematocrit (HCT) 39.2 % Normal 34.0-46.0 [facility] ([place]) Comment on above: Performed By: #### C BC, ADIFF, ANEU, RFP, GFR ####[place] [address] Hemoglobin mass conc (Bld) 13.2 G/dL Normal 12.0-16.0 [facility] ([place]) Comment on above: Performed By: #### C BC, ADIFF, ANEU, RFP, GFR ####[place] [address] MCH 30.6 pg Normal 27.0-33.0 [facility] ([place]) Comment on above: Performed By: #### C BC, ADIFF, ANEU, RFP, GFR ####[place] [address] MCHC mass conc (RBC) 33.7 G/dL Normal 32.0-36.0 [facility] ([place]) Comment on above: Performed By: #### C BC, ADIFF, ANEU, RFP, GFR ####[place] [address] MCV 90.8 fL Normal 80.0-99.0 [facility] ([place]) Comment on above: Performed By: #### C BC, ADIFF, ANEU, RFP, GFR ####[place] [address] Platelet mean volume (PMV) 7.3 fL Normal 6.6-10.5 [facility] ([place]) Comment on above: Performed By: #### C BC, ADIFF, ANEU, RFP, GFR ####[place] [address] Platelets 330 10 3/mcL Normal 150-450 [facility] ([place]) Comment on above: Performed By: #### C BC, ADIFF, ANEU, RFP, GFR ####[place] [address] WBC (Leukocytes) 8.80 10 3/mcL Normal 4.50-10.80 [facility] ([place]) Comment on above: Performed By: #### C BC, ADIFF, ANEU, RFP, GFR ####[place] [id number] Depart Summaryon 10-23-2016 Depart Summary Normal [facility] ([place]) Operative Reporton 7 Operative Report Normal [facility]) Outpatient Patient Summaryon 10-23-2016 Outpatient Patient Summary Normal [facility] ([place]) RFPon 10-23-2016 Albumin 3.8 G/dL Normal 3.2-4.8 [facility]) Comment on above: Performed By: #### C BC, ADIFF, ANEU, RFP, GFR ####[place] [address] BUN/Creatinine Ratio 19.0 ratio Normal 10.0-22.0 [facility] ([place]) Comment on above: Performed By: #### C BC, ADIFF, ANEU, RFP, GFR ####[place] [address] Calcium 9.7 mg/dL Normal 8.4-10.1 [facility]) Comment on above: Performed By: #### C BC, ADIFF, ANEU, RFP, GFR ####[place] [address] Chloride 102 mmol/L Normal 98-110 [facility] ([place]) Comment on above: Performed By: #### C BC, ADIFF, ANEU, RFP, GFR ####[place] [address] CO2 29 mmol/L Normal 22-32 [facility] ([place]) Comment on above: Performed By: #### C BC, ADIFF, ANEU, RFP, GFR ####[place] [address] Creatinine 0.84 mg/dL Normal 0.50-1.20 [facility] ([place]) Comment on above: Performed By: #### C BC, ADIFF, ANEU, RFP, GFR ####[place] [address] Electrolyte Balance 7.0 mEq/L Normal 4.0-15.0 [facility] ([place]) Comment on above: Performed By: #### C BC, ADIFF, ANEU, RFP, GFR ####[address] [address] Glucose mass conc 135 mg/dL High 82-115 [facility] ([place]) Comment on above: Performed By: #### C BC, ADIFF, ANEU, RFP, GFR ####[place] [address] Phosphate 3.6 mg/dL Normal 2.5-4.5 [facility] ([place]) Comment on above: Performed By: #### C BC, ADIFF, ANEU, RFP, GFR ####[place] [address] Potassium molar conc 4.8 mmol/L Normal 3.5-5.0 [facility] ([place]) Comment on above: Performed By: #### C BC, ADIFF, ANEU, RFP, GFR ####[place] [address] Sodium 138 mmol/L Normal 136-145 [facility] ([place]) Comment on above: Performed By: #### C BC, ADIFF, ANEU, RFP, GFR ####[address] [address] Urea nitrogen 16.0 mg/dL Normal 8.0-22.0 [facility] ([place]) Comment on above: Performed By: #### C BC, ADIFF, ANEU, RFP, GFR ####[address] [address] No Panel Information Nasal Screen MRSA/MSSA [facility] Work Phone: Vital Signs Date Time Vital Sign Value Performing Clinician Stevan schmitz 05-12-2024 02:58-0400 Body temperature 98.2 [degF] Dr. Yon Preciado DO Work Phone: [facility] 05-12-2024 02:58-0400 Diastolic blood pressure 71 mm[Hg] Dr. Yon Preciado DO Work Phone: [facility] 05-12-2024 02:58-0400 Heart rate 80 /min Dr. Yon Preciado DO Work Phone: [facility] 05-12-2024 02:58-0400 Respiratory rate 16 /min Dr. Yon Preciado DO Work Phone: [facility] 05-12-2024 02:58-0400 SaO2% (BldA) [Mass fraction] 100 % Dr. Yon Preciado DO Work Phone: [facility] 05-12-2024 02:58-0400 Systolic blood pressure 123 mm[Hg] Dr. Yon Preciado DO Work Phone: [facility] 05-11-2024 22:51-0400 Body height 162.[address] Yon Preciado DO Work Phone: [facility] 05-11-2024 22:51-0400 Body mass index (BMI) [Ratio] 29.3 kg/m2 Dr. Yon Preciado DO Work Phone: [facility] 05-11-2024 22:51-0400 Body weight 77.[address] Yon Preciado DO Work Phone: [facility] 03-23-2023 15:21-0500 Body height 160.[address] Yon Preciado Work Phone: [facility] 03-23-2023 15:21-0500 Body mass index (BMI) [Ratio] 30.2 kg/m2 Dr. Yon Preciado Work Phone: [facility] 03-23-2023 15:21-0500 Body weight 77.[address] Yon Preciado Work Phone: [facility] 03-23-2023 15:21-0500 Diastolic blood pressure 82 mm[Hg] Dr. Yon Preciado Work Phone: [facility] 03-23-2023 15:21-0500 Systolic blood pressure 138 mm[Hg] Dr. Yon Preciado Work Phone: [facility] 02-13-2022 13:29-0500 Body temperature 99.8 [degF] Dr. Yon Preciado Work Phone: [facility] Work Phone: 02-13-2022 13:29-0500 Diastolic blood pressure 44 mm[Hg] Dr. Yon Preciado Work Phone: [facility] Work Phone: 02-13-2022 13:29-0500 Heart rate 80 /min Dr. Yon Preciado Work Phone: [facility] Work Phone: 02-13-2022 13:29-0500 Respiratory rate 18 /min Dr. Yon Preciado Work Phone: [facility] Work Phone: 02-13-2022 13:29-0500 SaO2% (BldA) [Mass fraction] 97 % Dr. Yon Preciado Work Phone: [facility] Work Phone: 02-13-2022 13:29-0500 Systolic blood pressure 110 mm[Hg] Dr. Yon Preciado Work Phone: [facility] Work Phone: 02-13-2022 02:51-0500 Inhaled oxygen flow rate 4 L/min Dr. Yon Preciado Work Phone: [facility] Work Phone: 02-11-2022 15:17-0500 Body height 160.[address] Yon Preciado Work Phone: [facility] Work Phone: 02-11-2022 15:17-0500 Body mass index (BMI) [Ratio] 29.1 kg/m2 Dr. Yon Preciado Work Phone: [facility] Work Phone: 02-11-2022 15:17-0500 Body weight 74.[address] Yon Preciado Work Phone: [facility] Work Phone: 02-05-2022 08:40-0500 Body mass index (BMI) [Ratio] 28.1 kg/m2 Dr. Yon Preciado Work Phone: [facility] Work Phone: 02-05-2022 08:40-0500 Body weight 74.[address] Yon Preciado Work Phone: [facility] Work Phone: 02-05-2022 08:40-0500 Diastolic blood pressure 71 mm[Hg] Dr. Yon Preciado Work Phone: [facility] Work Phone: 02-05-2022 08:40-0500 Heart rate 62 /min Dr. Yon Preciado Work Phone: [facility] Work Phone: 02-05-2022 08:40-0500 Respiratory rate 16 /min Dr. Yon Preciado Work Phone: [facility] Work Phone: 02-05-2022 08:40-0500 Systolic blood pressure 119 mm[Hg] Dr. Yon Preciado Work Phone: [facility] Work Phone: 10-28-2021 13:21-0400 Body height 162.[address] Yon Preciado Work Phone: [facility] Work Phone: 10-28-2021 13:21-0400 Body mass index (BMI) [Ratio] 29 kg/m2 Dr. Yon Preciado Work Phone: [facility] Work Phone: 10-28-2021 13:21-0400 Body weight 76.[address] Yon Preciado Work Phone: [facility] Work Phone: 08-29-2021 08:48-0400 Body height 162.56 cm [facility] Work Phone: Encounters Encounter Date Encounter Type Care Provider Facility Start: 07-27-2024 End: 07-27-2024 ambulatory [facility] Facility:[facility] Start: 06-03-2024 End: 06-03-[address] Yon Preciado DO Work Phone: [facility] Work Phone: Start: 06-03-2024 End: 06-03-[address] Emily Moncada MD -Ultrasound, [facility] Work Phone: Start: 06-03-2024 End: 06-03-2024 ambulatory Emily Moncada Facility:[facility] Start: 05-11-2024 End: 05-12-2024 Emergency department patient visit Dr. Yon Preciado DO Work Phone: -Emergency Department Work Phone: Start: 05-06-2024 End: 05-06-[address] Yon Preciado DO Work Phone: [facility] Work Phone: Start: 05-06-2024 End: 05-06-[address] Yon Preciado DO -Laboratory, Specimen Work Phone: Start: 05-06-2024 End: 05-06-2024 ambulatory Yon Preciado Facility:[facility] Start: 04-25-2024 End: 04-25-[address] Yon Preciado DO Work Phone: [facility] Work Phone: Start: 04-25-2024 End: 04-25-[address] Simone Norwood MD -Cardiovascular Services Work Phone: Start: 04-25-2024 End: 04-25-2024 ambulatory Simone Norwood Facility:[facility] Start: 04-01-2024 End: 04-01-[address] Yon Martinez, Specimen Work Phone: Start: 04-01-2024 End: 04-01-2024 ambulatory Yon Preciado Facility:[facility] Start: 02-19-2024 End: 02-19-[address] Yon Martinez, [facility] Start: 02-19-2024 End: 02-19-2024 ambulatory Yon Preciado Facility:[facility] Start: 12-31-2023 End: 12-31-2023 ambulatory Yon Preciado Facility:[facility] Start: 12-17-2023 End: 12-17-2023 ambulatory Yon Preciado Facility:[facility] Start: 11-17-2023 End: 11-17-2023 ambulatory Yon Ilana Facility:[facility] Start: 09-22-2023 End: 09-22-2023 Emergency department patient visit Sourav Christiane Facility:[facility] Start: 03-30-2023 End: 03-30-[address] Yon Preciado Work Phone: [facility] Work Phone: Start: 03-30-2023 End: 03-30-[address] Yon Preciado Work Phone: [facility], [facility] Work Phone: Start: 03-26-2023 End: 03-26-[address] Yon Preciado Work Phone: [facility] Work Phone: Start: 03-26-2023 End: 03-26-[address] Yon Preciado Work Phone[facility] Start: 03-23-2023 End: 03-23-[address] Yon Preciado Work Phone: [facility] Work Phone: Start: 03-23-2023 End: 03-23-[address] Yon Preciado Work Phone: [facility]-Laboratory, Specimen Work Phone: Start: 03-23-2023 End: 03-23-[address] Yon Preciado Work Phone: [facility] Work Phone: Start: 02-18-2023 End: 02-18-2023 ambulatory [facility] Work Phone: Start: 02-18-2023 End: 02-18-2023 Patient encounter procedure [facility]-Cardiovascular Services Work Phone: Start: 01-05-2023 End: 01-05-2023 ambulatory [facility] Work Phone: Start: 01-05-2023 End: 01-05-2023 Patient encounter procedure [facility]-Ultrasound, [facility] Work Phone: Start: 12-05-2022 End: 12-05-2022 ambulatory [facility] Work Phone: Start: 12-05-2022 End: 12-05-2022 Patient encounter procedure [facility]-Cat Scan, [facility] Work Phone: Start: 10-27-2022 End: 10-27-2022 ambulatory [facility] Work Phone: Start: 10-27-2022 End: 10-27-2022 Patient encounter procedure [facility]-Laboratory, En [facility] Start: 09-17-2022 End: 09-17-2022 ambulatory [facility] Work Phone: Start: 09-17-2022 End: 09-17-2022 Patient encounter procedure [facility]-Outpatient Breast Imaging Work Phone: Start: 02-13-2022 Non-patient / Non-visit Dr. Vivienne Preciado Work Phone: [facility] Start: 02-12-2022 Non-patient / Non-visit Dr. Vivienne Preciado Work Phone: [facility] Start: 02-11-2022 Non-patient / Non-visit Dr. Vivienne Preciado Work Phone: [facility] Inpatient Physicians Start: 02-11-2022 Non-patient / Non-visit Dr. Vivienne Preciado Work Phone: [facility] Start: 02-11-2022 End: 02-13-2022 Evaluation and management of inpatient Dr. Yon Preciado Work Phone: [facility]-Medical Surgical 3 Start: 02-11-2022 End: 02-13-[address] Yon Preciado Work Phone: [facility] Work Phone: Start: 02-07-2022 Non-patient / Non-visit Dr. Vivienne Preciado Work Phone: [facility] Start: 02-07-2022 End: 02-07-[address] Yon Preciado Work Phone: [facility] Work Phone: Start: 02-07-2022 End: 02-07-[address] Yon Preciado Work Phone: [facility]-Cardiovascular Services Start: 02-07-2022 Non-patient / Non-visit Dr. Vivienne Preciado Work Phone: [facility] Start: 02-05-2022 End: 02-05-[address] Yon Preciado Work Phone: [facility] Orthopaedic Specia Start: 02-05-2022 End: 02-05-2022 Admission to same day surgery center Dr. Yon Preciado Work Phone: [facility] Start: 02-05-2022 End: 02-05-[address] Yon Preciado Work Phone: [facility] Start: 02-03-[address] Yon Preciado Work Phone: [facility] Start: 01-06-2022 End: 01-06-[address] Yon Preciado Work Phone: [facility] Start: 12-18-2021 End: 12-18-[address] Yon Preciado Work Phone: [facility] Work Phone: Start: 12-18-2021 End: 12-18-[address] Yon Preciado Work Phone: [facility]-Cardiovascular Services Start: 10-28-2021 End: 10-28-[address] Yon Preciado Work Phone: [facility] Start: 10-10-2021 End: 10-10-2021 Patient encounter procedure [facility]-MRI - WC Start: 08-29-2021 End: 08-29-2021 Patient encounter procedure [facility]-Outpatient Bone Densitometry Start: 04-20-2018 End: 04-21-2018 Patient encounter procedure [facility] Start: 04-10-2018 End: 04-12-2018 Patient encounter procedure [facility] Start: 10-23-2016 End: 10-23-2016 Ambulatory SIMONE NORWOOD Facility:A Procedures Date Procedure Procedure Detail Performing Clinician Start: 06-03-2024 Complete ultrasound of kidneys and bladder Dr. Yon Preciado DO Work Phone: Start: 05-11-2024 SARS-CoV-2, Influenz a & RSV (PCR) Dr. Yon Preciado DO Work Phone: Start: 05-11-2024 X-ray of chest, PA a nd lateral views Dr. Yon Preciado DO Work Phone: Start: 05-06-[address] Yon Preciado DO Work Phone: Start: 04-01-[address] Yon Preciado DO Work Phone: Start: 02-19-[address] Yon Preciado DO Work Phone: Start: 03-30-[address] Ezequiel Preciado Work Phone: Start: 03-30-[address] Yon Preciado Work Phone: Start: 03-26-2023 Plain X-ray of shoulder Dr. Yon Preciado Work Phone: Start: 01-05-2023 Transvaginal echography Start: 01-05-2023 Pelvic echography Start: 12-05-2022 Computed tomography of abdomen and pelvis with intravenous contrast Start: 09-17-2022 Screening mammography Start: 02-11-2022 End: 02-11-[address] Yon Preciado Work Phone: Start: 02-11-2022 Laminectomy,Lumbar M icro Decompression (Not Applicable) Dr. Yon Preciado Work Phone: Start: 10-10-2021 MRI of lumbar spine Start: 08-29-2021 Dual energy X-ray absorptiometry Start: 08-29-2021 X-ray of lumbosacral spine Nasal Screen MRSA/MSSA Dr. Ezequiel Preciado Work Phone: Plan of Treatment Date Care Activity Detail Author Start: 05-12-2024 [facility] Start: 05-11-2024 [facility] Start: 03-30-2023 Pelvic echography Pelvic (Non ) [facility] Start: 03-30-2023 US Pelvis [facility] Start: 03-24-2023 Liquid based cervical cytology screening [facility] Start: 02-13-2022 Patient discharge [facility] Work Phone: Start: 02-11-2022 Following clinical pathway protocol [facility] Work Phone: Start: 02-11-2022 Application of intermittent pneumatic compression device [facility] Work Phone: Start: 02-11-2022 Catheterization of vein [facility] Work Phone: Start: 02-11-2022 Consultation [facility] Work Phone: Start: 02-11-2022 Following clinical pathway protocol [facility] Work Phone: Start: 02-11-2022 Incentive spirometry [facility] Work Phone: Start: 02-11-2022 Measuring intake and output [facility] Work Phone: Start: 02-11-2022 Neurovascular assessment [facility] Work Phone: Start: 02-11-2022 Patient education [facility] Work Phone: Start: 02-11-2022 Procedure discontinued [facility] Work Phone: Start: 02-11-2022 Provision of activity privileges [facility] Work Phone: Start: 02-11-2022 Referral to service [facility] Work Phone: Start: 02-11-2022 Taking patient vital signs [facility] Work Phone: Start: 02-11-2022 [facility] Work Phone: Start: 02-11-2022 Admission procedure [facility] Work Phone: Path report.final Dx Spec [facility] Patient Education ED Chest Pain, Noncardiac ED Neck Sprain or Strain [facility] Work Phone: Patient referral [facility] Work Phone: US Pelvis [facility] Immunizations Immunization Date Immunization Notes Care Provider Fa narcisaty 11-16-2013 influenza, injectabl e, quadrivalent, preservative free [facility] 11-16-2013 influenza, seasonal, injectable [facility] Payers Date Payer Category Payer Private Health Insurance [id number] 2023 Self-pay [id number] 2016 Medicare [id number] 2015 Medicare [id number] 2015 Unknown [id number] Medicare [id number] Unknown [id number] Unknown [id number] 2.16.8 [id number] Unknown [id number] 2.16.8 [id number] Unknown [id number] 2.16.8 [id number] Unknown [id number] 2.16.8 [id number] Unknown [id number] 2.16.8 [id number] Unknown [id number] 2.16.8 [id number] Unknown [id number] 2.16.8 [id number] Unknown [id number] 2.16.8 [id number] Unknown [id number] 2.16.8 [id number] Unknown [id number] 2.16.8 [id number] Unknown [id number] 2.16.8 [id number] Social History Date Type Detail Facility Start: 12-24-2019 End: 03-23-2023 Tobacco smoking status ILIS Unknown if ever smoked [facility] Start: 09-24-2020 Homeless [facility] Start: 1950 Sex Assigned At Female W [facility] Start: 09-22-2023 End: 05-11-2024 Tobacco smoking status NHIS Ex-smoker (finding) [facility] Start: 05-05-2024 End: 06-08-2024 Sex Female (finding) [facility] Medical Equipment Procedure Code Equipment Code Equipment Origin al Text Equipment Identifier Dates PATCH,AMNION 2X3CM FDA Start: 02-11-2022 PATCH,AMNION 2X3CM FDA Start: 02-11-2022 PATCH,AMNION 2X3CM FDA Start: 02-11-2022 PATCH,AMNION 2X3CM FDA Start: 02-11-2022 PATCH,AMNION 2X3CM FDA Start: 02-11-2022 PATCH,AMNION 2X3CM FDA Start: 02-11-2022 PATCH,AMNION 2X3CM FDA Start: 02-11-2022 PATCH,AMNION 2X3CM FDA Start: 02-11-2022 PATCH,AMNION 2X3CM FDA Start: 02-11-2022 PATCH,AMNION 2X3CM FDA Start: 02-11-2022 PATCH,AMNION 2X3CM FDA Start: 02-11-2022 PATCH,AMNION 2X3CM FDA Start: 02-11-2022 PATCH,AMNION 2X3CM FDA Start: 02-11-2022 PATCH,AMNION 2X3CM FDA Start: 02-11-2022 Goals Date Patient Goal Desired Activity /State Functional Status Date Assessment Result Facility 02-13-2022 Functional status Ambulates [facility] Work Phone: Mental Status Date Assessment Result Facility 05-11-2024 Cognitive function Voice/Name [facility] Work Phone: 02-13-2022 Cognitive function Voice/Name [facility] Work Phone: Radiology Diagnostic study note 06-04-2024 Note Date & Type Note Facility 06-04-2024 Radiology Diagnostic study note [facility] Imaging Services [address] [place] [id number] Kidney and Bladder MR#: [id number] Acct: [id number] Name: FIOR SHIPMAN Rep #: [id number] : [id number] F [id number] From: De Dunne MD PCP: Dr. Yon Preciado DO Status: REG CLI Study:Kidney and Bladder Date of Exam: 0 06/03/24 Exam# [id number] Ordering Dr: Emily Moncada MD PROCEDURE: KIDNEY AND BLADDER 06/03/2024 REASON FOR EXAM: UTI TECHNIQUE: Bilateral renal and bladder ultrasound. FINDINGS: The bladder with volume 118 cc and wall thickness of 3 mm appears within limits. Bilateral ureteral jets are noted during imaging. Distal ureters are not seen. The right kidney measures 11.3 x 4.7 x 3.9 cm with a cortical thickness of 1 cm. Left kidney measures 10.7 x 5.4 x 5.3 cm with a cortical thickness of 1.2 cm. The kidneys appear within limits for echogenicitywithout hydronephrosis, renal stone or perinephric edema seen. A 1.8 x 1.5 x 1.5 cm simple appearing right mid renal cyst. A 1.3 x 1.4 x 0.9 cm left lower pole cyst with suggestion of a thin septation. 1.9 x 1.4 x 1.1 cm simple appearing left mid renal cyst. No free fluid seen. US/Kidney and Bladder IMPRESSION: Study appears within limits with a couple of renal cysts as above. Reading Location: [facility] CC: Dr. Emily Moncada MD; Dr. Yon Preciado DO ~ Product Development Manager: Signed [facility] Radiology Diagnostic study note 05-12-2024 Note Date & Type Note Facility 05-12-2024 Radiology Diagnostic study note [facility] Imaging Services [address] [place] [address] Chest PA and Lateral MR#: [id number] Acct: [id number] Name: FIOR SHIPMAN Rep #: [id number] : 1950 F [id number] From: De Dunne MD PCP: Dr. Yon Preciado DO Status: REG ER Study:Chest PA and Lateral Date of Exam: 05/11/24 Exam# [id number] Ordering Dr: Joaquin Coello DO PROCEDURE: CHEST PA AND LATERAL 05/12/2024 REASON FOR EXAM: CHEST PAIN TECHNIQUE: Frontal and lateral views of the chest. COMPARISON: 09/22/2023 FINDINGS: Appearance of ill-defined opacity at the peripheral mid to lower left lung on the frontal view concerning for possible infiltrate, clinically correlate. The lungs otherwise appear clear. No focal consolidation or pleural effusion. Pulmonary vascularity appears within limits. The cardiac and mediastinal contours appear within limits. Heavy atherosclerotic calcification again noted. Visualized osseous structures are within limits. RAD/Chest PA and Lateral IMPRESSION: Appearance of ill-defined opacity at the peripheral mid to lower left lung on the frontal view concerning for possible infiltrate, clinically correlate. The lungs otherwise appear clear. Reading Location: [facility] CC: Dr. Sari Coello DO; Dr. Yon Preciado DO ~ Product Development Manager: Signed [facility] Clinical Note 03-23-2023 Note Date & Type Note Facility 03-23-2023 Note [facility] Pap Smear Specimen Adequacy March 23, 2023 4:00pm Comment . Satisfactory for evaluation. Endocervical and/or squamous metaplasticcells (endocervical component) are present. Comment on above: Satisfactory for tracy luation. Endocervical and/or squamous metaplasticcells (endocervical component) are present. Clinical Note 03-23-2023 Note Date & Type Note Facility 03-23-2023 Note [facility] Pap Smear Specimen Adequacy March 23, 2023 4:00pm Comment . Satisfactory for evaluation. Endocervical and/or squamous metaplasticcells (endocervical component) are present. Comment on above: Satisfactory for tracy luation. Endocervical and/or squamous metaplasticcells (endocervical component) are present. Evaluation note Note Date & Type Note Facility Evaluation note No assessment information availa ble [facility] Work Phone: Evaluation note Note Date & Type Note Facility Evaluation note Diagnosis Onset Date Spinal stenosis of lumbar region acute [facility] Work Phone: Evaluation note Note Date & Type Note Facility Evaluation note Diagnosis Onset Date Spinal stenosis of lumbar region acute Spinal stenosis of lumbar region acute Preop cardiovascular exam ac felicia Carotid stenosis chronic Essential hypertension chron ic Hyperlipidemia chronic Spinal stenosis of lumbar region acute S/P laminectomy acute Spinal stenosis of lumbar region acute Essential hypertension chron ic Hyperlipidemia chronic [facility] Work Phone: Evaluation note Note Date & Type Note Facility Evaluation note Diagnosis Onset Date Thickened endometrium acute [facility] Work Phone: Hospital Discharge instructions Note Date & Type Note Facility Hospital Discharge instructions Additional Instructions Please follow-up with your primary care doctor. Your workup today was largely normal and reassuring. I suspect this is more muscle skeletal at this time. Continue to take [id number] ibuprofen and use heat. You have been given a prescription for muscle relaxer for breakthrough pain/discomfort. Please be aware that this can increase the risk of confusion and sleepiness. Do not operate heavy machinery while taking it. [facility] Work Phone: Reason for referral (narrative) Note Date & Type Note Facility Reason for referral (narrative) No reason for referral information available [facility] Work Phone: Summary Purpose Family History No Family History Records Found Relationship Condition Age at Onset Recorded Date/T smitha Not Specified Alzheimer's dementia Unknown Malignant neoplasm of throat Unknown Malignant neoplasm of thyroid gland Unkno wn Diabetes mellitus Unknown Arthritis Unknown Cardiac disease Unknown Kidney disorder Unknown Myocardial infarction Unknown Malignant neoplasm of breast Unknown Renal failure Unknown Hypertension Unknown Cerebrovascular accident (CVA) Unknown Relationship Condition Age at Onset Recorded Date/T smitha Not Specified Kidney disorder Unknown father Hypertension Unknown Cardiac disease Unknown brother Cerebrovascular accident (CVA) Unknown Coronary artery disease Unknown sister Diabetes mellitus Unknown Cerebrovascular accident (CVA) Unknown Malignant neoplasm of breast Unknown uncle Cardiac disease Unknown aunt Malignant neoplasm of breast Unknown Malignant neoplasm of pancreas Unknown Advance Directives No Advanced Directives Records Found Advance Directive Response Recorded Date/ Time Advance Directives No July 29 4 1:01pm Living Will No December 23 12:33pm Power of Application Development Project Manager No December 24, 2019 12:33pm Advance Directive Response Recorded Date/ Time Advance Directives No July 29 12:01pm Living Will No February 11, 2 022 3:17pm Power of Application Development Project Manager No February 11, 2022 3:17pm Advance Directive Response Recorded Date/ Time Advance Directives No July 29 4 1:01pm Living Will No February 11, 2 022 4:17pm Power of Application Development Project Manager No February 11, 2022 4:17pm Advance Directive Response Recorded Date/ Time Advance Directives No July 29 12:01pm Advance Directive Response Recorded Date/ Time Living Will No May 11, 2024 10:51pm Power of Application Development Project Manager No May 11 10:51pm Advance Directives No July 29 1:01pm Advance Directive Response Recorded Date/ Time Living Will No May 11, 2024 10:51pm Do you have a [facility] Power of Application Development Project Manager? No May 11, 2024 10:51pm Advance Directives No July 29 1:01pm Chief Complaint and Reason for Visit Chief Complaint SCREENING Chief Complaint SCREENING [place] Chief Complaint SCREENING BILAT [place] LUMBAR SPINE SUBCLAVIAN & CAROTID STENOSIS *MARY IS BILAT UPPER* Reason for Visit Spinal stenosis of l umbar region Chief Complaint LUMBAR SPINE SUBCLAVIAN & CAROTID STENOSIS *MARY IS BILAT UPPER* Lumbar pain surg clearence/ EKG NEEDED PER SURG lumbar spine LUMBAR LAMINECTOMY L3-4 PRE-OP LUMBAR LAMINECTOMY L3-4 LUMBAR LAMINECTOMY L3-4 LUMBAR LAMINECTOMY L3-4 LUMBAR LAMINECTOMY L3-4 LUMBAR LAMINECTOMY L3-4 LUMBAR LAMINECTOMY L3-4 Reason for Visit Spinal stenosis of l umbar region Spinal stenosis of lumbar region Preop cardiovascular exam Carotid stenosis Essential hypertension Hyperlipidemia Spinal stenosis of lumbar region S/P laminectomy Spinal stenosis of lumbar region Essential hypertension Hyperlipidemia Chief Complaint LUMBAR SPINE SUBCLAVIAN & CAROTID STENOSIS *MARY IS BILAT UPPER* Lumbar pain surg clearence/ EKG NEEDED PER SURG lumbar spine LUMBAR LAMINECTOMY L3-4 PRE-OP LUMBAR LAMINECTOMY L3-4 LUMBAR LAMINECTOMY L3-4 LUMBAR LAMINECTOMY L3-4 LUMBAR LAMINECTOMY L3-4 LUMBAR LAMINECTOMY L3-4 LUMBAR LAMINECTOMY L3-4 LUMBAR LAMINECTOMY L3-4 Reason for Visit Spinal stenosis of l umbar region Spinal stenosis of lumbar region Preop cardiovascular exam Carotid stenosis Essential hypertension Hyperlipidemia Spinal stenosis of lumbar region S/P laminectomy Spinal stenosis of lumbar region Essential hypertension Hyperlipidemia Chief Complaint SCREENING Abdominal distension (gaseous) Chief Complaint SCREENING Abdominal distension (gaseous) BLOATING Chief Complaint Abdominal distension (gaseous) BLOATING AFTERCARE Chief Complaint Abdominal distension (gaseous) BLOATING AFTERCARE uterine fibroid, ref by Dr. Reddy Reason for Visit Thickened endometriu m Chief Complaint Abdominal distension (gaseous) BLOATING AFTERCARE uterine fibroid, ref by Dr. Reddy RIGHT SHOULDER THICKENED ENDOMETRIUM Reason for Visit Thickened endometriu m Chief Complaint Admit Date AFTERCARE April 25, 2024 7:30am Chief Complaint Admit Date AFTERCARE April 25, 2024 7:30am Urinary tract infection, site not specif ied May 06, 2024 3:38pm CP May 11, 2024 10: 51pm Chief Complaint Admit Date AFTERCARE April 25, 2024 7:30am Urinary tract infection, site not specif ied May 06, 2024 3:38pm CP May 11, 2024 10: 51pm UTI June 03, 2024 5:01 pm Additional Source Comments INFORMATION SOURCE (unrecogn ized section and content) DATE CREATED AUTHOR 08/26/2017 [facility] ([place]) DATE CREATED AUTHOR AUTHOR'S ORGANIZ ATION 04/22/2018 [facility] DATE CREATED AUTHOR AUTHOR'S ORGANIZ ATION 08/03/2024 [facility] Goals (unrecognized section and content) Goals may be documented in a n alternate sectionGoals may be documented in an alternate sectionGoals may be documented in an alternate sectionGoals may be documented in an alternate sectionGoals may be documented in an alternate sectionGoals may be documented in an alternate sectionGoals may be documented in an alternate sectionGoals may be documented in an alternate sectionGoals may be documented in an alternate sectionGoals may be documented in an alternate sectionGoals may be documented in an alternate sectionGoals may be documented in an alternate sectionGoals may be documented in an alternate sectionGoals may be documented in an alternate sectionGoals may be documented in an alternate section Care Teams (unrecognized sec tion and content) Team Status: Active Member Role Status Dates Dr. Yon Preciado DO Family Provider Active Dr. Yon Preciado DO Primary Care Provider Active Team Status: Inactive Member Role Status Dates Dr. Yon Preciado DO Primary Care Prov ider, Attending Provider, Referring Provider Active Team Status: Inactive Member Role Status Dates Dr. Yon Preciado DO Primary Care Provider Active Dr. Lavon Weathers MD Attending Provider, Referr ing Provider Active Team Status: Inactive Member Role Status Dates Dr. Yon Preciado DO Primary Care Provider Active Dr. Alyssa Reddy MD Attending Provider, Referring P rovider Active Team Status: Inactive Member Role Status Dates Dr. Yon Preciado DO Primary Care Provider Active Dr. Simone Norwood MD Attending Provider, Referring Provider Active Team Status: Inactive Member Role Status Dates Dr. Yon Preciado DO Primary Care Provider, Referrin g Provider Active Dr. Kandace Banks MD Attending Provider Active Team Status: Inactive Member Role Status Dates Dr. Yon Preciado DO Primary Care Provider Active Dr. Kandace Banks MD Attending Provider Active Team Status: Active Member Role Status Dates Dr. Yon Preciado DO Primary Care Provider Active Dr. Kandace Banks MD Attending Provider, Referr ing Provider Active Team Status: Inactive Member Role Status Dates Dr. Yon Preciado DO Primary Care Provider Active Dr. Kandace Banks MD Attending Provider, Referr ing Provider Active Team Status: Active Member Role Status Dates Dr. Yon Preciado DO Primary Care Provider Active Team Status: Inactive Member Role Status Dates Dr. Yon Preciado DO Primary Care Provider Active Start: February 19, 2024 End: February 19, 2024 Dr. Yon Preciado DO Attending Provider Active Start: February 19, 2024 End: February 19, 2024 Team Status: Inactive Member Role Status Dates Dr. Yon Preciado DO Primary Care Provider Active Start: April 01, 2024 End: April 01, 2024 Dr. Yon Preciado DO Attending Provider Active Start: April 01, 2024 End: April 01, 2024 Team Status: Inactive Member Role Status Dates Dr. Yon Preciado DO Primary Care Provider Active Start: April 25, 2024 End: April 25, 2024 Dr. Simone Norwood MD Attending Provider Active Start: April 25, 2024 End: April 25, 2024 Dr. Simone Norwood MD Referring Provider Active Start: April 25, 2024 End: April 25, 2024 Team Status: Active Member Role Status Dates Dr. Yon Preciado DO Primary Care Provider Active Start: May 06, 2024 Dr. Yon Preciado DO Attending Provider Active Start: May 06, 2024 Dr. Yon Preciado DO Referring Provider Active Start: May 06, 2024 Team Status: Inactive Member Role Status Dates Dr. Yon Preciado DO Primary Care Provider Active Start: May 11, 2024 End: May 12, 2024 Dr. Sari Coello DO Emergency Provider Active Start: May 11, 2024 End: May 12, 2024 Team Status: Inactive Member Role Status Dates Dr. Yon Preciado DO Primary Care Provider Active Start: May 06, 2024 End: May 06, 2024 Dr. Yon Preciado DO Attending Provider Active Start: May 06, 2024 End: May 06, 2024 Dr. Yon Preciado DO Referring Provider Active Start: May 06, 2024 End: May 06, 2024 Team Status: Inactive Member Role Status Dates Dr. Yon Preciado DO Primary Care Provider Active Start: May 11, 2024 End: May 12, 2024 Dr. Sari Coello DO Attending Provider Active Start: May 11, 2024 End: May 12, 2024 Dr. Sari Coello DO Emergency Provider Active Start: May 11, 2024 End: May 12, 2024 Team Status: Inactive Member Role Status Dates Dr. Yon Preciado DO Primary Care Provider Active Start: June 03, 2024 End: June 03, 2024 Dr. Emily Moncada MD Attending Provider Active Start: June 03, 2024 End: June 03, 2024 Dr. Emily Moncada MD Referring Provider Active Start: June 03, 2024 End: June 03, 2024 FOR RECORDS PERTAINING TO PATIENTS WHO ARE [...] BE BASED ON THE PRIMARY CLINICAL RECORDS. [facility] [employer] [facility]. provides no warranty or guarantee of the accuracy or completeness of information in this document.
--- NOTE | 2024-08-11 07:25 | CT_ITS ---
PROCEDURE: EXTREMITY UPPER WITHOUT CONTRA 08/11/2024 REASON FOR EXAM: PRIMARY OSTEOARTHRITIS TECHNIQUE: Axial CT images of the right shoulder obtained without intravenous contrast. Coronal and Sagittal reconstruction series were provided. One or more dose reduction techniques were used (e.g., Automated exposure control, adjustment of the mA and/or kV according to patient size, use of iterative reconstruction technique RADIATION DOSE SUMMARY: DLP: 532.89 mGycm COMPARISON: None FINDINGS: Bones: There is moderate AC joint hypertrophy without evidence of separation. There is a type 2 acromion. There is severe osteoarthritis of the glenohumeral articulation with flattening of the articular surfaces, subcortical cyst formation, and marginal osteophytes. No acute fracture or dislocation is identified. There is no visible muscular atrophy. No soft tissue mass or pathologic adenopathy is identified. Atherosclerotic calcifications are visible. Soft Tissues: There is a 1 cm irregular solid nodular density in the right upper lung, axial image 42/75. there is a 0.4 cm solid nodule in the right upper lung, image 48/75. CT/Extremity Upper without Contra IMPRESSION: There is severe osteoarthritis of the glenohumeral articulation with flattening of the articular surfaces, subcortical cyst formation, and marginal osteophytes. There is a 1 cm irregular solid nodular density in the right upper lung, axial image 42/75. there is a 0.4 cm solid nodule in the right upper lung, image 48/75. Chest CT correlation is recommended. Reading Location: [facility]
== END | disposition home or self-care (01) ==
PROVIDERS: PCP Family Medicine; Referring Provider Student in an Organized Health Care Education/Training Program; Visit Provider Student in an Organized Health Care Education/Training Program
DX: M19.011 Primary osteoarthritis, right shoulder (principal)
CPT/HCPCS: 73200

== ENCOUNTER → 2024-09-07 | Outpatient (CLI) | payer MEDICARE, SELFPAY ==
--- NOTE | 2024-09-07 15:45 | CT_ITS ---
PROCEDURE: CHEST WITH CONTRAST 09/07/2024 REASON FOR EXAM: SOLITARY PULM NODULE; follow-up TECHNIQUE: CHEST WITH CONTRAST Coronal and Sagittal reconstruction series were provided. CONTRAST: Isovue 300 VOLUME: 97 mL One or more dose reduction techniques were used (e.g., Automated exposure control, adjustment of the mA and/or kV according to patient size, use of iterative reconstruction technique). RADIATION DOSE SUMMARY: DLP: 466.53 mGycm COMPARISON: CT right upper extremity 08/11/2024. No other relevant prior exams. FINDINGS: Lungs/pleura: Spiculated 7 mm nodule in the anterior right lung apex (S4 image 36). Additional smaller spiculated and partially subsolid nodule measuring 4 mm in the right apex (S4 image 33). 5 mm solid nodule in the right upper lobe (S4 image 41). Comparison is made with CT of the right upper extremity 08/11/2024 for baseline, no significant interval change. Mild diffuse bilateral subpleural reticular/interstitial fibrotic lung changes. No confluent airspace consolidation. Patent central airways. No pneumothorax or pleural effusions. Mediastinum/nodes: No enlarged mediastinal, hilar, or axillary lymph nodes. Heart and Vasculature: Normal in size. No pericardial effusion. Moderate coronary artery calcifications. Normal course and caliber of the visualized thoracic aorta. Moderate atherosclerotic disease. Vascular stent in place within the origin of the left subclavian artery. Upper Abdomen: Hepatic steatosis. Otherwise, unremarkable. Bones: Qualitative osteopenia. No aggressive osseous lesion identified. Multilevel degenerative changes of the spine with thoracic DISH. Moderate bilateral glenohumeral and AC joint arthrosis. CT/Chest WITH Contrast IMPRESSION: Few subcentimeter nodules in the right upper lobe as noted, the largest with sp iculated margins and measuring up to 7 mm. Unchanged compared with CT of the right upper extremity dated 08/11/2024. Recommend follow-up low-dose noncontrast chest CT in 3-6 months to reassess. Reading Location: [id number]
== END | disposition home or self-care (01) ==
LOC: CT 15:41
PROVIDERS: PCP Family Medicine; Referring Provider Family Medicine; Visit Provider Family Medicine
DX: R91.1 Solitary pulmonary nodule (principal); R91.8 Other nonspecific abnormal finding of lung field
CPT/HCPCS: 71260; Q9967

== ENCOUNTER 2024-09-12 08:07 | Day surgery (SDC) | payer MEDICARE, SELFPAY ==
--- NOTE | 2024-08-11 07:08 | EKG12_ITS ---
Test Reason : PREOP Blood Pressure : */* mmHG Vent. Rate : 55 BPM Atrial Rate : 55 BPM P-R Int : 174 ms QRS Dur : 92 ms QT Int : 422 ms P-R-T Axes : 35 13 59 degrees QTcB Int : 403 ms Sinus bradycardia Otherwise normal ECG Confirmed by Gigi Prasad ([id number]), deputy editor in chief REMI OROZCO [id number]) on 08/12/2024 6:43:17 AM Referred By: Delgado Aragon Confirmed By: Gigi Prasad
[2024-08-11 09:29] LABS: Hematocrit 36.0 % (37-47); Hemoglobin 11.9 g/dL (12.0-15.0); Immature Granulocytes Count 0.050 X10^3/uL (0.0-0.0); Mean Corp Hgb Conc 33.1 g/dL (32-36); Mean Corpuscular Volume 91.6 fL (81-99); Mean Platelet Vol. 9.2 fl (6.2-12.0); NRBC Flagged by Analyzer 0 % (0-5); Platelet Count 310 K/mm3 (150-450); RBC Distribution Width CV 12.7 % (11.6-14.6); RBC Distribution Width SD 42.5 fl (35.1-43.9); Red Blood Count 3.93 M/mm3 (4.2-5.4); White Blood Count 8.6 K/mm3 (4.4-11.0)
[2024-08-11 09:55] LABS: AST(SGOT) 18 U/L (<=31); Alanine Aminotransfer ALT/SGPT 14 U/L (<=34); Albumin, Serum 4.3 g/dL (3.4-4.8); Alkaline Phosphatase 70 U/L (35-104); Bilirubin, Direct 0.20 mg/dL (0.00-0.30); Globulin 2.6 g/dL (2.2-4.2); Magnesium 1.8 mg/dL (1.5-2.2)
[2024-08-11 09:58] LABS: Albumin, Serum 4.3 g/dL (3.4-4.8); Anion Gap 15 (5-15); BUN 26 mg/dL (4-19); BUN/Creat Ratio 21.2 RATIO (10-20); Calcium,Total 9.8 mg/dL (7.6-11.0); Carbon Dioxide 21.6 mmol/L (21.0-32.0); Chloride 99 mmol/L (98-108); Glucose 170 mg/dL (70-99); Potassium 4.2 mmol/L (3.3-5.1)
--- NOTE | 2024-08-15 19:29 | PAT.ANESEVAL ---
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 When Was Last Pacemaker Check QUESTION #4 FULL TEXT: You/Your Family Experience fever (hyperthermia) with Anesthesia Last Oral Intake Last Oral intake: Last Oral Intake NPO since Meds taken in AM with sips of water? Meds patient instructed to take am of surgery PONV PONV - video game script writer: PONV - video game script writer Female Yes 08/15/24 15:45 HX of Motion Sickness No 08/15/24 15:45 HX of N/V After Surgery No 08/15/24 15:45 Non-Smoker Yes 08/15/24 15:45 Duration of Surgery greater Yes 08/15/24 15:45 than 60 minutes Number of Risk Factors 3 08/15/24 15:45 PONV Score Moderate Risk 08/15/24 15:45 Height & Weight Height & Weight: Anesthesia: Height & Weight Height 5 ft 4 in 05/11/24 22:51 Respiratory Assessment Respiratory Assessment - video game script writer: Respiratory Tract Infection Hx - video game script writer Hx Respiratory Tract Infection No 08/15/24 15:45 STOP Sleep Apnea STOP Sleep Apnea - video game script writer: STOP Sleep Apnea - video game script writer Hx Hypertension Yes: CONTROLLED ON MED 08/15/24 15:45 Hx Sleep Apnea No 08/15/24 15:45 CPAP No 08/15/24 15:45 BIPAP No 08/15/24 15:45 Do you snore loudly (louder No 08/15/24 15:45 than talking or can be heard Do you often feel tired/ No 08/15/24 15:45 fatigued/ sleepy during daytime? Has anyone observed you stop No 08/15/24 15:45 breathing during sleep? STOP Results Negative 08/15/24 15:45 QUESTION #5 FULL TEXT : Do you snore loudly (louder than talking or can be heard through closed doors)? 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 Specify any problems Hx of Preganancy in last 3 No 08/15/24 15:45 Months Nurse Filling Out Transfusion VCHRISTIN 08/15/24 15:45 & Questions: Date: 08/15/24 08/15/24 15:45 Time: 15:48 08/15/24 15:45 Patient unable to answer at this time (ie. confused, unrespo /Reproduction History /Reproductive History - video game script writer: /Reproductive Hx- video game script writer Hx Now No 08/15/24 15:45 Gestational Age (in weeks): EDC: Hx Hx Para Hx Section SAB No 08/15/24 15:45 PFSH Medical History (Updated 08/15/24 @ 15:45 by Lashell Prasad) History of steroid therapy Fatty liver Excessive bleeding Hypertension Subclavian artery stenosis, left Generalized anxiety disorder Psoriasis Diverticulosis CKD (chronic kidney disease), stage III Depressive disorder Venous insufficiency of right leg Carotid stenosis Peripheral artery disease Hyperlipidemia Essential hypertension Cardiology follow-up encounter Wears glasses Loose, teeth Post-menopausal Arthritis Easy bruising Back pain Injury of back Migraine headache Difficulty swallowing History of IBS Gastric reflux Former smoker Emphysema, unspecified Asthma COPD (chronic obstructive pulmonary disease) Leg cramps History of pain when walking History of edema History of stress test Chest pain Heart disease Diabetes Home Medications ?Medication ?Instructions ?Recorded ?Last Taken ?Type atenolol 100 mg tablet (Tenormin) 100 mg PO QHS 12/18/12 08/03/13 22:00 History albuterol sulfate 90 mcg/actuation 1 - 2 puff inhalation Q4H PRN PRN 06/07/13 Unknown History aerosol inhaler (Ventolin HFA) Wheezing aspirin 81 mg chewable tablet 81 mg PO DAILY@0800 12/24/19 Unknown History lorazepam 0.5 mg tablet 0.5 mg PO Q6H PRN PRN Anxiety 12/24/19 Unknown History clopidogrel 75 mg tablet (Plavix) 75 mg PO DAILY 01/29/22 02/02/22 History losartan 100 1 tab PO DAILY 01/29/22 Unknown History mg-hydrochlorothiazide 25 mg tablet multivitamin 1 tab PO DAILY 01/29/22 Unknown History tramadol 50 mg tablet 50 mg PO TID PRN Pain 02/03/22 Unknown History valacyclovir 1 gram tablet 1,000 mg PO Q12H PRN Cold Sores 02/05/22 Unknown History phenazopyridine 95 mg tablet 95 mg PO TID PRN URINATION 03/23/23 Unknown History GLUCOBIO 2 tab PO DAILY 08/15/24 Unknown History amlodipine 5 mg tablet 5 mg PO DAILY 08/15/24 Unknown History d-mannose 500 mg capsule (AZO 500 mg PO DAILY 08/15/24 Unknown History D-Mannose) estradiol 0.01% (0.1 mg/gram) 1 appful vaginal .3 TIMES WEEKLY 08/15/24 Unknown History vaginal cream ibuprofen 200 mg tablet (Advil) 400 mg PO Q8H PRN pain 08/15/24 Unknown History Allergy/AdvReac Type Severity Reaction Status Date / Time minocycline Allergy Unknown unknown Verified 08/15/24 15:21 ciprofloxacin Allergy Other Verified 08/15/24 15:21 erythromycin base Allergy Swelling Verified 08/15/24 15:21 (Erythromycin Base) Penicillins Allergy Swelling Verified 08/15/24 15:21 prednisone Allergy Swelling Verified 08/15/24 15:21 Sulfa (Sulfonamide Allergy Unknown Verified 08/15/24 15:21 Antibiotics) Family History Father Hypertension Heart disease Brother CVA (cerebral vascular accident) CAD (coronary artery disease) Sister Diabetes CVA (cerebral vascular accident) Breast cancer Uncle Heart disease Aunt Breast cancer Pancreatic cancer Other Kidney disease Surgical History H/O laminectomy History of angioplasty of peripheral vessel (10/23/16) History of bilateral carpal tunnel release Hx of colonoscopy Hx of tonsillectomy Hx of knee surgery Tubal ligation status Social History household members: spouse housing: house number of children: 2 current occupational status: retired Smoking Status: Former smoker how long ago did patient quit smokin alcohol intake: never substance use type: does not use what type of physical activity do you participate in: walking additional social history: Spouse - Orlin Audit: Pertinent Findings Pertinent Findings EKG Perinent findings: August 11, 2024. Sinus bradycardia at 55 bpm. Otherwise normal EKG. Echo (EF%) pertinent findings: February 07, 2022. EF 60%. PASP is 33 mmHg. No aortic stenosis noted. Consult pertinent findings: February 05, 2022. Dr. Trent. 1. Preop cardiovascular exam?acute-patient appears stable. Patient has stopped Plavix. She is to continue beta-dusty perioperatively. Check echo prior to surgery. (See above) 2. Cardiac stenosis?chronic-stable. 3. Hypertension?chronic-excellent control. Recommendation Anesthesia Recommendation Anesthesia recommendation: OPTIMIZED for anesthesia
[2024-09-12] VITALS (16 sets, daily range): BP systolic 107–145; BP diastolic 57–72; PULSE 66–94; RESP 14–18; TEMP 35.8–36.8; O2SAT 94–100; BMI 29.1
[2024-09-12] MEDS: LR 1,000 ML - BOLUS PREOP 999 ML IV (09:07)
[2024-09-12] MEDS: Magnesium 2 GM for ERAS IV (09:07)
--- NOTE | 2024-09-12 09:41 | PRE.ANES_ITS ---
ASA Classification* ASA Classification ASA Classification: 3 Assessment & Plan Anesthesia* Anesthesia Assessment Anesthesia Assessment: Discussed sedation and/or anesthesia options, risks, benefits, and alternatives with patient/parents/legal guardian/POA. Questions invited. The patient/parents/legal guardian/POA seems to understand and agrees to proceed with anesthesia plan. Reviewed the physical assessment, medical history, allergy history and patient home medications list prior to surgery/procedure/anesthetic and documented any changes. Performed airway and anesthesia risk assessments. Anesthesia Type Anesthesia Type: General (Discussed the risks of sore throat, injury to the dentition, NE, stroke, seizures.) and Block (We discussed an interscalene block with ultrasound guidance. We discussed the risks of injury to the nerves, Irma syndrome, phrenic nerve paralysis, lack of efficacy, bleeding, infection.) History Source History Obtained from:: Patient and Chart Anesthesia Focused Assessment* Temperature: 98.3 F Pulse Rate: 69 Blood Pressure: 135/63 Respiratory Rate: 16 Pulse Ox: 99 Oxygen Delivery Method: Room Air Airway Assessment Mouth opens: >3 cm Mallampati Score: II Teeth Condition: Intact Labs Anesthesia Preop lab: CBC WBC 8.6 K/mm3 (4.4-11.0) 08/11/24 07:41 08/11/24 RBC 3.93 M/mm3 (4.2-5.4) L 08/11/24 07:41 08/11/24 Hgb 11.9 g/dL (12.0-15.0) L 08/11/24 07:41 5 Hct 36.0 % (37-47) L 08/11/24 07:41 08/11/24 Plt Count 310 K/mm3 (150-450) 08/11/24 07:41 08/11/24 CHEMISTRY Potassium 4.2 mmol/L (3.3-5.1) 08/11/24 07:41 08/11/24 Sodium 136 mmol/L (133-145) 08/11/24 07:41 08/11/24 Magnesium 1.8 mg/dL (1.5-2.2) 08/11/24 07:41 08/11/24 Phosphorus 3.6 mg/dL (2.5-4.9) 11/07/13 11:28 11/07/13 BUN 26 mg/dL (4-19) H 08/11/24 07:41 08/11/24 Creatinine 1.24 mg/dL (0.70-1.20) H 08/11/24 07:41 Glucose 170 mg/dL (70-99) H 08/11/24 07:41 08/11/24 POC Glucose 180 mg/dL (74-106) H 09/12/24 08:37 09/12/24 TSH 3.60 uIU/mL (0.358-3.74) 10/27/22 08:28 COAG Pre-Assessment Diagnosis/Proposed Procedure Planned Operative Procedure(s): (R) RIGHT REVERSE TOTAL SHOULDER ARTHROPLASTY, ERAS Anesthesia History 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 When Was Last Pacemaker Check QUESTION #4 FULL TEXT: You/Your Family Experience fever (hyperthermia) with Anesthesia Last Oral Intake Last Oral intake: Last Oral Intake NPO since 23:00 09/12/24 08:45 Meds taken in AM with sips of Yes 09/12/24 08:45 water? 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 receiving clerk Female Yes 08/15/24 15:45 HX of Motion Sickness No 08/15/24 15:45 HX of N/V After Surgery No 08/15/24 15:45 Non-Smoker Yes 08/15/24 15:45 Duration of Surgery greater Yes 08/15/24 15:45 than 60 minutes Number of Risk Factors 3 08/15/24 15:45 PONV Score Moderate Risk 08/15/24 15:45 Height & Weight Height & Weight: Anesthesia: Height & Weight Height 5 ft 4 in 09/12/24 08:45 Weight: 77 kg 09/12/24 08:45 Body Mass Index (BMI) 29.1 09/12/24 08:45 Respiratory Assessment Respiratory Assessment - shipping and receiving clerk: Respiratory Tract Infection Hx - shipping and receiving clerk Hx Respiratory Tract Infection No 08/15/24 15:45 STOP Sleep Apnea STOP Sleep Apnea - shipping and receiving clerk: STOP Sleep Apnea - shipping and receiving clerk Hx Hypertension Yes: CONTROLLED ON MED 08/15/24 15:45 Hx Sleep Apnea No 08/15/24 15:45 CPAP No 08/15/24 15:45 BIPAP No 08/15/24 15:45 Do you snore loudly (louder No 08/15/24 15:45 than talking or can be heard Do you often feel tired/ No 08/15/24 15:45 fatigued/ sleepy during daytime? Has anyone observed you stop No 08/15/24 15:45 breathing during sleep? STOP Results Negative 08/15/24 15:45 QUESTION #5 FULL TEXT : Do you snore loudly (louder than talking or can be heard through closed doors)? 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 Specify any problems Hx of Preganancy in last 3 No 08/15/24 15:45 Months Nurse Filling Out Transfusion VCHRISTIN 08/15/24 15:45 & Questions: Date: 08/15/24 08/15/24 15:45 Time: 15:48 08/15/24 15:45 Patient unable to answer at this time (ie. confused, unrespo /Reproduction History /Reproductive History - shipping and receiving clerk: /Reproductive Hx- shipping and receiving clerk Hx Now No 08/15/24 15:45 Gestational Age (in weeks): EDC: Hx Hx Para Hx Section SAB No 08/15/24 15:45 Active Medications Active Medications: Current Medications Generic Name Dose Route Start Last Admin Trade Name Freq PRN Reason Stop Dose Admin Lactated Ringer's 1,000 mls @ 125 mls/hr 09/12/24 07:30 IV 09/12/24 15:29 .Q8H SANGITA Lactated Ringer's 1,000 mls @ 15 mls/hr 09/12/24 08:30 IV .Q48H SANGITA Insulin Human Lispro 1 - 6 unit 09/12/24 07:30 09/12/24 08:58 Insulin Lispro 100 Unit/Ml Insuln.Pen SC 1 u Q4H PRN PRN Administration BG>/= 180, SEE PROTOCOL Protocol PFSH Medical History History of steroid therapy Fatty liver Excessive bleeding Hypertension Subclavian artery stenosis, left Generalized anxiety disorder Psoriasis Diverticulosis CKD (chronic kidney disease), stage III Depressive disorder Venous insufficiency of right leg Carotid stenosis Peripheral artery disease Hyperlipidemia Essential hypertension Cardiology follow-up encounter Wears glasses Loose, teeth Post-menopausal Arthritis Easy bruising Back pain Injury of back Migraine headache Difficulty swallowing History of IBS Gastric reflux Former smoker Emphysema, unspecified Asthma COPD (chronic obstructive pulmonary disease) Leg cramps History of pain when walking History of edema History of stress test Chest pain Heart disease Diabetes Home Medications ?Medication ?Instructions ?Recorded ?Last Taken ?Type atenolol 100 mg tablet (Tenormin) 100 mg PO QHS 09/11/24 History albuterol sulfate 90 mcg/actuation 1 - 2 puff inhalati on Q4H PRN PRN 06/07/13 Unknown History aerosol inhaler (Ventolin HFA) Wheezing aspirin 81 mg chewable tablet 81 mg PO DAILY@0800 12/0109/05/24 History lorazepam 0.5 mg tablet 0.5 mg PO Q6H PRN PRN Anxiet y 12/24/19 Unknown History clopidogrel 75 mg tablet (Plavix) 75 mg PO DAILY 01/2909/05/24 History losartan 100 1 tab PO DAILY 01/29/2208/30 History mg-hydrochlorothiazide 25 mg tablet multivitamin 1 tab PO DAILY 01/29/22 Unkn own History tramadol 50 mg tablet 50 mg PO TID PRN Pain Unknown History valacyclovir 1 gram tablet 1,000 mg PO Q12H PRN Cold S ores 02/05/22 Unknown History phenazopyridine 95 mg tablet 95 mg PO TID PRN URINATIO N 03/23/23 Unknown History GLUCOBIO 2 tab PO DAILY 08/15/24 Unkn own History amlodipine 5 mg tablet 5 mg PO DAILY 08/15/2409/12 History d-mannose 500 mg capsule (AZO 500 mg PO DAILY 08/15/24 Unknown History D-Mannose) estradiol 0.01% (0.1 mg/gram) 1 appful vaginal .3 TIME S WEEKLY 08/15/24 Unknown History vaginal cream ibuprofen 200 mg tablet (Advil) 400 mg PO Q8H PRN pain 08/15/24 Unknown History Allergy/AdvReac Type Severity Reaction Status Date / Time minocycline Allergy Unknown unknown Verified 09/12/24 08:51 ciprofloxacin Allergy Other Verified 09/12/24 08:51 erythromycin base Allergy Swelling Verified 09/12/24 08:51 (Erythromycin Base) Penicillins Allergy Swelling Verified 09/12/24 08:51 prednisone Allergy Swelling Verified 09/12/24 08:51 Sulfa (Sulfonamide Allergy Unknown Verified 09/12/24 08:51 Antibiotics) Family History Father Hypertension Heart disease Brother CVA (cerebral vascular accident) CAD (coronary artery disease) Sister Diabetes CVA (cerebral vascular accident) Breast cancer Uncle Heart disease Aunt Breast cancer Pancreatic cancer Other Kidney disease Surgical History H/O laminectomy History of angioplasty of peripheral vessel (10/23/16) History of bilateral carpal tunnel release Hx of colonoscopy Hx of tonsillectomy Hx of knee surgery Tubal ligation status Social History household members: spouse housing: house number of children: 2 current occupational status: retired Smoking Status: Former smoker how long ago did patient quit smokin alcohol intake: never substance use type: does not use what type of physical activity do you participate in: walking additional social history: Spouse - Orlin Review of Systems (Anesthesia) ROS Narrative System reviewed and no additional complaints, except as documented. Physical Exam Const alert and oriented x3 Neuro oriented x3 and moves all extremities
--- NOTE | 2024-09-12 10:15 | SHO_PTH ---
PATIENT: QUANG SHIPMAN LOC: [facility] [place] U#:[id number] AGE/SX: 73/F ROOM: RE09/12/[address]: Dr. Delgado Aragon DO : 1950 BED: DIS: 09/13/2024 SPEC #: [id number] RECD: 09/12/24 13:03 STATUS: ALESSANDRA REQ #: [id number] ZULEMA: 09/12/24 10:[address]: Delgado Aragon DEPT: SURGICAL PATHOLOGY RECD BY: Sheldon Zhong ENTERED: 09/12/24 14:36 SP TYPE: HUMERUS OTHR DR: DO Dr. Emiliano Humphrey MD Tissues: A - Humerus, NOS Procedures: Decalcification bone/plaque Surgery Specimen Level IV HEADER OPERATION: Right reverse total shoulder arthroplasty PRE-OP DIAGNOSIS: Right glenohumeral osteoarthritis TISSUE SUBMITTED: A- Right humeral head MICROSCOPIC DIAGNOSIS A. Humerus, head, right, right glenohumeral osteoarthritis, total shoulder arthroplasty: - Bone consistent with humeral head (gross examination only). MICROSCOPIC DESCRIPTION Slides are reviewed. GROSS DESCRIPTION A. Received in formalin labeled with the patient's name and date of . Designated as right humeral head is a 5.7 x 5.1 x 1.5 cm slightly irregular humeral head. The articular cartilage is pardo to red and granular with central eburnation and mild osteophyte formation. No sections are submitted. The specimen is for gross examination only. AR 09/12/2024 CPT:34291
--- NOTE | 2024-09-12 11:59 | PCM.POST.ANE ---
Anesthesia: Postop Eval I Current Vital Signs Temperature: 97 F Pulse Rate: 72 Blood Pressure: 113/57 Respiratory Rate: 16 Pulse Ox: 100 Oxygen Delivery Method: Simple Mask Oxygen Flow Rate (L/min): 6 Assessment Airway patent: Yes Spontaneous unlabored respirations: Yes Mental status: Asleep nausea: No Vomiting: No Anesthesia Complication: No Fluid Hydration Crystalloid volume administer (ml): 1,000 Total IV fluid infused: 1,000 Progress Note Anesthesia document: Postop Eval 1 completed: Yes
[2024-09-12] MEDS: LR 1,000 ML - BOLUS POSTOP 999 ML IV (12:12)
--- NOTE | 2024-09-12 12:15 | RAD_ITS ---
PROCEDURE: SHOULDER MIN 2 VIEWS 09/12/2024 REASON FOR EXAM: POST OP TECHNIQUE: SHOULDER MIN 2 VIEWS COMPARISON: None FINDINGS: There is a reverse shoulder prosthesis in position which appears aligned. The AC joint is aligned. RAD/Shoulder min 2 Views IMPRESSION: Hardware in position. Reading Location: [facility]
--- NOTE | 2024-09-12 12:17 | PCM.OPRPT ---
Operative Report (Standard) Operative Information Date of Procedure: 09/12/24 Pre-Operative Diagnosis: 1. Primary right glenohumeral joint osteoarthritis 2. Right shoulder rotator cuff tear Post-Operative Diagnosis: 1. Primary right glenohumeral joint osteoarthritis 2. 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 Directional Bore Operator: Sara Dodson Tasks completed by first calender worker: Opening & closing, Implanting device, Hemostasis: Electrocautery and Retracting Additional data assistant?: No Type of Anesthesia: General/Regional RN Documented Start/Stop Times: Operation Date: 09/12/24 10:15 Case Time Into Pre-Op 09/12/24 08:16 Anesthesia Start 09/12/24 10:02 Into Room 09/12/24 10:02 Procedure Start 09/12/24 10:33 Procedure End 09/12/24 11:46 Anesthesia End 09/12/24 11:53 Out of Room 09/12/24 11:53 Into Recovery 09/12/24 11:57 Procedure Start Time: 10:33 Procedure Stop Time: 11:46 Select all DRAINS/GRAFTS/IMPLANTS that apply: Implanted device Implanted device details: Surgical implants: Tornier Aequalis PerFORM+ reversed baseplate 25 mm diameter +3 mm lateralization, standard glenosphere cobalt chrome 36 mm diameter, Tornier perform inlay stem size #3, + 6 mm retentive size number 3 36 mm diameter polyethylene insert, short central post and peripheral screws x4. Estimated Blood Loss: 75 cc Specimen collected: Yes Description of specimen(s) removed: Right humeral head Description of surgery: Patient arrived to [facility] morning of the procedure and was greeted by the same day surgery staff. Prior to his procedure, I greeted the patient in the preoperative holding area I identified the patient by name, record number, and date of . Informed consent was confirmed. The operative extremity was marked. All questions were answered to patient satisfaction. An interscalene block was administered prior to procedure by anesthesia staff for postoperative and intraoperative analgesia. At time of his procedure, patient was brought to the operative suite and positioned supine on a standard table with a beachchair attachment. General anesthesia was induced after all bony prominences were well-padded. Endotracheal tube was placed. After adequate anesthesia and securing the tube, we prepared the patient to be positioned in the beachchair position. A well-padded head of ethics and compliance was applied. The nonoperative extremity was placed in a well arm quiñones. She was then brought into the beachchair position after we confirmed an appropriate blood pressure. We then spun the bed 45 degrees. The operative extremity was then prepared. Then the butterfly wing of the bed was removed and a well-padded torso strap was applied to secure the patient to the bed. The operative extremity was now free. A preliminary hydrogen peroxide prep was performed. We then prepped and draped the right upper extremity in normal, sterile orthopedic fashion with chlorhexidine. We then performed a timeout with all parties in attendance in agreement with the side, site, and operation be performed. 2 g Ancef was administered prior to incision by anesthesia staff, as well as 1 g TXA IV. No concerns were voiced and we elected to proceed. I first marked a standard deltopectoral incision just lateral to the coracoid process in line with the long axis of the humerus. Skin was sharply incised with 10 blade scalpel. I then dissected bluntly through the subcutaneous layers and found the fat stripe between the deltoid and pectoralis major. The cephalic vein was then identified and protected. It was retracted laterally with the deltoid. I then bluntly dissected underneath the deltoid with a Strong elevator. [place] retractor was placed. The upper 1 cm of the pectoralis major was released. I then identified the long head of the biceps tendon in the intertubercular groove. This was tenodesed in situ with #2 FiberWire. I then amputated the biceps proximal to the tenodesis site and followed the tendon to the supraglenoid tubercle where it was amputated. This identified the lesser and greater tuberosities. The supraspinatus was completely torn and retracted. I then performed a subscapularis peel while rotating the humerus externally. I tagged the subscapularis for possible repair later with a tagging suture. Humeral head was then dislocated anteriorly. Appropriate access to the humeral head was confirmed. I then subluxed the humeral head posteriorly with a Fukuda retractor placed around the posterior lip of the glenoid. Inferior capsule was tension. I was able to palpate the axillary nerve. Inferior capsule was then released to the 4 o'clock position of the glenoid face. 3 sided subscapularis release was performed with Bovie cautery. I then remove the Fukuda retractor and redislocated the shoulder anteriorly. I then made a anatomic neck cut of the cartilaginous surface of the humeral head. Sizing plate for a size # 3 stem was utilized to determine appropriate reaming size. A central pin was placed engaging the lateral cortex of the humerus. A size # 3 reamer was used to ream the humeral metaphysis and prepare for the inlay stem. A canal finding reamer was utilized prior to sequential broaching to a size # 3 short stem with excellent rotational and axial purchase in the humerus. I remove the broach handle left the size # [address] I then subluxed the humerus posterior to the glenoid. I then placed retractors around the posterior and anterior glenoid to expose the glenoid. Glenoid labrum was removed with Bovie cautery protecting the axillary nerve. We then used the standard 25 mm guide from Gisselle to position our centering pin, exiting approximately 25 mm from the joint surface along the anterior scapula. Guide was removed and pin was analyzed and compared to preoperative planning. It appeared to be in appropriate position. The Nautilus shaped reamer was then placed over top of the centering pin. I reamed a flat surface of the glenoid. We then removed the reamer and used the cannulated drill for the short central post. Post and baseplate was assembled on the back table. We then inserted the baseplate and central post the assembled baseplate to an appropriate depth with good press-fit purchase. A [place] was used to confirm depth. Cortical screws then were placed in the peripheral holes with good purchase. The baseplate had excellent purchase and the entire scapula would rotate with rotation of the baseplate. We then impacted the 36 mm glenosphere with a standard eccentricity and tightened the locking screw mechanism. We then removed retractors and turned our attention back to the humerus. I trialed polyethylene sizes. I then reduced the shoulder. There was excellent range of motion and stability in all planes of motion with a +6 mm insert. We selected this as our final size. We removed trials from the humerus after final dislocation. I copiously irrigated the canal. Broach was placed on hand and then impacted to an appropriate depth. Final +6 mm retentive polyethylene insert was placed. Final reduction was then performed. She The subscapularis was then identified with a tagging suture. Repair would have been likely under undue tension and likely failed. I elected to not perform a subscapularis repair. We then copiously irrigated the wound with sterile Betadine and normal saline solution. We reapproximated the interval with 0 Vicryl suture. Subcutaneous layers were reapproximated with 2 -0 Vicryl suture. Skin was finally running V-Loc 3-0 Monocryl suture and Dermabond. A sterile silver Mepilex dressing was applied. Patient was then placed in an ultra sling. Patient tolerated procedure well without complication. She was positioned back in the supine position extubated in the operative suite. He was transferred to the [facility] and subsequently to PACU in stable condition. Need for skilled data assistant: Sara Dodson PA-C was critical to the outcome of the case. During the course of the procedure the physician data assistant played a vital role. Her intimate knowledge of my steps in the procedure aided in safe and expedient completion of the procedure. The PA played a vital role in positioning particularly in obtaining the appropriate positioning. The PA was also vital in the retraction of soft tissues during the exposure and protecting vital structures. The PA was also vital and protecting soft tissues during times of bony cuts. She also played a vital role in closure with my direct supervision. The PA was also important during reduction and dislocation of the joint and trials intraoperatively. Intraoperative medications: 2 g Ancef IV, 1 g TXA IV x2 Post Operative Plan: Patient will be placed in observation overnight due to medical history. Hospitalist consulted to assist with medical management. Anticipate discharge home postoperative day #1. Weightbearing: Nonweightbearing right upper extremity, okay for pendulums. Range of motion of wrist elbow and hand as tolerated. Antibiotics: 2 g Ancef IV prior to incision, 24 hours IV antibiotics postoperatively DVT Prophylaxis: Aspirin enteric-coated 81 mg twice daily starting postoperative day #1, restart home Plavix postoperative day #1 [place]: None Dressing: Maintain silver dressing x5 days. Okay to shower dressing on started on day 4 X-Rays: 2 weeks postop in the office Pain Medication: Oxycodone Rx upon discharge Follow-up: 2 weeks post-operatively with me in the office Surgical Findings: Severe primary glenohumeral joint degenerative changes. Full-thickness retracted tear of supraspinatus. Stable right reverse total shoulder arthroplasty after final implantation and reduction. Complications Complications: No Admit VTE Documentation VTE Present on Admission: No VTE Mechan Device Prophylaxis: SCD's VTE Pharm Prophylaxis ordered?: Yes
--- NOTE | 2024-09-12 13:13 | POSTOPAN2_ITS ---
Anesthesia Postop Eval I Sum Postop Eval Completion status Anesthesia document: Postop Eval 1 completed: Yes Anesthesia Postop Eval I Summary Anesthesia Postop Eval I Summary: Anesthesia Postop Eval I: Assessment Summary Airway patent Yes 09/12/24 12:00 BOAT LABORER.RENEOBNacho Spontaneous unlabored Yes 09/12/24 12:00 BOAT LABORER.KHLOE respirations Mental status Asleep 09/12/24 12:00 BOAT LABORER.KHLOE nausea No 09/12/24 12:00 BOAT LABORER.KHLOE Vomiting No 09/12/24 12:00 BOAT LABORER.KHLOE Anesthesia Postop Eval I: Fluid Summary Crystalloid volume administer 1,000 09/12/24 12:00 BOAT LABORER.RENEOBY (ml) Colloids volume administered ( ml) Blood Product volume administered (ml) Total IV fluid infused 1,000 09/12/24 12:00 BOAT LABORER.KHLOE Anesthesia Postop Eval I: Summary Notes Anesthesia Complication No 09/12/24 12:00 BOAT LABORER.KHLOE Anesthesia Complication Comment: Post-operative progress note Anesthesia: Postop Eval II Evaluation Mental status: Awake and Calm Pain Level: 1 nausea: No Vomiting: No Complications Anesthesia Complication: No
--- NOTE | 2024-09-12 13:13 | PCM.POSTANE2 ---
Anesthesia Postop Eval I Sum Postop Eval Completion status Anesthesia document: Postop Eval 1 completed: Yes Anesthesia Postop Eval I Summary Anesthesia Postop Eval I Summary: Anesthesia Postop Eval I: Assessment Summary Airway patent Yes 09/12/24 12:00 SERVICES EXECUTIVE.RENEOBNacho Spontaneous unlabored Yes 09/12/24 12:00 SERVICES EXECUTIVE.KHLOE respirations Mental status Asleep 09/12/24 12:00 SERVICES EXECUTIVE.KHLOE nausea No 09/12/24 12:00 SERVICES EXECUTIVE.KHLOE Vomiting No 09/12/24 12:00 SERVICES EXECUTIVE.KHLOE Anesthesia Postop Eval I: Fluid Summary Crystalloid volume administer 1,000 09/12/24 12:00 SERVICES EXECUTIVE.RENEOBY (ml) Colloids volume administered ( ml) Blood Product volume administered (ml) Total IV fluid infused 1,000 09/12/24 12:00 SERVICES EXECUTIVE.KHLOE Anesthesia Postop Eval I: Summary Notes Anesthesia Complication No 09/12/24 12:00 SERVICES EXECUTIVE.KHLOE Anesthesia Complication Comment: Post-operative progress note Anesthesia: Postop Eval II Evaluation Mental status: Awake and Calm Pain Level: 1 nausea: No Vomiting: No Complications Anesthesia Complication: No
--- NOTE | 2024-09-12 13:56 | PCM.CONS.GEN ---
Assessment & Plan Assessment/Plan (1) Essential hypertension: (2) Status post reverse total arthroplasty of right shoulder: PLAN: Plan This 73-year-old female is being consulted for perioperative management of her right shoulder arthroplasty 1. Perioperative management of right reverse total shoulder arthroplasty: Patient had primary right shoulder/glenohumeral joint osteoarthritis for which patient had surgery today on 09/12/2024. Pain control, PT and OT ordered. Bowel and bladder care. DVT prophylaxis as per primary attending. 2. CAD status post cardiac stent 8 years ago, chronic HFpEF: Currently patient is asymptomatic with no chest pain pressure or tightness or acute shortness of breath. Preoperative twelve-lead EKG reviewed shows sinus bradycardia at 55 bpm. Otherwise normal ECG. Echo 02/10/2022: It is suggestive of mild chronic HFpEF. Patient does not have any leg swellings or features of acute shortness of breath. Interpretation Summary Normal LV size. Left ventricular systolic function is normal. The estimated ejection fraction is 60 %. Pulmonary artery systolic pressure is 33 mmHg. Stage 2 diastolic dysfunction. 3. Chronic PAD/left subclavian stenosis and bilateral carotid stenosis: Patient had vascular study in April 2024 which showed wrist brachial index 1.19 on the right side and 1.17 on left side. Doppler waveforms were biphasic in the right and left radial and ulnar arteries. It is reported as normal bilateral upper extremity arterial duplex exam. Carotid duplex in January 2023 shows severe more than 70% stenosis of right ICA and severe left ICA. 4. Hypertension: 5. COPD/asthmatics: No acute COPD exacerbation. Continue baseline inhalers. 6. Hypertension and dyslipidemia: Blood pressure is normal 129/63. Continue home antihypertensive medications with holding parameters 7. DM type II: Last A1c 7.5% in July 2024. Accu-Chek before meals and at bedtime with Humalog sliding scale coverage and hypoglycemia protocol. 8. Other comorbidities include psoriasis, rheumatoid arthritis and fibromyalgia: Home medication reconciliation done HPI Consult Data Date of Consult: 09/12/24 HPI Narrative Reason for Consultation: Perioperative management of right shoulder replacement surgery HPI Narrative: QUANG SHIPMAN, is a 73 F who was admitted after she had elective right reverse total shoulder arthroplasty for primary right glenohumeral joint osteoarthritis. Patient states mild pain about 2?3/10 intensity localized to right shoulder. Denies chest pain or acute shortness of breath. She has mild baseline shortness of breath with history of COPD. Not on home oxygen. She has 20 pack years of cigarette smoking but quit 37 years ago. History of CAD status post stent about 8 years ago. Denies any recent chest pressure or tightness on exertion/VT. Patient had winded after the surgery. Last BM today in the morning. [facility] Medical History History of steroid therapy Fatty liver Excessive bleeding Hypertension Subclavian artery stenosis, left Generalized anxiety disorder Psoriasis Diverticulosis CKD (chronic kidney disease), stage III Depressive disorder Venous insufficiency of right leg Carotid stenosis Peripheral artery disease Hyperlipidemia Essential hypertension Cardiology follow-up encounter Wears glasses Loose, teeth Post-menopausal Arthritis Easy bruising Back pain Injury of back Migraine headache Difficulty swallowing History of IBS Gastric reflux Former smoker Emphysema, unspecified Asthma COPD (chronic obstructive pulmonary disease) Leg cramps History of pain when walking History of edema History of stress test Chest pain Heart disease Diabetes Home Medications ?Medication ?Instructions ?Recorded ?Last Taken ?Type atenolol 100 mg tablet (Tenormin) 100 mg PO QHS 12/18/12 09/11/24 History albuterol sulfate 90 mcg/actuation 1 - 2 puff inhalation Q4H PRN PRN 06/07/13 Unknown History aerosol inhaler (Ventolin HFA) Wheezing aspirin 81 mg chewable tablet 81 mg PO DAILY@0800 12/24/19 09/05/24 History lorazepam 0.5 mg tablet 0.5 mg PO Q6H PRN PRN Anxiety 12/24/19 Unknown History clopidogrel 75 mg tablet (Plavix) 75 mg PO DAILY 01/29/22 09/05/24 History losartan 100 1 tab PO DAILY 01/29/22 09/11/24 History mg-hydrochlorothiazide 25 mg tablet multivitamin 1 tab PO DAILY 01/29/22 Unknown History tramadol 50 mg tablet 50 mg PO TID PRN Pain 02/03/22 Unknown History valacyclovir 1 gram tablet 1,000 mg PO Q12H PRN Cold Sores 02/05/22 Unknown History phenazopyridine 95 mg tablet 95 mg PO TID PRN URINATION 03/23/23 Unknown History GLUCOBIO 2 tab PO DAILY 08/15/24 Unknown History amlodipine 5 mg tablet 5 mg PO DAILY 08/15/24 09/12/24 History d-mannose 500 mg capsule (AZO 500 mg PO DAILY 08/15/24 Unknown History D-Mannose) estradiol 0.01% (0.1 mg/gram) 1 appful vaginal .3 TIMES WEEKLY 08/15/24 Unknown History vaginal cream ibuprofen 200 mg tablet (Advil) 400 mg PO Q8H PRN pain 08/15/24 Unknown History Allergy/AdvReac Type Severity Reaction Status Date / Time minocycline Allergy Unknown unknown Verified 09/12/24 08:51 ciprofloxacin Allergy Other Verified 09/12/24 08:51 erythromycin base Allergy Swelling Verified 09/12/24 08:51 (Erythromycin Base) Penicillins Allergy Swelling Verified 09/12/24 08:51 prednisone Allergy Swelling Verified 09/12/24 08:51 Sulfa (Sulfonamide Allergy Unknown Verified 09/12/24 08:51 Antibiotics) Family History Father Hypertension Heart disease Brother CVA (cerebral vascular accident) CAD (coronary artery disease) Sister Diabetes CVA (cerebral vascular accident) Breast cancer Uncle Heart disease Aunt Breast cancer Pancreatic cancer Other Kidney disease Surgical History H/O laminectomy History of angioplasty of peripheral vessel (10/23/16) History of bilateral carpal tunnel release Hx of colonoscopy Hx of tonsillectomy Hx of knee surgery Tubal ligation status Social History household members: spouse housing: house number of children: 2 current occupational status: retired Smoking Status: Former smoker how long ago did patient quit smokin alcohol intake: never substance use type: does not use what type of physical activity do you participate in: walking additional social history: Spouse - Orlin GORMAN Narrative Constitutional: Reports fatigue and weakness. No fever. HEENT: Reports systems reviewed and no addt'l complaints, except as documented Respiratory/Chest: No acute shortness of breath or respiratory distress or wheezing. CVS: No chest pain or shortness of breath Gastrointestinal: Denies coffee ground emesis, hematemesis or vomiting Genitourinary: Denies burning urination or new urinary tract symptoms Musculoskeletal: Denies acute joint pain. Primary right shoulder osteoarthritis. Decreased ROM and pain in the past. No acute injury Neurologic: Denies seizure-like symptoms. skin: Right shoulder surgery. Endocrinology: Reports systems reviewed and no addt'l complaints, except as documented Hematologic/Lymphatic: Reports systems reviewed and no addt'l complaints, except as documented Rest 14 ROS are negative except as mentioned in HPI Physical Exam Narrative General: Alert, Oriented x3, Cooperative HEENT: Atraumatic, PERRLA, EOMI, Normocephalic. Oral: No Gingival or Mucosal Lesions/ Ulcerations Neck: Supple, No JVD, Negative Carotid Bruits Chest wall/Lungs: Air entry diminished in in right lung base posteriorly. No crepitation/rhonchi Cardiovascular: Regular rate and rhythm, Normal S1,S2, No M/G/R Abdomen: Bowel Sounds Present, Soft, Non Tender, Non-Distended : No dysuria. No renal angle tenderness. No suprapubic tenderness. Extremities: No edema, Capillary Refill Less than 3 Seconds Skin: Right shoulder surgical dressing is dry. No bruise or hematoma. Musculoskeletal: No Tenderness to Palpation of Joints or Extremities Neurological: Cranial nerves II-XII grossly intact, DTR 2+/4. No acute focal neurological deficit. Psych/Mental Status: Normal Affect, Appropriate. Lab / Micro Data 08/11/24 07:41 08/11/24 07:41 Labs: Laboratory Results - last 24 hr 09/12/24 08:37: POC Glucose 180 H 09/12/24 10:45: POC Glucose 116 H Imaging Radiology Impression Shoulder X-Ray 09/12/24 12:15 IMPRESSION: Hardware in position. Reading Location: [facility] Charges/Coding Visit Charges Office Visits / Consults: 56545 OV L4 New 45min
[2024-09-12] MEDS: Cefazolin 1 GM/50 ML BAG IV ×2 (14:56→21:53)
[2024-09-12] MEDS: 0.9% Saline Lock 10 ML Syringe IV (14:56)
[2024-09-12] MEDS: Senna/Docusate Sodium 1 Tablet 2 TABLET PO (20:31)
[2024-09-13 04:00] VITALS: BP 107/50; PULSE 75; RESP 16; TEMP 37.1; O2SAT 97
[2024-09-13 06:30] LABS: Hematocrit 27.8 % (37-47); Hemoglobin 9.5 g/dL (12.0-15.0); Mean Corp Hgb Conc 34.2 g/dL (32-36); Mean Corpuscular Volume 90.6 fL (81-99); Mean Platelet Vol. 8.8 fl (6.2-12.0); Platelet Count 285 K/mm3 (150-450); RBC Distribution Width CV 12.1 % (11.6-14.6); RBC Distribution Width SD 39.8 fl (35.1-43.9); Red Blood Count 3.07 M/mm3 (4.2-5.4); White Blood Count 18.7 K/mm3 (4.4-11.0)
[2024-09-13 06:56] LABS: Anion Gap 12 (5-15); BUN 23 mg/dL (4-19); BUN/Creat Ratio 20.7 RATIO (10-20); Calcium,Total 8.9 mg/dL (7.6-11.0); Carbon Dioxide 21.5 mmol/L (21.0-32.0); Chloride 97 mmol/L (98-108); Estimated Creatinine Clearance 44.53 ml/min (50-250); Glucose 193 mg/dL (70-99); Potassium 4.4 mmol/L (3.3-5.1)
[2024-09-13 07:01] VITALS: BP 111/56; PULSE 72; RESP 16; TEMP 37.2; O2SAT 99
[2024-09-13 07:21] VITALS: O2SAT 93
[2024-09-13] MEDS: Senna/Docusate Sodium 1 Tablet 2 TABLET PO (07:48)
[2024-09-13] MEDS: Aspirin E.C. 81 MG Tablet PO (07:50)
--- NOTE | 2024-09-13 11:45 | DS.PCM_ITS ---
Providers Date of Discharge: 09/13/24 Primary Care Physician: Dr. Yon Preciado, Consultations 09/12/24 12:05 Consult: Hospitalist Routine Consulting Provider: Emiliano Toledo Reason for Consult: medial management s/p R total shoulder EMERGENT Consult: No MD Notified: Yes Date Notified: 09/12/24 Time Notified: 13:32 Method of Notification: Text Reason For Visit: RIGHT REVERSE TOTAL SHOULDER ARTHROPLASTY, ERAS Diagnosis Discharge Diagnosis (1) Essential hypertension: Status: Chronic Code(s): I10 - Essential (primary) hypertension (2) Status post reverse total arthroplasty of right shoulder: Status: Acute Code(s): Z96.611 - Presence of right artificial shoulder joint Plan 1. Will continue PT today. Sling in place at all times to right upper extremity. Nonweightbearing to right upper extremity. Okay for elbow range of motion and pendulums. 2. plan for discharge this afternoon following PT 3. Patient will follow up for post op appointment as previously scheduled 2 weeks postoperatively. 4. Patient has outpatient PT appointment 2 weeks postoperatively. 5. WBC 18.7 acute reactive leukocytosis: secondary to pre operative decadron. no acute systemic signs of infection. will monitor, and likely self resolve. 6. H/H 9.5/27.8: post operavtive anemia secondary to acute blood loss intraoperatively. Patient is asymptomatic at this time. No intraoperative complications. will continue to monitor. no acute interventions. 7. DVT prophylaxis : Resume Plavix today as well as aspirin 81 mg twice daily x 2 weeks. 8. Pain control: patient instructed to take tylenol 500mg 2 tablets TID. and oxycodone 1-2 tablets every 4-6 hours only as needed for pain control. 9. Patient also given a prescription of senna, doxycycilne 100 mg twice daily x 1 week, meloxicam 7.5 mg twice daily. 10. ok to remove post op dressing. post op day 5 Medications at Discharge Home Medications atenolol 100 mg tablet (Tenormin) 100 mg PO QHS 12/18/12 albuterol sulfate 90 mcg/actuation aerosol inhaler (Ventolin HFA) 1 - 2 puff inhalation Q4H PRN PRN Wheezing 06/07/13 aspirin 81 mg chewable tablet 81 mg PO DAILY@0800 12/24/19 Held on 09/13/24. Instructions: Resume on 09/27/24. lorazepam 0.5 mg tablet 0.5 mg PO Q6H PRN PRN Anxiety 12/24/19 clopidogrel 75 mg tablet (Plavix) 75 mg PO DAILY 01/29/22 losartan 100 mg-hydrochlorothiazide 25 mg tablet 1 tab PO DAILY 01/29/22 multivitamin 1 tab PO DAILY 01/29/22 tramadol 50 mg tablet 50 mg PO TID PRN Pain 02/03/22 Held on 09/13/24. Instructions: Resume on 09/27/24. valacyclovir 1 gram tablet 1,000 mg PO Q12H PRN Cold Sores 02/05/22 phenazopyridine 95 mg tablet 95 mg PO TID PRN URINATION 03/23/23 GLUCOBIO 2 tab PO DAILY 08/15/24 amlodipine 5 mg tablet 5 mg PO DAILY 08/15/24 d-mannose 500 mg capsule (AZO D-Mannose) 500 mg PO DAILY 08/15/24 estradiol 0.01% (0.1 mg/gram) vaginal cream 1 appful vaginal .3 TIMES WEEKLY 08/15/24 ibuprofen 200 mg tablet (Advil) 400 mg PO Q8H PRN pain 08/15/24 acetaminophen 500 mg tablet 1,000 mg (2 x 500 mg) PO Q8 #180 tabs 09/13/24 aspirin 81 mg tablet,delayed release 81 mg PO BID 2 weeks #28 tabs 09/13/24 doxycycline hyclate 100 mg tablet 100 mg PO BID 1 week #14 tabs 09/13/24 meloxicam 7.5 mg tablet 7.5 mg PO BID #60 tabs 09/13/24 oxycodone 5 mg tablet 5 - 10 mg (1 - 2 x 5 mg) PO Q4H PRN PRN Pain Score 4-10 7 days #28 tabs 09/13/24 sennosides 8.6 mg-docusate sodium 50 mg tablet (Stimulant Laxative Plus) 2 tab PO BID #14 tabs 09/13/24 Hospital Course Summary of Care Provided Hospital Course: Patient is s/p right reverse total shoulder arthroplasty with Dr. Aragon 09/12/2024. Patient resting comfortably in bed. Rates pain 8/ 10 at rest. States taking Tylenol oxycodone as needed. And ice help to relieve pain. Patient has been up with therapy. Sling in place at all times to right upper extremity. No weightbearing to right upper extremity. Afebrile, no chest pain, shortness of breath, negative calf pain/ erythema, and no other signs of DVT. Physical Exam Narrative Patient resting comfortably in bed No signs of acute distress Satting well on room air Sling in place Limb is warm to touch, Sensation intact throughout entire upper extremity, Motor intact radial, median, ulnar nerve distribution Radial pulses bounding Dressing clear dry intact Calf nontender to palpation, no erythema, no edema. Negative Homans Weight / BMI Weight Weight: 77 kg Body Mass Index (BMI) 29.1 ABG / Lab / Microbiology Data 09/13/24 06:00 09/13/24 06:00 Laboratory: Laboratory Results - last 24 hr 09/13/24 06:00: WBC 18.7 H, RBC 3.07 L, Hgb 9.5 L, Hct 27.8 L, MCV 90.6, MCH 30.9, MCHC 34.2, RDW Std Deviation 39.8, RDW Coeff of Mike 12.1, Plt Count 285, MPV 8.8, Sodium 131 L, Potassium 4.4, Chloride 97 L, Carbon Dioxide 21.5, Anion Gap 12, BUN 23 H, Creatinine 1.13, Estim Creat Clear Calc 44.53 L, Est GFR (MDRD) Non-Af 51 L, BUN/Creatinine Ratio 20.7 H, Glucose 193 H, Calcium 8.9 09/13/24 06:21: POC Glucose 189 H Microbiology: Microbiology 08/11/24 07:41 Swab (Method) Nasal Screen MRSA/MSSA - Final Radiography Diagnostic Testing: Radiology Impression Shoulder X-Ray 09/12/24 12:15 IMPRESSION: Hardware in position. Reading Location: [facility] Miller/Joaquin Instructions Discharge Activity: May Shower (No submerging incision x 6 weeks) May shower in (days): 3 Weight Bearing Status: No weight bearing (Right upper extremity. Sling in place at all times.) Call your doctor if your incision/area has: Continuous Slow Oozing, Sudden Increased Bleeding, Increased Pain/ Swelling, Increased Redness, Foul Smelling Discharge and Swelling at the incision site Call your doctor if you observe: Fever of 101 or Higher, Inability to urinate, Inability to have a bowel movement, Shortness of breath, Swelling in the ankles, Chest pain, Increased palpitations (irregular heartbeat), Calf discomfort and Uncontrolled pain Remove Dressing in: 5 days Cleanse incision/area with: Soap & Water and Keep Dressing Clean & Dry DC O2, CPAP, BIPAP Needs Home O2 Discharge instructions: No DC home with Oxygen: No When: In 2 weeks in office as previously scheduled. Meaningful Use Info Meaningful Use Meaningful Use Diagnoses (Choose all that apply): None applicable Discharge Plan Admission Attending Provider: Delgado Aragon Primary Care Provider: Yon Preciado Consulting Providers: Viktor Duggan Instructions Print Language: German Discharge Orders/Prescriptions Prescriptions: New acetaminophen 500 mg Tablet 1,000 mg PO Q8 Qty: 180 0RF aspirin 81 mg Tablet,Delayed Release (Dr/Ec) 81 mg PO BID 14 Days Qty: 28 0RF meloxicam 7.5 mg Tablet 7.5 mg PO BID Qty: 60 0RF oxycodone 5 mg Tablet 5 - 10 mg PO Q4H PRN PRN (Reason: Pain Score 4-10) 7 Days Qty: 28 0RF sennosides-docusate sodium [Stimulant Laxative Plus] 8.6-50 mg Tablet 2 tab PO BID Qty: 14 0RF doxycycline hyclate 100 mg tablet 100 mg PO BID 7 Days Qty: 14 0RF Continued valacyclovir 1 gram tablet 1,000 mg PO Q12H PRN (Reason: Cold Sores) atenolol [Tenormin] 100 MG tablet 100 mg PO QHS albuterol sulfate [Ventolin HFA] 1 INHALER inhaler 1 - 2 puff inhalation Q4H PRN PRN (Reason: Wheezing) lorazepam 0.5 MG tablet 0.5 mg PO Q6H PRN PRN (Reason: Anxiety) multivitamin Tablet 1 tab PO DAILY clopidogrel [Plavix] 75 mg Tablet 75 mg PO DAILY Patient Comments: stop per Dr. Aragon losartan-hydrochlorothiazide 100-25 mg tablet 1 tab PO DAILY phenazopyridine 95 mg tablet 95 mg PO TID PRN (Reason: URINATION) AZO D-Mannose 500 mg capsule 500 mg PO DAILY amlodipine 5 mg tablet 5 mg PO DAILY ibuprofen [Advil] 200 mg tablet 400 mg PO Q8H PRN (Reason: pain) GLUCOBIO 2 tab PO DAILY estradiol 0.01 % (0.1 mg/gram) cream 1 appful vaginal .3 TIMES WEEKLY Held tramadol 50 mg tablet 50 mg PO TID PRN (Reason: Pain) Hold Instructions: Resume on 09/27/24. aspirin 81 MG tablet,chewable 81 mg PO DAILY@0800 Hold Instructions: Resume on 09/27/24. Patient Comments: STOP 7 DAYS PRIOR 02/03 Referrals / Follow Up: Yon Preciado DO [Primary Care Provider] - Disposition Disposition (needs filled in before D/C Order can be placed): Home, Self Care
--- NOTE | 2024-09-13 13:21 | CASEMGMT ---
ILIR CM into pt room, pt sitting up in chair in no distress. Pt states she feels safe dc'ing home with . Pt states she did have some questions about her appts but this is now resolved. Pt denies any homegoing needs.
[2024-09-13 13:23] VITALS: BP 116/58; PULSE 68; RESP 18; TEMP 36.2; O2SAT 100
== END 2024-09-13 13:35 | disposition home or self-care (01) ==
LOC: SDC 08:11 → AC 08:12 → MS3 12:56
PROVIDERS: Anesthesiology; PCP Family Medicine; Referring Provider Student in an Organized Health Care Education/Training Program; Visit Provider Student in an Organized Health Care Education/Training Program
PROC: (CPT 23472; principal; 2024-09-12 09:45)
DX: M19.011 Primary osteoarthritis, right shoulder (principal); I13.0 Hypertensive heart and chronic kidney disease with heart failure and stage 1 through stage 4 chronic kidney disease, or unspecified chronic kidney disease; I50.32 Chronic diastolic (congestive) heart failure; J44.9 Chronic obstructive pulmonary disease, unspecified; E11.22 Type 2 diabetes mellitus with diabetic chronic kidney disease; E11.51 Type 2 diabetes mellitus with diabetic peripheral angiopathy without gangrene; N18.30 Chronic kidney disease, stage 3 unspecified; Z87.891 Personal history of nicotine dependence; M75.101 Unspecified rotator cuff tear or rupture of right shoulder, not specified as traumatic; D50.9 Iron deficiency anemia, unspecified; Z82.49 Family history of ischemic heart disease and other diseases of the circulatory system; F41.1 Generalized anxiety disorder; E78.5 Hyperlipidemia, unspecified; I25.10 Atherosclerotic heart disease of native coronary artery without angina pectoris; Z95.5 Presence of coronary angioplasty implant and graft; D62 Acute posthemorrhagic anemia
CPT/HCPCS: 23472; 01638; 36415; 73030; 80048; 80076; 82040; 82962; 83036; 83735; 85025; 85027; 87081; 88305; 88311; 93005; 94668; 97166; C1713; C1776; A4216; J2405

== ENCOUNTER 2024-09-15 14:34 | Emergency (ER) | payer MEDICARE, SELFPAY ==
[2024-09-15 14:35] VITALS: BP 157/67; PULSE 76; RESP 18; TEMP 37; O2SAT 98; BMI 29.4
--- NOTE | 2024-09-15 14:41 | RAD_ITS ---
PROCEDURE: CHEST 1 VIEW (PORTABLE) 09/15/2024 REASON FOR EXAM: CHEST PAIN TECHNIQUE: Frontal view of the chest. COMPARISON: Chest radiograph on 05/11/2024, CT chest 09/07/2024 FINDINGS: Heart: Cardiac and mediastinal contours are stable. Aortic atherosclerosis. Lungs: Increased interstitial markings, unchanged. No focal consolidation. Bones: Right shoulder arthroplasty. Degenerative changes of the spine. RAD/Chest 1 View (Portable) IMPRESSION: Increased interstitial markings, similar to prior and which may represent chron ic lung changes and/or pulmonary edema. Lung nodules are better evaluated on recent CT. Reading Location: [id number]
[2024-09-15 15:08] LABS: Hematocrit 30.2 % (37-47); Hemoglobin 9.9 g/dL (12.0-15.0); Immature Granulocytes Count 0.080 X10^3/uL (0.0-0.0); Mean Corp Hgb Conc 32.8 g/dL (32-36); Mean Corpuscular Volume 92.1 fL (81-99); Mean Platelet Vol. 9.1 fl (6.2-12.0); NRBC Flagged by Analyzer 0 % (0-5); Platelet Count 313 K/mm3 (150-450); RBC Distribution Width CV 12.6 % (11.6-14.6); RBC Distribution Width SD 42.1 fl (35.1-43.9); Red Blood Count 3.28 M/mm3 (4.2-5.4); White Blood Count 12.5 K/mm3 (4.4-11.0)
[2024-09-15 15:17] LABS: Prothrombin Time (Protime)PT. 12.8 SECONDS (11.7-14.9)
[2024-09-15 15:41] LABS: Anion Gap 13 (5-15); BUN 34 mg/dL (4-19); BUN/Creat Ratio 30.6 RATIO (10-20); Calcium,Total 9.7 mg/dL (7.6-11.0); Carbon Dioxide 24.4 mmol/L (21.0-32.0); Chloride 98 mmol/L (98-108); Estimated Creatinine Clearance 45.94 ml/min (50-250); Glucose 141 mg/dL (70-99); Potassium 4.3 mmol/L (3.3-5.1); Troponin T High Sensitivity 9 ng/L (<=14)
[2024-09-15 16:47] VITALS: BP 151/81; PULSE 68; RESP 11; O2SAT 99
--- NOTE | 2024-09-15 16:49 | ED.VIS.CHEST ---
HPI History of Present Illness Chief Complaint: Chest Pain Informant: patient Onset/Context/Timing Onset: Days Activity at onset: gradual Timing: Intermittent Location: Substernal and Left Chest Worsened By: Nothing Relieved By: Nothing Associated Symptoms: Positive for Nausea, Dyspnea, Lightheadedness and Acid Reflux; Negative for Vomiting, Diaphoresis, Cough, Fever or Palpitations Narrative Narrative: Patient presents with chest pain, shortness of breath, and nausea that has been getting worse over the past couple days. Patient had a recent right shoulder surgery 3 days ago. Patient states she has not been doing some therapy on her arm. Patient noted some bruising to her right upper arm. Patient denies any paresthesias or weakness. Patient admits to some nausea and some shortness of breath. Patient also admits to some lightheadedness and reflux. Patient admits to some intermittent pain over her left chest. Patient states nothing makes it better nothing makes it worse. Patient denies any fevers or chills. CVD Risk Factors: Positive for Hypertension, Diabetes and Hypercholesterolemia; Negative for Smoking PE Risk Factors: Positive for Recent Travel/Surgery; Negative for Recent Immobilization, Prior DVT or PE or Cancer [facility] Medical History History of steroid therapy Fatty liver Excessive bleeding Hypertension Subclavian artery stenosis, left Generalized anxiety disorder Psoriasis Diverticulosis CKD (chronic kidney disease), stage III Depressive disorder Venous insufficiency of right leg Carotid stenosis Peripheral artery disease Hyperlipidemia Essential hypertension Cardiology follow-up encounter Wears glasses Loose, teeth Post-menopausal Arthritis Easy bruising Back pain Injury of back Migraine headache Difficulty swallowing History of IBS Gastric reflux Former smoker Emphysema, unspecified Asthma COPD (chronic obstructive pulmonary disease) Leg cramps History of pain when walking History of edema History of stress test Chest pain Heart disease Diabetes Home Medications ?Medication ?Instructions ?Recorded ?Last Taken ?Type atenolol 100 mg tablet (Tenormin) 100 mg PO QHS 12/18/12 09/11/24 History albuterol sulfate 90 mcg/actuation 1 - 2 puff inhalation Q4H PRN PRN 06/07/13 Unknown History aerosol inhaler (Ventolin HFA) Wheezing aspirin 81 mg chewable tablet 81 mg PO DAILY@0800 12/24/19 09/05/24 History Held on 09/13/24. Instructions: Resume on 09/27/24. lorazepam 0.5 mg tablet 0.5 mg PO Q6H PRN PRN Anxiety 12/24/19 Unknown History clopidogrel 75 mg tablet (Plavix) 75 mg PO DAILY 01/29/22 09/05/24 History losartan 100 1 tab PO DAILY 01/29/22 09/11/24 History mg-hydrochlorothiazide 25 mg tablet multivitamin 1 tab PO DAILY 01/29/22 Unknown History tramadol 50 mg tablet 50 mg PO TID PRN Pain 02/03/22 Unknown History Held on 09/13/24. Instructions: Resume on 09/27/24. valacyclovir 1 gram tablet 1,000 mg PO Q12H PRN Cold Sores 02/05/22 Unknown History phenazopyridine 95 mg tablet 95 mg PO TID PRN URINATION 03/23/23 Unknown History GLUCOBIO 2 tab PO DAILY 08/15/24 Unknown History amlodipine 5 mg tablet 5 mg PO DAILY 08/15/24 09/12/24 History d-mannose 500 mg capsule (AZO 500 mg PO DAILY 08/15/24 Unknown History D-Mannose) estradiol 0.01% (0.1 mg/gram) 1 appful vaginal .3 TIMES WEEKLY 08/15/24 Unknown History vaginal cream ibuprofen 200 mg tablet (Advil) 400 mg PO Q8H PRN pain 08/15/24 Unknown History acetaminophen 500 mg tablet 1,000 mg (2 x 500 mg) PO Q8 #180 09/13/24 Unknown Rx tabs aspirin 81 mg tablet,delayed 81 mg PO BID 2 weeks #28 tabs 09/13/24 Unknown Rx release doxycycline hyclate 100 mg tablet 100 mg PO BID 1 week #14 tabs 09/13/24 Unknown Rx meloxicam 7.5 mg tablet 7.5 mg PO BID #60 tabs 09/13/24 Unknown Rx oxycodone 5 mg tablet 5 - 10 mg (1 - 2 x 5 mg) PO Q4H 09/13/24 Unknown Rx PRN PRN Pain Score 4-10 7 days #28 tabs sennosides 8.6 mg-docusate sodium 2 tab PO BID #14 tabs 09/13/24 Unknown Rx 50 mg tablet (Stimulant Laxative Plus) Allergy/AdvReac Type Severity Reaction Status Date / Time minocycline Allergy Unknown unknown Verified 09/15/24 14:38 ciprofloxacin Allergy Other Verified 09/15/24 14:38 erythromycin base Allergy Swelling Verified 09/15/24 14:38 (Erythromycin Base) Penicillins Allergy Swelling Verified 09/15/24 14:38 prednisone Allergy Swelling Verified 09/15/24 14:38 Sulfa (Sulfonamide Allergy Unknown Verified 09/15/24 14:38 Antibiotics) Family History Father Hypertension Heart disease Brother CVA (cerebral vascular accident) CAD (coronary artery disease) Sister Diabetes CVA (cerebral vascular accident) Breast cancer Uncle Heart disease Aunt Breast cancer Pancreatic cancer Other Kidney disease Surgical History H/O laminectomy History of angioplasty of peripheral vessel (10/23/16) History of bilateral carpal tunnel release Hx of colonoscopy Hx of tonsillectomy Hx of knee surgery Tubal ligation status Social History household members: spouse housing: house number of children: 2 current occupational status: retired Smoking Status: Former smoker how long ago did patient quit smokin alcohol intake: never substance use type: does not use what type of physical activity do you participate in: walking additional social history: Spouse - Orlin GORMAN SHERIF ED Constitutional Constitutional ED: Denies chills or fever(s) Eyes Eyes: Denies blurry vision or change in vision ENT ENT ED: Denies rhinorrhea or sore throat Cardiovascular Cardiovascular: Reports chest pain; Denies palpitations Respiratory/Chest Respiratory/Chest: Reports dyspnea; Denies cough Gastrointestinal Gastrointestinal: Reports nausea; Denies vomiting Genitourinary Genitourinary ED: Denies dysuria or hematuria Musculoskeletal Musculoskeletal: Reports neck pain; Denies back pain Integumentary Denies abscess or rash Neurologic Neurologic: Reports weakness; Denies headache(s) Allergic/Immunologic Allergic/Immunologic ED: Denies mouth swelling or urticaria EXAM Physical Exam Const Vital Signs: 09/15/24 14:35 09/15/24 16:47 09/15/24 16:49 Temperature 98.6 F Temperature Source Oral Pulse Rate 76 68 Respiratory Rate 18 11 L Respiratory Effort Normal Respiratory Pattern Normal Blood Pressure 157/67 H 151/81 H Blood Pressure Mean 97 104 Pulse Ox 98 99 Oxygen Delivery Method Room Air Room Air 09/15/24 18:00 Temperature Temperature Source Pulse Rate 69 Respiratory Rate 16 Respiratory Effort Respiratory Pattern Blood Pressure 146/71 H Blood Pressure Mean 96 Pulse Ox 96 Oxygen Delivery Method Room Air Positive well nourished and well developed General Appearance ED: well developed and NAD HEENT Reports moist mucous membranes normocephalic and atraumatic Neck supple and no JVD Resp normal respiratory effort and clear to auscultation bilaterally Cardio regular rate and regular rhythm GI soft to palpation, non-tender and non-distended Extremity Extremity Narrative: There is edema and ecchymosis over the right distal humerus area. There is mild tenderness over the right shoulder. Range of motion was limited in all motions of the right shoulder secondary to pain. Neuro oriented x3, CN's II-XII intact bilaterally and no sensory deficits noted Sensorium / Orientation: awake and alert Motor Exam: strength 5/5 throughout Psych mental status grossly normal MDM MDM MDM Narrative Medical decision making narrative: Differential diagnosis includes postoperative pain, pulmonary embolism, coagulopathy, anemia, pneumonia, cardiac dysrhythmia, cardiac ischemia, and electrolyte abnormality. EKG will be obtained to assess for cardiac dysrhythmia and cardiac ischemia. Chest x-dariana will be obtained to assess for pneumonia or bronchitis. CBC will be obtained to assess for leukocytosis and anemia. Basic metabolic profile will be obtained to assess for electrolyte abnormality and renal function. High-sensitivity troponin will be obtained to assess for cardiac ischemia. PT was INR will be obtained to assess for coagulopathy. 2-hour repeat high-sensitivity troponin will be obtained to assess for ongoing cardiac ischemia. History & Record Review Additional record(s) reviewed:: Prior outpatient record and Prior labs Lab Data Attestation: I reviewed the patient's lab results. Lab results narrative: CBC was reviewed. There is a mild leukocytosis of 12.5. Hemoglobin was slightly low at 9.9 and hematocrit was 30.2. Platelets were normal. Basic metabolic profile was reviewed. BUN was slightly elevated at 34. Glucose was slightly elevated at 141. The remainder is within normal limits. PT with INR were reviewed and were within normal limits. Initial high-sensitivity troponin was reviewed and was normal at 9. 2-hour repeat high-sensitivity troponin was reviewed and was normal at 10. Labs: Laboratory Results - last 24 hr 09/15/24 09/15/24 14:50 17:00 WBC 12.5 H RBC 3.28 L Hgb 9.9 L Hct 30.2 L MCV 92.1 MCH 30.2 MCHC 32.8 RDW Std Deviation 42.1 RDW Coeff of Mike 12.6 Plt Count 313 MPV 9.1 Immature Gran % (Auto) 0.600 Neut % (Auto) 69.4 Lymph % (Auto) 17.5 L Perry % (Auto) 10.3 H Eos % (Auto) 1.8 Baso % (Auto) 0.4 Absolute Neuts (auto) 8.7 H Absolute Lymphs (auto) 2.18 Nucleated RBC % 0 PT 12.8 INR 0.9 Sodium 135 Potassium 4.3 Chloride 98 Carbon Dioxide 24.4 Anion Gap 13 BUN 34 H Creatinine 1.10 Estim Creat Clear Calc 45.94 L Est GFR (MDRD) Non-Af 53 L BUN/Creatinine Ratio 30.6 H Glucose 141 H Calcium 9.7 Troponin T High Sens 9 D Troponin T Hi Sens 2 Hr 10 Radiography Chest X-Ray - ED: 1 View, Read by ED Physician and Read by Radiologist Diagnostic Testing: Clinical Impression(s) from Imaging Studies Chest X-Ray 09/15/24 14:41 IMPRESSION: Increased interstitial markings, similar to prior and which may represent chronic lung changes and/or pulmonary edema. Lung nodules are better evaluated on recent CT. Reading Location: [facility] Chest CTA 09/15/24 17:45 IMPRESSION: 1. No pulmonary embolism or acute cardiopulmonary abnormality. 2. Pulmonary nodules measuring up to 7 mm, again recommend repeat CT in 3-6 months per Fleischner society guidelines. 3. Reflux of contrast into the hepatic veins and IVC, suggestive of right heart dysfunction. 4. Interval changes from right shoulder arthroplasty. There is subcutaneous emphysema and fluid in the anterior right shoulder, likely expected postoperative findings. Correlate with exam. Reading Location: [facility] Portable 1 view chest x-ray was obtained. On my independent interpretation, lung pope show increased interstitial markings which may represent chronic lung changes. There is normal cardiac silhouette. Bony thorax is normal. There is no acute process noted. Radiologist also interpreted the x-ray and agrees. CTA of the chest was obtained. There is no evidence of pulmonary embolism or acute cardiopulmonary abnormality. There are pulmonary nodules measuring up to 7 mm. These are unchanged. This was interpreted by the radiologist and was also independently reviewed by myself. EKG Initial EKG: Attestation: I personally reviewed and interpreted this EKG as follows: Interpretation: Sinus Rhythm (73) and No Acute Injury Pattern Comments: EKG was obtained. On my independent interpretation, it showed a normal sinus rhythm with a rate of 73. OR interval, QRS interval, and QTc intervals were all normal. [place] was normal. There are no acute ST or T wave changes. Prior EKG tracings: available for review Prior: Unchanged (08/11/2024) Treatment and Re-Evaluation :: Patient was advised findings. Patient was instructed to continue use ice to the area. Patient was instructed to follow-up with her primary care physician in 5 to 7 days. Patient was instructed to follow-up with orthopedic surgeon as scheduled. Patient was instructed to return if worse in any way. Patient understood and was agreeable with the plan. All questions were answered. Discharge Plan Triage Chief Complaint: Chest Pain ED Provider: Viktor Ulloa Dx/Rx/DC Orders Clinical Impression: Chest pain, Status post reverse total arthroplasty of right shoulder, Essential hypertension Instructions: ED Chest Pain, Uncertain Cause Prescriptions: No Action valacyclovir 1 gram tablet 1,000 mg PO Q12H PRN (Reason: Cold Sores) atenolol [Tenormin] 100 MG tablet 100 mg PO QHS tramadol 50 mg tablet 50 mg PO TID PRN (Reason: Pain) albuterol sulfate [Ventolin HFA] 1 INHALER inhaler 1 - 2 puff inhalation Q4H PRN PRN (Reason: Wheezing) lorazepam 0.5 MG tablet 0.5 mg PO Q6H PRN PRN (Reason: Anxiety) aspirin 81 MG tablet,chewable 81 mg PO DAILY@0800 Patient Comments: STOP 7 DAYS PRIOR 02/03 multivitamin Tablet 1 tab PO DAILY clopidogrel [Plavix] 75 mg Tablet 75 mg PO DAILY Patient Comments: stop per Dr. Aragon losartan-hydrochlorothiazide 100-25 mg tablet 1 tab PO DAILY phenazopyridine 95 mg tablet 95 mg PO TID PRN (Reason: URINATION) AZO D-Mannose 500 mg capsule 500 mg PO DAILY amlodipine 5 mg tablet 5 mg PO DAILY ibuprofen [Advil] 200 mg tablet 400 mg PO Q8H PRN (Reason: pain) GLUCOBIO 2 tab PO DAILY estradiol 0.01 % (0.1 mg/gram) cream 1 appful vaginal .3 TIMES WEEKLY acetaminophen 500 mg Tablet 1,000 mg PO Q8 Qty: 180 0RF aspirin 81 mg Tablet,Delayed Release (Dr/Ec) 81 mg PO BID 14 Days Qty: 28 0RF meloxicam 7.5 mg Tablet 7.5 mg PO BID Qty: 60 0RF oxycodone 5 mg Tablet 5 - 10 mg PO Q4H PRN PRN (Reason: Pain Score 4-10) 7 Days Qty: 28 0RF sennosides-docusate sodium [Stimulant Laxative Plus] 8.6-50 mg Tablet 2 tab PO BID Qty: 14 0RF doxycycline hyclate 100 mg tablet 100 mg PO BID 7 Days Qty: 14 0RF Primary Care Provider: Yon Preciado Referrals: Yon Preciado DO [Primary Care Provider] - 5-7 Days Delgado Aragon DO [Med Staff - Active Staff] - Keep Blake appointment Print Language: Belarusian Disposition Disposition: Home, Self Care
--- NOTE | 2024-09-15 17:45 | CT_ITS ---
PROCEDURE: CTA CHEST W/WO CONTRAST 09/15/2024 REASON FOR EXAM: CHEST PAIN TECHNIQUE: CTA CHEST W/WO CONTRAST Multiplanar Sagittal and Coronal images were obtained. 3D post processing was performed CONTRAST: Isovue 370 VOLUME: 100 mL One or more dose reduction techniques were used (e.g., Automated exposure control, adjustment of the mA and/or kV according to patient size, use of iterative reconstruction technique). RADIATION DOSE SUMMARY: CTDlvol: 13.4 mGy DLP: 447 mGycm COMPARISON: CT chest 09/07/2024, chest radiographs 09/15/2024 FINDINGS: Lymph nodes: No significant thoracic lymphadenopathy. Heart: Not significantly enlarged. No pericardial effusion. Multivessel coronary calcifications. Thoracic Aorta: No thoracic aortic aneurysm or dissection. Calcified atherosclerosis. Left subclavian artery stent. Pulmonary Vessels: No evidence of acute pulmonary emboli through the major subsegmental branches. Lungs and Airways: Central airways are predominantly clear. Reticulation at the peripheral aspect of both lungs, unchanged. Nodules measuring up to 7 mm in average axial dimension (series 2, images 169, 176 and 184). Pleura: No effusion. Upper Abdomen: Borderline hypoattenuation of the liver. Reflux of contrast into the IVC and hepatic veins. Bones and soft tissues: Interval postoperative changes from right shoulder arthroplasty. There is subcutaneous emphysema and fluid present in the anterior soft tissues of the right shoulder. Multilevel degenerative changes of the spine. CT/CTA Chest W/WO Contrast IMPRESSION: 1. No pulmonary embolism or acute cardiopulmonary abnormality. 2. Pulmonary nodules measuring up to 7 mm, again recommend repeat CT in 3-6 mo nths per Fleischner society guidelines. 3. Reflux of contrast into the hepatic veins and IVC, suggestive of right hear t dysfunction. 4. Interval changes from right shoulder arthroplasty. There is subcutaneous e mphysema and fluid in the anterior right shoulder, likely expected postoperative findings. Correlate with exam. Reading Location: [facility]
[2024-09-15 18:00] VITALS: BP 146/71; PULSE 69; RESP 16; O2SAT 96
[2024-09-15 18:09] LABS: Troponin T High Sens 2 HR 10 ng/L (<=14)
[2024-09-15 19:24] VITALS: BP 146/79; PULSE 78; RESP 16; TEMP 36.9; O2SAT 99
--- OUTSIDE RECORDS SUMMARY | 2024-09-15 20:52 | XMS RPT_ITS | CCD ---
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 Mark Primary Care Provider [phone] Dr. Yon Preciado Referring Provider [phone] Patricio Funes Attending Provider Dr. Yon Preciado Primary Care Provider [phone] Dr. Yon Preciado Referring Provider [phone] Patricio Funes Attending Provider Dr. Evens Trent Attending Provider Dr. Patricio Funes Referring Provider Dr. Patricio Funes Other Provider Dr. Patricio Funes Admit Provider Dr. Radha Mcnamara Attending Provider Dr. Radha Mcnamara Other Provider Dr. Donna Oliveira Attending Provider [phone] Donna Oliveira Other Provider Dr. Yon Preciado Primary Care Provider [phone] Yon Preciado Referring Provider [phone] Kandace Banks Attending Provider [phone] Dr. Yon Preciado DO Primary Care Provider Dr. Yon Preciado DO Attending Provider [phone] Dr. Simone Goyal MD Attending Provider Dr. Simone Goyal MD Referring Provider Ilana CASTRO Dr. Yon Primary Care Provider [phone] Ilana CASTRO, Dr. Marvin Attending Provider Cuco CAREY, Dr. Simone Conde Attending Provider Cuco CAREY, Dr. Simone Conde Referring Provider Ilana CASTRO, Dr. Marvin Referring Provider Mode CASTRO, Dr. Guo Emergency Provider Mode CASTRO, Dr. Guo Attending Provider Coral CAREY, Dr. Diaz Attending Provider Coral CAREY, Dr. Diaz Referring Provider [phone] Ilana CASTRO, Dr. Marvin Primary Care Provider Ilana CASTRO, Dr. Marvin Attending Provider Mahesh CASTRO, Dr. Natarajan Attending Provider Mahesh CASTRO, Dr. Natarajan Referring Provider [phone] Osmar CAREY, Dr. Yu Attending Provider Ilana, Yon Attending Unavailable Ilana, Yon Primary Care Unavailable Ilana, Yon Referring Unavailable Ilana, Yon Primary Care Unavailable Emily Moncada Referring Unavailable Emily Moncada Attending Unavailable Ilana, Yon Primary Care Unavailable Simone Goyal Referring Unavailable Simone Goyal Attending Unavailable Ilana, Yon Primary Care Unavailable Ilana, Yon Attending Unavailable Ilana, Yon Referring Unavailable Ilana, Yon Primary Care Unavailable Delgado Aragon Attending Unavailable Delgado Aragon Referring Unavailable Ilana, Yon Attending Unavailable Ilana, Yon Primary Care Unavailable Ilana, Yon Primary Care Unavailable Jeffttle, Delgado Referring Unavailable JeffttTosin engs Attending Unavailable Viktor Duggan Unavailable Ilana, Yon Attending Unavailable Ilana, Yon Primary Care Unavailable Ilana, Yon Referring Unavailable Ilana, Yon Attending Unavailable Ilana, Yon Primary Care Unavailable Ilana, Yon Referring Unavailable Ilana, Yon Primary Care Unavailable JeffttDelgado eng Referring Unavailable Jeffttalbertina, Delgado Attending Unavailable Ilana, Yon Primary Care Unavailable Ilana, Yon Attending Unavailable Ilana, Yon Attending Unavailable Ilana, Yon Primary Care Unavailable Ilana, Yon Referring Unavailable Ilana, Yon Attending Unavailable Ilana, Yon Primary Care Unavailable Ilana, Yon Referring Unavailable Ilana, Yon Attending Unavailable Ilana, Yon Primary Care Unavailable Sari Coello Attending Unavailable Ilana, Yon Primary Care Unavailable Ilana, Yon Primary Care Unavailable Sourav Grande Attending Unavailable Ilana, Yon Primary Care Unavailable Gigi Prasad Attending Unavailable Spittle, Delgado Referring Unavailable Ilana, Yon Primary Care Unavailable Spittle, Delgado Referring Unavailable Emiliano Toledo Attending Unavailable Emiliano Toledo Consulting Unavailable Delgado Aragon Consulting Unavailable Ilana CASTRO, Dr. Marvin Primary Care Provider Dr. Yon Preciado DO Attending Provider [phone] Dr. Yon Preciado DO Referring Provider [phone] Dr. Viktor Duggan DO Other Provider Mahesh CASTRO, Dr. Natarajan Other Provider Tre CAREY, Dr. Cummings Attending Provider Tre CAREY, Dr. Cummings Other Provider Allergies Allergy Classification Reported Allergen(s) Allergy Type Date of Onset Reaction(s) Facility (1 source) Clarithromycin; Translations: [CLARITHROMYCIN] Drug Allergy 5 [facility] Repository (1 source) Erythromycin; Translations: [ERYTHROMYCIN] Drug Allergy 5 [facility] Repository (20 sources) Penicillins; Translations: [PENICILLINS] Propensity to adverse reactions to drug (disorder) 5 Swelling [facility] Repository (20 sources) predniSONE; Translations: [PREDNISONE] Drug Allergy 2 [facility] Repository (20 sources) Sulfonamides (Antibiotic); Translations: [SULFA (SULFONAMIDE ANTIBIOTICS)] Propensity to adverse reactions to drug (disorder) 5 Unknown [facility] Repository (20 sources) Erythromycin Drug Allergy 0 Swelling [facility] (3 sources) Minocycline Drug Allergy 0 Unknown [facility] Work Phone: (18 sources) Ciprofloxacin Drug Allergy 2 Other [facility] Comment on above: MAKES HER REALLY SIC K (18 sources) Minocycline Drug Allergy 2 unknown [facility] (1 source) Ciprofloxacin Drug Allergy 5 [facility] Repository (1 source) Erythromycin Drug Allergy 5 [facility] Repository (1 source) Minocycline Drug Allergy 5 [facility] Repository Medications Current Medications Medication Drug Class(es) Dates Sig (Normalized) Sig (Original) acetaminophen 500 mg oral tablet (2 sources) Start: 09-13-2024 take 2 tablets by mouth every eight hours Acetaminophen 500 mg Tablet Active 1000 mg PO EVERY 8 HOURS 180 0 September 13, 2024 12:00am Albuterol (20 sources) beta2-Adrenergic Agonist Start: 06-07-2013 Albuterol Sulfate [...] 4 HOURS NEEDED June 07, 2013 12:00am amLODIPine 5 mg oral tablet (3 sources) Dihydropyridine Calcium Channel Nadya Start: 08-15-2024 take 1 tablet by mouth once daily Amlodipine 5 mg tablet Active 5 mg PO DAILY August 15, 2024 12:00am aspirin 81 mg delayed release oral tablet (20 sources) Platelet Aggregation Inhibitor, Nonsteroidal Anti-inflammatory Drug Start: 09-13-2024 take 1 tablet by mouth twice daily Aspirin 81 mg Tablet,Delayed Release (Dr/Ec) Active 81 mg PO TWICE A DAY 28 14 0 September 13, 2024 12:00am Start: 12-24-2019 take 1 tablet by gabbie th once daily Aspirin 81 MG tablet,chewable Active 81 mg PO DAILY@0800 December 24, 2019 12:00am On Hold: Resume on 09/27/24. atenolol 100 mg oral tablet (20 sources) beta-Adrenergic Nadya Start: 12-18-2012 take 1 [...] 10, 2018 1:00am October 28, 2021 1:29pm D-Mannose (3 sources) Start: 08-15-2024 take 1 capsule by mouth once daily, then take 1 capsule by mouth once D-Mannose (Azo D-Mannose) 500 mg capsule Active 500 mg PO DAILY August 15, 2024 12:00am docusate sodium 50 mg / sennosides, correction 8.6 mg oral tablet (2 sources) Start: 09-13-2024 Sennosides-Docus ate Sodium (Stimulant Laxative Plus) 8.6-50 mg Tablet Active 2 {tbl} PO TWICE A DAY 14 0 September 13, 2024 12:00am doxycycline hyclate 100 mg oral tablet (2 sources) Tetracycline-clas s Drug Start: 09-13-2024 take 1 tablet by mouth twice daily Doxycycline Hyclate 100 mg tablet Active 100 mg PO TWICE A DAY 14 7 0 September 13, 2024 12:00am estradiol 0.1 mg/ml vaginal cream (3 sources) Estrogen Start: 08-15-2024 Estradiol 0.01 % (0.1 mg/gram) cream Active 1 NMA VAGINAL .3 TIMES WEEKLY August 15, 2024 12:00am GLUCOBIO (3 sources) Start: 08-15-2024 GLUCOBIO Active 2 {tbl} PO DAILY August 15, 2024 12:00am hydroCHLOROthiazide 25 mg / losartan potassium 100 mg oral tablet (20 sources) Thiazide Diuretic, Angiotensin 2 Receptor Nadya Start: 01-29-2022 Losartan-Hydroch lorothiazide 100-25 mg tablet Active 1 {tbl} PO DAILY January 29, 2022 1:00am Start: 01-29-2022 take 1 tablet by gabbie th once daily Losartan-Hydrochlorothiazide Active 1 TA BLET PO DAILY January 29, 2022 12:00am Start: 12-24-2019 Losartan-[place] chlorothiazide Active 1 EACH PO DAILY December 24, 2019 12:00am ibuprofen 200 mg oral tablet (20 sources) Nonsteroidal Anti-inflammatory Drug Start: 08-15-2024 take 2 tablets by mouth every eight hours as needed for pain Ibuprofen (Advil) 200 mg tablet Active 400 mg PO Q8H as needed for pain August 15, 2024 12:00am Start: 01-29-2022 End: 02-05-2022 take 2 tablets by mouth every eight hours as needed for pain Ibuprofen 200 mg Tablet Discontinued 400 mg PO Q8H as needed for Pain January 29, 2022 1:00am February 05, 2022 9:58am Start: 01-29-2022 End: 02-05-2022 take 400 mg by mouth every eight hours Ibuprofen Discontinued 400 MG PO Q8H January 29, 2022 12:00am February 05, 2022 8:58am LORazepam 0.5 mg oral tablet (20 sources) Benzodiazepine Start: 12-24-2019 take 1 tablet by mouth every six hours as needed for anxiety Lorazepam 0.5 MG tablet Active 0.5 mg PO EVERY 6 HOURS NEEDED as needed for Anxiety December 24, 2019 12:00am meloxicam 7.5 mg oral tablet (2 sources) Nonsteroidal Anti-inflammatory Drug Start: 09-13-2024 take 1 tablet by mouth twice daily Meloxicam 7.5 mg Tablet Active 7.5 mg PO TWICE A DAY 60 0 September 13, 2024 12:00am Multivitamin preparation (10 sources) Start: 01-29-2022 take 1 tablet by mouth once daily Multivitamin Active 1 TABLET PO DAILY January 29, 2022 1:00am Start: 01-29-2022 take 1 tablet by gabbie th once daily Multivitamin Active 1 TABLET PO DAILY January 29, 2022 12:00am Multivitamin Tablet (8 sources) Start: 01-29-2022 Multivitamin T ablet Active 1 {tbl} PO DAILY January 29, 2022 1:00am Start: 01-29-2022 Multivitamin T ablet Active 1 {tbl} PO DAILY January 29, 2022 12:00am oxyCODONE hydrochloride 5 mg oral tablet (2 sources) Opioid Agonist Start: 09-13-2024 take 5-10 mg by mouth every four hours as needed for pain Oxycodone 5 mg Tablet Active 5 - 10 mg PO EVERY 4 HOURS NEEDED as needed for Pain Score 4-10 28 7 0 September 13, 2024 Status post reverse total replacement of right shoulder Presence of right artificial shoulder joint phenazopyridine hydrochloride 95 mg oral tablet (20 sources) Start: 01-29-2022 End: 03-23-2023 take 1 tablet by mouth three times daily as needed Phenazopyridine 95 mg tablet Active 95 mg PO THREE TIMES A DAY as needed for URINATION March 23, 2023 4:23pm Start: 10-28-2021 Phenazopyridin e Active MG PO .prn October 28, 2021 12:00am traMADol hydrochloride 50 mg oral tablet (20 sources) Opioid Agonist Start: 02-03-2022 take 1 tablet by mouth three times daily as needed for pain Tramadol 50 mg tablet Active 50 mg PO THREE TIMES A DAY as needed for Pain February 03, 2022 10:19am On Hold: Resume on 09/27/24. Start: 12-18-2012 End: 02-03-2022 take 1 tablet [...] / oxyCODONE hydrochloride 5 mg oral tablet (18 sources) Opioid Agonist Start: 02-12-2022 End: 02-22-2022 Oxycodone-Acetaminoph en 5-325 mg tablet Discontinued 1 {tbl} PO EVERY 6 HOURS as needed for pain 40 10 February 12, 2022 February 21, 2022 1:00am February 22, 2022 1:11am Spinal stenosis of lumbar region Status post laminectomy Spinal stenosis, lumbar region without neurogenic claudication Other specified postprocedural states Start: 02-12-2022 End: 02-22-2022 take 1 tablet by mouth every six hours Oxycodone-Acetaminophen Discontinued 1 TABLET PO EVERY 6 HOURS 40 February 12, 2022 February 22, 2022 12:11am ciprofloxacin 500 mg oral tablet (20 sources) Quinolone Antimicrobial Start: 12-24-2019 End: 10-28-2021 take 1 tablet by mouth twice daily Ciprofloxacin Hcl 500 MG tablet Discontinued 500 mg PO TWICE A DAY 14 December 24, 2019 12:00am October 28, 2021 1:26pm Cranberry Fruit (20 sources) Non-Standardized Food Allergenic Extract, Non-Standardized Plant [...] 2018 1:00am hydroCHLOROthiazide 25 mg oral tablet (20 sources) Thiazide Diuretic Start: 12-18-2012 End: 10-28-2021 take 1 tablet by mouth once daily Hydrochlorothiazide 25 MG tablet Discontinued 25 mg PO DAILY December 18, 2012 12:00am October 28, 2021 1:28pm metroNIDAZOLE 500 mg oral tablet (20 sources) Nitroimidazole Antimicrobial Start: 12-24-2019 End: 10-28-2021 take 1 tablet by mouth every eight hours Metronidazole 500 MG tablet Discontinued 500 mg PO Q8H December 24, 2019 12:00am October 28, 2021 1:29pm tiZANidine 4 mg oral tablet (7 sources) Central alpha-2 Adrenergic Agonist Start: 05-12-2024 End: 08-15-2024 Tizanidine (Zanaflex) 4 mg tablet Discontinued 2 - 4 mg PO Q8H as needed for muscle spasticity 15 0 May 12, 2024 12:00am August 15, 2024 3:31pm Problems Active Problems Problem Classification Problem Date Documented Da te Episodic/Chronic Conditions associated with dizziness or vertigo (20 sources) Vertigo; Translations: [Dizziness and giddiness] 10-16-2018 Episodic Diabetes mellitus without complication (19 sources) Diabetes mellitus; Translations: [Type 2 diabetes mellitus without complications] 02-03-2022 Chronic Comment on above: NO MEDS, DIET CONTRO LLED Disorders of lipid metabolism (20 sources) Hyperlipidemia; Translations: [Hyperlipidemia, unspecified] Chronic E Codes: Fall (8 sources) Fall; Translations: [Unspecified fall, initial encounter] 08-08-2023 Episodic Essential hypertension (20 sources) Essential hypertension; Translations: [Essential (primary) hypertension] Onset: 09-13-2024 Chronic Headache; including migraine (7 sources) Headache; Translations: [Headache] 05-12-2024 Episodic Headache; including migraine (1 source) Headache; including migraine; Translations: [Headache, unspecified] Onset: 05-23-2024 Nonspecific chest pain (16 sources) Chest pain; Translations: [Chest pain, unspecified] Onset: 10-10-2023 09-30-2023 Episodic Occlusion or stenosis of precerebral arteries (20 sources) Carotid artery stenosis; Translations: [Occlusion and stenosis of unspecified carotid artery] Chronic Osteoarthritis (1 source) Primary osteoarthritis, right shoulder; Translations: [Primary osteoarthritis, right shoulder] Onset: 08-17-2024 Chronic Other and ill-defined heart disease (19 sources) Heart disease; Translations: [Heart disease, unspecified] 02-03-2022 Chronic Other circulatory disease (1 source) Stricture of artery; Translations: [Stricture of artery] Onset: 05-05-2024 Chronic Other circulatory disease (3 sources) H/O: hypertension; Translations: [Personal history of other diseases of the circulatory system] Episodic Other connective tissue disease (1 source) Presence of right artificial shoulder joint; Translations: [Presence of right artificial shoulder joint] Onset: 09-13-2024 Chronic Other connective tissue disease (4 sources) History of reverse prosthetic total arthroplasty of right shoulder; Translations: [Presence of right artificial shoulder joint] 09-12-2024 Chronic Other connective tissue disease (1 source) Unspecified rotator cuff tear or rupture of right shoulder, not specified as traumatic; Translations: [Unspecified rotator cuff tear or rupture of right shoulder, not specified as traumatic] Onset: 08-02-2024 Episodic Other injuries and conditions due to external causes (8 sources) Closed injury of head; Translations: [Unspecified injury of head, initial encounter] 08-08-2023 Episodic Other lower respiratory disease (20 sources) H/O: asthma; Translations: [Personal history of other diseases of the respiratory system] 02-03-2022 Episodic Other lower respiratory disease (1 source) Solitary pulmonary nodule; Translations: [Solitary pulmonary nodule] Onset: 09-07-2024 Episodic Other lower respiratory disease (1 source) Other nonspecific abnormal finding of lung field; Translations: [Other nonspecific abnormal finding of lung field] Onset: 09-07-2024 Episodic Other nutritional; endocrine; and metabolic disorders (3 sources) H/O: raised blood lipids; Translations: [Personal history of other endocrine, nutritional and metabolic disease] Episodic Other screening for suspected conditions (not mental disorders or infectious disease) (14 sources) Endometrium thickened; Translations: [Abnormal findings on diagnostic imaging of other specified body structures] 03-23-2023 Chronic Comment on above: EMB done, repeat US. may need d and c hysteroscopy symphion Peripheral and visceral atherosclerosis (18 sources) Peripheral vascular disease, unspecified; Translations: [Peripheral arterial disease] 02-03-2022 Chronic Residual codes; unclassified (20 sources) H/O: endocrine disorder; Translations: [Personal history of other specified conditions] 08-06-2015 Episodic Residual codes; unclassified (20 sources) History of chest pain; Translations: [Personal history of other specified conditions] 02-03-2022 Episodic Residual codes; unclassified (18 sources) H/O Spinal surgery; Translations: [Other specified postprocedural states] 02-12-2022 Episodic Residual codes; unclassified (2 sources) Other specified postprocedural states; Translations: [Other postprocedural status] Episodic Screening and history of mental health and substance abuse codes (20 sources) Tobacco use and exposure - finding; Translations: [Personal history of nicotine dependence] 02-03-2022 Episodic Spondylosis; intervertebral disc disorders; other back problems (20 sources) Spinal stenosis of lumbar region; Translations: [Spinal stenosis, lumbar region without neurogenic claudication] Episodic Sprains and strains (15 sources) Sprain of left wrist; Translations: [Unspecified sprain of left wrist, initial encounter] 08-08-2023 Episodic Superficial injury; contusion (8 sources) Contusion of back; Translations: [Contusion of unspecified back wall of thorax, initial encounter] 08-08-2023 Episodic Past or Other Problems Problem Classification Problem Date Documented Da te Episodic/Chronic Genitourinary symptoms and ill-defined conditions (1 source) Dysuria; Translations: [Dysuria] Onset: 03-24-2024 Episodic Nonmalignant breast conditions (1 source) Mastodynia; Translations: [Mastodynia] Onset: 12-09-2023 Episodic Urinary tract infections (1 source) Urinary tract infection, site not specified; Translations: [Urinary tract infection, site not specified] Onset: 06-08-2024 Episodic Results Test Name Value Interpretation Reference Range Facility Anion gap in Serum or Plasma Ordered By: Delgado Aragon on 09-13-2024 Anion gap [Moles/Vol] 12 mmol/L 07-14 [facility] BUN/creatinine ratioOrdered By: Delgado Aragon on 09-13-2024 Urea nitrogen/Creatinine [Mass ratio] 20.7 mg/mg High 12-19 [facility] Basic Metabolic Profile (BMP )on 09-13-2024 BUN/CRE 20.7 RATIO High 12-19 [facility] Comment on above: Performed By: #### L 500.2500, L100.0500 #### [facility] [address] [place], [address] ECRCL 44.53 ml/min Low 50-250 [facility] Comment on above: Performed By: #### L 500.2500, L100.0500 #### [facility] [address] [place], [address] GAP 12 Normal 07-14 [facility] Comment on above: Performed By: #### L 500.2500, L100.0500 #### [facility] [address] [place], [address] Potassium [Moles/Vol] 4.4 mmol/L Normal 3.3-5.1 [facility] Comment on above: Performed By: #### L 500.2500, L100.0500 #### [facility] [address] [place], [address] Basic Metabolic Profile (BMP )Ordered By: Delgado Aragon on 09-13-2024 Calcium [Mass/Vol] 8.9 mg/dL 7.6-11.0 [facility] Comment on above: Performed By: #### L 500.2500, L100.0500 #### [facility] [address] [place], [address] Chloride [Moles/Vol] 97 mmol/L Low 98-108 [facility] Comment on above: Performed By: #### L 500.2500, L100.0500 #### [facility] [address] [place], [address] CO2 [Moles/Vol] 21.5 mmol/L 21.0-32.0 [facility] Comment on above: Performed By: #### L 500.2500, L100.0500 #### [facility] [address] [place], [address] Creatinine [Mass/Vol] 1.13 mg/dL 0.70-1.20 [facility] Comment on above: Performed By: #### L 500.2500, L100.0500 #### [facility] [address] [place], [address] GFR/1.73 sq M.predicted among non-blacks MDRD (S/P/Bld) [Vol rate/Area] 51 mL/min/{1.73_m2} Low >60 [facility] Comment on above: Result Comment: mL/m in/1.73m2 CKD-EPI Creatinine Equation (2020) Performed By: #### L 500.2500, L100.0500 #### [facility] [address] [place], [address] mL/min/1.73m2 CKD-EP I Creatinine Equation (2020) Glucose [Mass/Vol] 193 mg/dL High 70-99 [facility] Comment on above: Performed By: #### L 500.2500, L100.0500 #### [facility] [address] [place], [address] Sodium [Moles/Vol] 131 mmol/L Low 133-145 [facility] Comment on above: Performed By: #### L 500.2500, L100.0500 #### [facility] [address] [place], [address] Urea nitrogen [Mass/Vol] 23 mg/dL High 4-19 [facility] Comment on above: Performed By: #### L 500.2500, L100.0500 #### [facility] [address] [place], [address] Bedside Glucoseon 09-13-2024 FINGERSTICK GLU 189 mg/dL High 74-106 [facility] Comment on above: Result Comment: BERNARD MONCADA OF PATIENT CARE PER NURSING PROTOCOL Performed By: #### L 500.2500, L100.0500 #### [facility] [address] [place], [address] CBC-Complete Blood Cnt No Di ffOrdered By: Delgado Aragon on 09-13-2024 Erythrocyte distribution width (RBC) [Ratio] 12.1 % 11.6-14.6 [facility] Comment on above: Performed By: #### L 500.2500, L100.0500 #### [facility] [address] [place], [address] Hematocrit (Bld) [Volume fraction] 27.8 % Low 37-47 [facility] Comment on above: Performed By: #### L 500.2500, L100.0500 #### [facility] [address] [place], [address] Hemoglobin (Bld) [Mass/Vol] 9.5 g/dL Low 12.0-15.0 [facility] Comment on above: Performed By: #### L 500.2500, L100.0500 #### [facility] [address] [place], [address] MCH (RBC) [Entitic mass] 30.9 pg 27.0-32.0 [facility] Comment on above: Performed By: #### L 500.2500, L100.0500 #### [facility] [address] [place], [address] MCHC (RBC) [Mass/Vol] 34.2 g/dL 32-36 [facility] Comment on above: Performed By: #### L 500.2500, L100.0500 #### [facility] [address] [place], [address] MCV (RBC) [Entitic vol] 90.6 fL 81-99 [facility] Comment on above: Performed By: #### L 500.2500, L100.0500 #### [facility] [address] [place], [address] Platelet mean volume (Bld) [Entitic vol] 8.8 fL 6.2-12.0 [facility] Comment on above: Performed By: #### L 500.2500, L100.0500 #### [facility] [address] [place], [address] Platelets (Bld) [#/Vol] 285 10*3/uL 150-450 [facility] Comment on above: Performed By: #### L 500.2500, L100.0500 #### [facility] [address] [place], [address] RBC (Bld) [#/Vol] 3.07 10*6/uL Low 4.2-5.4 [facility] Comment on above: Performed By: #### L 500.2500, L100.0500 #### [facility] [address] [place], [address] WBC (Bld) [#/Vol] 18.7 10*3/uL High 4.4-11.0 [facility] Comment on above: Performed By: #### L 500.2500, L100.0500 #### [facility] [address] [place], [address] CBC-Complete Blood Cnt No Di ffon 09-13-2024 RDW SD 39.8 fl Normal 35.1-43.9 [facility] Comment on above: Performed By: #### L 500.2500, L100.0500 #### [facility] [address] [place], [address] Erythrocyte distribution wid th standard deviationOrdered By: Delgado Aragon on 09-13-2024 Erythrocyte distribution width (RBC) [Ratio] 39.8 fl 35.1-43.9 [facility] Glucose measurement at bedsi deOrdered By: Delgado Aragon on 09-13-2024 Glucose [Mass/Vol] 189 mg/dL High [address] [place] [address] Comment on above: MANAGEMENT OF PATIEN T CARE PER NURSING PROTOCOL Potassium measurement (mass/ volume)Ordered By: Delgado Aragon on 09-13-2024 Potassium (Unsp spec) [Mass/Vol] 4.4 mmol/L 3.3-5.1 [facility] Bedside Glucoseon 09-12-2024 FINGERSTICK GLU 116 mg/dL High [address] [place] [address] Comment on above: Result Comment: BERNARD GEMENT OF PATIENT CARE PER NURSING PROTOCOL Performed By: #### L 500.2500, L100.0500 #### [facility] [address] [place], [address] FINGERSTICK GLU 180 mg/dL High [address] [place] [address] Comment on above: Result Comment: EBRNARD GEMENT OF PATIENT CARE PER NURSING PROTOCOL Performed By: #### L 501.080 ####[facility] [address] [place], [address] Consultation - Hospitaliston 09-12-2024 Consultation - Hospitalist [facility] Medical Records Department [address] [place] [address] Consultation - Hospitalist 09/12/24 1356 MR#: [id number] Acct: [id number] Name: FIOR SHIPMAN Rep #: [id number] : 1950 73 From: Emiliano Toledo MD PCP: Dr. Yon Preciado, DO Status:REG [facility] Location: [facility] [place] [id number] Assessment Plan Assessment/Plan (1) Essential hypertension: (2) Status post reverse total arthroplasty of right shoulder: PLAN: Plan This 73-year-old female is being consulted for perioperative management of her right shoulder arthroplasty 1. Perioperative management of right reverse total shoulder arthroplasty: Patient had primary right shoulder/glenohumeral joint osteoarthritis for which patient had surgery today on 09/12/2024. Pain control, PT and OT ordered. Bowel and bladder care. DVT prophylaxis as per primary attending. 2. CAD status post cardiac stent 8 years ago, chronic HFpEF: Currently patient is asymptomatic with no chest pain pressure or tightness or acute shortness of breath. Preoperative twelve-lead EKG reviewed shows sinus bradycardia at 55 bpm. Otherwise normal ECG. Echo 02/10/2022: It is suggestive of mild chronic HFpEF. Patient does not have any leg swellings or features of acute shortness of breath. Interpretation Summary Normal LV size. Left ventricular systolic function is normal. The estimated ejection fraction is 60 %. Pulmonary artery systolic pressure is 33 mmHg. Stage 2 diastolic dysfunction. 3. Chronic PAD/left subclavian stenosis and bilateral carotid stenosis: Patient had vascular study in April 2024 which showed wrist brachial index 1.19 on the right side and 1.17 on left side. Doppler waveforms were biphasic in the right and left radial and ulnar arteries. It is reported as normal bilateral upper extremity arterial duplex exam. Carotid duplex in January 2023 shows severe more than 70% stenosis of right ICA and severe left ICA. 4. Hypertension: 5. COPD/asthmatics: No acute COPD exacerbation. Continue baseline inhalers. 6. Hypertension and dyslipidemia: Blood pressure is normal 129/63. Continue home antihypertensive medications with holding parameters 7. DM type II: Last A1c 7.5% in July 2024. Accu-Chek before meals and at bedtime with Humalog sliding scale coverage and hypoglycemia protocol. 8. Other comorbidities include psoriasis, rheumatoid arthritis and fibromyalgia: Home medication reconciliation done HPI Consult Data Date of Consult: 09/12/24 HPI Narrative Reason for Consultation: Perioperative management of right shoulder replacement surgery HPI Narrative: FIOR SHIPMAN, is a 73 F who was admitted after she had elective right reverse total shoulder arthroplasty for primary right glenohumeral joint osteoarthritis. Patient states mild pain about 2???3/10 intensity localized to right shoulder. Denies chest pain or acute shortness of breath. She has mild baseline shortness of breath with history of COPD. Not on home oxygen. She has 20 pack years of cigarette smoking but quit 37 years ago. History of CAD status post stent about 8 years ago. Denies any recent chest pressure or tightness on exertion/MD. Patient had winded after the surgery. Last BM today in the morning. [facility] Medical History History of steroid therapy Fatty liver Excessive bleeding Hypertension Subclavian artery stenosis, left Generalized anxiety disorder [...] tablet (Tenormin) 100 mg PO QHS 12/18/12 09/11/24 H istory albuterol sulfate 90 mcg/actuation 1 - 2 puff inhalation Q4H PRN SC N 06/07/13 Unknown History aerosol inhaler (Ventolin HFA) Wheezing aspirin 81 mg chewable tablet 81 mg PO DAILY@0800 12/24/1909/05 History lorazepam 0.5 mg tablet 0.5 mg PO Q6H PRN PRN Anxiety 12/01 06/19 Unknown History clopidogrel 75 mg tablet (Plavix) 75 mg PO DAILY 01/29/22 09/05/24 History losartan 100 1 tab PO DAILY 01/29/22 09/11/24 H istory mg-hydrochlorothiazide 25 mg tablet multivitamin 1 tab PO DAILY 01/29/22 Unknown Hi story tramadol 50 mg tablet 50 mg PO TID PRN Pain (more content not included)... Normal [facility] MR/POSTOP.ANEon 09-12-2024 MR/POSTOP.[facility] Medical Records Department [address] [place] [address] Anesthesia Postop Eval I 09/12/24 1159 MR#: [id number] Acct: [id number] Name: FIOR SHIPMAN Rep #: [id number] : 1950 73 From: Julieta Allen CRNA PCP: Dr. Yon Preciado, DO Status:REG SDC Y Race: C Location: [place] [address] Anesthesia: Postop Eval I Current Vital Signs Temperature: 97 F Pulse Rate: 72 Blood Pressure: 113/57 Respiratory Rate: 16 Pulse Ox: 100 Oxygen Delivery Method: Simple Mask Oxygen Flow Rate (L/min): 6 Assessment Airway patent: Yes Spontaneous unlabored respirations: Yes Mental status: Asleep nausea: No Vomiting: No Anesthesia Complication: No Fluid Hydration Crystalloid volume administer (ml): 1,000 Total IV fluid infused: 1,000 Progress Note Anesthesia document: Postop Eval 1 completed: Yes 09/12/24 1200 Date Julieta Allen CRNA Cosigner Signature: Date CC: Signed [facility] MR/[id number] 09-12-2024 MR/POSTOPAN2 [facility] Medical Records Department [address] [place] [address] Anesthesia Postop Eval II 09/12/24 1313 MR#: [id number] Acct: [id number] Name: FIOR SHIPMAN Rep #: [id number] : 1950 73 From: Moshe Michel MD PCP: Dr. oYn Preciado, DO Status:REG SDC Y Race: C Location: [place] [address] Anesthesia Postop Eval I Sum Postop Eval Completion status Anesthesia document: Postop Eval 1 completed: Yes Anesthesia Postop Eval I Summary Anesthesia Postop Eval I Summary: Anesthesia Postop Eval I: Assessment Summary Airway patent Yes 09/12/24 12:00 SKI BINDING FITTER AND REPAIRER.SKOBY Spontaneous unlabored Yes 09/12/24 12:00 SKI BINDING FITTER AND REPAIRER.RENEOBNacho respirations Mental status Asleep 09/12/24 12:00 SKI BINDING FITTER AND REPAIRER.SKOBY nausea No 09/12/24 12:00 SKI BINDING FITTER AND REPAIRER.SKOBY Vomiting No 09/12/24 12:00 SKI BINDING FITTER AND REPAIRER.SKOBNacho Anesthesia Postop Eval I: Fluid Summary Crystalloid volume administer 1,000 09/12/24 12:00 SKI BINDING FITTER AND REPAIRER.SKOBY (ml) Colloids volume administered ( ml) Blood Product volume administered (ml) Total IV fluid infused 1,000 09/12/24 12:00 SKI BINDING FITTER AND REPAIRER.RENEOBNacho Anesthesia Postop Eval I: Summary Notes Anesthesia Complication No 09/12/24 12:00 SKI BINDING FITTER AND REPAIRER.KHLOE Anesthesia Complication Comment: Post-operative progress note Anesthesia: Postop Eval II Evaluation Mental status: Awake and Calm Pain Level: 1 nausea: No Vomiting: No Complications Anesthesia Complication: No 09/12/24 1313 Date Moshe Michel MD Cosigner Signature: Date CC: Signed Normal [facility] Operative Reporton 5 Operative Report [facility] Medical Records Department [address] [place] [address] Operative Report 09/12/24 1217 MR#: [id number] Acct: [id number] Name: SHIPMANFIOR Rep #: [id number] : 1950 73 From: Delgado Aragon DO PCP: Dr. Yon Preciado DO Status:[facility] Location: [place] [address] Operative Report (Standard) Operative Information Date of Procedure: 09/12/24 Pre-Operative Diagnosis: 1. Primary right glenohumeral joint osteoarthritis 2. Right shoulder rotator cuff tear Post-Operative Diagnosis: 1. Primary right glenohumeral joint osteoarthritis 2. Right shoulder rotator cuff tear Surgery/Procedure Performed: Right reverse total shoulder arthroplasty copyright clerk: Yes Avionics Systems Engineer: Sara Dodson Tasks completed by psychological assistant: Opening closing, Implanting device, Hemostasis: Electrocautery and Retracting Additional merchandising assistant?: No Type of Anesthesia: General/Regional RN Documented Start/Stop Times: Operation Date: 09/12/24 10:15 Case Time Into Pre-Op 09/12/24 08:16 Anesthesia Start 09/12/24 10:02 Into Room 09/12/24 10:02 Procedure Start 09/12/24 10:33 Procedure End 09/12/24 11:46 Anesthesia End 09/12/24 11:53 Out of Room 09/12/24 11:53 Into Recovery 09/12/24 11:57 Procedure Start Time: 10:33 Procedure Stop Time: 11:46 Select all DRAINS/GRAFTS/IMPLANTS that apply: Implanted device Implanted device details: Surgical implants: Tornier Aequalis PerFORM+ reversed baseplate 25 mm diameter +3 mm lateralization, standard glenosphere cobalt chrome 36 mm diameter, Tornier perform inlay stem size #3, + 6 mm retentive size number 3 36 mm diameter polyethylene insert, short central post and peripheral screws x4. Estimated Blood Loss: 75 cc Specimen collected: Yes Description of specimen(s) removed: Right humeral head Description of surgery: Patient arrived to [facility] morning of the procedure and was greeted by the same day surgery staff. Prior to his procedure, I greeted the patient in the preoperative holding area I identified the patient by name, record number, and date of . Informed consent was confirmed. The operative extremity was marked. All questions were answered to patient satisfaction. An interscalene block was administered prior to procedure by anesthesia staff for postoperative and intraoperative analgesia. At time of his procedure, patient was brought to the operative suite and positioned supine on a standard table with a beachchair attachment. General anesthesia was induced after all bony prominences were well-padded. Endotracheal tube was placed. After adequate anesthesia and securing the tube, we prepared the patient to be positioned in the beachchair position. A well-padded head of measurement & insights was applied. The nonoperative extremity was placed in a well arm quiñones. She was then brought into the beachchair position after we confirmed an appropriate blood pressure. We then spun the bed 45 degrees. The operative extremity was then prepared. Then the butterfly wing of the bed was removed and a well-padded torso strap was applied to secure the patient to the bed. The operative extremity was now free. A preliminary hydrogen peroxide prep was performed. We then prepped and draped the right upper extremity in normal, sterile orthopedic fashion with chlorhexidine. We then performed a timeout with all parties in attendance in agreement with the side, site, and operation be performed. 2 g Ancef was administered prior to incision by anesthesia staff, as well as 1 g TXA IV. No concerns were voiced and we elected to proceed. I first marked a standard deltopectoral incision just lateral to the coracoid process in line with the long axis of the humerus. Skin was sharply incised with 10 blade scalpel. I then dissected bluntly through the subcutaneous layers and found the fat stripe between the deltoid and pectoralis major. The cephalic vein was then identified and protected. It was retracted laterally with the deltoid. I then bluntly dissected underneath the deltoid with a Strong elevator. [place] retractor was placed. The upper 1 cm of the pectoralis major was released. I then identified the long head of the biceps tendon in the intertubercular groove. This was tenodesed in situ with #2 FiberWire. I then amputated the biceps proximal to the tenodesis site and followed the tendon to the supraglenoid tubercle where it was amputated. This identified the lesser and greater tuberosities. The supraspinatus was completely torn and retracted. I then performed a subscapularis peel while rotating the humerus externally. I tagged the subscapularis for possible repair later with a tagging suture. Humeral head was then dislocated anteriorly. Appropriate access to the humeral head was confirmed. I then subluxed the humeral head posteriorly with a Fukuda retractor placed around the posteri (more content not included)... Normal [facility] Shoulder min 2 Viewson 09-12 Shoulder min 2 Views [facility] Imaging Services [address] [place], [place] [address] Shoulder min 2 Views MR#: [id number] Acct: [id number] Name: FIOR SHIPMAN Rep #: [id number] : 1950 F 73 From: Jesse Mercado MD PCP: Dr. Yon Preciado DO Status: REG [facility] Study: Shoulder min 2 Views Date of Exam: 09/12/24 Exam# [id number] Ordering Dr: Delgado Aragon DO PROCEDURE: SHOULDER MIN 2 VIEWS 09/12/2024 REASON FOR EXAM: POST OP TECHNIQUE: SHOULDER MIN 2 VIEWS COMPARISON: None FINDINGS: There is a reverse shoulder prosthesis in position which appears aligned. The AC joint is aligned. RAD/Shoulder min 2 Views IMPRESSION: Hardware in position. Reading Location: [facility] CC: Dr. Yon Preciado DO; Dr. Delgado Aragon DO Full Stack Php Developer: Signed Normal [facility] Chest WITH Contraston 2024 Chest WITH Contrast [facility] Imaging Services [address] [place] [address] Chest WITH Contrast MR#: [id number] Acct: [id number] Name: FIOR SHIPMAN Rep #: [id number] : 1950 F 73 From: Tono Stephen MD PCP: Dr. Yon Preciado DO Status: REG CLI Study: Chest WITH Contrast Date of Exam: 09/07/24 Exam# [id number] Ordering Dr: Yon Preciado DO PROCEDURE: CHEST WITH CONTRAST 09/07/2024 REASON FOR EXAM: SOLITARY PULM NODULE; follow-up TECHNIQUE: CHEST WITH CONTRAST Coronal and Sagittal reconstruction series were provided. CONTRAST: Isovue 300 VOLUME: 97 mL One or more dose reduction techniques were used (e.g., Automated exposure control, adjustment of the mA and/or kV according to patient size, use of iterative reconstruction technique). RADIATION DOSE SUMMARY: DLP: 466.53 mGycm COMPARISON: CT right upper extremity 08/11/2024. No other relevant prior exams. FINDINGS: Lungs/pleura: Spiculated 7 mm nodule in the anterior right lung apex (S4 image 36). Additional smaller spiculated and partially subsolid nodule measuring 4 mm in the right apex (S4 image 33). 5 mm solid nodule in the right upper lobe (S4 image 41). Comparison is made with CT of the right upper extremity 08/11/2024 for baseline, no significant interval change. Mild diffuse bilateral subpleural reticular/interstitial fibrotic lung changes. No confluent airspace consolidation. Patent central airways. No pneumothorax or pleural effusions. Mediastinum/nodes: No enlarged mediastinal, hilar, or axillary lymph nodes. Heart and Vasculature: Normal in size. No pericardial effusion. Moderate coronary artery calcifications. Normal course and caliber of the visualized thoracic aorta. Moderate atherosclerotic disease. Vascular stent in place within the origin of the left subclavian artery. Upper Abdomen: Hepatic steatosis. Otherwise, unremarkable. Bones: Qualitative osteopenia. No aggressive osseous lesion identified. Multilevel degenerative changes of the spine with thoracic DISH. Moderate bilateral glenohumeral and AC joint arthrosis. CT/Chest WITH Contrast IMPRESSION: Few subcentimeter nodules in the right upper lobe as noted, the largest with spiculated margins and measuring up to 7 mm. Unchanged compared with CT of the right upper extremity dated 08/11/2024. Recommend follow-up low-dose noncontrast chest CT in 3-6 months to reassess. Reading Location: [facility] CC: Dr. Yon Preciado DO Full Stack Php Developer: Signed Normal [facility] MR/PAT.ANEon 08-15-2024 MR/PAT.[facility] Medical Records Department [address] [place] [address] PAT - Anesthesia 08/15/241928 MR#: [id number] Acct: [id number] Name: FIOR SHIPMAN Rep #: [id number] : 1950 73 From: Jasper Ospina MD PCP: Dr. Yon Preciado DO Status:PRE [facility] Y Race: C Location: [facility] Pre-Assessment Diagnosis/Proposed Procedure Planned Operative Procedure(s): (R) RIGHT REVERSE TOTAL SHOULDER ARTHROPLASTY, ERAS Anesthesia History Anesthesia History - facilities technician: Anesthesia History - facilities technician Hx Hospitalization No 08/15/24 15:45 Any Problems With Anesthesia No 08/15/24 15:45 Cholinesterase deficiency No 08/15/24 15:45 You/Your Family Experience No 08/15/24 15:45 fever (hyperthermia) with Relationship Recent Exposure to Contagious No 02/11/22 06:11 Disease Does patient have nerve No 08/15/24 15:45 stimulator Patient instructed to have device shut off --Does patient have Pacemaker or ICD? When Was Last Pacemaker Check QUESTION #4 FULL TEXT: You/Your Family Experience fever (hyperthermia) with Anesthesia Last Oral Intake Last Oral intake: Last Oral Intake NPO since Meds taken in AM with sips of water? Meds patient instructed to take am of surgery PONV PONV - facilities technician: PONV - facilities technician Female Yes 08/15/24 15:45 HX of Motion Sickness No 08/15/24 15:45 HX of N/V After Surgery No 08/15/24 15:45 Non-Smoker Yes 08/15/24 15:45 Duration of Surgery greater Yes 08/15/24 15:45 than 60 minutes Number of Risk Factors 3 08/15/24 15:45 PONV Score Moderate Risk 08/15/24 15:45 Height Weight Height Weight: Anesthesia: Height Weight Height 5 ft 4 in 05/11/24 22:51 Respiratory Assessment Respiratory Assessment - facilities technician: Respiratory Tract Infection Hx - facilities technician Hx Respiratory Tract Infection No 08/15/24 15:45 STOP Sleep Apnea STOP Sleep Apnea - facilities technician: STOP Sleep Apnea - facilities technician Hx Hypertension Yes: CONTROLLED ON MED 08/15/24 15:45 Hx Sleep Apnea No 08/15/24 15:45 CPAP No 08/15/24 15:45 BIPAP No 08/15/24 15:45 Do you snore loudly (louder No 08/15/24 15:45 than talking or can be heard Do you often feel tired/ No 08/15/24 15:45 fatigued/ sleepy during daytime? Has anyone observed you stop No 08/15/24 15:45 breathing during sleep? STOP Results Negative 08/15/24 15:45 QUESTION #5 FULL TEXT : Do you snore loudly (louder than talking or can be heard through closed doors)? 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 Specify any problems Hx of Preganancy in last 3 No 08/15/24 15:45 Months Nurse Filling Out Transfusion VCHRISTIN 08/15/24 15:45 Questions: Date: 08/15/24 08/15/24 15:45 Time: 15:48 08/15/24 15:45 Patient unable to answer at this time (ie. confused, unrespo /Reproduction History /Reproductive History - facilities technician: /Reproductive Hx- facilities technician Hx Now No 08/15/24 15:45 Gestational Age (in weeks): EDC: Hx Hx Para Hx Section SAB No 08/15/24 15:45 [facility] Medical History (Updated 08/15/24 @ 15:45 by Lashell Prasad) History of steroid therapy Fatty liver Excessive bleeding Hypertension Subclavian artery stenosis, left Generalized anxiety disorder [...] of stress test Chest pain Heart disease Lucero (more content not included)... Normal [facility] Electrocardiogram reportOrde red By: Gigi Prasad on 08-12-2024 EKG study [facility] Cardiovascular Services [address] [place] [address] 12 Lead EKG 08/11/24 0716 MR#: [id number] Acct: [id number] Name: FIOR SHIPMAN Rep #:[id number] : 1950 73 From: Gigi whitley MD Attending Dr: Dr. Delgado Aragon DO Status: PRE SDC Ordering Dr: Delgado Aragon DO Date: 08/11/24 Location: [facility] Sex: F C Admitted: Test Reason : PREOP Blood Pressure : */* mmHG Vent. Rate : 55 BPM Atrial Rate : 55 BPM P-R Int : 174 ms QRS Dur : 92 ms QT Int : 422 ms P-R-T Axes : 35 13 59 degrees QTcB Int : 403 ms Sinus bradycardia Otherwise normal ECG Confirmed by Gigi Prasad ([id number]), editor greeting card REMI OROZCO ([id number]) on 56:43:17 AM Referred By: Delgado Aragon Confirmed By: Gigi Prasad 08/12/24 0643 Date _ Gigi Prasad MD CC: Dr. Yon Preciado DO; Dr. Delgado Aragon DO ~ Signed [facility] Work Phone: MRSA/SAID NASAL SCREENon MRSA+SAID SCRN Reason for Exam: PRE OP MRSA MRSA Negative S. AUREUS S. aureus Negative Normal [facility] Comment on above: Performed By: #### L 501.1800, L501.9985, L100.0100, L500.2500, M100.651 ####[facility] [id number] [facility] [place], [address] 12 Lead EKGon 08-11-2024 12 Lead EKG [facility] Cardiovascular Services [address] [place] [address] 12 Lead EKG 08/11/24 0716 MR#: [id number] Acct: [id number] Name: FIOR SHIPMAN Rep #: [id number] : 1950 73 From: Gigi Prasad MD Attending Dr: Dr. Delgado Aragon DO Status: PRE SDC Ordering Dr: Delgado Aragon DO Date: 08/11/24 Location: [facility] Sex: F C Admitted: Test Reason : PREOP Blood Pressure : */* mmHG Vent. Rate : 55 BPM Atrial Rate : 55 BPM P-R Int : 174 ms QRS Dur : 92 ms QT Int : 422 ms P-R-T Axes : 35 13 59 degrees QTcB Int : 403 ms Sinus bradycardia Otherwise normal ECG Confirmed by Gigi Prasad ([id number]), editor greeting card REMI OROZCO ([id number]) on 08/12/2024 6:43:17 AM Referred By: Delgado Aragon Confirmed By: Gigi Prasad 08/12/24 0643 Date Gigi Prasad MD CC: Dr. Yon Preciado, ; Dr. Delgado Aragon DO Signed Normal [facility] Absolute lymphocyte countOrd ered By: Delgado Aragon on 08-11-2024 Lymphocytes Auto (Unsp spec) [#/Vol] 1.62 10*3/uL 0.83-4.51 [facility] Absolute neutrophil countOrd ered By: Delgado Aragon on 08-11-2024 Neutrophils (Bld) [#/Vol] 5.6 10*3/uL 2.0-7.7 [facility] Albumin, Serumon 08-11-2024 Albumin [Mass/Vol] 4.3 g/dL Normal 3.4-4.8 [facility] Comment on above: Performed By: #### L 501.1800, L501.9985, L100.0100, L500.2500, M100.651 ####[facility] [address] [place], [place], [id number] Automated lymphocyte count a s percentage of total leukocytesOrdered By: Delgado Aragon on 08-11-2024 Lymphocytes/100 WBC Auto (Unsp spec) 18.9 % Low 19-41 [facility] Basic Metabolic Profile (BMP )on 08-11-2024 BUN/CRE 21.2 RATIO High 10-20 [facility] Comment on above: Performed By: #### L 501.1800, L501.9985, L100.0100, L500.2500, M100.651 ####[facility] [address], [address] Calcium [Mass/Vol] 9.8 mg/dL Normal 7.6-11.0 [facility] Comment on above: Performed By: #### L 501.1800, L501.9985, L100.0100, L500.2500, M100.651 ####[facility] [address] [place] [address], [address] Chloride [Moles/Vol] 99 mmol/L Normal 98-108 [facility] Comment on above: Performed By: #### L 501.1800, L501.9985, L100.0100, L500.2500, M100.651 ####[facility] [address] [place], [address] CO2 [Moles/Vol] 21.6 mmol/L Normal 21.0-32.0 [facility] Comment on above: Performed By: #### L 501.1800, L501.9985, L100.0100, L500.2500, M100.651 ####[facility] [address] [place], [address] Creatinine [Mass/Vol] 1.24 mg/dL High 0.70-1.20 [facility] Comment on above: Performed By: #### L 501.1800, L501.9985, L100.0100, L500.2500, M100.651 ####[facility] [address] [place], [address] GAP 15 Normal 5-15 [facility] Comment on above: Performed By: #### L 501.1800, L501.9985, L100.0100, L500.2500, M100.651 ####[facility] [address] [place], [address] GFR/1.73 sq M.predicted among non-blacks MDRD (S/P/Bld) [Vol rate/Area] 46 mL/min/{1.73_m2} Low >60 [facility] Comment on above: Result Comment: mL/m in/1.73m2 CKD-EPI Creatinine Equation (2020) Performed By: #### L 501.1800, L501.9985, L100.0100, L500.2500, M100.651 ####[facility] [address] [place], [address] Glucose [Mass/Vol] 170 mg/dL High 70-99 [facility] Comment on above: Performed By: #### L 501.1800, L501.9985, L100.0100, L500.2500, M100.651 ####[facility] [address] [place], [address] Potassium [Moles/Vol] 4.2 mmol/L Normal 3.3-5.1 [facility] Comment on above: Performed By: #### L 501.1800, L501.9985, L100.0100, L500.2500, M100.651 ####[facility] [address] [place], [address] Sodium [Moles/Vol] 136 mmol/L Normal 133-145 [facility] Comment on above: Performed By: #### L 501.1800, L501.9985, L100.0100, L500.2500, M100.651 ####[facility] [address] [place], [address] Urea nitrogen [Mass/Vol] 26 mg/dL High 4-19 [facility] Comment on above: Performed By: #### L 501.1800, L501.9985, L100.0100, L500.2500, M100.651 ####[facility] [address] [place], [address] Basophil percentageOrdered B y: Delgado Aguilarmaryann on 08-11-2024 Basophils/100 WBC (Bld) 0.7 % 0-1 [facility] Bilirubin directOrdered By: Josue Guerrero on 08-11-2024 Bilirubin.direct [Mass/Vol] 0.20 mg/dL 0.00-0.30 [facility] Bilirubin, totalOrdered By: Josue Guerrero on 08-11-2024 Bilirubin [Mass/Vol] 0.54 mg/dL 0.00-1.30 [facility] CBC W/Diff, Automatedon 07-31-2024 Absolute Lymph 1.62 X10 3/uL Normal 0.83-4.51 [facility] Comment on above: Performed By: #### L 501.1800, L501.9985, L100.0100, L500.2500, M100.651 ####[facility] [address] [place], [address] Absolute Neut 5.6 X10 3/uL Normal 2.0-7.7 [facility] Comment on above: Performed By: #### L 501.1800, L501.9985, L100.0100, L500.2500, M100.651 ####[facility] [address] [place], [address] Basophils/100 WBC (Bld) 0.7 % Normal 0-1 [facility] Comment on above: Performed By: #### L 501.1800, L501.9985, L100.0100, L500.2500, M100.651 ####[facility] [address] [place], [address] Eosinophils/100 WBC (Bld) 3.3 % Normal 0-5 [facility] Comment on above: Performed By: #### L 501.1800, L501.9985, L100.0100, L500.2500, M100.651 ####[facility] [address] [place], [address] Erythrocyte distribution width (RBC) [Ratio] 12.7 % Normal 11.6-14.6 [facility] Comment on above: Performed By: #### L 501.1800, L501.9985, L100.0100, L500.2500, M100.651 ####[facility] [address] [place], [address] Hematocrit (Bld) [Volume fraction] 36.0 % Low 37-47 [facility] Comment on above: Performed By: #### L 501.1800, L501.9985, L100.0100, L500.2500, M100.651 ####[facility] [address] [place], [address] Hemoglobin (Bld) [Mass/Vol] 11.9 g/dL Low 12.0-15.0 [facility] Comment on above: Performed By: #### L 501.1800, L501.9985, L100.0100, L500.2500, M100.651 ####[facility] [address] [place], [address] IG% 0.600 Normal 0.0-0.9 [facility] Comment on above: Result Comment: IG% - Immature Granulocytes (promyelocytes, myelocytes and metamyelocytes) > 1% indicates that a LEFT SHIFT is Present. Performed By: #### L 501.1800, L501.9985, L100.0100, L500.2500, M100.651 ####[facility] [address] [place], [address] Lymphocytes/100 WBC (Bld) 18.9 % Low 19-41 [facility] Comment on above: Performed By: #### L 501.1800, L501.9985, L100.0100, L500.2500, M100.651 ####[facility] [address] [place], [address] MCH (RBC) [Entitic mass] 30.3 pg Normal 27.0-32.0 [facility] Comment on above: Performed By: #### L 501.1800, L501.9985, L100.0100, L500.2500, M100.651 ####[facility] [address] [place], [address] MCHC (RBC) [Mass/Vol] 33.1 g/dL Normal 32-36 [facility] Comment on above: Performed By: #### L 501.1800, L501.9985, L100.0100, L500.2500, M100.651 ####[facility] [address] [place], [address] MCV (RBC) [Entitic vol] 91.6 fL Normal 81-99 [facility] Comment on above: Performed By: #### L 501.1800, L501.9985, L100.0100, L500.2500, M100.651 ####[facility] [address] [place], [address] Monocytes/100 WBC (Bld) 12.0 % High 0-10 [facility] Comment on above: Performed By: #### L 501.1800, L501.9985, L100.0100, L500.2500, M100.651 ####[facility] [address] [place], [address] Neutrophils/100 WBC (Bld) 64.5 % Normal 47-70 [facility] Comment on above: Performed By: #### L 501.1800, L501.9985, L100.0100, L500.2500, M100.651 ####[facility] [address] [place], [address] Nucleated RBC (Bld) [#/Vol] 0 10*3/uL Normal 0-5 [facility] Comment on above: Performed By: #### L 501.1800, L501.9985, L100.0100, L500.2500, M100.651 ####[facility] [address] [place], [address] Platelet mean volume (Bld) [Entitic vol] 9.2 fL Normal 6.2-12.0 [facility] Comment on above: Performed By: #### L 501.1800, L501.9985, L100.0100, L500.2500, M100.651 ####[facility] [address] [place], [address] Platelets (Bld) [#/Vol] 310 10*3/uL Normal 150-450 [facility] Comment on above: Performed By: #### L 501.1800, L501.9985, L100.0100, L500.2500, M100.651 ####[facility] [address] [place], [address] RBC (Bld) [#/Vol] 3.93 10*6/uL Low 4.2-5.4 [facility] Comment on above: Performed By: #### L 501.1800, L501.9985, L100.0100, L500.2500, M100.651 ####[facility] [address] [place], [address] RDW SD 42.5 fl Normal 35.1-43.9 [facility] Comment on above: Performed By: #### L 501.1800, L501.9985, L100.0100, L500.2500, M100.651 ####[facility] [address] [place], [address] WBC (Bld) [#/Vol] 8.6 10*3/uL Normal 4.4-11.0 [facility] Comment on above: Performed By: #### L 501.1800, L501.9985, L100.0100, L500.2500, M100.651 ####[facility] [address] [place], [address] Eosinophil percentageOrdered By: Delgado Aragon on 08-11-2024 Eosinophils/100 WBC (Bld) 3.3 % 0-5 [facility] Extremity Upper without Cont raon 08-11-2024 Extremity Upper without Contra [facility] Imaging Services [address] [place] [address] Extremity Upper without Contra MR#: [id number] Acct: [id number] Name: FIOR SHIPMAN Rep #: [id number] : 1950 F 73 From: Jesse Mercado MD PCP: Dr. Yon Preciado, Status: REG CLI Study: Extremity Upper without Contra Date of Exam: 0 08/11/24 Exam# [id number] Ordering Dr: Delgado Aragon DO PROCEDURE: EXTREMITY UPPER WITHOUT CONTRA 08/11/2024 REASON FOR EXAM: PRIMARY OSTEOARTHRITIS TECHNIQUE: Axial CT images of the right shoulder obtained without intravenous contrast. Coronal and Sagittal reconstruction series were provided. One or more dose reduction techniques were used (e.g., Automated exposure control, adjustment of the mA and/or kV according to patient size, use of iterative reconstruction technique RADIATION DOSE SUMMARY: DLP: 532.89 mGycm COMPARISON: None FINDINGS: Bones: There is moderate AC joint hypertrophy without evidence of separation. There is a type 2 acromion. There is severe osteoarthritis of the glenohumeral articulation with flattening of the articular surfaces, subcortical cyst formation, and marginal osteophytes. No acute fracture or dislocation is identified. There is no visible muscular atrophy. No soft tissue mass or pathologic adenopathy is identified. Atherosclerotic calcifications are visible. Soft Tissues: There is a 1 cm irregular solid nodular density in the right upper lung, axial image 42/75. there is a 0.4 cm solid nodule in the right upper lung, image 48/75. CT/Extremity Upper without Contra IMPRESSION: There is severe osteoarthritis of the glenohumeral articulation with flattening of the articular surfaces, subcortical cyst formation, and marginal osteophytes. There is a 1 cm irregular solid nodular density in the right upper lung, axial image 42/75. there is a 0.4 cm solid nodule in the right upper lung, image 48/75. Chest CT correlation is recommended. Reading Location: [facility] CC: Dr. Yon Preciado, DO; Dr. Delgado Aragon, DO Full Stack Php Developer: Signed Normal [facility] Hemoglobin A1con 08-11-2024 HbA1c (Bld) [Mass fraction] 7.5 % High <=5.6 [facility] Comment on above: Result Comment: Norm al < 5.7 % Prediabetic 5.7 - 6.4 % Diabetic >or= 6.5 % Please note range changes. Performed By: #### L 501.1800, L501.9985, L100.0100, L500.2500, M100.651 ####[facility] [address] [place], [address] Hemoglobin A1c percentageOrd ered By: Delgado Aragon on 08-11-2024 HbA1c (Bld) [Mass fraction] 7.5 % High <5.7 [facility] Comment on above: Normal < 5.7 % Predi abetic 5.7 - 6.4 % Diabetic >or= 6.5 % Please note range changes. Immature granulocytes/100 WB C Auto (Bld)Ordered By: Delgado Aragon on 08-11-2024 Immature granulocytes/100 WBC (Bld) 0.600 % 0.0-0.9 [facility] Comment on above: IG% - Immature Granu locytes (promyelocytes, myelocytes and metamyelocytes) > 1% indicates that a LEFT SHIFT is Present. Laboratory - Chemistry and C hemistry - challengeOrdered By: Josue Guerrero on 08-11-2024 AST [Catalytic activity/Vol] 18 U/L <32 [facility] Liver Profileon 08-11-2024 Albumin [Mass/Vol] 4.3 g/dL Normal 3.4-4.8 [facility] Comment on above: Performed By: #### L 501.5200, L500.3400 ####[facility] [address] [place], [address] ALK PHOS 70 U/L Normal 35-104 [facility] Comment on above: Performed By: #### L 501.5200, L500.3400 ####[facility] [address] [place], [address] ALT [Catalytic activity/Vol] 14 U/L Normal <=34 [facility] Comment on above: Performed By: #### L 501.5200, L500.3400 ####[facility] [address] [place], [address] AST [Catalytic activity/Vol] 18 U/L Normal <=31 [facility] Comment on above: Performed By: #### L 501.5200, L500.3400 ####[facility] [address] [place], [address] Bilirubin [Mass/Vol] 0.54 mg/dL Normal 0.00-1.30 [facility] Comment on above: Performed By: #### L 501.5200, L500.3400 ####[facility] [address] [place], [address] Bilirubin.direct [Mass/Vol] 0.20 mg/dL Normal 0.00-0.30 [facility] Comment on above: Performed By: #### L 501.5200, L500.3400 ####[facility] [address] [place], [address] Globulin (S) [Mass/Vol] 2.6 g/dL Normal 2.2-4.2 [facility] Comment on above: Performed By: #### L 501.5200, L500.3400 ####[facility] [address] [place], [address] T PROT 6.8 g/dL Normal 5.9-8.4 [facility] Comment on above: Performed By: #### L 501.5200, L500.3400 ####[facility] [address] [place], [place], [address] MRSA screenOrdered By: Puma Aragon on 08-11-2024 MRSA DNA MARCIA+probe Ql (Unsp spec) [facility] Magnesiumon 08-11-2024 Magnesium [Mass/Vol] 1.8 mg/dL Normal 1.5-2.2 [facility] Comment on above: Performed By: #### L 501.5200, L500.3400 ####[facility] [address], [address] Magnesium measurement (mass/ volume)Ordered By: Josue Guerrero on 08-11-2024 Magnesium (Unsp spec) [Mass/Vol] 1.8 mg/dL 1.5-2.2 [facility] Monocyte percentageOrdered B y: Delgado Aragon on 08-11-2024 Monocytes/100 WBC (Bld) 12.0 % High 0-10 [facility] Neutrophil percentageOrdered By: Delgado Aragon on 08-11-2024 Neutrophils/100 WBC (Bld) 64.5 % 47-70 [facility] Nucleated red blood cell per centageOrdered By: Delgado Aragon on 08-11-2024 Nucleated RBC/100 WBC (Bld) [Ratio] 0 % 0-5 [facility] Serum globulin measurementOr dered By: Josue Guerrero on 08-11-2024 Globulin (S) [Mass/Vol] 2.6 g/dL 2.2-4.2 [facility] Serum or plasma alanine bowen otransferase (ALT) measurementOrdered By: Josue Guerrero on 08-11-2024 ALT [Catalytic activity/Vol] 14 U/L <35 [facility] Serum or plasma albumin trisha urement (mass/volume)Ordered By: Delgado Aragon on 08-11-2024 Albumin [Mass/Vol] 4.3 g/dL 3.4-4.8 [facility] Serum or plasma alkaline [place] sphatase measurementOrdered By: Josue Guerrero on 08-11-2024 ALP [Catalytic activity/Vol] 70 U/L 35-104 [facility] Total proteinOrdered By: Josue Guerrero on 08-11-2024 Protein [Mass/Vol] 6.8 g/dL 5.9-8.4 [facility] Magnetic resonance imaging r eportOrdered By: Jesse Mercado on 07-27-2024 Study report [facility] Imaging Services [address] [place] [address] Upper Ext Joint Only(Routine) MR#: [id number] Acct: [id number] Name: FIOR SHIPMAN Rep #: [id number] : 1950 F 73 From: Haim Mercado MD PCP: Dr. Yon Preciado, Status: REG CLI Study:Upper Ext Joint Only(Routine) Date of Exam: 07/27/24 Exam# [id number] Ordering Dr: Yon Preciado DO PROCEDURE: UPPER [...] joint effusion. There is fluid in the subacromialsubdeltoid bursa, with bursitis. Biceps tendon: The biceps [...] subacromial subdeltoid bursa, with bursitis. Reading Location: [facility] CC: Dr. Yon Preciado DO ~ Full Stack Php Developer: Signed [facility] Upper Ext Joint Only(Routine )on 07-27-2024 Upper Ext Joint Only(Routine) [facility] Imaging Services [address] [place] [address] Upper Ext Joint Only(Routine) MR#: [id number] Acct: [id number] Name: FIOR SHIPMAN Rep #: [id number] : 1950 F 73 From: Jesse Mercado MD PCP: Dr. Yon Preciado DO Status: REG CLI Study: Upper Ext Joint Only(Routine) Date of Exam: 0 07/27/24 Exam# [id number] Ordering Dr: Yon Preciado DO PROCEDURE: UPPER [...] subacromial subdeltoid bursa, with bursitis. Reading Location: [facility] CC: Dr. Yon Preciado DO Full Stack Php Developer: Signed Normal [facility] Kidney and Bladderon 04-04-2 025 Kidney and Bladder [facility] Imaging Services [address], [place] [address] Kidney and Bladder MR#: [id number] Acct: [id number] Name: FIOR SHIPMAN Rep #: [id number] : 1950 F 73 From: Ander Dunne MD PCP: Dr. Yon Preciado DO Status: REG CLI Study: Kidney and Bladder Date of Exam: 06/03/24 Exam# [id number] Ordering Dr: Emily Moncada MD PROCEDURE: KIDNEY [...] of renal cysts as above. Reading Location: [facility] CC: Dr. Emily Moncada MD; Dr. Yon Preciado DO Full Stack Php Developer: Signed Normal [facility] Basic Metabolic Profile (BMP )on 05-12-2024 BUN/CRE 24.4 RATIO High 10-20 [facility] Comment on above: Performed By: #### L 501.6710, L500.2500, L501.4021, L503.7505 #### [facility] Laboratory [address] [place], [address] Calcium [Mass/Vol] 9.7 mg/dL Normal 7.6-11.0 [facility] Comment on above: Performed By: #### L 501.6710, L500.2500, L501.4021, L503.7505 #### [facility] [address] [place], [address] Chloride [Moles/Vol] 99 mmol/L Normal 98-108 [facility] Comment on above: Performed By: #### L 501.6710, L500.2500, L501.4021, L503.7505 #### [facility] [address] [place], [address] CO2 [Moles/Vol] 24.3 mmol/L Normal 21.0-32.0 [facility] Comment on above: Performed By: #### L 501.6710, L500.2500, L501.4021, L503.7505 #### [facility] [address] [place], [address] Creatinine [Mass/Vol] 1.19 mg/dL Normal 0.70-1.20 [facility] Comment on above: Performed By: #### L 501.6710, L500.2500, L501.4021, L503.7505 #### [facility] [address] [place], [address] ECRCL 42.45 ml/min Low 50-250 [facility] Comment on above: Performed By: #### L 501.6710, L500.2500, L501.4021, L503.7505 #### [facility] [address] [place], [address] GAP 14 Normal 5-15 [facility] Comment on above: Performed By: #### L 501.6710, L500.2500, L501.4021, L503.7505 #### [facility] [address] [place], [address] GFR/1.73 sq M.predicted among non-blacks MDRD (S/P/Bld) [Vol rate/Area] 48 mL/min/{1.73_m2} Low >60 [facility] Comment on above: Result Comment: mL/m in/1.73m2 CKD-EPI Creatinine Equation (2020) Performed By: #### L 501.6710, L500.2500, L501.4021, L503.7505 #### [facility] [address] [place], [address] Glucose [Mass/Vol] 163 mg/dL High 70-99 [facility] Comment on above: Performed By: #### L 501.6710, L500.2500, L501.4021, L503.7505 #### [facility] [address] [place], [address] Potassium [Moles/Vol] 3.6 mmol/L Normal 3.3-5.1 [facility] Comment on above: Performed By: #### L 501.6710, L500.2500, L501.4021, L503.7505 #### [facility] [address] [place], [address] Sodium [Moles/Vol] 137 mmol/L Normal 133-145 [facility] Comment on above: Performed By: #### L 501.6710, L500.2500, L501.4021, L503.7505 #### [facility] [address] [place], [address] Urea nitrogen [Mass/Vol] 29 mg/dL High 4-19 [facility] Comment on above: Performed By: #### L 501.6710, L500.2500, L501.4021, L503.7505 #### [facility] [address] [place], [address] CRPon 05-12-2024 C-REACTIVE PROT 6.52 mg/L High 0.0-3.0 [facility] Comment on above: Performed By: #### L 501.6710, L500.2500, L501.4021, L503.7505 #### [facility] [address] [place], [address] Emergency Department Summary on 05-12-2024 Emergency Department Summary [facility] Medical Records Department [address] [place] [address] Emergency Department Summary 05/12/24 MR#: [id number] Acct: [id number] Name: FIOR SHIPMAN Rep #: [id number] : 1950 73 From: Sari Coello DO [...] into her jaw, her face and her catholic. She states that this evening she took [...] had a recent carotid duplex with Dr. Goyal but does not know the results. She currently denies a headache currently but states her right catholic feels flat. Today she notes that she [...] with diverticulitis and UTI. She states her hfitfvn-ey-jmp just after being discharged from the hospital. [facility] Medical History Subclavian artery stenosis, left Generalized [...] 1 - 2 puff inhalation Q4H PRN SC N 06/07/13 Unknown History aerosol inhaler (Ventolin HFA) Wheezing aspirin 81 mg chewable tablet 81 mg PO DAILY@0800 12/24/19 Unkno wn History lorazepam 0.5 mg tablet 0.5 mg PO Q6H PRN PRN Anxiety 12/01 06/19 Unknown History clopidogrel 75 mg tablet (Plavix) 75 mg PO DAILY 01/29/22 02/02/22 History losartan 100 1 tab PO DAILY 01/29/22 Unknown Hi story mg-hydrochlorothiazide 25 mg tablet multivitamin 1 tab PO [...] 05/11/24 22:51 Antibiotics) Family History ... Normal [facility] L499.0042on 05-12-2024 Trop T High Sen 14 ng/L Normal <=14 [facility] Comment on above: Performed By: #### L 499.0042 #### [facility] [address] [place], [address] L501.4021on 05-12-2024 Trop T High Sen 12 ng/L Normal <=14 [facility] Comment on above: Performed By: #### L 501.6710, L500.2500, L501.4021, L503.7505 #### [facility] [address] [place], [address] L503.7505on 05-12-2024 Natriuretic peptide B (Bld) [Mass/Vol] 197 pg/mL Normal <=900 [facility] Comment on above: Result Comment: Hear t Failure Unlikely: < 300 pg/mL Heart Failure Likely < 50 Years: > 450 pg/mL 50-75 Years: > 900 pg/mL >75 Years: > 1800 pg/mL Performed By: #### L 501.6710, L500.2500, L501.4021, L503.7505 #### [facility] [address] [place], [address] M100.678on 05-12-2024 M100.678 Pending SARS-CoV-2 (COVID 19) Negative INFLUENZA A Negative INFLUENZA B Negative RSV PCR Negative Normal [facility] Comment on above: Performed By: #### L 500.2500, L100.0500 #### [facility] [address] [facility] [place], [address] Troponin T.cardiac High sens itivity method [Mass/Vol]Ordered By: Sari Coello on 05-12-2024 Troponin T High Sensitivity 2 Hour 14 ng/L <14 [facility] Troponin T.cardiac [Mass/vol ume] in Serum or Plasma by High sensitivity methodOrdered By: Sari Coello on 05-12-2024 Troponin T.cardiac High sensitivity method [Mass/Vol] 14 ng/L <14 [facility] 12 Lead EKGon 05-11-2024 12 Lead EKG [facility] Cardiovascular Services [address] [place] [address] 12 Lead EKG 05/11/24 2256 MR#: [id number] Acct: [id number] Name: FIOR SHIPMAN Ezequiel Rep #: [id number] : 1950 73 From: Corky Cameron MD [...] Normal ECG Confirmed by JUANJO CAREY, CLAUDIO ([id number]), editor greeting card REMI OROZCO ([id number]) on 05/16/2024 10:53:48 AM Referred By: Confirmed By: CLAUDIO CAMERON MD 05/16/24 1053 Date Corky Cameron MD CC: Dr. Sari Coello, DO; Dr. Yon Preciado DO Signed Normal [facility] Absolute lymphocyte countOrd ered By: Sari Coello on 05-11-2024 Lymphocytes Auto (Unsp spec) [#/Vol] 2.36 10*3/uL 0.83-4.51 [facility] Absolute neutrophil countOrd ered By: Sari Coello on 05-11-2024 Neutrophils (Bld) [#/Vol] 5.6 10*3/uL 2.0-7.7 [facility] Anion gap in Serum or Plasma Ordered By: Sari Coello on 05-11-2024 Anion gap [Moles/Vol] 14 mmol/L 5- [facility] Automated lymphocyte count a s percentage of total leukocytesOrdered By: Sari Coello on 05-11-2024 Lymphocytes/100 WBC Auto (Unsp spec) 24.2 % - [facility] BUN/creatinine ratioOrdered By: Sari Coello on 05-11-2024 Urea nitrogen/Creatinine [Mass ratio] 24.4 mg/mg High 10- [facility] Basophil percentageOrdered B y: Sari Coello on 05-11-2024 Basophils/100 WBC (Bld) 0.6 % 0-1 [facility] CBC W/Diff, Automatedon 04-30 Absolute Lymph 2.36 X10 3/uL Normal 0.83-4.51 [facility] Comment on above: Performed By: #### L 100.0100 ####[facility] [address] [place], [address] Absolute Neut 5.6 X10 3/uL Normal 2.0-7.7 [facility] Comment on above: Performed By: #### L 100.0100 ####[facility] [address] [place], [address] Basophils/100 WBC (Bld) 0.6 % Normal 0-1 [facility] Comment on above: Performed By: #### L 100.0100 ####[facility] [address] [place], [address] Eosinophils/100 WBC (Bld) 3.6 % Normal 0-5 [facility] Comment on above: Performed By: #### L 100.0100 ####[facility] [address] [place], [address] Erythrocyte distribution width (RBC) [Ratio] 12.3 % Normal 11.6-14.6 [facility] Comment on above: Performed By: #### L 100.0100 ####[facility] [address] [place], [address] Hematocrit (Bld) [Volume fraction] 33.4 % Low 37-47 [facility] Comment on above: Performed By: #### L 100.0100 ####[facility] [address] [place], [address] Hemoglobin (Bld) [Mass/Vol] 11.2 g/dL Low 12.0-15.0 [facility] Comment on above: Performed By: #### L 100.0100 ####[facility] [address] [place], [address] IG% 0.600 Normal 0.0-0.9 [facility] Comment on above: Result Comment: IG% - Immature Granulocytes (promyelocytes, myelocytes and metamyelocytes) > 1% indicates that a LEFT SHIFT is Present. Performed By: #### L 100.0100 ####[facility] [address] [place], [address] Lymphocytes/100 WBC (Bld) 24.2 % Normal 19-41 [facility] Comment on above: Performed By: #### L 100.0100 ####[facility] [address] [place], [address] MCH (RBC) [Entitic mass] 30.0 pg Normal 27.0-32.0 [facility] Comment on above: Performed By: #### L 100.0100 ####[facility] [address] [place], [address] MCHC (RBC) [Mass/Vol] 33.5 g/dL Normal 32-36 [facility] Comment on above: Performed By: #### L 100.0100 ####[facility] [address] [place], [address] MCV (RBC) [Entitic vol] 89.5 fL Normal 81-99 [facility] Comment on above: Performed By: #### L 100.0100 ####[facility] [address] [place], [address] Monocytes/100 WBC (Bld) 13.2 % High 0-10 [facility] Comment on above: Performed By: #### L 100.0100 ####[facility] [address] [place], [address] Neutrophils/100 WBC (Bld) 57.8 % Normal 47-70 [facility] Comment on above: Performed By: #### L 100.0100 ####[facility] [address] [place], [address] Nucleated RBC (Bld) [#/Vol] 0 10*3/uL Normal 0-5 [facility] Comment on above: Performed By: #### L 100.0100 ####[facility] [address] [place], [address] Platelet mean volume (Bld) [Entitic vol] 9.3 fL Normal 6.2-12.0 [facility] Comment on above: Performed By: #### L 100.0100 ####[facility] [address] [place], [address] Platelets (Bld) [#/Vol] 303 10*3/uL Normal 150-450 [facility] Comment on above: Performed By: #### L 100.0100 ####[facility] [address] [place], [address] RBC (Bld) [#/Vol] 3.73 10*6/uL Low 4.2-5.4 [facility] Comment on above: Performed By: #### L 100.0100 ####[facility] [address] [place], [address] RDW SD 40.1 fl Normal 35.1-43.9 [facility] Comment on above: Performed By: #### L 100.0100 ####[facility] [address] [place], [address] WBC (Bld) [#/Vol] 9.8 10*3/uL Normal 4.4-11.0 [facility] Comment on above: Performed By: #### L 100.0100 ####[facility] [address] [place], [address] CRP [Mass/Vol]Ordered By: Buddy Coello on 05-11-2024 C-Reactive Protein Extended Range 6.52 mg/L High 0.0-3.0 [facility] Carbon dioxide, total [Moles /volume] in Central venous bloodOrdered By: Sari Coello on 05-11-2024 CO2 [Moles/Vol] 24.3 mmol/L 21.0-32.0 [facility] Chest PA and Lateralon 05-11 Chest PA and Lateral [facility] Imaging Services [address] [place] [address] Chest PA and Lateral MR#: [id number] Acct: [id number] Name: FIOR SHIPMAN Ezequiel Rep #: [id number] : 1950 F 73 From: Ander Dunne MD PCP: Dr. Yon Preciado DO Status: [facility] ER Study: Chest PA and Lateral Date of Exam: 05/11/24 Exam# [id number] Ordering Dr: Godman,Sari DO PROCEDURE: CHEST PA AND LATERAL 05/12/2024 [...] The lungs otherwise appear clear. Reading Location: [id number] CC: Dr. Sari Coello DO; Dr. Yon Preciado DO Full Stack Php Developer: Signed Normal [facility] Chloride assayOrdered By: Buddy Coello on 05-11-2024 Chloride [Moles/Vol] 99 mmol/L 98-108 [facility] Eosinophil percentageOrdered By: Sari Coello on 05-11-2024 Eosinophils/100 WBC (Bld) 3.6 % 0-5 [facility] Erythrocyte distribution wid th ratioOrdered By: Sari Coello on 05-11-2024 Erythrocyte distribution width (RBC) [Ratio] 12.3 % 11.6-14.6 [facility] Erythrocyte distribution wid th standard deviationOrdered By: Sari Coello on 05-11-2024 Erythrocyte distribution width (RBC) [Entitic vol] 40.1 fL 35.1-43.9 [facility] Erythrocyte distribution width (RBC) [Ratio] 40.1 fl 35.1-43.9 [facility] Estimation of creatinine maryanne aranceOrdered By: Sari Coello on 05-11-2024 Estimated Creatinine Clearance Calc 42.45 ml/min Low 50-250 [facility] GFR/1.73 sq M.predicted rossy g non-blacks MDRD (S/P/Bld) [Vol rate/Area]Ordered By: Sari Coello on 05-11-2024 Estimated GFR (MDRD) Non-Af Amer 48 Low >60 [facility] Comment on above: mL/min/1.73m2 CKD-EP I Creatinine Equation (2020) Glomerular filtration rate ( GFR) estimation/1.73 sq m using serum, plasma, or whole bOrdered By: Sari Coello on 05-11-2024 GFR/1.73 sq M.predicted among non-blacks MDRD (S/P/Bld) [Vol rate/Area] 48 mL/min/{1.73_m2} Low >60 [facility] Comment on above: mL/min/1.73m2 CKD-EP I Creatinine Equation (2020) Hematocrit Auto (Bld) [Volum e fraction]Ordered By: Sari Coello on 05-11-2024 Hematocrit (Bld) [Volume fraction] 33.4 % Low 37-47 [facility] Hemoglobin measurementOrdere d By: Sari Coello on 05-11-2024 Hemoglobin (Bld) [Mass/Vol] 11.2 g/dL Low 12.0-15.0 [facility] Immature granulocytes/100 WB C Auto (Bld)Ordered By: Sari Coello on 05-11-2024 Immature granulocytes/100 WBC (Bld) 0.600 % 0.0-0.9 [facility] Comment on above: IG% - Immature Granu locytes (promyelocytes, myelocytes and metamyelocytes) > 1% indicates that a LEFT SHIFT is Present. Influenza virus A and B and SARS-CoV-2 (COVID-19) and Respiratory syncytial virus RNAOrdered By: Sari Coello on 05-11-2024 SARS-CoV-2 (COVID-19) RNA MARCIA+probe Ql (Unsp spec) [facility] Laboratory - Chemistry and C hemistry - challengeOrdered By: Sari Coello on 05-11-2024 Natriuretic peptide B (Bld) [Mass/Vol] 197 pg/mL <900 [facility] Comment on above: Heart Failure Unlike ly: < 300 pg/mLHeart Failure Likely< 50 Years: > 450 pg/mL50-75 Years: > 900 pg/mL>75 Years: > 1800 pg/mL Lymphocytes Auto (Unsp spec) [#/Vol]Ordered By: Sari Coello on 05-11-2024 Lymphocytes (Bld) [#/Vol] 2.36 10*3/uL 0.83-4.51 [facility] Lymphocytes/100 WBC Auto (Un sp spec)Ordered By: Sari Coello on 05-11-2024 Lymphocytes/100 WBC (Bld) 24.2 % 19-41 [facility] MCV (mean corpuscular volume ) determinationOrdered By: Srai Coello on 05-11-2024 MCV (RBC) [Entitic vol] 89.5 fL 81-99 [facility] Mean corpuscular hemoglobin (MCH) determinationOrdered By: Sari Coello on 05-11-2024 MCH (RBC) [Entitic mass] 30.0 pg 27.0-32.0 [facility] Mean corpuscular hemoglobin concentration (MCHC) determinationOrdered By: Sari Coello on 05-11-2024 MCHC (RBC) [Mass/Vol] 33.5 g/dL 32-36 [facility] Mean platelet volume determi nationOrdered By: Sari Coello on 05-11-2024 Platelet mean volume (Bld) [Entitic vol] 9.3 fL 6.2-12.0 [facility] Monocyte percentageOrdered B y: Sari Coello on 05-11-2024 Monocytes/100 WBC (Bld) 13.2 % High 0-10 [facility] Neutrophil percentageOrdered By: Sari Coello on 05-11-2024 Neutrophils/100 WBC (Bld) 57.8 % 47-70 [facility] No Panel InformationOrdered By: Sari Coello on 05-11-2024 Troponin T High Sensitivity 12 ng/L <14 [facility] Nucleated red blood cell per centageOrdered By: Sari Coello on 05-11-2024 Nucleated RBC/100 WBC (Bld) [Ratio] 0 % 0-5 [facility] Platelet countOrdered By: Buddy Coello on 05-11-2024 Platelets (Bld) [#/Vol] 303 10*3/uL 150-450 [facility] Potassium (Unsp spec) [Mass/ Vol]Ordered By: Sari Coello on 05-11-2024 Potassium [Moles/Vol] 3.6 mmol/L 3.3-5.1 [facility] Potassium measurement (mass/ volume)Ordered By: Sari Coello on 05-11-2024 Potassium (Unsp spec) [Mass/Vol] 3.6 mmol/L 3.3-5.1 [facility] RBC Auto (Bld) [#/Vol]Ordere d By: Sari Coello on 05-11-2024 RBC (Bld) [#/Vol] 3.73 10*6/uL Low 4.2-5.4 [facility] Serum creatinine measurement (mass/volume)Ordered By: Sari Coello on 05-11-2024 Creatinine [Mass/Vol] 1.19 mg/dL 0.70-1.20 [facility] Serum glucose measurement (m ass/volume)Ordered By: Sari Coello on 05-11-2024 Glucose [Mass/Vol] 163 mg/dL High 70-99 [facility] Serum or plasma C reactive p rotein measurement (mass/volume)Ordered By: Sari Coello on 05-11-2024 CRP [Mass/Vol] 6.52 mg/L High 0.0-3.0 [facility] Serum or plasma calcium trisha urement (mass/volume)Ordered By: Sari Coello on 05-11-2024 Calcium [Mass/Vol] 9.7 mg/dL 7.6-11.0 [facility] Serum or plasma urea nitroge n measurement (mass/volume)Ordered By: Sari Coello on 05-11-2024 Urea nitrogen [Mass/Vol] 29 mg/dL High 4-19 [facility] Sodium levelOrdered By: Sherri Coello on 05-11-2024 Sodium [Moles/Vol] 137 mmol/L 133-145 [facility] White blood cell (WBC) count Ordered By: Sari Coello on 05-11-2024 WBC (Bld) [#/Vol] 9.8 10*3/uL 4.4-11.0 [facility] Urine Cultureon 05-08-2024 [facility] Escherichia coli Gilson Count 50,000-80,000 Escherichia coli: REACTION Ampicillin Islt [...] TMP SMX Islt MONICA <=20 S Normal [facility] Comment on above: Performed By: #### L 500.2500, L100.0500 #### [facility] Laboratory [address] [place], [address] Urine cultureOrdered By: Letitia Preciado on 05-06-2024 Bacteria identified Cx Nom (U) Escherichia coli Abnormal [facility] Ankle Brachial Indexon 04-25 Ankle Brachial Index [facility] [address] [place] [address] Ankle Brachial Index 04/25/24 0842 MR#: [id number] Acct: [id number] Name: FIOR SHIPMAN Rep #: [id number] : 1950 73 From: Simone Goyal MD Attending Dr: Dr. Simone Goyal MD Status: RE G CLI Ordering Dr: Simone Goyal MD Date: 04/25/24 Location: [facility] Sex: F C Admitted: Reason For Study [...] Summary Bilateral WBI normal. Ordering Physician: Simone Goyal Referring Physician: Yon Preciado Performed By: Marva Vasquez RDCS/RVT 05/05/242045 Date Simone Goyal MD CC: Dr. Simone Goyal MD; Dr. Yon Preciado DO Date Dictated: 04/25/24841 Date Transcribed: 05/05/242045 Full Stack Php Developer: Signed Normal [facility] Carotid Duplex Ultrasoundon 04-25-2024 Carotid Duplex Ultrasound [facility] Cardiovascular Services [address] [place] [address] Carotid Duplex Ultrasound 04/25/24819 MR#: [id number] Acct: [id number] Name: FIOR SHIPMAN Rep #: [id number] : 1950 73 From: Simone Goyal MD Attending Dr: Dr. Simone Goyal MD Status: RE G CLI Ordering Dr: Simone Goyal MD Date: 04/25/24 Location: [facility] Sex: F [...] the left vertebral artery. Procedure Carotid Duplex 34285. This is a Carotid Duplex examination using B-mode, color flow and specral Doppler. Exam performed in department. VL/Carotid Duplex Ultrasound Interpretation Summary Moderate (50-69%) stenosis right extracranial internal carotid. Moderate (50-69%) stenosis left extracranial internal carotid. Flow within the vertebral arteries is antegrade bilaterally. Ordering Physician: Simone Goyal Referring Physician: Yon Preciado Performed By: Marva Vasquez, JEANNE, RVT 05/05/242045 Date Simone Goyal MD CC: Dr. Simone Goyal MD; Dr. Yon Preciado DO Date Dictated: 04/25/24819 Date Transcribed: 05/05/242045 Full Stack Php Developer: Signed [facility] Art Duplex Unilat UP Extr [facility] 04-25-2024 US Art Duplex Unilat UP Extrem [facility] Cardi[facility] [address] [place] [address] US Art Duplex Unilat UP Extrem 04/25/24 0845 MR#: [id number] Acct: [id number] Name: FIOR SHIPMAN Rep #: [id number] : 1950 73 From: Simone Goyal MD Attending Dr: Dr. Simone Goyal MD Status: RE G CLI Ordering Dr: Simone Goyal MD Date: 04/25/24 Location: [facility] Sex: F C Admitted: Reason For Study [...] extremity arterial duplex exam. Ordering Physician: Simone Goyal Referring Physician: Yon Preciado Performed By: Marva Vasquez, JEANNE, RVT 05/05/242044 Date Simone Goyal MD CC: Dr. Simone Goyal MD; Dr. Yon Preciado DO Date Dictated: 04/25/24844 Date Transcribed: 05/05/242044 Full Stack Php Developer: Signed Normal [facility] Urine Cultureon 04-04-2024 [facility] #1 Below infection level. 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 lactose feed mixer helper Gilson Count <1000 Streptococcus sanguinis Streptococcus sanguinis Streptococcus sanguinis: REACTION Ampicillin Islt MONICA <=0.25 S Penicillin G Islt MONICA <=0.06 Cefotaxime Islt MONICA <=0.12 S cefTRIAXone Islt MONICA 0.25 S Linezolid Islt MONICA <=2 S Vancomycin Islt MONICA 0.5 S Normal [facility] Comment on above: Performed By: #### M 100.2200 ####[facility] [address] [place], [place], [id number] Urine cultureOrdered By: Letitia Preciado on 04-01-2024 Bacteria identified Cx Nom (U) GNR lactose feed mixer helper Abnormal [facility] Bacteria identified Cx Nom (U) Streptococcus sanguinis Abnormal [facility] Urine Cultureon 02-21-2024 [facility] Presumptive E. coli Gilson Count 11,000-25,000 Presumptive E. coli: REACTION Ampicillin [...] TMP SMX Islt MONICA <=20 S Normal [facility] Comment on above: Performed By: #### L 500.2500, L100.0500 #### [facility] Laboratory [address] [place], [place], [id number] Urine cultureOrdered By: Letitia Preciado on 02-19-2024 Bacteria identified Cx Nom (U) Presumptive E. coli Abnormal [facility] Bacteria identified Cx Nom (U) Presumptive E. coli Abnormal [facility] Urine Cultureon 01-02-2024 [facility] Citrobacter freundii Gilson Count >100,000 Citrobacter freundii: REACTION ceFAZolin Islt MONICA >=64 Cefepime Islt MONICA <=0.12 S cefTRIAXone Islt MONICA <=0.25 S Ciprofloxacin Islt MONICA <=0.25 S Gentamicin Islt MONICA <=1 S Imipenem Islt MONICA <=0.25 S levoFLOXacin Islt MONICA <=0.12 S Nitrofurantoin Islt MONICA <=16 S Tobramycin Islt MONICA <=1 S TMP SMX Islt MONICA <=20 S Normal [facility] Comment on above: Performed By: #### L 500.2500, L100.0500 #### [facility] [address] [place], [address] Urine Cultureon 12-19-2023 [facility] Klebsiella pneumonia e sp pneum Gilson Count 80,000-100,000 Klebsiella pneumoniae sp pneum: REACTION [...] TMP SMX Islt MONICA <=20 S Normal [facility] Comment on above: Performed By: #### L 500.2500, L100.0500 #### [facility] [address] [place], [place], [address] Breast Limited Unilateralon 11-17-2023 Breast Limited Unilateral [facility] Imaging Services [address] [place] [address] Breast Limited Unilateral MR#: [id number] Acct: [id number] Name: FIOR SHIPMAN Rep #: [id number] : 1950 F 73 From: Deandre roberts MD PCP: Dr. Yon Preciado DO Status: REG CLI Study: Breast Limited Unilateral Date of Exam: Exam# [id number] Ordering [place]: [place] [id number] STUDY: ULTRASOUND BREAST - LEFT REASON FOR [...] Signed: Deandre Shetty MD at 10:56 EDT Reading Location ID and State: [facility] / [place] , Service support , CC: Dr. Yon Preciado DO Full Stack Php Developer: Signed Normal [facility] DIAG MAMM W/CAD, BILATon DIAG MAMM W/CAD, BILAT [facility] Imaging Services [address] [place], [place] [id number] DIAG MAMM W/CAD, BILAT MR#: [id number] Acct: [id number] Name: FIOR SHIPMAN Rep #: [id number] : 1950 F 73 From: Deandre roberts MD PCP: Dr. Yon Preciado DO Status: REG CLI Study: DIAG MAMM W/CAD, BILAT Date of Exam: 11/17/23 Exam# [id number] Ordering Dr: [place] [id number] MAMMOGRAPHY - BILATERAL DIAGNOSTIC REASON FOR EXAM: [...] EDT , CC: Dr. Yon Preciado DO Full Stack Php Developer: Signed Normal [facility] 12 Lead EKGon 09-22-2023 12 [facility] [address] [place] [address] 12 Lead EKG 09/22/23 0521 MR#: [id number] Acct: [id number] Name: FIOR SHIPMAN Rep #: [id number] : 1950 72 From: Evens Trent MD [...] ECG Confirmed by EVENS TRENT MD ([id number]), editor greeting card DINORAH MÉNDEZ ([id number]) on 09/23/2023 9:45:55 AM Referred By: BB Confirmed By:EVENS TRENT MD 09/23/2346 Date Evens Trent MD CC: Dr. Sourav Grande MD; Dr. Yon Preciado, DO Signed Normal [facility] Basic Metabolic Profile (BMP )on 09-22-2023 BUN/CRE 20.6 RATIO High 10-20 [facility] Comment on above: Order Comment: 1Y Performed By: #### L 501.5425, L500.2500, L100.0100 ####[facility] [address] [place], [address] CA,Total 10.0 mg/dL Normal 8.5-10.1 [facility] Comment on above: Order Comment: 1Y Performed By: #### L 501.5425, L500.2500, L100.0100 ####[facility] [address] [place], [address] Chloride [Moles/Vol] 101 mmol/L Normal 98-107 [facility] Comment on above: Order Comment: 1Y Performed By: #### L 501.5425, L500.2500, L100.0100 ####[facility] [address] [place], [address] CO2 [Moles/Vol] 27.0 mmol/L Normal 21.0-32.0 [facility] Comment on above: Order Comment: 1Y Performed By: #### L 501.5425, L500.2500, L100.0100 ####[facility] [address] [place], [address] Creatinine [Mass/Vol] 1.26 mg/dL High 0.55-1.02 [facility] Comment on above: Order Comment: 1Y Result Comment: The validity of the calculated GFR GFRAA in patients over 70 years has not been determined. Clinical correlation is essential. Performed By: #### L 501.5425, L500.2500, L100.0100 ####[facility] [address] [place], [address] ECRCL 39.76 ml/min Normal [facility] Comment on above: Order Comment: 1Y Performed By: #### L 501.5425, L500.2500, L100.0100 ####[facility] [address] [place], [address] EST GFR - AA 54 mL/min Low >60 [facility] Comment on above: Order Comment: 1Y Result Comment: Afri can Thai GFR Calc Performed By: #### L 501.5425, L500.2500, L100.0100 ####[facility] [address] [place], [address] GAP 7 Normal 5-15 [facility] Comment on above: Order Comment: 1Y Performed By: #### L 501.5425, L500.2500, L100.0100 ####[facility] [address] [place], [address] GFR/1.73 sq M.predicted among non-blacks MDRD (S/P/Bld) [Vol rate/Area] 44 mL/min/{1.73_m2} Low >60 [facility] Comment on above: Order Comment: 1Y Result Comment: Non- GFR Calc Performed By: #### L 501.5425, L500.2500, L100.0100 ####[facility] [address] [place], [address] Glucose [Mass/Vol] 132 mg/dL High 74-106 [facility] Comment on above: Order Comment: 1Y Result Comment: Fast ing Glucose result greater than or equal to 126 mg/dL suggests DIABETES MELLITUS per A.D.A. criteria. Performed By: #### L 501.5425, L500.2500, L100.0100 ####[facility] [address] [place], [address] Potassium [Moles/Vol] 3.7 mmol/L Normal 3.5-5.1 [facility] Comment on above: Order Comment: 1Y Performed By: #### L 501.5425, L500.2500, L100.0100 ####[facility] [address] [place], [address] Sodium [Moles/Vol] 135 mmol/L Low 136-145 [facility] Comment on above: Order Comment: 1Y Performed By: #### L 501.5425, L500.2500, L100.0100 ####[facility] [address] [place], [address] Urea nitrogen [Mass/Vol] 26 mg/dL High 7-18 [facility] Comment on above: Order Comment: 1Y Performed By: #### L 501.5425, L500.2500, L100.0100 ####[facility] [address] [place], [address] CBC W/Diff, Automatedon 08-31 Absolute Lymph 2.70 X10 3/uL Normal 0.83-4.51 [facility] Comment on above: Performed By: #### L 501.5425, L500.2500, L100.0100 ####[facility] [address] [place], [address] Absolute Neut 4.0 X10 3/uL Normal 2.0-7.7 [facility] Comment on above: Performed By: #### L 501.5425, L500.2500, L100.0100 ####[facility] [address], [address] Basophils/100 WBC (Bld) 0.6 % Normal 0-1 [facility] Comment on above: Performed By: #### L 501.5425, L500.2500, L100.0100 ####[facility] [address] [place], [address] Eosinophils/100 WBC (Bld) 4.0 % Normal 0-5 [facility] Comment on above: Performed By: #### L 501.5425, L500.2500, L100.0100 ####[facility] [address] [place], [address] Erythrocyte distribution width (RBC) [Ratio] 12.6 % Normal 11.6-14.6 [facility] Comment on above: Performed By: #### L 501.5425, L500.2500, L100.0100 ####[facility] [address] [place], [address] Hematocrit (Bld) [Volume fraction] 37.1 % Normal 37-47 [facility] Comment on above: Performed By: #### L 501.5425, L500.2500, L100.0100 ####[facility] [address] [place], [address] Hemoglobin (Bld) [Mass/Vol] 12.1 g/dL Normal 12.0-15.0 [facility] Comment on above: Performed By: #### L 501.5425, L500.2500, L100.0100 ####[facility] [address] [place], [address] IG% 0.400 Normal 0.0-0.9 [facility] Comment on above: Result Comment: IG% - Immature Granulocytes (promyelocytes, myelocytes and metamyelocytes) > 1% indicates that a LEFT SHIFT is Present. Performed By: #### L 501.5425, L500.2500, L100.0100 ####[facility] [address] [place], [address] Lymphocytes/100 WBC (Bld) 33.0 % Normal 19-41 [facility] Comment on above: Performed By: #### L 501.5425, L500.2500, L100.0100 ####[facility] [address] [place], [address] MCH (RBC) [Entitic mass] 30.3 pg Normal 27.0-32.0 [facility] Comment on above: Performed By: #### L 501.5425, L500.2500, L100.0100 ####[facility] [address] [place], [address] MCHC (RBC) [Mass/Vol] 32.6 g/dL Normal 32-36 [facility] Comment on above: Performed By: #### L 501.5425, L500.2500, L100.0100 ####[facility] [address] [place], [address] MCV (RBC) [Entitic vol] 93.0 fL Normal 81-99 [facility] Comment on above: Performed By: #### L 501.5425, L500.2500, L100.0100 ####[facility] [address] [place], [address] Monocytes/100 WBC (Bld) 12.6 % High 0-10 [facility] Comment on above: Performed By: #### L 501.5425, L500.2500, L100.0100 ####[facility] [address] [place] [address], [address] Neutrophils/100 WBC (Bld) 49.4 % Normal 47-70 [facility] Comment on above: Performed By: #### L 501.5425, L500.2500, L100.0100 ####[facility] [address] [place], [address] Nucleated RBC (Bld) [#/Vol] 0 10*3/uL Normal 0-5 [facility] Comment on above: Performed By: #### L 501.5425, L500.2500, L100.0100 ####[facility] [address] [place], [address] Platelet mean volume (Bld) [Entitic vol] 8.5 fL Normal 6.2-12.0 [facility] Comment on above: Performed By: #### L 501.5425, L500.2500, L100.0100 ####[facility] [address] [place], [address] Platelets (Bld) [#/Vol] 284 10*3/uL Normal 150-450 [facility] Comment on above: Performed By: #### L 501.5425, L500.2500, L100.0100 ####[facility] [address] [place], [address] RBC (Bld) [#/Vol] 3.99 10*6/uL Low 4.2-5.4 [facility] Comment on above: Performed By: #### L 501.5425, L500.2500, L100.0100 ####[facility] [address] [place], [address] RDW SD 43.0 fl Normal 35.1-43.9 [facility] Comment on above: Performed By: #### L 501.5425, L500.2500, L100.0100 ####[facility] [address] [place], [address] WBC (Bld) [#/Vol] 8.2 10*3/uL Normal 4.4-11.0 [facility] Comment on above: Performed By: #### L 501.5425, L500.2500, L100.0100 ####[facility] [address] [place], [address] Chest PA and Lateralon 09-21 Chest PA and Lateral [facility] Imaging Services [address] [place] [address] Chest PA and Lateral MR#: [id number] Acct: [id number] Name: FIOR SHIPMAN Rep #: [id number] : 1950 F 72 From: Axel Perez MD PCP: Dr. Yon Preciado, DO Status: REG ER Study: Chest PA and Lateral Date of Exam: 09/22/23 Exam# [id number] Ordering [place]: [place] [id number] EXAM: XR CHEST, 2 VIEWS CLINICAL INDICATION: [...] Sourav Grande MD; Dr. Yon Preciado DO Full Stack Php Developer: Signed Normal [facility] Emergency Department Summary on 09-22-2023 Emergency Department Summary [facility] Medical Records Department [address] [place] [address] Emergency Department Summary 09/22/23 MR#: [id number] Acct: [id number] Name: FIOR SHIPMAN Rep #: [id number] : 1950 72 From: Sourav Grande MD [...] + >/=35 (Quit smoking 37 years ago) [facility] Medical History Subclavian artery stenosis, left Generalized [...] 1 tab PO DAILY 01/29/22 Unknown History mg-hydrochlorothiazide 25 mg tablet multivitamin 1 tab PO [...] you par (more content not included)... Normal [facility] L501.4020on 09-22-2023 TROPONIN-I HS 6 pg/mL Normal 3.0-54.0 [facility] Comment on above: Result Comment: Plea se Note: New Test Units and Gender Specific Reference Ranges. For more information see Policy Stat Procedure Hugo High Sensitivity Troponin (TNIH) and attachments. Performed By: #### L 501.4020 #### [facility] Laboratory [address] [facility]. [place], [place], [address] L501.5425on 09-22-2023 TROPONIN-I HS 7 pg/mL Normal 3.0-54.0 [facility] Comment on above: Order Comment: 1Y Result Comment: Plea se Note: New Test Units and Gender Specific Reference Ranges. For more information see Policy Stat Procedure Hugo High Sensitivity Troponin (TNIH) and attachments. Performed By: #### L 501.5425, L500.2500, L100.0100 ####[facility] [address] [facility] [place], [address] Cervical or vaginal specimen microscopic examination by liquid based cytology (reported as document)Ordered By: Kandace Banks on 03-23-2023 Cytology report Cyto stain.thin prep Doc (Cvx/Vag) Comment . [facility] Comment on above: Criteria not met, HP V Genotype not performed.Performed at: [address] [id number] Director: Eunice Fontenot MD, Phone: [phone] at: =G - [facility] [address] [place] [id number] Director: Eunice Fontenot MD, Phone: [phone] Cervical or vagninal specime n microscopic examination by cytology stain (reported asOrdered By: Kandace Banks on 03-23-2023 Cytology report Cyto stain Doc (Cvx/Vag) Comment . [facility] Comment on above: The Pap smear [...] 33,Ordered By: Kandace Banks on 03-23-2023 HPV 16+18+31+33+35+39+45+5 1+52+56+58+59+66+68 DNA Probe+sig amp Ql (Cvx) Negative Negative [facility] Comment on above: This nucleic acid am plification test detects fourteen high- risk HPV types (16,18,31,33,35,39,45,51,52,56,58,59,66,68)without differentiation. Laboratory - CytologyOrdered By: Kandace Banks on 03-23-2023 Dental Professional Cyto stain Nom (Cvx/Vag) [ID] Comment . [facility] Comment on above: Yvon Haney, Application Specialist (ASCP) Laboratory - Miscellaneous t estsOrdered By: Kandace Banks on 03-23-2023 Service comment (Unsp spec) [Interp] . . [facility] Thin prep Papanicolaou smear with manual screeningOrdered By: Kandace Banks on 03-23-2023 Thin prep Papanicolaou smear with manual screening Comment . [facility] Comment on above: NEGATIVE FOR INTRAEP ITHELIAL LESION OR MALIGNANCY. This liquid based Th inPrep(R) pap test was screened withthe use of an image guided system. Basophil percentageOrdered B y: Lavon Weathers on 12-05-2022 Basophil percentage < 0.9 mg/dL 0.55-1.02 [facility] No Panel InformationOrdered By: Lavon Weathers on 12-05-2022 Bedside Estimated GFR (eGFR) > 60.0000 mL/min >60 [facility] Absolute lymphocyte countOrd ered By: Yon Preciado on 10-27-2022 Lymphocytes Auto (Unsp spec) [#/Vol] 1.59 10*3/uL 0.83-4.51 [facility] Basophil percentageOrdered B y: Yon Preciado on 10-27-2022 Basophils/100 WBC (Bld) 0.6 % 0-1 [facility] Bilirubin [Mass/Vol] 0.70 mg/dL 0.20-1.00 [facility] Comment on above: For patients on eltr ombopag therapy, use of Dimension Hugo TBIL is not recommended. Chloride [Moles/Vol] 100 mmol/L 98-107 [facility] Cholesterol [Mass/Vol] 260 mg/dL <200 [facility] Comment on above: <200 mg/dL Desirable 200-240 mg/dL Borderline >240 mg/dL High Risk Eosinophils/100 WBC (Bld) 2.3 % 0-5 [facility] Glucose [Mass/Vol] 170 mg/dL 74-106 [facility] Comment on above: Fasting Glucose resu lt greater than or equal to 126 mg/dL suggests DIABETES MELLITUS per A.D.A. criteria. Neutrophils (Bld) [#/Vol] 5.2 10*3/uL 2.0-7.7 [facility] Neutrophils/100 WBC (Bld) 63.8 % 47-70 [facility] Potassium [Moles/Vol] 4.4 mmol/L 3.5-5.1 [facility] Protein [Mass/Vol] 7.3 g/dL 6.4-8.2 [facility] Sodium [Moles/Vol] 135 mmol/L 136-145 [facility] Triglyceride [Mass/Vol] 260 mg/dL <199 [facility] Comment on above: The drugs N-Acetylcy steine and Metamizole may falsely depress this assay.Serum Triglycerides Reference Interval Normal <150 mg/dL Borderline high 150 - 199 mg/dL High 200 - 499 mg/dL Very High > or = 500 mg/dL WBC (Bld) [#/Vol] 8.1 10*3/uL 4.4-11.0 [facility] Blood erythrocytes count (nu mber/volume)Ordered By: Yon Preciado on 10-27-2022 RBC (Bld) [#/Vol] 4.04 10*6/uL 4.2-5.4 [facility] Blood hemoglobin measurement (mass/volume)Ordered By: Yon Preciado on 10-27-2022 Hemoglobin (Bld) [Mass/Vol] 12.6 g/dL 12.0-15.0 [facility] Blood lymphocytes/100 leukoc ytesOrdered By: Yon Preciado on 10-27-2022 Lymphocytes/100 WBC (Bld) 19.6 % 19-41 [facility] Blood monocytes/100 leukocyt esOrdered By: Yon Preciado on 10-27-2022 Monocytes/100 WBC (Bld) 13.3 % 0-10 [facility] Blood platelet mean volumeOr dered By: Yon Preciado on 10-27-2022 Platelet mean volume (Bld) [Entitic vol] 9.4 fL 6.2-12.0 [facility] Determination of erythrocyte mean corpuscular volume (MCV)Ordered By: Yon Preciado on 10-27-2022 MCV (RBC) [Entitic vol] 94.3 fL 81-99 [facility] Hematocrit Auto (Bld) [Volum e fraction]Ordered By: Yon Preciado on 10-27-2022 Hematocrit (Bld) [Volume fraction] 38.1 % 37-47 [facility] Laboratory - Chemistry and C hemistry - challengeOrdered By: Yon Preciado on 10-27-2022 ALP [Catalytic activity/Vol] 63 U/L 45-117 [facility] ALT [Catalytic activity/Vol] 26 U/L 13-56 [facility] CO2 [Moles/Vol] 26.0 mmol/L 21.0-32.0 [facility] Cobalamin (Vitamin B12) [Mass/Vol] 454 pg/mL 211-911 [facility] Globulin (S) [Mass/Vol] 3.5 g/dL 2.2-4.2 [facility] Urea nitrogen/Creatinine [Mass ratio] 24.1 mg/mg 10-20 [facility] Laboratory - Hematology and Cell countsOrdered By: Yon Preciado on 10-27-2022 Erythrocyte distribution width (RBC) [Entitic vol] 42.9 fL 35.1-43.9 [facility] Erythrocyte distribution width (RBC) [Ratio] 12.3 % 11.6-14.6 [facility] Immature granulocytes/100 WBC (Bld) 0.400 % 0.0-0.9 [facility] Comment on above: IG% - Immature Granu locytes (promyelocytes, myelocytes and metamyelocytes) > 1% indicates that a LEFT SHIFT is Present. MCH (RBC) [Entitic mass] 31.2 pg 27.0-32.0 [facility] Nucleated RBC/100 WBC (Bld) [Ratio] 0 % 0-5 [facility] MCHC Auto (RBC) [Mass/Vol]Or dered By: Yon Preciado on 10-27-2022 MCHC (RBC) [Mass/Vol] 33.1 g/dL 32-36 [facility] No Panel InformationOrdered By: Yon Preciado on 10-27-2022 Estimated GFR (MDRD) Amer 50 mL/min >60 [facility] Comment on above: GFR Calc Estimated GFR (MDRD) Non-Af Amer 42 mL/min >60 [facility] Comment on above: Non- GFR Calc Thyroid Stimulating Hormone (TSH) 3.60 uIU/mL 0.358-3.74 [facility] Urine Microalbumin/Creatinin e Ratio 10.1 mg/g CRE <30 [facility] Platelets bldOrdered By: Letitia Preciado on 10-27-2022 Platelets (Bld) [#/Vol] 301 10*3/uL 150-450 [facility] Serum or plasma albumin trisha urement (mass/volume)Ordered By: Yon Preciado on 10-27-2022 Albumin [Mass/Vol] 3.8 g/dL 3.2-5.0 [facility] Serum or plasma albumin/glob ulin mass ratioOrdered By: Yon Preciado on 10-27-2022 Albumin/Globulin [Mass ratio] 1.1 {ratio} 0.9-2.4 [facility] Serum or plasma calcium trisha urement (mass/volume)Ordered By: Yon Preciado on 10-27-2022 Calcium [Mass/Vol] 9.8 mg/dL 8.5-10.1 [facility] Serum or plasma cholesterol in HDL measurement (mass/volume)Ordered By: Yon Preciado on 10-27-2022 Cholesterol in HDL [Mass/Vol] 47 mg/dL >40 [facility] Comment on above: The drugs N-Acetylcy steine and Metamizole may falsely depress this assay. Reference Range HDL <40 mg/dL Low HDL Cholesterol HDL >or= 60 mg/dL High HDL Cholesterol Serum or plasma cholesterol in VLDL measurement (mass/volume)Ordered By: Yon Preciado on 10-27-2022 Cholesterol in VLDL [Mass/Vol] 52 mg/dL 5-40 [facility] Serum or plasma creatinine m easurement (mass/volume)Ordered By: Yon Preciado on 10-27-2022 Creatinine [Mass/Vol] 1.33 mg/dL 0.55-1.02 [facility] Comment on above: The validity of the calculated GFR & GFRAA in patients over 70 years has not been determined. Clinical correlation is essential. Serum or plasma low density lipoprotein (LDL) cholesterol measurement (mass/volume)Ordered By: Yon Preciado on 10-27-2022 Cholesterol in LDL [Mass/Vol] 161 mg/dL 0-130 [facility] Serum or plasma urea nitroge n measurement (mass/volume)Ordered By: Yon Preciado on 10-27-2022 Urea nitrogen [Mass/Vol] 32 mg/dL 7-18 [facility] Thin prep Papanicolaou smear with manual screeningOrdered By: Yon Preciado on 10-27-2022 Thin prep Papanicolaou smear with manual screening 18 U/L 15-37 [facility] Thin prep Papanicolaou smear with manual screening 9 5-15 [facility] Thin prep Papanicolaou smear with manual screening 11.9 mg/L NO RANGE EST. [facility] Urine creatinine measurement (mass/volume)Ordered By: Yon Preciado on 10-27-2022 Creatinine (U) [Mass/Vol] 118.00 mg/dL NO RANGE EST. [facility] Whole blood hemoglobin A1c/t otal hemoglobin ratio (mass fraction)Ordered By: Yon Preciado on 10-27-2022 HbA1c (Bld) [Mass fraction] 7.1 % 3.8-5.6 [facility] Comment on above: Normal < 5.7 % Predi abetic 5.7 - 6.4 % Diabetic >or= 6.5 % Please note range changes. Absolute lymphocyte counton 02-12-2022 Lymphocytes Auto (Unsp spec) [#/Vol] 1.57 10*3/uL 0.83-4.51 [facility] Work Phone: Basophil percentageon 2021 Basophils/100 WBC (Bld) 0.2 % 0-1 [facility] Work Phone: Chloride [Moles/Vol] 97 mmol/L 98-107 [facility] Work Phone: Eosinophils/100 WBC (Bld) 0.7 % 0-5 [facility] Work Phone: Glucose [Mass/Vol] 154 mg/dL 74-106 [facility] Work Phone: Comment on above: Fasting Glucose resu lt greater than or equal to 126 mg/dL suggests DIABETES MELLITUS per A.D.A. criteria. Neutrophils (Bld) [#/Vol] 8.3 10*3/uL 2.0-7.7 [facility] Work Phone: Neutrophils/100 WBC (Bld) 72.7 % 47-70 [facility] Work Phone: Potassium [Moles/Vol] 3.5 mmol/L 3.5-5.1 [facility] Work Phone: Sodium [Moles/Vol] 133 mmol/L 136-145 [facility] Work Phone: WBC (Bld) [#/Vol] 11.3 10*3/uL 4.4-11.0 [facility] Work Phone: Blood erythrocytes count (nu mber/volume)on 02-12-2022 RBC (Bld) [#/Vol] 3.33 10*6/uL 4.2-5.4 [facility] Work Phone: Blood hemoglobin measurement (mass/volume)on 02-12-2022 Hemoglobin (Bld) [Mass/Vol] 10.3 g/dL 12.0-15.0 [facility] Work Phone: Blood lymphocytes/100 leukoc yteson 02-12-2022 Lymphocytes/100 WBC (Bld) 13.9 % 19-41 [facility] Work Phone: [phone] Blood monocytes/100 leukocyt eson 02-12-2022 Monocytes/100 WBC (Bld) 12.1 % 0-10 [facility] Work Phone: Blood platelet mean volumeon 02-12-2022 Platelet mean volume (Bld) [Entitic vol] 9.5 fL 6.2-12.0 [facility] Work Phone: Determination of erythrocyte mean corpuscular volume (MCV)on 02-12-2022 MCV (RBC) [Entitic vol] 93.4 fL 81-99 [facility] Work Phone: Hematocrit Auto (Bld) [Volum e fraction]on 02-12-2022 Hematocrit (Bld) [Volume fraction] 31.1 % 37-47 [facility] Work Phone: Laboratory - Chemistry and C hemistry - challengeon 02-12-2022 CO2 [Moles/Vol] 28.0 mmol/L 21.0-32.0 [facility] Work Phone: Urea nitrogen/Creatinine [Mass ratio] 13.2 mg/mg 10-20 [facility] Work Phone: Laboratory - Hematology and Cell countson 02-12-2022 Erythrocyte distribution width (RBC) [Entitic vol] 40.3 fL 35.1-43.9 [facility] Work Phone: Erythrocyte distribution width (RBC) [Ratio] 11.9 % 11.6-14.6 [facility] Work Phone: Immature granulocytes/100 WBC (Bld) 0.400 % 0.0-0.9 [facility] Work Phone: Comment on above: IG% - Immature Granu locytes (promyelocytes, myelocytes and metamyelocytes) > 1% indicates that a LEFT SHIFT is Present. MCH (RBC) [Entitic mass] 30.9 pg 27.0-32.0 [facility] Work Phone: [phone] Nucleated RBC/100 WBC (Bld) [Ratio] 0 % 0-5 [facility] Work Phone: [phone] MCHC Auto (RBC) [Mass/Vol]on 02-12-2022 MCHC (RBC) [Mass/Vol] 33.1 g/dL 32-36 [facility] Work Phone: No Panel Informationon 02-12 Estimated Creatinine Clearance Calc 37.44 ml/min [facility] Work Phone: [phone] Estimated GFR (MDRD) Amer 60 mL/min >60 [facility] Work Phone: Comment on above: GFR Calc Estimated GFR (MDRD) Non-Af Amer 50 mL/min >60 [facility] Work Phone: Comment on above: Non- GFR Calc Platelets bldon 02-12-2022 Platelets (Bld) [#/Vol] 241 10*3/uL 150-450 [facility] Work Phone: [phone] Serum or plasma calcium trisha urement (mass/volume)on 02-12-2022 Calcium [Mass/Vol] 8.6 mg/dL 8.5-10.1 [facility] Work Phone: [phone] Serum or plasma creatinine m easurement (mass/volume)on 02-12-2022 Creatinine [Mass/Vol] 1.14 mg/dL 0.55-1.02 [facility] Work Phone: Comment on above: The validity of the calculated GFR & GFRAA in patients over 70 years has not been determined. Clinical correlation is essential. Serum or plasma urea nitroge n measurement (mass/volume)on 02-12-2022 Urea nitrogen [Mass/Vol] 15 mg/dL 7-18 [facility] Work Phone: Thin prep Papanicolaou smear with manual screeningon 02-12-2022 Thin prep Papanicolaou smear with manual screening 8 5-15 [facility] Work Phone: Glucose Glucometer (BldC) [M ass/Vol]on 02-11-2022 Glucose [Mass/Vol] 168 mg/dL 74-106 [facility] Work Phone: Comment on above: MANAGEMENT OF PATIEN T CARE PER NURSING PROTOCOL HIV 1 and HIV-2 antibody ass ay with HIV-1 p24 antigen detectionon 02-03-2022 HIV 1+2 Ab+HIV1 p24 Ag IA Ql Non-Reactive Nonreactive [facility] Work Phone: Laboratory - Chemistry and C hemistry - challengeon 02-03-2022 Magnesium [Mass/Vol] 2.1 mg/dL 1.6-2.6 [facility] Work Phone: No Panel Informationon 02-03 Fructosamine 284 umol/L 0-285 [facility] Work Phone: Comment on above: Published reference interval for apparently healthysubjects between age 20 and 60 is 205 - 285 umol/L and in apoorly controlled diabetic population is 228 - 563 umol/Lwith a mean of 396 umol/L. Hepatitis A Antibody Total Negative Negative [facility] Work Phone: Comment on above: Performed at: [address] [id number] Director: Shaggy Escalante PhD, Phone: [phone] Hepatitis C Antibody Non-Reactive Nonreactive [facility] Work Phone: Comment on above: Non Reactive: < 0.8 Equivocal: >/= 0.8 to < 1.0 Reactive: >/= 1.0The CDC recommends that a reactive/equivocal HCV antibody result be followed up by the HCV Nucleic Acid Amplificationtest (752411) Serum hepatitis B virus surf kelly antibody IgG detectionon 02-03-2022 HBV surface IgG Ql (S) Reactive [facility] Work Phone: [phone] Comment on above: Non Reactive: Incons istent with immunity less than <10 mIU/mL Reactive: Consistent with immunity greater than or equal to 10 mIU/mL Whole blood hemoglobin A1c/t otal hemoglobin ratio (mass fraction)on 02-03-2022 HbA1c (Bld) [Mass fraction] 6.5 % 3.8-5.6 [facility] Work Phone: [phone] Comment on above: Normal < 5.7 % Predi abetic 5.7 - 6.4 % Diabetic >or= 6.5 % Please note range changes. Absolute lymphocyte counton 08-29-2021 Lymphocytes Auto (Unsp spec) [#/Vol] 1.64 10*3/uL 0.83-4.51 [facility] Work Phone: [phone] Basophil percentageon 2021 Basophils/100 WBC (Bld) 0.5 % 0-1 [facility] Work Phone: [phone] Bilirubin [Mass/Vol] 0.80 mg/dL 0.20-1.00 [facility] Work Phone: [phone] Comment on above: For patients on eltr ombopag therapy, use of Dimension Hugo TBIL is not recommended. Chloride [Moles/Vol] 101 mmol/L 98-107 [facility] Work Phone: [phone] Cholesterol [Mass/Vol] 262 mg/dL <200 [facility] Work Phone: [phone] Comment on above: <200 mg/dL Desirable 200-240 mg/dL Borderline >240 mg/dL High Risk Eosinophils/100 WBC (Bld) 4.5 % 0-5 [facility] Work Phone: [phone] Glucose [Mass/Vol] 142 mg/dL 74-106 [facility] Work Phone: [phone] Comment on above: Fasting Glucose resu lt greater than or equal to 126 mg/dL suggests DIABETES MELLITUS per A.D.A. criteria. Neutrophils (Bld) [#/Vol] 4.7 10*3/uL 2.0-7.7 [facility] Work Phone: Neutrophils/100 WBC (Bld) 62.1 % 47-70 [facility] Work Phone: [phone] Potassium [Moles/Vol] 4.2 mmol/L 3.5-5.1 [facility] Work Phone: [phone] Protein [Mass/Vol] 7.3 g/dL 6.4-8.2 [facility] Work Phone: [phone] Sodium [Moles/Vol] 136 mmol/L 136-145 [facility] Work Phone: [phone] Triglyceride [Mass/Vol] 245 mg/dL <199 [facility] Work Phone: [phone] Comment on above: The drugs N-Acetylcy steine and Metamizole may falsely depress this assay.Serum Triglycerides Reference Interval Normal <150 mg/dL Borderline high 150 - 199 mg/dL High 200 - 499 mg/dL Very High > or = 500 mg/dL WBC (Bld) [#/Vol] 7.6 10*3/uL 4.4-11.0 [facility] Work Phone: [phone] Bilirubin Test strip Ql (U)o n 08-29-2021 Bilirubin Ql (U) Negative Negative [facility] Work Phone: [phone] Blood erythrocytes count (nu mber/volume)on 08-29-2021 RBC (Bld) [#/Vol] 4.08 10*6/uL 4.2-5.4 [facility] Work Phone: [phone] Blood hemoglobin measurement (mass/volume)on 08-29-2021 Hemoglobin (Bld) [Mass/Vol] 12.4 g/dL 12.0-15.0 [facility] Work Phone: Blood lymphocytes/100 leukoc yteson 08-29-2021 Lymphocytes/100 WBC (Bld) 21.6 % 19-41 [facility] Work Phone: Blood monocytes/100 leukocyt eson 08-29-2021 Monocytes/100 WBC (Bld) 10.9 % 0-10 [facility] Work Phone: Blood platelet mean volumeon 08-29-2021 Platelet mean volume (Bld) [Entitic vol] 9.1 fL 6.2-12.0 [facility] Work Phone: [phone] Determination of erythrocyte mean corpuscular volume (MCV)on 08-29-2021 MCV (RBC) [Entitic vol] 92.9 fL 81-99 [facility] Work Phone: [phone] Hematocrit Auto (Bld) [Volum e fraction]on 08-29-2021 Hematocrit (Bld) [Volume fraction] 37.9 % 37-47 [facility] Work Phone: [phone] Ketones Test strip Ql (U)on 08-29-2021 Ketones Ql (U) Negative Negative [facility] Work Phone: [phone] Laboratory - Chemistry and C hemistry - challengeon 08-29-2021 ALP [Catalytic activity/Vol] 53 U/L 45-117 [facility] Work Phone: [phone] ALT [Catalytic activity/Vol] 21 U/L 13-56 [facility] Work Phone: [phone] CO2 [Moles/Vol] 27.0 mmol/L 21.0-32.0 [facility] Work Phone: [phone] Globulin (S) [Mass/Vol] 3.5 g/dL 2.2-4.2 [facility] Work Phone: [phone] Urea nitrogen/Creatinine [Mass ratio] 15.8 mg/mg 10-20 [facility] Work Phone: [phone] Laboratory - Hematology and Cell countson 08-29-2021 Erythrocyte distribution width (RBC) [Entitic vol] 40.8 fL 35.1-43.9 [facility] Work Phone: [phone] Erythrocyte distribution width (RBC) [Ratio] 11.9 % 11.6-14.6 [facility] Work Phone: [phone] Immature granulocytes/100 WBC (Bld) 0.400 % 0.0-0.9 [facility] Work Phone: [phone] Comment on above: IG% - Immature Granu locytes (promyelocytes, myelocytes and metamyelocytes) > 1% indicates that a LEFT SHIFT is Present. MCH (RBC) [Entitic mass] 30.4 pg 27.0-32.0 [facility] Work Phone: [phone] Nucleated RBC/100 WBC (Bld) [Ratio] 0 % 0-5 [facility] Work Phone: [phone] MCHC Auto (RBC) [Mass/Vol]on 08-29-2021 MCHC (RBC) [Mass/Vol] 32.7 g/dL 32-36 [facility] Work Phone: [phone] Nitrite Test strip Ql (U)on 08-29-2021 Nitrite Ql (U) Negative Negative [facility] Work Phone: [phone] Panel Informationon 08-29 Estimated GFR (MDRD) Amer 57 mL/min >60 [facility] Work Phone: [phone] Comment on above: GFR Calc Estimated GFR (MDRD) Non-Af Amer 47 mL/min >60 [facility] Work Phone: [phone] Comment on above: Non- GFR Calc Hepatitis C Antibody Non-Reactive Nonreactive [facility] Work Phone: Comment on above: Non Reactive: < 0.8 Equivocal: >/= 0.8 to < 1.0 Reactive: >/= 1.0The CDC recommends that a reactive/equivocal HCV antibody result be followed up by the HCV Nucleic Acid Amplificationtest (589958) Urine Microalbumin/Creatinin e Ratio 6.8 mg/g CRE <30 [facility] Work Phone: [phone] Platelets bldon 08-29-2021 Platelets (Bld) [#/Vol] 309 10*3/uL 150-450 [facility] Work Phone: [phone] Protein Test strip Ql (U)on 08-29-2021 Protein Ql (U) Negative Negative [facility] Work Phone: [phone] Serum or plasma albumin trisha urement (mass/volume)on 08-29-2021 Albumin [Mass/Vol] 3.8 g/dL 3.2-5.0 [facility] Work Phone: [phone] Serum or plasma albumin/glob ulin mass ratioon 08-29-2021 Albumin/Globulin [Mass ratio] 1.1 {ratio} 0.9-2.4 [facility] Work Phone: [phone] Serum or plasma calcium trisha urement (mass/volume)on 08-29-2021 Calcium [Mass/Vol] 9.4 mg/dL 8.5-10.1 [facility] Work Phone: [phone] Serum or plasma cholesterol in HDL measurement (mass/volume)on 08-29-2021 Cholesterol in HDL [Mass/Vol] 46 mg/dL >40 [facility] Work Phone: Comment on above: The drugs N-Acetylcy steine and Metamizole may falsely depress this assay. Reference Range HDL <40 mg/dL Low HDL Cholesterol HDL >or= 60 mg/dL High HDL Cholesterol Serum or plasma cholesterol in VLDL measurement (mass/volume)on 08-29-2021 Cholesterol in VLDL [Mass/Vol] 49 mg/dL 5-40 [facility] Work Phone: [phone] Serum or plasma creatinine m easurement (mass/volume)on 08-29-2021 Creatinine [Mass/Vol] 1.20 mg/dL 0.55-1.02 [facility] Work Phone: Comment on above: The validity of the calculated GFR & GFRAA in patients over 70 years has not been determined. Clinical correlation is essential. Serum or plasma low density lipoprotein (LDL) cholesterol measurement (mass/volume)on 08-29-2021 Cholesterol in LDL [Mass/Vol] 167 mg/dL 0-130 [facility] Work Phone: [phone] Serum or plasma urea nitroge n measurement (mass/volume)on 08-29-2021 Urea nitrogen [Mass/Vol] 19 mg/dL 7-18 [facility] Work Phone: [phone] Thin prep Papanicolaou smear with manual screeningon 08-29-2021 Thin prep Papanicolaou smear with manual screening 16 U/L 15-37 [facility] Work Phone: [phone] Thin prep Papanicolaou smear with manual screening 8 5-15 [facility] Work Phone: Thin prep Papanicolaou smear with manual screening 6.3 mg/L NO RANGE EST. [facility] Work Phone: Urine blood detectionon 08-02 RBC Ql (U) 10 /ul Negative [facility] Work Phone: Urine clarityon 08-29-2021 Clarity (U) Sl. Cloudy Clear [facility] Work Phone: Urine color determinationon 08-29-2021 Color (U) Yellow Yellow [facility] Work Phone: Urine creatinine measurement (mass/volume)on 08-29-2021 Creatinine (U) [Mass/Vol] 93.00 mg/dL NO RANGE EST. [facility] Work Phone: Urine glucose detectionon Glucose Ql (U) Normal mg/dl Normal [facility] Work Phone: [phone] Urine leukocyte esterase det ection by dipstickon 08-29-2021 Leukocyte esterase Test strip Ql (U) 100 /ul Negative [facility] Work Phone: [phone] Urine pHon 08-29-2021 pH (U) 6.5 [pH] 5.0 - 8.0 [facility] Work Phone: [phone] Urine specific gravity measu rementon 08-29-2021 Specific gravity (U) [Rel density] 1.010 1.002-1.030 [facility] Work Phone: Urobilinogen Auto test strip Ql (U)on 08-29-2021 Urobilinogen Ql (U) Normal mg/dl Normal [facility] Work Phone: [phone] Whole blood hemoglobin A1c/t otal hemoglobin ratio (mass fraction)on 08-29-2021 HbA1c (Bld) [Mass fraction] 6.8 % 3.8-5.6 [facility] Work Phone: [phone] Comment on above: Normal < 5.7 % Predi abetic 5.7 - 6.4 % Diabetic >or= 6.5 % Please note range changes. CNOVon 04-20-2018 CNOV Office Visit (UCWSTR ) SHIPMANFIOR LAMAR ([id number]) 1950 F Date Time Provider Department 04/20/18 9:45 AM ONEAL CARLOS) [facility] During your visit today, we recorded the [...] ORAL) Take by mouth once daily. AMAURY PRIMROSE/LINOLEIC/GAMOL FREDI (PRIMROSE OIL ORAL) Take by mouth once daily. CALCIUM + D 600 MG-200 UNIT TAB Take one(1) tablet two(2) times daily. No current facility-administered medications for this visit. 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 AMAURY PRIMROSE/LINOLEIC/GAMOL FREDI (PRIMROSE OIL ORAL) Take by mouth once daily. CALCIUM + D 600 MG-200 UNIT TAB Take one(1) tablet two(2) times daily. No current facility-administered medications for this visit. 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 Oneal Carlos PA-C Normal [facility] CNOVon 04-10-2018 CNOV Office Visit (UCWSTR ) SHIPMANFIOR ([id number]) 1950 F Date Time Provider Department 04/10/18 2:45 PM COURTNEY TAPIA (PAIGE) [facility] During your visit today, we recorded the [...] had one within 10 years. Courtney Tapia APRN.BEHAVIORAL HEALTH AIDE 04/10/2018 4:24 PM Signed Subjective HPI Fior [...] Laterality Date - COLONOSCOP W/ OR W/O RUST SPEC 08/18/2001 Colonoscopy - LIGATE FALLOPIAN TUBE [...] ORAL) Take by mouth once daily. AMAURY PRIMROSE/LINOLEIC/GAMOL FREDI (PRIMROSE OIL ORAL) Take by mouth once [...] Discussed expected course of illness Courtney Tapia, CHEL.BEHAVIORAL HEALTH AIDE Referring Provider: SELF [200] Allergies As of [...] encounter [S61.216A] Order(s):TDAP VACCINE AGE 7+ IM [[id number]] Order #: [id number] Prescriptions as of 04/10/2018 Sig: CLOPIDOGREL 75 [...] TETANUS shot was updated today. Courtney Tapia APRN.BEHAVIORAL HEALTH AIDE SUTURED WOUND CARE: Your cut has been [...] Status:Closed by COURTNEY TAPIA on 04/10/[address] [facility] PROGRESSon 04-10-2018 Protein mass conc HNO ID: [id number] Author: Courtney (Security Engineer) Willie Service: (none) Author Type: Nurse Practitioner [...] Laterality Date - COLONOSCOP W/ OR W/O RUST SPEC 08/18/2001 Colonoscopy - LIGATE FALLOPIAN TUBE [...] ORAL) Take by mouth once daily. AMAURY PRIMROSE/LINOLEIC/GAMOL FREDI (PRIMROSE OIL ORAL) Take by mouth once [...] Discussed expected course of illness Courtney Tapia APRN.BEHAVIORAL HEALTH AIDE Normal [facility] XR FLUORO HYBRID OR 1-2 HRS [...] PM Sign Date: 10/24/2016 4:38:39 PM Normal [facility] ([place]) .Auto Diffon 10-23-2016 Basophils Auto #/vol (Bld) 0.10 10 3/mcL Normal 0.00-0.27 [facility] ([place]) Comment on above: Performed By: #### C BC, ADIFF, ANEU, RFP, GFR ####[address] [address] Basophils/100 WBC Auto (Bld) 1.0 % Normal 0.0-2.5 [facility] ([place]) Comment on above: Performed By: #### C BC, ADIFF, ANEU, RFP, GFR ####[address] [address] Eosinophils 0.20 10 3/mcL Normal 0.00-0.65 [facility] ([place]) Comment on above: Performed By: #### C BC, ADIFF, ANEU, RFP, GFR ####[address] [address] Eosinophils/100 leukocytes 2.0 % Normal 0.0-6.0 [facility] ([place] Comment on above: Performed By: #### C BC, ADIFF, ANEU, RFP, GFR ####[address] [address] Lymphocytes 2.00 10 3/mcL Normal 0.90-4.32 [facility] ([place]) Comment on above: Performed By: #### C BC, ADIFF, ANEU, RFP, GFR ####[address] [address] Lymphocytes/100 leukocytes 22.3 % Normal 20.0-40.0 [facility] ([place] Comment on above: Performed By: #### C BC, ADIFF, ANEU, RFP, GFR ####[address] [address] Monocytes 1.00 10 3/mcL Normal 0.09-1.40 [facility] ([place] Comment on above: Performed By: #### C BC, ADIFF, ANEU, RFP, GFR ####[address] [address] Monocytes/100 leukocytes 11.2 % Normal 2.0-13.0 [facility] ([place] Comment on above: Performed By: #### C BC, ADIFF, ANEU, RFP, GFR ####[address] [address] Neutrophils/100 WBC Auto (Bld) 63.5 % Normal 50.0-75.0 [facility] ([place]) Comment on above: Performed By: #### C BC, ADIFF, ANEU, RFP, GFR ####[address] [address] .GFRon 10-23-2016 eGFR (non-black) mL/min/{1.73_m2} Normal [facility] ([place]) Comment on above: Result Comment: GFR Population [...] #### C BC, ADIFF, ANEU, RFP, GFR ####[place] [address] .NEUABSon 10-23-2016 Neutrophils 5.60 10 3/mcL Normal 2.25-8.10 [facility] ([place] Comment on above: Performed By: #### C BC, ADIFF, ANEU, RFP, GFR ####[place] [address] CBCon 10-23-2016 Erythrocyte distribution width Auto Ratio (RBC) 13.3 % Normal 11.5-15.5 [facility] ([place] Comment on above: Performed By: #### C BC, ADIFF, ANEU, RFP, GFR ####[place] [address] Erythrocytes (RBC) 4.32 10 6/mcL Normal 4.10-5.30 [facility] ([place]) Comment on above: Performed By: #### C BC, ADIFF, ANEU, RFP, GFR ####[place] [address] Hematocrit (HCT) 39.2 % Normal 34.0-46.0 [facility] ([place] Comment on above: Performed By: #### C BC, ADIFF, ANEU, RFP, GFR ####[place] [address] Hemoglobin mass conc (Bld) 13.2 G/dL Normal 12.0-16.0 [facility] ([place] Comment on above: Performed By: #### C BC, ADIFF, ANEU, RFP, GFR ####[place] [address] MCH 30.6 pg Normal 27.0-33.0 [facility] ([place] Comment on above: Performed By: #### C BC, ADIFF, ANEU, RFP, GFR ####[place] [address] MCHC mass conc (RBC) 33.7 G/dL Normal 32.0-36.0 [facility] ([place]) Comment on above: Performed By: #### C BC, ADIFF, ANEU, RFP, GFR ####[place] [address] MCV 90.8 fL Normal 80.0-99.0 [facility] ([place]) Comment on above: Performed By: #### C BC, ADIFF, ANEU, RFP, GFR ####[address] [address] Platelet mean volume (PMV) 7.3 fL Normal 6.6-10.5 [facility] ([place] Comment on above: Performed By: #### C BC, ADIFF, ANEU, RFP, GFR ####[place] [address] Platelets 330 10 3/mcL Normal 150-450 [facility] ([place]) Comment on above: Performed By: #### C BC, ADIFF, ANEU, RFP, GFR ####[address] [address] WBC (Leukocytes) 8.80 10 3/mcL Normal 4.50-10.80 [facility] ([place]) Comment on above: Performed By: #### C BC, ADIFF, ANEU, RFP, GFR ####[address] [address] Depart Summaryon 10-23-2016 Depart Summary Normal [facility] ([place]) Operative Reporton 7 Operative Report Normal [facility] ([place]) Outpatient Patient Summaryon 10-23-2016 Outpatient Patient Summary Normal [facility] ([place] RFPon 10-23-2016 Albumin 3.8 G/dL Normal 3.2-4.8 [facility] ([place] Comment on above: Performed By: #### C BC, ADIFF, ANEU, RFP, GFR ####[address] [address] BUN/Creatinine Ratio 19.0 ratio Normal 10.0-22.0 [facility] ([place] Comment on above: Performed By: #### C BC, ADIFF, ANEU, RFP, GFR ####[address] [address] Calcium 9.7 mg/dL Normal 8.4-10.1 [facility] ([place] Comment on above: Performed By: #### C BC, ADIFF, ANEU, RFP, GFR ####[address] [address] Chloride 102 mmol/L Normal 98-110 [facility] ([place] Comment on above: Performed By: #### C BC, ADIFF, ANEU, RFP, GFR ####[address] [address] CO2 29 mmol/L Normal 22-32 [facility] ([place] Comment on above: Performed By: #### C BC, ADIFF, ANEU, RFP, GFR ####[address] [address] Creatinine 0.84 mg/dL Normal 0.50-1.20 [facility] ([place] Comment on above: Performed By: #### C BC, ADIFF, ANEU, RFP, GFR ####[place] [address] Electrolyte Balance 7.0 mEq/L Normal 4.0-15.0 [facility] ([place]) Comment on above: Performed By: #### C BC, ADIFF, ANEU, RFP, GFR ####[address] [address] Glucose mass conc 135 mg/dL High 82-115 [facility] ([place] Comment on above: Performed By: #### C BC, ADIFF, ANEU, RFP, GFR ####[place] [address] Phosphate 3.6 mg/dL Normal 2.5-4.5 [facility] ([place] Comment on above: Performed By: #### C BC, ADIFF, ANEU, RFP, GFR ####[address] [address] Potassium molar conc 4.8 mmol/L Normal 3.5-5.0 [facility] ([place] Comment on above: Performed By: #### C BC, ADIFF, ANEU, RFP, GFR ####[place] [address] Sodium 138 mmol/L Normal 136-145 [facility] ([place] Comment on above: Performed By: #### C BC, ADIFF, ANEU, RFP, GFR ####[address] [address] Urea nitrogen 16.0 mg/dL Normal 8.0-22.0 [facility] ([place] Comment on above: Performed By: #### C BC, ADIFF, ANEU, RFP, GFR ####[address] [address] No Panel Information Nasal Screen MRSA/MSSA [facility] Work Phone: Vital Signs Date Time Vital Sign Value Performing Clinician Faci lity 09-13-2024 13:23-0400 Body temperature 97.2 [degF] Dr. Yon Preciado DO Work Phone: [facility] 09-13-2024 13:23-0400 Diastolic blood pressure 58 mm[Hg] Dr. Yon Preciado DO Work Phone: [facility] 09-13-2024 13:23-0400 Heart rate 68 /min Dr. Yon Preciado DO Work Phone: [facility] 09-13-2024 13:23-0400 Respiratory rate 18 /min Dr. Yon Preciado DO Work Phone: [facility] 09-13-2024 13:23-0400 SaO2% (BldA) [Mass fraction] 100 % Dr. Yon Preciado DO Work Phone: [facility] 09-13-2024 13:23-0400 Systolic blood pressure 116 mm[Hg] Dr. Yon Preciado DO Work Phone: [facility] 09-12-2024 13:32-0400 Body height 162.[address] Yon Preciado DO Work Phone: [facility] 09-12-2024 13:32-0400 Body mass index (BMI) [Ratio] 29.1 kg/m2 Dr. Yon Preciado DO Work Phone: [facility] 09-12-2024 13:32-0400 Body weight [address] Yon Preciado DO Work Phone: [facility] 09-12-2024 13:32-0400 Inhaled oxygen flow rate 4 L/min Dr. Yon Preciado DO Work Phone: [facility] 05-12-2024 02:58-0400 Body temperature 98.2 [degF] Dr. Yon Preciado DO Work Phone: [facility] 05-12-2024 02:58-0400 Diastolic blood pressure 71 mm[Hg] Dr. Yon Preciado DO Work Phone: [facility] 05-12-2024 02:58-0400 Heart rate 80 /min Dr. Yon Preciado DO Work Phone: [facility] 05-12-2024 02:58-0400 Respiratory rate 16 /min Dr. Yon Preciado DO Work Phone: [facility] 05-12-2024 02:58-0400 SaO2% (BldA) [Mass fraction] 100 % Dr. Yon Preciado DO Work Phone: [facility] 05-12-2024 02:58-0400 Systolic blood pressure 123 mm[Hg] Dr. Yon Preciado DO Work Phone: [facility] 05-11-2024 22:51-0400 Body height 162.[address] Yon Preciado DO Work Phone: [facility] 05-11-2024 22:51-0400 Body mass index (BMI) [Ratio] 29.3 kg/m2 Dr. Yon Preciado DO Work Phone: [facility] 05-11-2024 22:51-0400 Body weight 77.[address] Yon Preciado DO Work Phone: [facility] 03-23-2023 15:21-0500 Body height 160.[address] Yon Preciado Work Phone: [facility] 03-23-2023 15:21-0500 Body mass index (BMI) [Ratio] 30.2 kg/m2 Dr. Yon Preciado Work Phone: [facility] 03-23-2023 15:21-0500 Body weight 77.[address] Yon Preciado Work Phone: [facility] 03-23-2023 15:21-0500 Diastolic blood pressure 82 mm[Hg] Dr. Yon Preciado Work Phone: [facility] 03-23-2023 15:21-0500 Systolic blood pressure 138 mm[Hg] Dr. Yon Preciado Work Phone: [facility] 02-13-2022 13:29-0500 Body temperature 99.8 [degF] Dr. Yon Preciado Work Phone: [facility] Work Phone: 02-13-2022 13:29-0500 Diastolic blood pressure 44 mm[Hg] Dr. Yon Preciado Work Phone: [facility] Work Phone: 02-13-2022 13:29-0500 Heart rate 80 /min Dr. Yon Preciado Work Phone: [facility] Work Phone: 02-13-2022 13:29-0500 Respiratory rate 18 /min Dr. Yon Preciado Work Phone: [facility] Work Phone: 02-13-2022 13:29-0500 SaO2% (BldA) [Mass fraction] 97 % Dr. Yon Preciado Work Phone: [facility] Work Phone: 02-13-2022 13:29-0500 Systolic blood pressure 110 mm[Hg] Dr. Yon Preciado Work Phone: [facility] Work Phone: 02-13-2022 02:51-0500 Inhaled oxygen flow rate 4 L/min Dr. Yon Preciado Work Phone: [facility] Work Phone: 02-11-2022 15:17-0500 Body height 160.[address] Yon Preciado Work Phone: [facility] Work Phone: 02-11-2022 15:17-0500 Body mass index (BMI) [Ratio] 29.1 kg/m2 Dr. Yon Preciado Work Phone: [facility] Work Phone: 02-11-2022 15:17-0500 Body weight 74.[address] Yon Preciado Work Phone: [facility] Work Phone: 02-05-2022 08:40-0500 Body mass index (BMI) [Ratio] 28.1 kg/m2 Dr. Yon Preciado Work Phone: [facility] Work Phone: 02-05-2022 08:40-0500 Body weight 74.[address] Yon Preciado Work Phone: [facility] Work Phone: 02-05-2022 08:40-0500 Diastolic blood pressure 71 mm[Hg] Dr. Yon Preciado Work Phone: [facility] Work Phone: 02-05-2022 08:40-0500 Heart rate 62 /min Dr. Yon Preciado Work Phone: [facility] Work Phone: 02-05-2022 08:40-0500 Respiratory rate 16 /min Dr. Yon Preciado Work Phone: [facility] Work Phone: 02-05-2022 08:40-0500 Systolic blood pressure 119 mm[Hg] Dr. Yon Preciado Work Phone: [facility] Work Phone: 10-28-2021 13:21-0400 Body height 162.[address] Yon Preciado Work Phone: [facility] Work Phone: 10-28-2021 13:21-0400 Body mass index (BMI) [Ratio] 29 kg/m2 Dr. Yon Preciado Work Phone: [facility] Work Phone: 10-28-2021 13:21-0400 Body weight 76.[address] Yon Preciado Work Phone: [facility] Work Phone: 08-29-2021 08:48-0400 Body height 162.56 cm [facility] Work Phone: Encounters Encounter Date Encounter Type Care Provider Facility Start: 09-13-2024 Encounter for other preprocedural examination Emiliano Toledo [facility] Start: 09-12-2024 ambulatory [facility] Facility: [facility] Start: 09-12-2024 Non-patient / Non-visit Dr. Ananda Toledo MD -[facility] Work Phone: Start: 09-12-2024 End: 09-13-2024 Admission to same day surgery center Dr. Delgado Aragon DO -[facility] Start: 09-12-2024 End: 09-13-2024 ambulatory [facility] Start: 09-07-2024 End: 09-07-[address] Yon Preciado DO -[facility] Work Phone: Start: 09-07-2024 End: 09-07-2024 ambulatory Yon Ilana Facility:[facility] Start: 08-15-2024 ambulatory Yon Ilana Facility: [facility] Start: 08-11-2024 End: 08-11-2024 Non-patient / Non-visit Dr. Gigi Prasad MD -[facility] Work Phone: Start: 08-11-2024 End: 08-11-[address] Yon Preciado DO Work Phone: [facility] Work Phone: Start: 08-11-2024 End: 08-11-2024 Patient encounter procedure Dr. Delgado Aragon DO -Cat Scan [facility] Work Phone: Start: 08-11-2024 End: 08-11-2024 ambulatory Yon Ilana Facility:[facility] Start: 07-27-2024 End: 07-27-[address] Yon Preciado DO Work Phone: [facility] Work Phone: Start: 07-27-2024 End: 07-27-[address] Yon Preciado DO -[facility] Work Phone: Start: 07-27-2024 End: 07-27-2024 ambulatory Yon Ilana Facility:[facility] Start: 06-03-2024 End: 06-03-[address] Yon Preciado DO Work Phone: [facility] Work Phone: Start: 06-03-2024 End: 06-03-[address] Emily Moncada MD -Ultrasound, [facility] Work Phone: Start: 06-03-2024 End: 06-03-2024 ambulatory Yon Ilana Facility:[facility] Start: 05-11-2024 End: 05-12-2024 Emergency department patient visit Dr. Yon Preciado DO Work Phone: -Emergency Department Work Phone: Start: 05-06-2024 End: 05-06-[address] Yon Preciado DO Work Phone: [facility] Work Phone: Start: 05-06-2024 End: 05-06-[address] Yon Preciado DO -Laboratory, Specimen Work Phone: Start: 05-06-2024 End: 05-06-2024 ambulatory Yon Preciado Facility:[facility] Start: 04-25-2024 End: 04-25-[address] Yon Preciado DO Work Phone: [facility] Work Phone: Start: 04-25-2024 End: 04-25-[address] Simone Goyal MD -Cardiovascular Services Work Phone: Start: 04-25-2024 End: 04-25-2024 ambulatory Yon Preciado Facility:[facility] Start: 04-01-2024 End: 04-01-[address] Yon Preciado DO -Laboratory, Specimen Work Phone: Start: 04-01-2024 End: 04-01-2024 ambulatory Yon Ilana Facility:[facility] Start: 02-19-2024 End: 02-19-[address] Yon Martinez, [facility] Start: 02-19-2024 End: 02-19-2024 ambulatory Yon Preciado Facility:[facility] Start: 12-31-2023 End: 12-31-2023 ambulatory [facility] Facility:[facility] Start: 12-17-2023 End: 12-17-2023 ambulatory [facility] Facility:[facility] Start: 11-17-2023 End: 11-17-2023 ambulatory [facility] Facility:[facility] Start: 09-22-2023 End: 09-22-2023 Emergency department patient visit Yon Ilana Facility:[facility] Start: 03-30-2023 End: 03-30-[address] Yon Preciado Work Phone: [facility] Work Phone: Start: 03-30-2023 End: 03-30-[address] Yon Preciado Work Phone: [facility], [facility] Work Phone: Start: 03-26-2023 End: 03-26-[address] Yon Preciado Work Phone: [facility] Work Phone: Start: 03-26-2023 End: 03-26-[address] Yon Preciado Work Phone: [facility]-Radiology, [place] Work Phone: Start: 03-23-2023 End: 03-23-[address] Yon Preciado Work Phone: [facility] Work Phone: Start: 03-23-2023 End: 03-23-[address] Yon Preciado Work Phone: [facility]-Laboratory, Specimen Work Phone: Start: 03-23-2023 End: 03-23-[address] Yon Preciado Work Phone: [facility] Work Phone: Start: 02-18-2023 End: 02-18-2023 ambulatory [facility] Work Phone: Start: 02-18-2023 End: 02-18-2023 Patient encounter procedure [facility]-Cardiovascular Services Work Phone: Start: 01-05-2023 End: 01-05-2023 ambulatory [facility] Work Phone: Start: 01-05-2023 End: 01-05-2023 Patient encounter procedure [facility]-Ultrasound, [facility] Work Phone: Start: 12-05-2022 End: 12-05-2022 ambulatory [facility] Work Phone: Start: 12-05-2022 End: 12-05-2022 Patient encounter procedure [facility]-Cat Scan, [facility] Work Phone: Start: 10-27-2022 End: 10-27-2022 ambulatory [facility] Work Phone: Start: 10-27-2022 End: 10-27-2022 Patient encounter procedure [facility] Start: 09-17-2022 End: 09-17-2022 ambulatory [facility] Work Phone: Start: 09-17-2022 End: 09-17-2022 Patient encounter procedure [facility]-Outpatient Breast Imaging Work Phone: Start: 02-13-2022 Non-patient / Non-visit Dr. Vivienne Preciado Work Phone: [facility] Start: 02-12-2022 Non-patient / Non-visit Dr. Vivienne Preciado Work Phone: [facility] Start: 02-11-2022 Non-patient / Non-visit Dr. Vivienne Preciado Work Phone: [facility] Inpatient Physicians Start: 02-11-2022 Non-patient / Non-visit Dr. Vivienne Preciado Work Phone: [facility] Start: 02-11-2022 End: 02-13-2022 Evaluation and management of inpatient Dr. Yon Preciado Work Phone: [facility]-Medical Surgical 3 Start: 02-11-2022 End: 02-13-[address] Yon Preciado Work Phone: [facility] Work Phone: Start: 02-07-2022 Non-patient / Non-visit Dr. Vivienne Preciado Work Phone: [facility] Start: 02-07-2022 End: 02-07-[address] Yon Preciado Work Phone: [facility] Work Phone: Start: 02-07-2022 End: 02-07-[address] Yon Preciado Work Phone: [facility]-Cardiovascular Services Start: 02-07-2022 Non-patient / Non-visit Dr. Vivienne Preciado Work Phone: [facility] Start: 02-05-2022 End: 02-05-[address] Yon Preciado Work Phone: [facility] Start: 02-05-2022 End: 02-05-2022 Admission to same day surgery center Dr. Yon Preciado Work Phone: [facility] Start: 02-05-2022 End: 02-05-[address] Yon Preciado Work Phone: [facility] Heart [facility] Start: 02-03-[address] Ezequiel Preciado Work Phone: [facility] Start: 01-06-2022 End: 01-06-[address] Yon Preciado Work Phone: [facility] Start: 12-18-2021 End: 12-18-[address] Yon Preciado Work Phone: [facility] Work Phone: Start: 12-18-2021 End: 12-18-[address] [facility] Start: 10-28-2021 End: 10-28-[address] Yon Preciado Work Phone: [facility] Start: 10-10-2021 End: 10-10-2021 Patient encounter procedure [facility] Start: 08-29-2021 End: 08-29-2021 Patient encounter procedure [facility]-Outpatient Bone Densitometry Start: 04-20-2018 End: 04-21-[address] [facility] Start: 04-10-2018 End: 04-12-[address] [facility] Start: 10-23-2016 End: 10-23-2016 Ambulatory SIMONE GOYAL Facility:A Procedures Date Procedure Procedure Detail Performing Clinician Start: 09-13-[address] Yon Preciado DO Work Phone: Start: 09-12-2024 Plain X-ray of shoulder Dr. Yon Preciado DO Work Phone: Start: 09-12-2024 Reverse prosthetic t otal arthroplasty of right shoulder Dr. Yon Preciado DO Work Phone: Start: 09-07-2024 CT of thorax with contrast Dr. Yon Preciado DO Work Phone: Start: 08-11-2024 Methicillin resistan t Staphylococcus aureus screening test Dr. Yon Preciado DO Work Phone: Start: 08-11-2024 CT of upper limb wit hout contrast Dr. Yon Preciado DO Work Phone: Start: 07-27-2024 MRI of joint of lowe r extremity Dr. Yon Preciado DO Work Phone: Start: 06-03-2024 Complete ultrasound of kidneys and bladder Dr. Yon Preciado DO Work Phone: Start: 05-11-[address] Yon Preciado DO Work Phone: Start: [...] Treatment Date Care Activity Detail Author Start: 09-13-2024 Patient discharge [facility] Start: 09-13-2024 Inhalation therapy procedure [facility] Start: 09-12-2024 End: 09-12-2024 [facility] Start: 09-12-2024 Care regimes management [facility] Start: 09-12-2024 Notification of physician [facility] Start: 09-12-2024 Application of intermittent pneumatic compression device [facility] Start: 09-12-2024 Following clinical pathway protocol [facility] Start: 09-12-2024 Oxygen therapy [facility] Start: 09-12-2024 Ambulation therapy management [facility] Start: 09-12-2024 Application of device [facility] Start: 09-12-2024 Assessment of risk of venous thromboembolism [facility] Start: 09-12-2024 Catheterization of vein [facility] Start: 09-12-2024 Consultation [facility] Start: 09-12-2024 Following clinical pathway protocol [facility] Start: 09-12-2024 Incentive spirometry [facility] Start: 09-12-2024 Introduction of urinary catheter [facility] Start: 09-12-2024 Measuring intake and output [facility] Start: 09-12-2024 Neurovascular assessment [facility] Start: 09-12-2024 Patient education [facility] Start: 09-12-2024 Procedure discontinued [facility] Start: 09-12-2024 Provision of activity privileges [facility] Start: 09-12-2024 Referral to occupational therapist [facility] Start: 09-12-2024 Vital signs measurements [facility] Start: 09-12-2024 Wound care [facility] Start: 09-12-2024 [facility] Start: 05-12-2024 [facility] Start: 05-11-2024 [facility] Start: 03-30-2023 Pelvic echography Pelvic (Non ) [facility] Start: 03-30-2023 US Pelvis [facility] Start: 03-24-2023 Liquid based cervical cytology screening [facility] Start: 02-13-2022 Patient discharge [facility] Work Phone: Start: 02-11-2022 Following clinical pathway protocol [facility] Work Phone: Start: 02-11-2022 Application of intermittent pneumatic compression device [facility] Work Phone: Start: 02-11-2022 Catheterization of vein [facility] Work Phone: Start: 02-11-2022 Consultation [facility] Work Phone: Start: 02-11-2022 Following clinical pathway protocol [facility] Work Phone: Start: 02-11-2022 Incentive spirometry [facility] Work Phone: Start: 02-11-2022 Measuring intake and output [facility] Work Phone: Start: 02-11-2022 Neurovascular assessment [facility] Work Phone: Start: 02-11-2022 Patient education [facility] Work Phone: Start: 02-11-2022 Procedure discontinued [facility] Work Phone: Start: 02-11-2022 Provision of activity privileges [facility] Work Phone: Start: 02-11-2022 Referral to service [facility] Work Phone: Start: 02-11-2022 Taking patient vital signs [facility] Work Phone: Start: 02-11-2022 [facility] Work Phone: Start: 02-11-2022 Admission procedure [facility] Work Phone: Path report.final Dx Spec [facility] Patient Education ED Chest Pain, Noncardiac ED Neck Sprain or Strain [facility] Work Phone: Patient referral [facility] Work Phone: US Pelvis [facility] US Pelvis transvaginal [facility] Immunizations Immunization Date Immunization Notes Care Provider Rajesh damon 11-16-2013 influenza, injectabl e, quadrivalent, preservative free [facility] 11-16-2013 influenza, seasonal, injectable [facility] Payers Date Payer Category Payer Private Health Insurance [facility] [id number] 2023 Self-pay [id number] 2016 Medicare [id number] 2015 Medicare [id number] 2015 Unknown [id number] Medicare [id number] Unknown [id number] Unknown [id number] 2.16.8 [id number] Unknown [id number] 2.16.8 [id number] Unknown [id number] 2.16.8 [id number] Unknown [id number] 2.16.8 [id number] Unknown [id number] 2.16.8 [id number] Unknown [id number] 2.16.8 40.1.154820.3.579.2.462 Unknown [id number] 2.16.8 [id number] Unknown [id number] 2.16.8 [id number] Unknown [id number] 2.16.8 [id number] Unknown [id number] 2.16.8 40.1.908709.3.579.2.462 Unknown [id number] 2.16.8 40.1.594572.3.579.2.462 Unknown [id number] 2.16.8 40.1.112375.3.579.2.462 Unknown [id number] 2.16.8 40.1.684735.3.579.2.462 Unknown [id number] 2.16.8 [id number] Unknown [id number] 2.16.8 [id number] Unknown [id number] 2.16.8 [id number] Unknown [id number] 2.16.8 [id number] Unknown [id number] 2.16.8 [id number] Social History Date Type Detail Facility Start: 12-24-2019 End: 03-23-2023 Tobacco smoking status NHIS Unknown if ever smoked [facility] Start: 09-24-2020 Homeless [facility] Start: 1950 Sex Assigned At Female [facility] Start: 09-22-2023 End: 08-15-2024 Tobacco smoking status NHIS Ex-smoker (finding) [facility] Start: 05-05-2024 End: 06-08-2024 Sex Female (finding) [facility] NEGATED: Highlighted row Not [facility] Medical Equipment Procedure Code Equipment Code [...] Start: 02-11-2022 PATCH,AMNION [id number] FDA Start: 02-11-2022 SCREW FDA Start: 09-12-2024 SCREW FDA Start: 09-12-2024 Screw FDA Start: 09-12-2024 Polyethylene rev erse shoulder prosthesis cup [id number] FDA Start: 09-12-2024 Coated shoulder humeral stem prosthesis ()[id number] FDA Start: 09-12-2024 Reverse shoulder prosthesis head [id number] FDA Start: 09-12-2024 Orthopaedic bone screw, non-bioabsorbable, sterile [id number] FDA Start: 09-12-2024 Reverse shoulder prosthesis base plate ()[id number] FDA Start: 09-12-2024 Goals Date Patient Goal Desired Activity /State Functional Status Date Assessment Result Facility 09-13-2024 Functional status Ambulates [facility] Work Phone: 02-13-2022 Functional status Ambulates [facility] Work Phone: Mental Status Date Assessment Result Facility 09-13-2024 Cognitive function Voice/Name [facility] Work Phone: 05-11-2024 Cognitive function Voice/Name [facility] Work Phone: 02-13-2022 Cognitive function Voice/Name [facility] Work Phone: Clinical Notes 03-23-2023 to 09-13-2024 Note Date & Type Note Facility 09-13-2024 Discharge summary Note Date/Time September 13, 2024 1:19pm [facility] Medical Records Department [address] [place] [address] Discharge Summary 09/13/24 1145 MR#: [id number] Acct: [id number] Name: FIOR SHIPMAN Rep #:[id number] : 1950 73 From: Sara GUERRERO PCP: Dr. Yon Preciado, DO Status:[facility] Location: [facility]-9 Providers Date of Discharge: 09/13/24 Primary Care Physician: Dr. Yon Preciado, Consultations 09/12/24 12:05 Consult: Hospitalist Routine Consulting Provider: Emiliano Toledo Reason for Consult: medial management s/p R total shoulder EMERGENT Consult: No MD Notified: Yes Date Notified: 09/12/24 Time Notified: 13:32 Method of Notification: Text Reason For Visit: RIGHT REVERSE TOTAL SHOULDER ARTHROPLASTY, ERAS Diagnosis Discharge Diagnosis (1) Essential hypertension: Status: Chronic Code(s): I10 - Essential (primary) hypertension (2) Status post reverse total arthroplasty of right shoulder: Status: Acute Code(s): Z96.611 - Presence of right artificial shoulder joint Plan 1. Will continue PT today. Sling in place at all times to right upper extremity. Nonweightbearing to right upper extremity. Okay for elbow range of motion and pendulums. 2. plan for discharge this afternoon following PT 3. Patient will follow up for post op appointment as previously scheduled 2 weeks postoperatively. 4. Patient has outpatient PT appointment 2 weeks postoperatively. 5. WBC 18.7 acute reactive leukocytosis: secondary to pre operative decadron. noacute systemic signs of infection. will monitor, and likely self resolve. 6. H/H 9.5/27.8: post operavtive anemia secondary to acute blood loss intraoperatively. Patient is asymptomatic at this time. No intraoperative complications. will continue to monitor. no acute interventions. 7. DVT prophylaxis : Resume Plavix today as well as aspirin 81 mg twice daily x 2 weeks. 8. Pain control: patient instructed to take tylenol 500mg 2 tablets TID. and oxycodone 1-2 tablets every 4-6 hours only as needed for pain control. 9. Patient also given a prescription of senna, doxycycilne 100 mg twice daily x 1 week, meloxicam 7.5 mg twice daily. 10. ok to remove post op dressing. post op day 5 Medications at Discharge Home Medications atenolol 100 mg tablet (Tenormin) 100 mg PO QHS 12/18/12 albuterol sulfate 90 mcg/actuation aerosol inhaler (Ventolin HFA) 1 - 2 puff inhalation Q4H PRN PRN Wheezing 06/07/13 aspirin 81 mg chewable tablet 81 mg PO DAILY@0800 12/24/19 Held on 09/13/24. Instructions: Resume on 09/27/24. lorazepam 0.5 mg tablet 0.5 mg PO Q6H PRN PRN Anxiety 12/24/19 clopidogrel 75 mg tablet (Plavix) 75 mg PO DAILY 01/29/22 losartan 100 mg-hydrochlorothiazide 25 mg tablet 1 tab PO DAILY 01/29/22 multivitamin 1 tab PO DAILY 01/29/22 tramadol 50 mg tablet 50 mg PO TID PRN Pain 02/03/22 Held on 09/13/24. Instructions: Resume on 09/27/24. valacyclovir 1 gram tablet 1,000 mg PO Q12H PRN Cold Sores 02/05/22 phenazopyridine 95 mg tablet 95 mg PO TID PRN URINATION 03/23/23 GLUCOBIO 2 tab PO DAILY 08/15/24 amlodipine 5 mg tablet 5 mg PO DAILY 08/15/24 d-mannose 500 mg capsule (AZO D-Mannose) 500 mg PO DAILY 08/15/24 estradiol 0.01% (0.1 mg/gram) vaginal cream 1 appful vaginal .3 TIMES WEEKLY 08/15/24 ibuprofen 200 mg tablet (Advil) 400 mg PO Q8H PRN pain 08/15/24 acetaminophen 500 mg tablet 1,000 mg (2 x 500 mg) PO Q8 #180 tabs 09/13/24 aspirin 81 mg tablet,delayed release 81 mg PO BID 2 weeks #28 tabs 09/13/24 doxycycline hyclate 100 mg tablet 100 mg PO BID 1 week #14 tabs 09/13/24 meloxicam 7.5 mg tablet 7.5 mg PO BID #60 tabs 09/13/24 oxycodone 5 mg tablet 5 - 10 mg (1 - 2 x 5 mg) PO Q4H PRN PRN Pain Score 4-10 7 days #28 tabs 09/13/24 sennosides 8.6 mg-docusate sodium 50 mg tablet (Stimulant Laxative Plus) 2 tab PO BID #14 tabs 09/13/24 Hospital Course Summary of Care Provided Hospital Course: Patient is s/p right reverse total shoulder arthroplasty with Dr. Aragon 09/12/2024. Patient resting comfortably in bed. Rates pain 8/ 10 at rest. States taking Tylenol oxycodone as needed. And ice help to relieve pain. Patient has been up with therapy. Sling in place at all times to right upper extremity. No weightbearing to right upper extremity. Afebrile, no chest pain,shortness of breath, negative calf pain/ erythema, and no other signs of DVT. Physical Exam Narrative Patient resting comfortably in bed No signs of acute distress Satting well on room air Sling in place Limb is warm to touch, Sensation intact throughout entire upper extremity, Motor intact radial, median, ulnar nerve distribution Radial pulses bounding Dressing clear dry intact Calf nontender to palpation, no erythema, no edema. Negative Homans Weight / BMI Weight Weight: 77 kg Body Mass Index (BMI) 29.1 ABG / Lab / Microbiology Data 09/13/24 06:00 09/13/24 06:00 Laboratory: Laboratory Results - last 24 hr 09/13/24 06:00: WBC 18.7 H, RBC 3.07 L, Hgb 9.5 L, Hct 27.8 L, MCV 90.6, MCH 30.9, MCHC 34.2, RDW Std Deviation 39.8, RDW Coeff of Mike 12.1, Plt Count 285, MPV 8.8, Sodium 131 L, Potassium 4.4, Chloride 97 L, Carbon Dioxide 21.5, Anion Gap 12, BUN 23 H, Creatinine 1.13, Estim Creat Clear Calc 44.53 L, Est GFR (MDRD) Non-Af 51 L, BUN/Creatinine Ratio 20.7 H, Glucose 193 H, Calcium 8.9 09/13/24 06:21: POC Glucose 189 H Microbiology: Microbiology 08/11/24 07:41 Swab (Method) Nasal Screen MRSA/MSSA - Final Radiography Diagnostic Testing: Radiology Impression Shoulder X-Ray 09/12/24 12:15 IMPRESSION: Hardware in position. Reading Location: [facility] Instructions Discharge Activity: May Shower (No submerging incision x 6 weeks) May shower in (days): 3 Weight Bearing Status: No weight bearing (Right upper extremity. Sling in placeat all times.) Call your doctor if your incision/area has: Continuous Slow Oozing, Sudden Increased Bleeding, Increased Pain/ Swelling, Increased Redness, Foul Smelling Discharge and Swelling at the incision site Call your doctor if you observe: Fever of 101 or Higher, Inability to urinate, Inability to have a bowel movement, Shortness of breath, Swelling in the ankles,Chest pain, Increased palpitations (irregular heartbeat), Calf discomfort and Uncontrolled pain Remove Dressing in: 5 days Cleanse incision/area with: Soap & Water and Keep Dressing Clean & Dry DC O2, CPAP, BIPAP Needs Home O2 Discharge instructions: No DC home with Oxygen: No When: In 2 weeks in office as previously scheduled. Meaningful Use Info Meaningful Use Meaningful Use Diagnoses (Choose all that apply): None applicable Discharge Plan Admission Attending Provider: Delgado Aragon Primary Care Provider: Yon Preciado Consulting Providers: Viktor Duggan Instructions Print Language: Yi Discharge Orders/Prescriptions Prescriptions: New acetaminophen 500 mg Tablet 1,000 mg PO Q8 Qty: 180 0RF aspirin 81 mg Tablet,Delayed Release (Dr/Ec) 81 mg PO BID 14 Days Qty: 28 0RF meloxicam 7.5 mg Tablet 7.5 mg PO BID Qty: 60 0RF oxycodone 5 mg Tablet 5 - 10 mg PO Q4H PRN PRN (Reason: Pain Score 4-10) 7 Days Qty: 28 0RF sennosides-docusate sodium [Stimulant Laxative Plus] 8.6-50 mg Tablet 2 tab PO BID Qty: 14 0RF doxycycline hyclate 100 mg tablet 100 mg PO BID 7 Days Qty: 14 0RF Continued valacyclovir 1 gram tablet 1,000 mg PO Q12H PRN (Reason: Cold Sores) atenolol [Tenormin] 100 MG tablet 100 mg PO QHS albuterol sulfate [Ventolin HFA] 1 INHALER inhaler 1 - 2 puff inhalation Q4H PRN PRN (Reason: Wheezing) lorazepam 0.5 MG tablet 0.5 mg PO Q6H PRN PRN (Reason: Anxiety) multivitamin Tablet 1 tab PO DAILY clopidogrel [Plavix] 75 mg Tablet 75 mg PO DAILY Patient Comments: stop per Dr. Aragon losartan-hydrochlorothiazide 100-25 mg tablet 1 tab PO DAILY phenazopyridine 95 mg tablet 95 mg PO TID PRN (Reason: URINATION) AZO D-Mannose 500 mg capsule 500 mg PO DAILY amlodipine 5 mg tablet 5 mg PO DAILY ibuprofen [Advil] 200 mg tablet 400 mg PO Q8H PRN (Reason: pain) GLUCOBIO 2 tab PO DAILY estradiol 0.01 % (0.1 mg/gram) cream 1 appful vaginal .3 TIMES WEEKLY Held tramadol 50 mg tablet 50 mg PO TID PRN (Reason: Pain) Hold Instructions: Resume on 09/27/24. aspirin 81 MG tablet,chewable 81 mg PO DAILY@0800 Hold Instructions: Resume on 09/27/24. Patient Comments: STOP 7 DAYS PRIOR 02/03 Referrals / Follow Up: Yon Preciado DO [Primary Care Provider] - Disposition Disposition (needs filled in before D/C Order can be placed): Home, Self Care 09/13/24 1319 <Electronically signed by Sara GUERRERO> Cosigner Signature (if applicable): CC: Dr. Yon Preciado DO; CESAR Kramer~ Signed [facility] Work Phone: [phone] 437-783807-15-2025 Consult note [facility] Medical Records Department [address] [place] [address] Anesthesia Postop Eval II 09/12/24 1313 MR#: [id number] Acct: [id number] Name: FIOR SHIPMAN Rep #:[id number] : 1950 73 From: Moshe Michel MD PCP: Dr. Yon Preciado DO Status:REG TXC Y Race: C Location: [place] [id number] -1 Anesthesia Postop Eval I Sum Postop Eval Completion status Anesthesia document: Postop Eval 1 completed: Yes Anesthesia Postop Eval I Summary Anesthesia Postop Eval I Summary: Anesthesia Postop Eval I: Assessment Summary Airway patent Yes 09/12/24 12:00 SKI BINDING FITTER AND REPAIRER.RENEOBNacho Spontaneous unlabored Yes 09/12/24 12:00 SKI BINDING FITTER AND REPAIRER.RENEOBNacho respirations Mental status Asleep 09/12/24 12:00 SKI BINDING FITTER AND REPAIRER.SKOBY nausea No 09/12/24 12:00 SKI BINDING FITTER AND REPAIRER.SKOBY Vomiting No 09/12/24 12:00 SKI BINDING FITTER AND REPAIRER.SKOBY Anesthesia Postop Eval I: Fluid Summary Crystalloid volume administer 1,000 09/12/24 12:00 SKI BINDING FITTER AND REPAIRER.SKOBY (ml) Colloids volume administered ( ml) Blood Product volume administered (ml) Total IV fluid infused 1,000 09/12/24 12:00 BING Anesthesia Postop Eval I: Summary Notes Anesthesia Complication No 09/12/24 12:00 SKI BINDING FITTER AND REPAIRER.RENEOBNacho Anesthesia Complication Comment: Post-operative progress note Anesthesia: Postop Eval II Evaluation Mental status: Awake and Calm Pain Level: 1 nausea: No Vomiting: No Complications Anesthesia Complication: No 09/12/24 1313 D> Date _ Moshe Michel MD Cosigner Signature: Date CC: ~ Signed [facility]07-15-2025 Discharge summary [facility] Medical Records Department [address] [place] [address] Discharge Summary 09/13/24 1145 MR#: [id number] Acct: [id number] Name: FIOR SHIPMAN Rep #:[id number] : 1950 73 From: Sara GUERRERO PCP: Dr. Yon Preciado DO Status:[facility] Location: [facility] [place] [id number] Providers Date of Discharge: 09/13/24 Primary Care Physician: Dr. Yon Preciado DO Consultations 09/12/24 12:05 Consult: Hospitalist Routine Consulting Provider: Emiliano Toledo Reason for Consult: medial management s/p R total shoulder EMERGENT Consult: No MD Notified: Yes Date Notified: 09/12/24 Time Notified: 13:32 Method of Notification: Text Reason For Visit: RIGHT REVERSE TOTAL SHOULDER ARTHROPLASTY, ERAS Diagnosis Discharge Diagnosis (1) Essential hypertension: Status: Chronic Code(s): I10 - Essential (primary) hypertension (2) Status post reverse total arthroplasty of right shoulder: Status: Acute Code(s): Z96.611 - Presence of right artificial shoulder joint Plan 1. Will continue PT today. Sling in place at all times to right upper extremity. Nonweightbearing to right upper extremity. Okay for elbow range of motion and pendulums. 2. plan for discharge this afternoon following PT 3. Patient will follow up for post op appointment as previously scheduled 2 weeks postoperatively. 4. Patient has outpatient PT appointment 2 weeks postoperatively. 5. WBC 18.7 acute reactive leukocytosis: secondary to pre operative decadron. noacute systemic signs of infection. will monitor, and likely self resolve. 6. H/H 9.5/27.8: post operavtive anemia secondary to acute blood loss intraoperatively. Patient is asymptomatic at this time. No intraoperative complications. will continue to monitor. no acute interventions. 7. DVT prophylaxis : Resume Plavix today as well as aspirin 81 mg twice daily x 2 weeks. 8. Pain control: patient instructed to take tylenol 500mg 2 tablets TID. and oxycodone 1-2 tablets every 4-6 hours only as needed for pain control. 9. Patient also given a prescription of senna, doxycycilne 100 mg twice daily x 1 week, meloxicam 7.5 mg twice daily. 10. ok to remove post op dressing. post op day 5 Medications at Discharge Home Medications atenolol 100 mg tablet (Tenormin) 100 mg PO QHS 12/18/12 albuterol sulfate 90 mcg/actuation aerosol inhaler (Ventolin HFA) 1 - 2 puff inhalation Q4H PRN PRNWheezing 06/07/13 aspirin 81 mg chewable tablet 81 mg PO DAILY@0800 12/24/19 Held on 09/13/24. Instructions: Resume on 09/27/24. lorazepam 0.5 mg tablet 0.5 mg PO Q6H PRN PRN Anxiety 12/24/19 clopidogrel 75 mg tablet (Plavix) 75 mg PO DAILY 01/29/22 losartan 100 mg-hydrochlorothiazide 25 mg tablet 1 tab PO DAILY 01/29/22 multivitamin 1 tab PO DAILY 01/29/22 tramadol 50 mg tablet 50 mg PO TID PRN Pain 02/03/22 Held on 09/13/24. Instructions: Resume on 09/27/24. valacyclovir 1 gram tablet 1,000 mg PO Q12H PRN Cold Sores 02/05/22 phenazopyridine 95 mg tablet 95 mg PO TID PRN URINATION 03/23/23 GLUCOBIO 2 tab PO DAILY 08/15/24 amlodipine 5 mg tablet 5 mg PO DAILY 08/15/24 d-mannose 500 mg capsule (AZO D-Mannose) 500 mg PO DAILY 08/15/24 estradiol 0.01% (0.1 mg/gram) vaginal cream 1 appful vaginal .3 TIMES WEEKLY 08/15/24 ibuprofen 200 mg tablet (Advil) 400 mg PO Q8H PRN pain 08/15/24 acetaminophen 500 mg tablet 1,000 mg (2 x 500 mg) PO Q8 #180 tabs 09/13/24 aspirin 81 mg tablet,delayed release 81 mg PO BID 2 weeks #28 tabs 09/13/24 doxycycline hyclate 100 mg tablet 100 mg PO BID 1 week #14 tabs 09/13/24 meloxicam 7.5 mg tablet 7.5 mg PO BID #60 tabs 09/13/24 oxycodone 5 mg tablet 5 - 10 mg (1 - 2 x 5 mg) PO Q4H PRN PRN Pain Score 4-10 7 days #28 tabs 09/13/24 sennosides 8.6 mg-docusate sodium 50 mg tablet (Stimulant Laxative Plus) 2 tab PO BID #14 tabs 09/13/24 Hospital Course Summary of Care Provided Hospital Course: Patient is s/p right reverse total shoulder arthroplasty with Dr. Aragon 09/12/2024. Patient resting comfortably in bed. Rates pain 8/ 10 at rest. States taking Tylenol oxycodone as needed. And ice help to relieve pain. Patient has been up with therapy. Sling in place at all times to right upper extremity. No weightbearing to right upper extremity. Afebrile, no chest pain,shortness of breath, negative calf pain/ erythema, and no other signs of DVT. Physical Exam Narrative Patient resting comfortably in bed No signs of acute distress Satting well on room air Sling in place Limb is warm to touch, Sensation intact throughout entire upper extremity, Motor intact radial, median, ulnar nerve distribution Radial pulses bounding Dressing clear dry intact Calf nontender to palpation, no erythema, no edema. Negative Homans Weight / BMI Weight Weight: 77 kg Body Mass Index (BMI) 29.1 ABG / Lab / Microbiology Data 09/13/24 06:00 09/13/24 06:00 Laboratory: Laboratory Results - last 24 hr 09/13/24 06:00: WBC 18.7 H, RBC 3.07 L, Hgb 9.5 L, Hct 27.8 L, MCV 90.6, MCH 30.9, MCHC 34.2, RDW Std Deviation 39.8, RDW Coeff of Mike 12.1, Plt Count 285, MPV 8.8, Sodium 131 L, Potassium 4.4, Chloride 97 L, Carbon Dioxide 21.5, Anion Gap 12, BUN 23 H, Creatinine 1.13, Estim Creat Clear Calc 44.53L, Est GFR (MDRD) Non-Af 51 L, BUN/Creatinine Ratio 20.7 H, Glucose 193 H, Calcium 8.9 09/13/24 06:21: POC Glucose 189 H Microbiology: Microbiology 08/11/24 07:41 Swab (Method) Nasal Screen MRSA/MSSA - Final Radiography Diagnostic Testing: Radiology Impression Shoulder X-Ray 09/12/24 12:15 IMPRESSION: Hardware in position. Reading [facility] Instructions Discharge Activity: May Shower (No submerging incision x 6 weeks) May shower in (days): 3 Weight Bearing Status: No weight bearing (Right upper extremity. Sling in placeat all times.) Call your doctor if your incision/area has: Continuous Slow Oozing, Sudden Increased Bleeding, Increased Pain/ Swelling, Increased Redness, Foul Smelling Discharge and Swelling at the incision site Call your doctor if you observe: Fever of 101 or Higher, Inability to urinate, Inability to have a bowel movement, Shortness of breath, Swelling in the ankles,Chest pain, Increased palpitations (irregular heartbeat), Calf discomfort and Uncontrolled pain Remove Dressing in: 5 days Cleanse incision/area with: Soap & Water and Keep Dressing Clean & Dry DC O2, CPAP, BIPAP Needs Home O2 Discharge instructions: No DC home with Oxygen: No When: In 2 weeks in office as previously scheduled. Meaningful Use Info Meaningful Use Meaningful Use Diagnoses (Choose all that apply): None applicable Discharge Plan Admission Attending Provider: Delgado Aragon Primary Care Provider: Yon Preciado Consulting Providers: Viktor Duggan Instructions Print Language: Yi Discharge Orders/Prescriptions Prescriptions: New acetaminophen 500 mg Tablet 1,000 mg PO Q8 Qty: 180 0RF aspirin 81 mg Tablet,Delayed Release (Dr/Ec) 81 mg PO BID 14 Days Qty: 28 0RF meloxicam 7.5 mg Tablet 7.5 mg PO BID Qty: 60 0RF oxycodone 5 mg Tablet 5 - 10 mg PO Q4H PRN PRN (Reason: Pain Score 4-10) 7 Days Qty: 28 0RF sennosides-docusate sodium [Stimulant Laxative Plus] 8.6-50 mg Tablet 2 tab PO BID Qty: 14 0RF doxycycline hyclate 100 mg tablet 100 mg PO BID 7 Days Qty: 14 0RF Continued valacyclovir 1 gram tablet 1,000 mg PO Q12H PRN (Reason: Cold Sores) atenolol [Tenormin] 100 MG tablet 100 mg PO QHS albuterol sulfate [Ventolin HFA] 1 INHALER inhaler 1 - 2 puff inhalation Q4H PRN PRN (Reason: Wheezing) lorazepam 0.5 MG tablet 0.5 mg PO Q6H PRN PRN (Reason: Anxiety) multivitamin Tablet 1 tab PO DAILY clopidogrel [Plavix] 75 mg Tablet 75 mg PO DAILY Patient Comments: stop per Dr. Aragon losartan-hydrochlorothiazide 100-25 mg tablet 1 tab PO DAILY phenazopyridine 95 mg tablet 95 mg PO TID PRN (Reason: URINATION) AZO D-Mannose 500 mg capsule 500 mg PO DAILY amlodipine 5 mg tablet 5 mg PO DAILY ibuprofen [Advil] 200 mg tablet 400 mg PO Q8H PRN (Reason: pain) GLUCOBIO 2 tab PO DAILY estradiol 0.01 % (0.1 mg/gram) cream 1 appful vaginal .3 TIMES WEEKLY Held tramadol 50 mg tablet 50 mg PO TID PRN (Reason: Pain) Hold Instructions: Resume on 09/27/24. aspirin 81 MG tablet,chewable 81 mg PO DAILY@0800 Hold Instructions: Resume on 09/27/24. Patient Comments: STOP 7 DAYS PRIOR 02/03 Referrals / Follow Up: Yon Preciado DO [Primary Care Provider] - Disposition Disposition (needs filled in before D/C Order can be placed): Home, Self Care 09/13/24 2573 Cosigner Signature (if applicable): CC: Dr. Yon Preciado DO; CESAR Kramer~ Signed [facility]07-14-2025 Consult note Author Emiliano Toledo [facility] Note Date/Time September 12, 2024 2:34 pm [facility] Medical Records Department [address] [place] [address] Consultation - Hospitalist 09/12/24 1356 MR#: [id number] Acct: [id number] Name: FIOR SHIPMAN Rep #:[id number] : 1950 73 From: Emiliano Miller PCP: Dr. Yon Preciado, DO Status:REG [facility] [place] Location: [place] [address] Assessment & Plan Assessment/Plan (1) Essential hypertension: (2) Status post reverse total arthroplasty of right shoulder: PLAN: Plan This 73-year-old female is being consulted for perioperative management of her right shoulder arthroplasty 1. Perioperative management of right reverse total shoulder arthroplasty: Patient had primary right shoulder/glenohumeral joint osteoarthritis for which patient had surgery today on 09/12/2024. Pain control, PT and OT ordered. [place] bladder care. DVT prophylaxis as per primary attending. 2. CAD status post cardiac stent 8 years ago, chronic HFpEF: Currently patient is asymptomatic with no chest pain pressure or tightness or acute shortness of breath. Preoperative twelve-lead EKG reviewed shows sinus bradycardia at 55 bpm. Otherwise normal ECG. Echo 02/10/2022: It is suggestive of mild chronic HFpEF. Patient does not have any leg swellings or features of acute shortness of breath. Interpretation Summary Normal LV size. Left ventricular systolic function is normal. The estimated ejection fraction is 60 %. Pulmonary artery systolic pressure is 33 mmHg. Stage 2 diastolic dysfunction. 3. Chronic PAD/left subclavian stenosis and bilateral carotid stenosis: Patienthad vascular study in April 2024 which showed wrist brachial index 1.19 on the right side and 1.17 on left side. Doppler waveforms were biphasic in the right and left radial and ulnar arteries. It is reported as normal bilateral upper extremity arterial duplex exam. Carotid duplex in January 2023 shows severe more than 70% stenosis of right ICA and severe left ICA. 4. Hypertension: 5. COPD/asthmatics: No acute COPD exacerbation. Continue baseline inhalers. 6. Hypertension and dyslipidemia: Blood pressure is normal 129/63. Continue home antihypertensive medications with holding parameters 7. DM type II: Last A1c 7.5% in July 2024. Accu-Chek before meals and at bedtime with Humalog sliding scale coverage and hypoglycemia protocol. 8. Other comorbidities include psoriasis, rheumatoid arthritis and fibromyalgia: Home medication reconciliation done HPI Consult Data Date of Consult: 09/12/24 HPI Narrative Reason for Consultation: Perioperative management of right shoulder replacement surgery HPI Narrative: FIOR SHIPMAN, is a 73 F who was admitted after she had elective right reverse totalshoulder arthroplasty for primary right glenohumeral joint osteoarthritis. Patient states mild pain about 2?3/10 intensity localized to right shoulder. Denies chest pain or acute shortness of breath. She has mild baseline shortnessof breath with history of COPD. Not on home oxygen. She has 20 pack years of cigarette smoking but quit 37 years ago. History of CAD status post stent about 8 years ago. Denies any recent chest pressure or tightness on exertion/MD. Patient had winded after the surgery. Last BM today in the morning. [facility] Medical History History of steroid therapy Fatty liver Excessive bleeding Hypertension Subclavian artery stenosis, left Generalized anxiety disorder [...] Chest pain Heart disease Diabetes Home Medications ?Medication ?Instructions ?Recorded ?Last Taken ?Type atenolol 100 mg tablet (Tenormin) 100 mg PO QHS 09/11/24 History albuterol sulfate 90 mcg/actuation 1 - 2 puff inhalati on Q4H PRN PRN 06/07/13 Unknown History aerosol inhaler (Ventolin HFA) Wheezing aspirin 81 mg chewable tablet 81 mg PO DAILY@0800 12/0109/05/24 History lorazepam 0.5 mg tablet 0.5 mg PO Q6H PRN PRN Anxiet y 12/24/19 Unknown History clopidogrel 75 mg tablet (Plavix) 75 mg PO DAILY 01/2909/05/24 History losartan 100 1 tab PO DAILY 01/29/2208/30 History mg-hydrochlorothiazide 25 mg tablet multivitamin 1 tab PO DAILY 01/29/22 Unkn own History tramadol 50 mg tablet 50 mg PO TID PRN Pain Unknown History valacyclovir 1 gram tablet 1,000 mg PO Q12H PRN Cold S ores 02/05/22 Unknown History phenazopyridine 95 mg tablet 95 mg PO TID PRN URINATIO N 03/23/23 Unknown History GLUCOBIO 2 tab PO DAILY 08/15/24 Unkn own History amlodipine 5 mg tablet 5 mg PO DAILY 08/15/2409/12 History d-mannose 500 mg capsule (AZO 500 mg PO DAILY 08/15/24 Unknown History D-Mannose) estradiol 0.01% (0.1 mg/gram) 1 appful vaginal .3 TIME S WEEKLY 08/15/24 Unknown History vaginal cream ibuprofen 200 mg tablet (Advil) 400 mg PO Q8H PRN pain 08/15/24 Unknown History Allergy/AdvReac Type Severity Reaction Status Date / Time minocycline Allergy Unknown unknown Verified 09/12/24 08:51 ciprofloxacin Allergy Other Verified 09/12/24 08:51 erythromycin base Allergy Swelling Verified 09/12/24 08:51 (Erythromycin Base) Penicillins Allergy Swelling Verified 09/12/24 08:51 prednisone Allergy Swelling Verified 09/12/24 08:51 Sulfa (Sulfonamide Allergy Unknown Verified 09/12/24 08:51 Antibiotics) Family History Father Hypertension Heart disease [...] what type of physical activity do you participate in: walking additional social history: Spouse - Orlin GORMAN Narrative Constitutional: Reports fatigue and weakness. No fever. HEENT: Reports systems reviewed and no addt'l complaints, except as documented Respiratory/Chest: No acute shortness of breath or respiratory distress or wheezing. CVS: No chest pain or shortness of breath Gastrointestinal: Denies coffee ground emesis, hematemesis or vomiting Genitourinary: Denies burning urination or new urinary tract symptoms Musculoskeletal: Denies acute joint pain. Primary right shoulder osteoarthritis. Decreased ROM and pain in the past. No acute injury Neurologic: Denies seizure-like symptoms. skin: Right shoulder surgery. Endocrinology: Reports systems reviewed and no addt'l complaints, except as documented Hematologic/Lymphatic: Reports systems reviewed and no addt'l complaints, exceptas documented Rest 14 ROS are negative except as mentioned in HPI Physical Exam Narrative General: Alert, Oriented x3, Cooperative HEENT: Atraumatic, PERRLA, EOMI, Normocephalic. Oral: No Gingival or Mucosal Lesions/ Ulcerations Neck: Supple, No JVD, Negative Carotid Bruits Chest wall/Lungs: Air entry diminished in in right lung base posteriorly. No crepitation/rhonchi Cardiovascular: Regular rate and rhythm, Normal S1,S2, No M/G/R Abdomen: Bowel Sounds Present, Soft, Non Tender, Non-Distended : No dysuria. No renal angle tenderness. No suprapubic tenderness. Extremities: No edema, Capillary Refill Less than 3 Seconds Skin: Right shoulder surgical dressing is dry. No bruise or hematoma. Musculoskeletal: No Tenderness to Palpation of Joints or Extremities Neurological: Cranial nerves II-XII grossly intact, DTR 2+/4. No acute focal neurological deficit. Psych/Mental Status: Normal Affect, Appropriate. Lab / Micro Data 08/11/24 07:41 08/11/24 07:41 Labs: Laboratory Results - last 24 hr 09/12/24 08:37: POC Glucose 180 H 09/12/24 10:45: POC Glucose 116 H Imaging Radiology Impression Shoulder X-Ray 09/12/24 12:15 IMPRESSION: Hardware in position. Reading Location: [facility] Charges/Coding Visit Charges Office Visits / Consults: [id number] OV L4 New 45min 09/12/24 1434 <Electronically signed by Emiliano Toledo MD> Cosigner Signature (if applicable): CC: Dr. Yon Preciado DO; Dr. Delgado Aragon DO~ Signed [facility] Work Phone: [phone]) [phone] Consult note Author Moshe Michel [facility] Note Date/Time September 13, 2024 1:35 pm [facility] Medical Records Department [address] [place] [address] Anesthesia Postop Eval II 09/12/24 1313 MR#: [id number] Acct: [id number] Name: FIOR SHIPMAN Rep #:[id number] : 1950 73 From: Moshe Mihcel MD PCP: Dr. Yon Preciado DO Status:REG SDC Y Race: C Location: [place] [id number] -1 Anesthesia Postop Eval I Sum Postop Eval Completion status Anesthesia document: Postop Eval 1 completed: Yes Anesthesia Postop Eval I Summary Anesthesia Postop Eval I Summary: Anesthesia Postop Eval I: Assessment Summary Airway patent Yes 09/12/24 12:00 SKI BINDING FITTER AND REPAIRER.SKOBY Spontaneous unlabored Yes 09/12/24 12:00 SKI BINDING FITTER AND REPAIRER.RENEOBNacho respirations Mental status Asleep 09/12/24 12:00 SKI BINDING FITTER AND REPAIRER.SKOBY nausea No 09/12/24 12:00 SKI BINDING FITTER AND REPAIRER.SKOBY Vomiting No 09/12/24 12:00 SKI BINDING FITTER AND REPAIRER.SKOBY Anesthesia Postop Eval I: Fluid Summary Crystalloid volume administer 1,000 09/12/24 12:00 SKI BINDING FITTER AND REPAIRER.SKOBY (ml) Colloids volume administered ( ml) Blood Product volume administered (ml) Total IV fluid infused 1,000 09/12/24 12:00 SKI BINDING FITTER AND REPAIRER.SKOBY Anesthesia Postop Eval I: Summary Notes Anesthesia Complication No 09/12/24 12:00 SKI BINDING FITTER AND REPAIRER.SKOBNacho Anesthesia Complication Comment: Post-operative progress note Anesthesia: Postop Eval II Evaluation Mental status: Awake and Calm Pain Level: 1 nausea: No Vomiting: No Complications Anesthesia Complication: No 09/12/24 1313 <Electronically signed by Moshe Miller> Date _ Moshe Michel MD Cosigner Signature: Date CC: ~ Signed [facility] Work Phone: [phone]) [phone] Consult note [facility] Medical Records Department [address] [place] [address] Consultation - Hospitalist 09/12/24 1356 MR#: [id number] Acct: [id number] Name: FIOR SHIPMAN Rep #:[id number] : 1950 73 From: Emiliano Miller PCP: Dr. Yon Preciado, DO Status:REG [facility] [place] Location: [place] [address] Assessment & Plan Assessment/Plan (1) Essential hypertension: (2) Status post reverse total arthroplasty of right shoulder: PLAN: Plan This 73-year-old female is being consulted for perioperative management of her right shoulder arthroplasty 1. Perioperative management of right reverse total shoulder arthroplasty: Patient had primary rightshoulder/glenohumeral joint osteoarthritis for which patient had surgery today on 09/12/2024. Pain control, PT and OT ordered. [place] bladder care. DVT prophylaxis as per primary attending. 2. CAD status post cardiac stent 8 years ago, chronic HFpEF: Currently patient is asymptomatic withno chest pain pressure or tightness or acute shortness of breath. Preoperative twelve-lead EKG reviewed shows sinus bradycardia at 55 bpm. Otherwise normal ECG. Echo 02/10/2022: It is suggestive of mild chronic HFpEF. Patient does not have any leg swellings orfeatures of acute shortness of breath. Interpretation Summary Normal LV size. Left ventricular systolic function is normal. The estimated ejection fraction is 60 %. Pulmonary artery systolic pressure is 33 mmHg. Stage 2 diastolic dysfunction. 3. Chronic PAD/left subclavian stenosis and bilateral carotid stenosis: Patienthad vascular study in April 2024 which showed wrist brachial index 1.19 on the right side and 1.17 on left side. Doppler waveforms were biphasic in the right and left radial and ulnar arteries. It is reported as normal bilateral upper extremity arterial duplex exam. Carotid duplex in January 2023 shows severe more than 70% stenosis of right ICA and severe left ICA. 4. Hypertension: 5. COPD/asthmatics: No acute COPD exacerbation. Continue baseline inhalers. 6. Hypertension and dyslipidemia: Blood pressure is normal 129/63. Continue home antihypertensive medications with holding parameters 7. DM type II: Last A1c 7.5% in July 2024. Accu-Chek before meals and at bedtime with Humalog sliding scale coverage and hypoglycemia protocol. 8. Other comorbidities include psoriasis, rheumatoid arthritis and fibromyalgia: Home medication reconciliation done HPI Consult Data Date of Consult: 09/12/24 HPI Narrative Reason for Consultation: Perioperative management of right shoulder replacement surgery HPI Narrative: FIOR SHIPMAN, is a 73 F who was admitted after she had elective right reverse totalshoulder arthroplasty for primary right glenohumeral joint osteoarthritis. Patient states mild pain about 2?3/10 intensity localized to right shoulder. Denies chest pain or acute shortness of breath. She has mild baseline shortnessof breath with history of COPD. Not on homeoxygen. She has 20 pack years of cigarette smoking but quit 37 years ago. History of CAD status post stent about 8 years ago. Denies any recent chest pressure or tightness on exertion/MD. Patient had winded after the surgery. Last BM today in the morning. [facility] Medical History History of steroid therapy Fatty liver Excessive bleeding Hypertension Subclavian artery stenosis, left Generalized anxiety disorder [...] Chest pain Heart disease Diabetes Home Medications ?Medication ?Instructions ?Recorded ?Last Taken ?Type atenolol 100 mg tablet (Tenormin) 100 mg PO QHS 10/19/ 13 07/13/25 History albuterol sulfate 90 mcg/actuation 1 - 2 puff inhalati on Q4H PRN PRN 06/07/13 Unknown History aerosol inhaler (Ventolin HFA) Wheezing aspirin 81 mg chewable tablet 81 mg PO DAILY@0800 12/0109/05/24 History lorazepam 0.5 mg tablet 0.5 mg PO Q6H PRN PRN Anxiet y 12/24/19 Unknown History clopidogrel 75 mg tablet (Plavix) 75 mg PO DAILY 01/2909/05/24 History losartan 100 1 tab PO DAILY 01/29/2208/30 History mg-hydrochlorothiazide 25 mg tablet multivitamin 1 tab PO DAILY 01/29/22 Unkn own History tramadol 50 mg tablet 50 mg PO TID PRN Pain Unknown History valacyclovir 1 gram tablet 1,000 mg PO Q12H PRN Cold S ores 02/05/22 Unknown History phenazopyridine 95 mg tablet 95 mg PO TID PRN URINATIO N 03/23/23 Unknown History GLUCOBIO 2 tab PO DAILY 08/15/24 Unkn own History amlodipine 5 mg tablet 5 mg PO DAILY 08/15/2409/12 History d-mannose 500 mg capsule (AZO 500 mg PO DAILY 08/15/24 Unknown History D-Mannose) estradiol 0.01% (0.1 mg/gram) 1 appful vaginal .3 TIME S WEEKLY 08/15/24 Unknown History vaginal cream ibuprofen 200 mg tablet (Advil) 400 mg PO Q8H PRN pain 08/15/24 Unknown History Allergy/AdvReac Type Severity Reaction Status Date / Time minocycline Allergy Unknown unknown Verified 09/12/24 08:51 ciprofloxacin Allergy Other Verified 09/12/24 08:51 erythromycin base Allergy Swelling Verified 09/12/24 08:51 (Erythromycin Base) Penicillins Allergy Swelling Verified 09/12/24 08:51 prednisone Allergy Swelling Verified 09/12/24 08:51 Sulfa (Sulfonamide Allergy Unknown Verified 09/12/24 08:51 Antibiotics) Family History Father Hypertension Heart disease [...] what type of physical activity do you participate in: walking additional social history: Spouse - Orlin ROS ROS Narrative Constitutional: Reports fatigue and weakness. No fever. HEENT: Reports systems reviewed and no addt'l complaints, except as documented Respiratory/Chest: No acute shortness of breath or respiratory distress or wheezing. CVS: No chest pain or shortness of breath Gastrointestinal: Denies coffee ground emesis, hematemesis or vomiting Genitourinary: Denies burning urination or new urinary tract symptoms Musculoskeletal: Denies acute joint pain. Primary right shoulder osteoarthritis. Decreased ROM and pain in the past. No acute injury Neurologic: Denies seizure-like symptoms. skin: Right shoulder surgery. Endocrinology: Reports systems reviewed and no addt'l complaints, except as documented Hematologic/Lymphatic: Reports systems reviewed and no addt'l complaints, exceptas documented Rest 14 ROS are negative except as mentioned in HPI Physical Exam Narrative General: Alert, Oriented x3, Cooperative HEENT: Atraumatic, PERRLA, EOMI, Normocephalic. Oral: No Gingival or Mucosal Lesions/ Ulcerations Neck: Supple, No JVD, Negative Carotid Bruits Chest wall/Lungs: Air entry diminished in in right lung base posteriorly. No crepitation/rhonchi Cardiovascular: Regular rate and rhythm, Normal S1,S2, No M/G/R Abdomen: Bowel Sounds Present, Soft, Non Tender, Non-Distended : No dysuria. No renal angle tenderness. No suprapubic tenderness. Extremities: No edema, Capillary Refill Less than 3 Seconds Skin: Right shoulder surgical dressing is dry. No bruise or hematoma. Musculoskeletal: No Tenderness to Palpation of Joints or Extremities Neurological: Cranial nerves II-XII grossly intact, DTR 2+/4. No acute focal neurological deficit. Psych/Mental Status: Normal Affect, Appropriate. Lab / Micro Data 08/11/24 07:41 08/11/24 07:41 Labs: Laboratory Results - last 24 hr 09/12/24 08:37: POC Glucose 180 H 09/12/24 10:45: POC Glucose 116 H Imaging Radiology Impression Shoulder X-Ray 09/12/24 12:15 IMPRESSION: Hardware in position. Reading Location: [facility] Charges/Coding Visit Charges Office Visits / Consults: 17702 OV L4 New 45min 09/12/24 1434 Cosigner Signature (if applicable): CC: Dr. Yon Preciado DO; Dr. Delgado Aragon DO~ Signed [facility]07-14-2025 Consult note Author Julieta Allen [facility] Note Date/Time September 12, 2024 12:0 0pm [facility] Medical Records Department [address] [place] [address] Anesthesia Postop Eval I 09/12/24 1159 MR#: [id number] Acct: [id number] Name: FIOR SHIPMAN Rep #:[id number] : 1950 73 From: Julieta downey CRNA PCP: Dr. Yon Preciado DO Status:REG SDC Y Race: C Location: [place] [address] Anesthesia: Postop Eval I Current Vital Signs Temperature: 97 F Pulse Rate: 72 Blood Pressure: 113/57 Respiratory Rate: 16 Pulse Ox: 100 Oxygen Delivery Method: Simple Mask Oxygen Flow Rate (L/min): 6 Assessment Airway patent: Yes Spontaneous unlabored respirations: Yes Mental status: Asleep nausea: No Vomiting: No Anesthesia Complication: No Fluid Hydration Crystalloid volume administer (ml): 1,000 Total IV fluid infused: 1,000 Progress Note Anesthesia document: Postop Eval 1 completed: Yes 09/12/24 1200 <Electronically signed by Julieta gaming CRNA> Date _ Julieta Allen CRNA Cosigner Signature: Date CC: ~ Signed [facility] Work Phone: [phone]) 930-416907-14-2025 Radiology Diagnostic study note [facility] Imaging Services [address] [place] [address] Shoulder min 2 Views MR#: [id number] Acct: [id number] Name: FIOR SHIPMAN Rep #: [id number] : 1950 F 73 From: Haim Mercado MD PCP: Dr. Yon Preciado DO Status: REG [facility] Study:Shoulder min 2 Views Date of Exam: 09/12/24 Exam# [id number] Ordering Dr: Delgado Aragon DO PROCEDURE: SHOULDER MIN 2 VIEWS 09/12/2024 REASON FOR EXAM: POST OP TECHNIQUE: SHOULDER MIN 2 VIEWS COMPARISON: None FINDINGS: There is a reverse shoulder prosthesis in position which appears aligned. The AC joint is aligned. RAD/Shoulder min 2 Views IMPRESSION: Hardware in position. Reading Location: [facility] CC: Dr. Yon Preciado DO; Dr. Delgado Aragon DO ~ Full Stack Php Developer: Signed [facility]07-14-2025 Procedure note [facility] Medical Records Department [address] [place] [address] Operative Report 09/12/24 1217 MR#: [id number] Acct: [id number] Name: FIOR SHIPMAN Rep #:[id number] : 1950 73 From: Delgado naylor DO PCP: Dr. Yon Preciado DO Status:REG [facility] Location: AC AC21-1 Operative Report (Standard) Operative Information Date of Procedure: 09/12/24 Pre-Operative Diagnosis: 1. Primary right glenohumeral joint osteoarthritis 2. Right shoulder rotator cuff tear Post-Operative Diagnosis: 1. Primary right glenohumeral joint osteoarthritis 2. Right shoulder rotator cuff tear Surgery/Procedure Performed: Right reverse total shoulder arthroplasty copyright clerk: Yes Avionics Systems Engineer: Sara Dodson Tasks completed by psychological assistant: Opening & closing, Implanting device, Hemostasis: Electrocautery and Retracting Additional merchandising assistant?: No Type of Anesthesia: General/Regional RN Documented Start/Stop Times: Operation Date: 09/12/24 10:15 Case Time Into Pre-Op 09/12/24 08:16 Anesthesia Start 09/12/24 10:02 Into Room 09/12/24 10:02 Procedure Start 09/12/24 10:33 Procedure End 09/12/24 11:46 Anesthesia End 09/12/24 11:53 Out of Room 09/12/24 11:53 Into Recovery 09/12/24 11:57 Procedure Start Time: 10:33 Procedure Stop Time: 11:46 Select all DRAINS/GRAFTS/IMPLANTS that apply: Implanted device Implanted device details: Surgical implants: Tornier Aequalis PerFORM+ reversed baseplate 25 mm diameter +3 mm lateralization, standard glenosphere cobalt chrome 36 mm diameter, Tornier perform inlay stem size #3, + 6 mm retentive size number 3 36 mm diameter polyethylene insert, short central post and peripheral screws x4. Estimated Blood Loss: 75 cc Specimen collected: Yes Description of specimen(s) removed: Right humeral head Description of surgery: Patient arrived to [facility] morning of the procedure and was greeted by the same day surgery staff. Prior to his procedure, I greeted the patient in the preoperative holding area I identified the patient by name, record number, and date of . Informed consent was confirmed. The operative extremity was marked. All questions were answered to patient satisfaction. An interscalene block was administered prior to procedure by anesthesia staff for postoperative and intraoperative analgesia. At time of his procedure, patient was brought to the operative suite and positioned supine on a standard table with a beachchair attachment. General anesthesia was induced after all bony prominences were well-padded. Endotracheal tube was placed. After adequate anesthesia and securing the tube, we prepared the patient to be positioned in the beachchair position. A well-padded head of measurement & insights was applied. The nonoperative extremity was placed in a wellarm quiñones. She was then brought into the beachchair position after we confirmed an appropriate blood pressure. We then spun the bed 45 degrees. Theoperative extremity was then prepared. Then the butterfly wing of the bed was removed and a well-padded torso strap was applied to secure the patient to the bed. The operative extremity was now free.A preliminary hydrogen peroxide prep was performed. We then prepped and draped the right upper extremity in normal, sterile orthopedic fashion with chlorhexidine. We then performed a timeout with all parties in attendance in agreement with theside, site, and operation be performed. 2 g Ancef was administered prior to incision by anesthesia staff, as well as 1 g TXA IV. No concerns were voiced and we elected to proceed. I first marked a standard deltopectoral incision just lateral to the coracoid process in line with the long axis of the humerus. Skin was sharply incised with 10 blade scalpel. I then dissected bluntly through the subcutaneous layersand found the fat stripe between the deltoid and pectoralis major.The cephalicvein was then identified and protected. It was retracted laterally with the deltoid. I then bluntly dissected underneath the deltoid with a Strong elevator. [place] retractor was placed. Theupper 1 cm of the pectoralis major was released. I then identified the long head of the biceps tendon in the intertubercular groove. This was tenodesed in situ with #2 FiberWire. I then amputated thebiceps proximal to the tenodesis site and followed the tendon to the supraglenoid tubercle where itwas amputated. This identified the lesser and greater tuberosities. The supraspinatus was completely torn and retracted. I then performed a subscapularis peel while rotating the humerus externally. Itagged the subscapularis for possible repair later with a tagging suture. Humeral head was then dislocated anteriorly. Appropriate access to the humeral head was confirmed. I then subluxed the humeral head posteriorly with a Fukuda retractor placed around the posterior lipof the glenoid. Inferior capsule was tension. I was able to palpate the axillary nerve. Inferior capsule was then released to the 4 o'clock position of the glenoid face. 3 sided subscapularis releasewas performed with Bovie cautery. I then remove the Fukuda retractor and redislocated the shoulder anteriorly. I then made a anatomic neck cut of the cartilaginous surface of the humeral head. Sizing plate for a size # 3 stem was utilized to determine appropriate reaming size. A central pin was placed engaging the lateral cortex of the humerus. A size # 3 reamer was used to ream the humeral metaphysis and prepare for the inlay stem. A canal finding reamer was utilized prior to sequential broaching to a size # 3 short stem with excellent rotational and axial purchase in the humerus. I remove the broach handle left the size # [address] I then subluxed the humerus posterior to the glenoid. I then placed retractors around the posterior and anterior glenoid to expose theglenoid. Glenoid labrum was removed with Bovie cautery protecting the axillary nerve. We then used the standard 25 mm guide from Gisselle to position our centering pin, exiting approximately 25 mm from the joint surface along the anterior scapula. Guide was removed and pin was analyzed and compared to preoperative planning. It appeared to be in appropriate position. The Nautilusshaped reamer was then placed over top of the centering pin. I reamed a flat surface of the glenoid. We then removed the reamer and used the cannulated drill for the short central post. Post and baseplate was assembled on the back table. We then inserted the baseplate and central post the assembled baseplate to an appropriate depth with good press-fit purchase. A Hasty was used to confirm depth. Cortical screws then were placed in the peripheral holes with good purchase. The baseplate had excellent purchase and the entire scapula woul drotate with rotation of the baseplate. We then impacted the 36 mm glenosphere with a standard eccentricity and tightened the locking screw mechanism. We then removed retractors and turned our attention back to the humerus. I trialed polyethylene sizes. I then reduced the shoulder. There was excellent range of motion and stability in all planes of motion with a +6 mm insert. We selected this as our final size. We removed trials from the humerus after finaldislocation. I copiously irrigated the canal. Broach was placed on hand and then impacted to an appropriate depth. Final +6 mm retentive polyethylene insert was placed. Final reduction was then performed. She The subscapularis was then identified with a tagging suture. Repair would have been likely under undue tension and likely failed. I elected to not perform a subscapularis repair. We then copiously irrigated the wound with sterile Betadine and normal saline solution. We reapproximated the interval with 0 Vicryl suture. Subcutaneous layers were reapproximated with 2 -0 Vicryl suture. Skin was finally running V- Loc 3-0 Monocryl suture and Dermabond. A sterile silver Mepilex dressing was applied. Patient was then placed in an ultra sling. Patient tolerated procedure well without complication. She was positioned back in the supine position extubated in the operative suite. He was [place] the [place] and subsequently to PACU in stable condition. Need for skilled merchandising assistant: Sara Dodson PA-C was critical to the outcome of thecase. During the course of the procedure the physician merchandising assistant played a vitalrole. Her intimate knowledge of my stepsin the procedure aided in safe and expedient completion of the procedure. The PA played a vital role in positioning particularly in obtaining the appropriate positioning. The PA was also vital in theretraction of soft tissues during the exposure and protecting vital structures. The PA was also vital and protecting soft tissues during times of bony cuts. She also played a vital role in closure with my direct supervision. The PA was also important during reduction and dislocation of the joint and trials intraoperatively. Intraoperative medications: 2 g Ancef IV, 1 g TXA IV x2 Post Operative Plan: Patient will be placed in observation overnight due to medical history. Hospitalist consulted to assist with medical management. Anticipate discharge home postoperative day #1. Weightbearing: Nonweightbearing right upper extremity, okay for pendulums. Range of motion of wristelbow and hand as tolerated. Antibiotics: 2 g Ancef IV prior to incision, 24 hours IV antibiotics postoperatively DVT Prophylaxis: Aspirin enteric-coated 81 mg twice daily starting postoperativeday #1, restart home Plavix postoperative day #1 Tolentino: None Dressing: Maintain silver dressing x5 days. Okay to shower dressing on started on day 4 X-Rays: 2 weeks postop in the office Pain Medication: Oxycodone Rx upon discharge Follow-up: 2 weeks post-operatively with me in the office Surgical Findings: Severe primary glenohumeral joint degenerative changes. Full-thickness retracted tear of supraspinatus. Stable right reverse total shoulder arthroplasty after final implantation and reduction. Complications Complications: No Admit VTE Documentation VTE Present on Admission: No VTE Mechan Device Prophylaxis: SCD's VTE Pharm Prophylaxis ordered?: Yes 09/12/24 1223 Cosigner Signature (if applicable): CC: Dr. Yon Preciado, DO; Dr. Delgado Aragon, DO~ Signed [facility]07-14-2025 Consult note [facility] Medical Records Department [address] [facility] [address] Anesthesia Postop Eval I 09/12/24 1159 MR#: [id number] Acct: [id number] Name: FIOR SHIPMAN Rep #:[id number] : 1950 73 From: Julieta downey CRNA PCP: Dr. Yon Preciado, Status:REG [facility] Y Race: C Location: [place] [address] Anesthesia: Postop Eval I Current Vital Signs Temperature: 97 F Pulse Rate: 72 Blood Pressure: 113/57 Respiratory Rate: 16 Pulse Ox: 100 Oxygen Delivery Method: Simple Mask Oxygen Flow Rate (L/min): 6 Assessment Airway patent: Yes Spontaneous unlabored respirations: Yes Mental status: Asleep nausea: No Vomiting: No Anesthesia Complication: No Fluid Hydration Crystalloid volume administer (ml): 1,000 Total IV fluid infused: 1,000 Progress Note Anesthesia document: Postop Eval 1 completed: Yes 09/12/24 1200 senthilki SKI BINDING FITTER AND REPAIRER> Date _ Julieta Allen SKI BINDING FITTER AND REPAIRER Cosigner Signature: Date CC: ~ Signed [facility]07-14-2025 Consult note Author Moshe Michel [facility] Note Date/Time September 12, 2024 9:42 am [facility] Medical Records Department [address] [place] [address] Pre-Anesthesia Evaluation 09/12/24 0941 MR#: [id number] Acct: [id number] Name: FIOR SHIPMAN Rep #:[id number] : 1950 73 From: Moshe Michel MD PCP: Dr. Yon Preciado, DO Status:REG SDC Y Race: C Location: [place] [address] ASA Classification* ASA Classification ASA Classification: 3 Assessment & Plan Anesthesia* Anesthesia Assessment Anesthesia Assessment: Discussed sedation and/or anesthesia options, risks, benefits, and alternatives with patient/parents/legal guardian/POA. Questions invited. The patient/parents/legal guardian/POA seems to understand and agrees to proceedwith anesthesia plan. Reviewed the physical assessment, medical history, allergy history and patient home medications list prior to surgery/procedure/anesthetic and documented any changes. Performed airway and anesthesia risk assessments. Anesthesia Type Anesthesia Type: General (Discussed the risks of sore throat, injury to the dentition, MD, stroke, seizures.) and Block (We discussed an interscalene block with ultrasound guidance. We discussed the risks of injury to the nerves, Irma syndrome, phrenic nerve paralysis, lack of efficacy, bleeding, infection.) History Source History Obtained from:: Patient and Chart Anesthesia Focused Assessment* Temperature: 98.3 F Pulse Rate: 69 Blood Pressure: 135/63 Respiratory Rate: 16 Pulse Ox: 99 Oxygen Delivery Method: Room Air Airway Assessment Mouth opens: >3 cm Mallampati Score: II Teeth Condition: Intact Labs Anesthesia Preop lab: CBC WBC 8.6 K/mm3 (4.4-11.0) 08/11/24 07:41 08/11/24 RBC 3.93 M/mm3 (4.2-5.4) L 08/11/24 07:41 08/11/24 Hgb 11.9 g/dL (12.0-15.0) L 08/11/24 07:41 5 Hct 36.0 % (37-47) L 08/11/24 07:41 08/11/24 Plt Count 310 K/mm3 (150-450) 08/11/24 07:41 08/11/24 CHEMISTRY Potassium 4.2 mmol/L (3.3-5.1) 08/11/24 07:41 08/11/24 Sodium 136 mmol/L (133-145) 08/11/24 07:41 08/11/24 Magnesium 1.8 mg/dL (1.5-2.2) 08/11/24 07:41 08/11/24 Phosphorus 3.6 mg/dL (2.5-4.9) 11/07/13 11:28 11/07/13 BUN 26 mg/dL (4-19) H 08/11/24 07:41 08/11/24 Creatinine 1.24 mg/dL (0.70-1.20) H 08/11/24 07:41 Glucose 170 mg/dL (70-99) H 08/11/24 07:41 08/11/24 POC Glucose 180 mg/dL (74-106) H 09/12/24 08:37 09/12/24 TSH 3.60 uIU/mL (0.358-3.74) 10/27/22 08:28 COAG Pre-Assessment Diagnosis/Proposed Procedure Planned Operative Procedure(s): (R) RIGHT REVERSE TOTAL SHOULDER ARTHROPLASTY, ERAS Anesthesia History 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 When Was Last Pacemaker Check QUESTION #4 FULL TEXT: You/Your Family Experience fever (hyperthermia) with Anesthesia Last Oral Intake Last Oral intake: Last Oral Intake NPO since 23:00 09/12/24 08:45 Meds taken in AM with sips of Yes 09/12/24 08:45 water? 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 - facilities technician: PONV - facilities technician Female Yes 08/15/24 15:45 HX of Motion Sickness No 08/15/24 15:45 HX of N/V After Surgery No 08/15/24 15:45 Non-Smoker Yes 08/15/24 15:45 Duration of Surgery greater Yes 08/15/24 15:45 than 60 minutes Number of Risk Factors 3 08/15/24 15:45 PONV Score Moderate Risk 08/15/24 15:45 Height & Weight Height & Weight: Anesthesia: Height & Weight Height 5 ft 4 in 09/12/24 08:45 Weight: 77 kg 09/12/24 08:45 Body Mass Index (BMI) 29.1 09/12/24 08:45 Respiratory Assessment Respiratory Assessment - facilities technician: Respiratory Tract Infection Hx - facilities technician Hx Respiratory Tract Infection No 08/15/24 15:45 STOP Sleep Apnea STOP Sleep Apnea - facilities technician: STOP Sleep Apnea - facilities technician Hx Hypertension Yes: CONTROLLED ON MED 08/15/24 15:45 Hx Sleep Apnea No 08/15/24 15:45 CPAP No 08/15/24 15:45 BIPAP No 08/15/24 15:45 Do you snore loudly (louder No 08/15/24 15:45 than talking or can be heard Do you often feel tired/ No 08/15/24 15:45 fatigued/ sleepy during daytime? Has anyone observed you stop No 08/15/24 15:45 breathing during sleep? STOP Results Negative 08/15/24 15:45 QUESTION #5 FULL TEXT : Do you snore loudly (louder than talking or can be heard through closed doors)? 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 Specify any problems Hx of Preganancy in last 3 No 08/15/24 15:45 Months Nurse Filling Out Transfusion VCHRISTIN 08/15/24 15:45 & Questions: Date: 08/15/24 08/15/24 15:45 Time: 15:48 08/15/24 15:45 Patient unable to answer at this time (ie. confused, unrespo /Reproduction History /Reproductive History - facilities technician: /Reproductive Hx- facilities technician Hx Now No 08/15/24 15:45 Gestational Age (in weeks): EDC: Hx Hx Para Hx Section SAB No 08/15/24 15:45 Active Medications Active Medications: Current Medications Generic Name Dose Route Start Last Admin Trade Name Freq PRN Reason Stop Dose Admin Lactated Ringer's 1,000 mls @ 125 mls/hr 09/12/24 07:30 IV 09/12/24 15:29 .Q8H SANGITA Lactated Ringer's 1,000 mls @ 15 mls/hr 09/12/24 08:30 IV .Q48H SANIGTA Insulin Human Lispro 1 - 6 unit 09/12/24 07:30 09/12/24 08:58 Insulin Lispro 100 Unit/Ml Insuln.Pen SC 1 u Q4H PRN PRN Administration BG>/= 180, SEE PROTOCOL Protocol PFSH Medical History History of steroid therapy Fatty liver Excessive bleeding Hypertension Subclavian artery stenosis, left Generalized anxiety disorder [...] Chest pain Heart disease Diabetes Home Medications ?Medication ?Instructions ?Recorded ?Last Taken ?Type atenolol 100 mg tablet (Tenormin) 100 mg PO QHS 09/11/24 History albuterol sulfate 90 mcg/actuation 1 - 2 puff inhalati on Q4H PRN PRN 06/07/13 Unknown History aerosol inhaler (Ventolin HFA) Wheezing aspirin 81 mg chewable tablet 81 mg PO DAILY@00 12/0109/05/24 History lorazepam 0.5 mg tablet 0.5 mg PO Q6H PRN PRN Anxiet y 12/24/19 Unknown History clopidogrel 75 mg tablet (Plavix) 75 mg PO DAILY 01/2909/05/24 History losartan 100 1 tab PO DAILY 01/29/2208/30 History mg-hydrochlorothiazide 25 mg tablet multivitamin 1 tab PO DAILY 01/29/22 Unkn own History tramadol 50 mg tablet 50 mg PO TID PRN Pain Unknown History valacyclovir 1 gram tablet 1,000 mg PO Q12H PRN Cold S ores 02/05/22 Unknown History phenazopyridine 95 mg tablet 95 mg PO TID PRN URINATIO N 03/23/23 Unknown History GLUCOBIO 2 tab PO DAILY 08/15/24 Unkn own History amlodipine 5 mg tablet 5 mg PO DAILY 08/15/2409/12 History d-mannose 500 mg capsule (AZO 500 mg PO DAILY 08/15/24 Unknown History D-Mannose) estradiol 0.01% (0.1 mg/gram) 1 appful vaginal .3 TIME S WEEKLY 08/15/24 Unknown History vaginal cream ibuprofen 200 mg tablet (Advil) 400 mg PO Q8H PRN pain 08/15/24 Unknown History Allergy/AdvReac Type Severity Reaction Status Date / Time minocycline Allergy Unknown unknown Verified 09/12/24 08:51 ciprofloxacin Allergy Other Verified 09/12/24 08:51 erythromycin base Allergy Swelling Verified 09/12/24 08:51 (Erythromycin Base) Penicillins Allergy Swelling Verified 09/12/24 08:51 prednisone Allergy Swelling Verified 09/12/24 08:51 Sulfa (Sulfonamide Allergy Unknown Verified 09/12/24 08:51 Antibiotics) Family History Father Hypertension Heart disease [...] what type of physical activity do you participate in: walking additional social history: Spouse - Orlin Review of Systems (Anesthesia) ROS Narrative System reviewed and no additional complaints, except as documented. Physical Exam Const alert and oriented x3 Neuro oriented x3 and moves all extremities 09/12/24 0942 <Electronically signed by Moshe Miller> Date _ Moshe Michel MD Cosigner Signature: Date CC: ~ Signed [facility] Work Phone: 1(169) 402-163107-14-2025 Evaluation note* Diagnosis Onset Date Resolution Status Admit Date Status post reverse total arthroplasty of right shoulder acute J lj 2024 8:07am Essential hypertension chronic Ju ly 2024 8:07am [facility] Work Phone: 1(819) 353-568607-14-2025 Consult note [facility] Medical Records Department [address] [place] [address] Pre-Anesthesia Evaluation 09/12/24 0941 MR#: [id number] Acct: [id number] Name: SHIPMANFIOR Rep #:[id number] : 1950 73 From: Moshe Michel MD PCP: Dr. Yon Preciado DO Status:REG SDC Y Race: C Location: [place] [address] ASA Classification* ASA Classification ASA Classification: 3 Assessment & Plan Anesthesia* Anesthesia Assessment Anesthesia Assessment: Discussed sedation and/or anesthesia options, risks, benefits, and alternatives with patient/parents/legal guardian/POA. Questions invited. The patient/parents/legal guardian/POA seems to understand and agrees to proceedwith anesthesia plan. Reviewed the physical assessment, medical history, allergy history and patient home medications list prior to surgery/procedure/anesthetic and documented any changes. Performed airway and anesthesia risk assessments. Anesthesia Type Anesthesia Type: General (Discussed the risks of sore throat, injury to the dentition, MD, stroke, seizures.) and Block (We discussed an interscalene block with ultrasound guidance. We discussed the risks of injury to the nerves, Irma syndrome, phrenic nerve paralysis, lack of efficacy, bleeding,infection.) History Source History Obtained from:: Patient and Chart Anesthesia Focused Assessment* Temperature: 98.3 F Pulse Rate: 69 Blood Pressure: 135/63 Respiratory Rate: 16 Pulse Ox: 99 Oxygen Delivery Method: Room Air Airway Assessment Mouth opens: >3 cm Mallampati Score: II Teeth Condition: Intact Labs Anesthesia Preop lab: CBC WBC 8.6 K/mm3 (4.4-11.0) 08/11/24 07:41 08/11/24 RBC 3.93 M/mm3 (4.2-5.4) L 08/11/24 07:41 08/11/24 Hgb 11.9 g/dL (12.0-15.0) L 08/11/24 07:41 5 Hct 36.0 % (37-47) L 08/11/24 07:41 08/11/24 Plt Count 310 K/mm3 (150-450) 08/11/24 07:41 08/11/24 CHEMISTRY Potassium 4.2 mmol/L (3.3-5.1) 08/11/24 07:41 08/11/24 Sodium 136 mmol/L (133-145) 08/11/24 07:41 08/11/24 Magnesium 1.8 mg/dL (1.5-2.2) 08/11/24 07:41 08/11/24 Phosphorus 3.6 mg/dL (2.5-4.9) 11/07/13 11:28 11/07/13 BUN 26 mg/dL (4-19) H 08/11/24 07:41 08/11/24 Creatinine 1.24 mg/dL (0.70-1.20) H 08/11/24 07:41 Glucose 170 mg/dL (70-99) H 08/11/24 07:41 08/11/24 POC Glucose 180 mg/dL (74-106) H 09/12/24 08:37 09/12/24 TSH 3.60 uIU/mL (0.358-3.74) 10/27/22 08:28 COAG Pre-Assessment Diagnosis/Proposed Procedure Planned Operative Procedure(s): (R) RIGHT REVERSE TOTAL SHOULDER ARTHROPLASTY, ERAS Anesthesia History 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 When Was Last Pacemaker Check QUESTION #4 FULL TEXT: You/Your Family Experience fever (hyperthermia) with Anesthesia Last Oral Intake Last Oral intake: Last Oral Intake NPO since 23:00 09/12/24 08:45 Meds taken in AM with sips of Yes 09/12/24 08:45 water? 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 - facilities technician: PONV - facilities technician Female Yes 08/15/24 15:45 HX of Motion Sickness No 08/15/24 15:45 HX of N/V After Surgery No 08/15/24 15:45 Non-Smoker Yes 08/15/24 15:45 Duration of Surgery greater Yes 08/15/24 15:45 than 60 minutes Number of Risk Factors 3 08/15/24 15:45 PONV Score Moderate Risk 08/15/24 15:45 Height & Weight Height & Weight: Anesthesia: Height & Weight Height 5 ft 4 in 09/12/24 08:45 Weight: 77 kg 09/12/24 08:45 Body Mass Index (BMI) 29.1 09/12/24 08:45 Respiratory Assessment Respiratory Assessment - facilities technician: Respiratory Tract Infection Hx - facilities technician Hx Respiratory Tract Infection No 08/15/24 15:45 STOP Sleep Apnea STOP Sleep Apnea - facilities technician: STOP Sleep Apnea - facilities technician Hx Hypertension Yes: CONTROLLED ON MED 08/15/24 15:45 Hx Sleep Apnea No 08/15/24 15:45 CPAP No 08/15/24 15:45 BIPAP No 08/15/24 15:45 Do you snore loudly (louder No 08/15/24 15:45 than talking or can be heard Do you often feel tired/ No 08/15/24 15:45 fatigued/ sleepy during daytime? Has anyone observed you stop No 08/15/24 15:45 breathing during sleep? STOP Results Negative 08/15/24 15:45 QUESTION #5 FULL TEXT : Do you snore loudly (louder than talking or can be heard through closeddoors)? 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 Specify any problems Hx of Preganancy in last 3 No 08/15/24 15:45 Months Nurse Filling Out Transfusion VCHRISTIN 08/15/24 15:45 & Questions: Date: 08/15/24 08/15/24 15:45 Time: 15:48 08/15/24 15:45 Patient unable to answer at this time (ie. confused, unrespo /Reproduction History /Reproductive History - facilities technician: /Reproductive Hx- facilities technician Hx Now No 08/15/24 15:45 Gestational Age (in weeks): EDC: Hx Hx Para Hx Section SAB No 08/15/24 15:45 Active Medications Active Medications: Current Medications Generic Name Dose Route Start Last Admin Trade Name Freq PRN Reason Stop Dose Admin Lactated Ringer's 1,000 mls @ 125 mls/hr 09/12/24 07:30 IV 09/12/24 15:29 .Q8H SANGITA Lactated Ringer's 1,000 mls @ 15 mls/hr 09/12/24 08:30 IV .Q48H SANGITA Insulin Human Lispro 1 - 6 unit 09/12/24 07:30 09/12/24 08:58 Insulin Lispro 100 Unit/Ml Insuln.Pen SC 1 u Q4H PRN PRN Administration BG>/= 180, SEE PROTOCOL Protocol PFSH Medical History History of steroid therapy Fatty liver Excessive bleeding Hypertension Subclavian artery stenosis, left Generalized anxiety disorder [...] Chest pain Heart disease Diabetes Home Medications ?Medication ?Instructions ?Recorded ?Last Taken ?Type atenolol 100 mg tablet (Tenormin) 100 mg PO QHS 09/11/24 History albuterol sulfate 90 mcg/actuation 1 - 2 puff inhalati on Q4H PRN PRN 06/07/13 Unknown History aerosol inhaler (Ventolin HFA) Wheezing aspirin 81 mg chewable tablet 81 mg PO DAILY@0800 12/0109/05/24 History lorazepam 0.5 mg tablet 0.5 mg PO Q6H PRN PRN Anxiet y 12/24/19 Unknown History clopidogrel 75 mg tablet (Plavix) 75 mg PO DAILY 01/2909/05/24 History losartan 100 1 tab PO DAILY 01/29/2208/30 History mg-hydrochlorothiazide 25 mg tablet multivitamin 1 tab PO DAILY 01/29/22 Unkn own History tramadol 50 mg tablet 50 mg PO TID PRN Pain Unknown History valacyclovir 1 gram tablet 1,000 mg PO Q12H PRN Cold S ores 02/05/22 Unknown History phenazopyridine 95 mg tablet 95 mg PO TID PRN URINATIO N 03/23/23 Unknown History GLUCOBIO 2 tab PO DAILY 08/15/24 Unkn own History amlodipine 5 mg tablet 5 mg PO DAILY 08/15/2409/12 History d-mannose 500 mg capsule (AZO 500 mg PO DAILY 08/15/24 Unknown History D-Mannose) estradiol 0.01% (0.1 mg/gram) 1 appful vaginal .3 TIME S WEEKLY 08/15/24 Unknown History vaginal cream ibuprofen 200 mg tablet (Advil) 400 mg PO Q8H PRN pain 08/15/24 Unknown History Allergy/AdvReac Type Severity Reaction Status Date / Time minocycline Allergy Unknown unknown Verified 09/12/24 08:51 ciprofloxacin Allergy Other Verified 09/12/24 08:51 erythromycin base Allergy Swelling Verified 09/12/24 08:51 (Erythromycin Base) Penicillins Allergy Swelling Verified 09/12/24 08:51 prednisone Allergy Swelling Verified 09/12/24 08:51 Sulfa (Sulfonamide Allergy Unknown Verified 09/12/24 08:51 Antibiotics) Family History Father Hypertension Heart disease [...] what type of physical activity do you participate in: walking additional social history: Spouse - Orlin Review of Systems (Anesthesia) ROS Narrative System reviewed and no additional complaints, except as documented. Physical Exam Const alert and oriented x3 Neuro oriented x3 and moves all extremities 09/12/24 0942 D> Date _ Moshe Michel MD Cosigner Signature: Date CC: ~ Signed [facility]07-09-2025 Radiology Diagnostic study note [facility] Imaging Services [address] [place] [address] Chest WITH Contrast MR#: [id number] Acct: [id number] Name: FIOR SHIPMAN Ezequiel Rep #: [id number] : 1950 F 73 From: Kimani Stephen MD PCP: Dr. Yno Preciado DO Status: REG CLI Study:Chest WITH Contrast Date of Exam: 09/07/24 Exam# [id number] Ordering Dr: Yon Preciado DO PROCEDURE: CHEST WITH CONTRAST 09/07/2024 REASON FOR EXAM: SOLITARY PULM NODULE; follow-up TECHNIQUE: CHEST WITH CONTRAST Coronal and Sagittal reconstruction series were provided. CONTRAST: Isovue 300 VOLUME: 97 mL One or more dose reduction techniques were used (e.g., Automated exposure control, adjustment of the mA and/or kV according to patient size, use of iterative reconstruction technique). RADIATION DOSE SUMMARY: DLP: 466.53 mGycm COMPARISON: CT right upper extremity 08/11/2024. No other relevant prior exams. FINDINGS: Lungs/pleura: Spiculated 7 mm nodule in the anterior right lung apex (S4 image 36). Additional smaller spiculated and partially subsolid nodule measuring 4 mm in the right apex (S4 image 33). 5 mm solid nodule in the right upper lobe (S4 image 41). Comparison is made with CT of the right upper extremity 08/11/2024 for baseline,no significant interval change. Mild diffuse bilateral subpleural reticular/interstitial fibrotic lung changes. No confluentairspace consolidation. Patent central airways. No pneumothorax or pleural effusions. Mediastinum/nodes: No enlarged mediastinal, hilar, or axillary lymph nodes. Heart and Vasculature: Normal in size. No pericardial effusion. Moderate coronary artery calcifications. Normal course and caliber of the visualized thoracic aorta. Moderate atherosclerotic disease. Vascular stent in placewithin the origin of the left subclavian artery. Upper Abdomen: Hepatic steatosis. Otherwise, unremarkable. Bones: Qualitative osteopenia. No aggressive osseous lesion identified. Multilevel degenerative changes of the spine with thoracic DISH. Moderate bilateral glenohumeral and AC joint arthrosis. CT/Chest WITH Contrast IMPRESSION: Few subcentimeter nodules in the right upper lobe as noted, the largest with spiculated margins andmeasuring up to 7 mm. Unchanged compared with CT of the right upper extremity dated 08/11/2024. Recommend follow-up low-dose noncontrast chest CT in 3-6 months to reassess. Reading Location: [id number] CC: Dr. Yon Preciado DO ~ Full Stack Php Developer: Signed [facility]06-12-2025 Radiology Diagnostic study note [facility] Imaging Services [address] [place], [place] [address] Extremity Upper without Contra MR#: [id number] Acct: [id number] Name: FIOR SHIPMAN Rep #: [id number] : 1950 F 73 From: Haim Mercado MD PCP: Dr. Yon Preciado DO Status: REG CLI Study:Extremity Upper without Contra Date of Exam: 08/11/24 Exam# [id number] Ordering Dr: Delgado Aragon DO PROCEDURE: EXTREMITY UPPER WITHOUT CONTRA 08/11/2024 REASON FOR EXAM: PRIMARY OSTEOARTHRITIS TECHNIQUE: Axial CT images of the right shoulder obtained without intravenous contrast. Coronal and Sagittal reconstruction series were provided. One or more dose reduction techniques were used (e.g., Automated exposure control, adjustment of the mA and/or kV according to patient size, use of iterative reconstruction technique RADIATION DOSE SUMMARY: DLP: 532.89 mGycm COMPARISON: None FINDINGS: Bones: There is moderate AC joint hypertrophy without evidence of separation. There is a type 2 acromion. There is severe osteoarthritis of the glenohumeral articulation with flattening of the articularsurfaces, subcortical cyst formation, and marginal osteophytes. No acute fracture or dislocation is identified. There isno visible muscular atrophy. No soft tissue mass or pathologic adenopathy is identified. Atherosclerotic calcifications arevisible. Soft Tissues: There is a 1 cm irregular solid nodular density in the right upperlung, axial image 42/75. there is a 0.4 cm solid nodule in the right upper lung, image 48/75. CT/Extremity Upper without Contra IMPRESSION: There is severe osteoarthritis of the glenohumeral articulation with flattening of the articular surfaces, subcortical cyst formation, and marginal osteophytes. There is a 1 cm irregular solid nodular density in the right upper lung, axial image 42/75. there is a 0.4 cm solid nodule in the right upper lung, image 48/75. Chest CT correlation is recommended. Reading Location: [facility] CC: Dr. Yon Preciado DO; Dr. Delgado Aragon DO ~ Full Stack Php Developer: Signed [facility]04-05-2025 Radiology Diagnostic study note [facility] Imaging Services [address] [place], [place] [id number] Kidney and Bladder MR#: [id number] Acct: [id number] Name: FIOR SHIPMAN Rep #: [id number] : 1950 F 73 From: De Dunne MD PCP: Dr. Yon Preciado DO Status: REG CLI Study:Kidney and Bladder Date of Exam: 0 06/03/24 Exam# [id number] Ordering Dr: Emily Moncada MD PROCEDURE: KIDNEY AND BLADDER 06/03/2024 REASON FOR EXAM: UTI TECHNIQUE: Bilateral renal and bladder ultrasound. FINDINGS: The bladder with volume 118 cc and wall thickness of 3 mm appears within limits. Bilateral ureteraljets are noted during imaging. Distal ureters are [...] of renal cysts as above. Reading Location: [facility] CC: Dr. Emily Moncada MD; Dr. Yon Preciado DO ~ Full Stack Php Developer: Signed [facility]03-13-2025 Radiology Diagnostic study note [facility] Imaging Services [address] [place] [address] Chest PA and Lateral MR#: [id number] Acct: [id number] Name: FIOR SHIPMAN Rep #: [id number] : 1950 F 73 From: De Dunne MD PCP: Dr. Yon Preciado DO Status: REG ER Study:Chest PA and Lateral Date of Exam: 05/11/24 Exam# [id number] Ordering Dr: Joaquin Coello DO PROCEDURE: CHEST [...] cardiac and mediastinal contours appear within limits. Heavyatherosclerotic calcification again noted. Visualized osseous structures are within limits. RAD/Chest PA and Lateral IMPRESSION: Appearance of ill-defined opacity at the peripheral mid to lower left lung on the frontal view concerning for possible infiltrate, clinically correlate. The lungs otherwise appear clear. Reading Location: [id number] CC: Dr. Sari Coello, DO; Dr. Yon Preciado, DO ~ Full Stack Php Developer: Signed [facility]01-22-2024 NotePap Smear Specimen AdequacyJanuary 2023 4:00pmComment.Satisfactory for evaluation. Endocervical and/or squamous metaplasticcells (endocervical component)are present.[facility] INTER[facility]ED A#[id number] Fostoria Community HospitalComment on above:Satisfactory for evaluation. Endocervical and/or squamous metaplasticcells (endocervical component)are present.03-23-2023 NotePap Smear Specimen AdequacyJanuary 2023 4:00pmComment.Satisfactory for evaluation. Endocervical and/or squamous metaplasticcells (endocervical component)are present.[facility] INTER[facility] A#[id number] Fostoria Community HospitalComment on above:Satisfactory for evaluation. Endocervical and/or squamous metaplasticcells (endocervical component)are present.Evaluation noteNo assessment information availableWMadison Health Work Phone: Evaluation note* Diagnosis Onset Date Resolution Status Spinal stenosis of lumbar region acute [facility] Work Phone: Evaluation note* Diagnosis Onset Date Resolution Status Spinal stenosis of lumbar region acute Spinal stenosis of lumbar region acute Preop cardiovascular exam [place] Carotid stenosis chronic Essential hypertension chron ic Hyperlipidemia chronic Spinal stenosis of lumbar region acute S/P laminectomy acute Spinal stenosis of lumbar region acute Essential hypertension chron ic Hyperlipidemia chronic [facility] Work Phone: Evaluation note* Diagnosis Onset Date Resolution Status Thickened endometrium acute [facility] Work Phone: Hospital Discharge instructions Additional Instructions Please follow-up with your primary care doctor. Your workup today was largely normal and reassuring. I suspect this is more muscle skeletal at this time. Continue to take [id number] ibuprofen and use heat. You have been given a prescription for muscle relaxer for breakthrough pain/discomfort. Please be aware that this can increase the risk of confusion and sleepiness. Do not operate heavy machinery while taking it.[facility] Work Phone: Hospital Discharge instructionsAdditional Instructions Date of Discharge: 09/13/24WMadison Health Work Phone: Reason for referral (narrative)No reason for referral information availableWMadison Health Work Phone: Summary Purpose Family History Relationship Condition Age at Onset Recorded Date/T [...] Malignant neoplasm of pancreas Unknown Advance Directives Advance Directive Response Recorded Date/ Time Advance Directives No July 29 4 1:01pm Living Will No December 23 12:33pm Power of Tax Representative No December 24, 2019 12:33pm Advance Directive Response Recorded Date/ Time Advance Directives No July 29 4 12:01pm Living Will No February 11, 2 022 3:17pm Power of Tax Representative No February 11, 2022 3:17pm Advance Directive Response Recorded Date/ Time Advance Directives No July 29 4 1:01pm Living Will No February 11, 2 022 4:17pm Power of Tax Representative No February 11, 2022 4:17pm Advance Directive Response Recorded Date/ Time Advance Directives No July 29 4 12:01pm Advance Directive Response Recorded Date/ Time Living Will No May 11, 2024 10:51pm Power of Tax Representative No May 11 10:51pm Advance Directives No July 29 4 1:01pm Advance Directive Response Recorded Date/ Time Living Will No May 11, 2024 10:51pm Do you have a Healthcare Power of Tax Representative? No May 11, 2024 10:51pm Advance Directives No July 29 4 1:01pm Advance Directive Response Recorded Date/ Time Do you have a Healthcare Power of Tax Representative? No September 12, 2024 1:32pm Advance Directives No July 29 4 1:01pm Chief Complaint and Reason for Visit [...] 51pm UTI June 03, 2024 5:01 pm Chief Complaint Admit Date AFTERCARE April 25, 2024 7:30am Urinary tract infection, site not specif ied May 06, 2024 3:38pm CP May 11, 2024 10: 51pm UTI June 03, 2024 5:01 pm RIGHT SHOULDER TEAR July 27, 2024 6:59a m Chief Complaint Admit Date AFTERCARE April 25, 2024 7:30am Urinary tract infection, site not specif ied May 06, 2024 3:38pm CP May 11, 2024 10: 51pm UTI June 03, 2024 5:01 pm RIGHT SHOULDER TEAR July 27, 2024 6:59a m right shoulder blueprint protocol July 312024 7:12am PREOP August 11, 2024 7:16 am Chief Complaint Admit Date UTI June 03, 2024 5:01 pm RIGHT SHOULDER TEAR July 27, 2024 6:59a m right shoulder blueprint protocol July 312024 7:12am PREOP August 11, 2024 7:16 am NODULE September 07, 2024 3:39p m RIGHT REVERSE TOTAL SHOULDER ARTHROPLAST Y, ERAS September 12, 2024 8:07am RIGHT REVERSE TOTAL SHOULDER ARTHROPLAST Y, ERAS September 12, 2024 1:56pm Reason for Visit Admit Date Status post reverse total arthroplasty o f right shoulder September 12, 2024 8:07am Essential hypertension September 12, 2024 8 :07am Additional Source Comments INFORMATION SOURCE (unrecogn ized section and content) DATE CREATED AUTHOR 08/26/2017 [facility] ([place]) DATE CREATED AUTHOR AUTHOR'S ORGANIZ ATION 04/22/2018 [facility] DATE CREATED AUTHOR AUTHOR'S ORGANIZ ATION [facility]13/20[facility] Goals (unrecognized section and content) Goals may [...] Preciado DO Primary Care Provider Active Dr. Laovn Weathers MD Attending Provider, Referr ing Provider Active Team Status: Inactive Member Role Status Dates Dr. Yon Preciado DO Primary Care Provider Active Dr. Alyssa Reddy MD Attending Provider, Referring P rocynthia Active Team Status: Inactive Member Role Status Dates Dr. Yon Preciado DO Primary Care Provider Active Dr. Simone Goyal MD Attending Provider, Referring Provider Active Team [...] 2024 End: April 25, 2024 Dr. Simone Goyal MD Attending Provider Active Start: April 25, 2024 End: April 25, 2024 Dr. Simone Goyal MD Referring Provider Active Start: April 25, [...] June 03, 2024 End: June 03, 2024 Team Status: Inactive Member Role Status Dates Dr. Yon Preciado DO Primary Care Provider Active Start: July 27, 2024 End: July 27, 2024 Dr. Yon Preciado DO Attending Provider Active Start: July 27, 2024 End: July 27, 2024 Dr. Yon Preciado DO Referring Provider Active Start: July 27, 2024 End: July 27, 2024 Team Status: Inactive Member Role Status Dates Dr. Yon Preciado DO Primary Care Provider Active Start: August 11, 2024 End: August 11, 2024 Dr. Delgado Aragon DO Attending Provider Active Start: August 11, 2024 End: August 11, 2024 Dr. Delgado Aragon DO Referring Provider Active Start: August 11, 2024 End: August 11, 2024 Team Status: Active Member Role Status Dates Dr. Yon Preciado DO Primary Care Provider Active Start: August 11, 2024 End: August 11, 2024 Dr. Gigi Prasad MD Attending Provider Active Start: August 11, 2024 End: August 11, 2024 Dr. Delgado Aragon DO Referring Provider Active Start: August 11, 2024 End: August 11, 2024 Team Status: Active Member Role/Relationship Status Dates Dr. Yon Preciado DO Primary Care Provider Active Team Status: Inactive Member Role/Relationship Status Dates Dr. Yon Preciado DO Primary Care Provider Active Start: June 03, 2024 End: June 03, 2024 Dr. Emily Moncada MD Attending Provider Active Start: June 03, 2024 End: June 03, 2024 Dr. Emily Moncada MD Referring Provider Active Start: June 03, 2024 End: June 03, 2024 Team Status: Inactive Member Role/Relationship Status Dates Dr. Yon Preciado DO Primary Care Provider Active Start: July 27, 2024 End: July 27, 2024 Dr. Yon Preciado DO Attending Provider Active Start: July 27, 2024 End: July 27, 2024 Dr. Yon Preciado DO Referring Provider Active Start: July 27, 2024 End: July 27, 2024 Team Status: Inactive Member Role/Relationship Status Dates Dr. Yon Preciado DO Primary Care Provider Active Start: August 11, 2024 End: August 11, 2024 Dr. Delgado Aragon DO Attending Provider Active Start: August 11, 2024 End: August 11, 2024 Dr. Delgado Aragon DO Referring Provider Active Start: August 11, 2024 End: August 11, 2024 Team Status: Active Member Role/Relationship Status Dates Dr. Yon Preciado DO Primary Care Provider Active Start: August 11, 2024 End: August 11, 2024 Dr. Gigi Prasad MD Attending Provider Active Start: August 11, 2024 End: August 11, 2024 Dr. Delgado Aragon DO Referring Provider Active Start: August 11, 2024 End: August 11, 2024 Team Status: Active Member Role/Relationship Status Dates Dr. Yon Preciado DO Primary Care Provider Active Start: September 07, 2024 Dr. Yon Preciado DO Attending Provider Active Start: September 07, 2024 Dr. Yon Preciado DO Referring Provider Active Start: September 07, 2024 Team Status: Inactive Member Role/Relationship Status Dates Dr. Yon Preciado DO Primary Care Provider Active Start: September 12, 2024 End: September 13, 2024 Dr. Delgado Aragon DO Attending Provider Active Start: September 12, 2024 End: September 13, 2024 Dr. Delgado Aragon DO Referring Provider Active Start: September 12, 2024 End: September 13, 2024 Dr. Viktor Duggan DO Other Provider Active Star t: September 12, 2024 End: September 13, 2024 Team Status: Active Member Role/Relationship Status Dates Dr. Yon Preciado DO Primary Care Provider Active Start: September 12, 2024 Dr. Delgado Aragon DO Referring Provider Active Start: September 12, 2024 Dr. Delgado Aragon DO Other Provider Active Start: September 12, 2024 Dr. Emiliano Toledo MD Attending Provider Active Start: September 12, 2024 Dr. Emiliano Toledo MD Other Provider Active Sta rt: September 12, 2024 Team Status: Inactive Member Role/Relationship Status Dates Dr. Yon Preciado DO Primary Care Provider Active Start: September 07, 2024 End: September 07, 2024 Dr. Yon Preciado , Attending Provider Active Start: September 07, 2024 End: September 07, 2024 Dr. Yon Preciado , Referring Provider Active Start: September 07, 2024 End: September 07, 2024 FOR RECORDS PERTAINING TO PATIENTS WHO [...] BE BASED ON THE PRIMARY CLINICAL RECORDS. [employer] [facility]. provides no warranty or guarantee of the accuracy or completeness of information in this document.
== END 2024-09-15 19:25 | disposition home or self-care (01) ==
PROVIDERS: Emergency Provider Emergency Medicine; PCP Family Medicine; Referring Provider Emergency Medicine; Visit Provider Emergency Medicine
DX: R07.9 Chest pain, unspecified (principal); J44.9 Chronic obstructive pulmonary disease, unspecified; E11.51 Type 2 diabetes mellitus with diabetic peripheral angiopathy without gangrene; E11.22 Type 2 diabetes mellitus with diabetic chronic kidney disease; N18.30 Chronic kidney disease, stage 3 unspecified; Z87.891 Personal history of nicotine dependence; E78.00 Pure hypercholesterolemia, unspecified; I12.9 Hypertensive chronic kidney disease with stage 1 through stage 4 chronic kidney disease, or unspecified chronic kidney disease; R06.02 Shortness of breath; Z83.3 Family history of diabetes mellitus; Z96.611 Presence of right artificial shoulder joint; R23.3 Spontaneous ecchymoses; R42 Dizziness and giddiness; Z98.51 Tubal ligation status; R06.00 Dyspnea, unspecified; R11.0 Nausea; M54.2 Cervicalgia
CPT/HCPCS: 71045; 71275; 80048; 84484; 85025; 85610; 93005; 96374; 99284; Q9967; A4216